=== PATIENT | male | born 1940 | race African-American/Black ===

== ENCOUNTER → 2017-12-20 13:47 | Outpatient (CLI) | payer MEDICARE, OTHER, SELFPAY ==
--- NOTE | 2017-12-20 14:00 | CT_ITS ---
STUDY: CT CHEST WITHOUT CONTRAST REASON FOR EXAM: Male, 77 years old. lung mass / nodule RADIATION DOSAGE (If Supplied By Facility): CTDIvol = ( 10.51 ) mGy, DLP = ( 370.28 ) mGycm TECHNIQUE: Transaxial imaging was performed without the administration of intravenous contrast material. Individualized dose optimization techniques were used for this CT. COMPARISON: 08.26.17 FINDINGS: There is no pneumothorax. There are emphysematous changes of the lungs with emphysematous blebs. There is no demonstrated pleural abnormality. There is a 25 mm left upper lobe nodule. This has a cavitary center. There are calcifications of the coronary arteries. Normal mediastinum. Normal hilar regions. Normal pulmonary arteries. There is atherosclerotic calcification of the aortic arch with tortuosity and elongation of the aortic arch and descending thoracic aorta. There are degenerative changes of the shoulders. There are multi-level degenerative changes of the thoracic spine. There is no demonstrated abnormality of the visualized upper abdomen. CT/Chest without Contrast IMPRESSION: Cavitary lesion is visualized in the left upper lobe. This appears relatively stable in size. Its appearance is concerning for underlying neoplasm. Electronically Signed: Carlos Wells MD at 22:45 EDT , Service support ,
== END ==
LOC: CT 13:48
PROVIDERS: Family Provider Family Medicine; PCP Family Medicine; Visit Provider Internal Medicine Critical Care Medicine
DX: R91.1 Solitary pulmonary nodule (principal)
CPT/HCPCS: 71250

== ENCOUNTER → 2018-04-04 14:13 | Outpatient (CLI) | payer MEDICARE, OTHER, SELFPAY ==
--- NOTE | 2018-04-04 14:18 | CT_ITS ---
STUDY: CT CHEST WITHOUT CONTRAST REASON FOR EXAM: Male, 77 years old. Three-month follow-up lung mass. RADIATION DOSAGE (If Supplied By Facility): CTDIvol = ( 10.52 ) mGy, DLP = ( 357.42 ) mGycm TECHNIQUE: Transaxial imaging was performed without the administration of intravenous contrast material. Multiplanar coronal and sagittal images were reformatted. Individualized dose optimization techniques were used for this CT. COMPARISON: CT of the chest, December 20, 2017. FINDINGS: Again seen are diffuse emphysematous changes of the lungs. Again noted is a large spiculated lesion in the left upper lobe measuring 2.6 x 1.6 x 2 cm. This demonstrates internal areas of gas are aeration, suggesting partial cavitation. There is big goals extending to the anterior pleural surface with mild associated pleural tenting.. There is no demonstrated pleural abnormality. Normal heart and pericardium. Normal mediastinum. Normal hilar regions. Normal unenhanced pulmonary arteries. There is atherosclerotic calcification of the aortic arch with tortuosity and elongation of the aortic arch and descending thoracic aorta. There are multi-level degenerative changes of the thoracic spine. There is no demonstrated abnormality of the visualized upper abdomen. CT/Chest without Contrast IMPRESSION: 1. Stable cavitary nodule in the left upper lobe with stranding. 2. Stable emphysematous changes without new mass or infiltrate. Electronically Signed: Trevor Verduzco DO at 14:58 EDT Tel [phone], Service support ,
== END ==
PROVIDERS: Family Provider Family Medicine; PCP Family Medicine; Visit Provider Internal Medicine Critical Care Medicine
DX: R91.8 Other nonspecific abnormal finding of lung field (principal)
CPT/HCPCS: 71250

== ENCOUNTER 2019-01-06 19:33 | Inpatient (IN) | payer MEDICARE, OTHER, SELFPAY ==
[2019-01-06 19:35] VITALS: BP 184/86; PULSE 98; RESP 19; TEMP 37.2; O2SAT 82; BMI 21.7
[2019-01-06 20:07] VITALS: BP 150/75; PULSE 97; RESP 17; O2SAT 97
--- NOTE | 2019-01-06 20:12 | EKG12_ITS ---
Test Reason : FALL Blood Pressure : / mmHG Vent. Rate : 098 BPM Atrial Rate : 098 BPM P-R Int : 224 ms QRS Dur : 072 ms QT Int : 324 ms P-R-T Axes : 053 058 074 degrees QTc Int : 413 ms Sinus rhythm with marked sinus arrhythmia with 1st degree A-V block Possible Left atrial enlargement Borderline ECG Confirmed by JESSE TANG ([id number]), sound editor JEREMIAH BANEGAS ([id number]) on 01/09/2019 4:42:30 PM Also confirmed by JESSE TANG ([id number]), sound editor JEREMIAH BANEGAS ([id number]) on 06/19/2019 3:07:59 PM Referred By: Jessica Blake Confirmed By:JESSE TANG
--- NOTE | 2019-01-06 20:12 | CT_ITS ---
STUDY: CT BRAIN WITHOUT CONTRAST REASON FOR EXAM: Male, 78 years old. Trauma RADIATION DOSAGE (If Supplied By Facility): CTDIvol = ( 44.99 ) mGy, DLP = ( 779.24 ) mGycm TECHNIQUE: Transaxial CT imaging of the brain was performed without administration of intravenous contrast material. Individualized dose optimization techniques were used for this CT. COMPARISON: No relevant priors. FINDINGS: Normal soft tissue structures. Normal calvarium. There is mild cerebral atrophy with widening of the extra-axial spaces and ventricular dilatation. There are areas of decreased attenuation within the white matter tracts of the supratentorial brain, consistent with microvascular disease changes. There are small punctate calcifications of the basal ganglia which are seen in the aging brain as a normal variant. There is an old lacunar infarct of the right basal ganglia. Normal brainstem. Normal cerebellum. There is no intracranial hemorrhage. There are no findings of an acute ischemic infarction. There is mucosal thickening of the left sphenoid sinus. CT/Brain/Head without Contrast IMPRESSION: Chronic involutional changes of the brain. Punctate calcifications in the basal ganglia which are usually idiopathic in an elderly individual. 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 There is no intracranial hemorrhage or calvarial fracture. Electronically Signed: Suman Rodriguez MD at 21:24 EDT , Service support ,
--- NOTE | 2019-01-06 20:13 | CT_ITS ---
STUDY: CT CERVICAL SPINE WITHOUT CONTRAST REASON FOR EXAM: Male, 78 years old. Status post fall. RADIATION DOSAGE (If Supplied By Facility): CTDIvol = ( 26.16 ) mGy, DLP = ( 642.09 ) mGycm TECHNIQUE: High resolution transaxial imaging was performed without contrast material. Sagittal and coronal images were reconstructed. Individualized dose optimization techniques were used for this CT. COMPARISON: None FINDINGS: Normal craniovertebral junction. Normal anterior atlantoaxial articulation. Normal odontoid process. There is straightening of the normal cervical lordosis. Normal vertebral bodies and posterior osseous elements. C2-3: Disc space narrowing. Mild spondylotic bar. There is mild canal stenosis due to shortened pedicles and spondylosis. Left facet hypertrophy. Foraminal stenosis is mild on the right and moderate on the left due to uncinate hypertrophy. C3-4: Disc space narrowing. There is a mild spondylotic bar, greater on the left. There is a small, central disc protrusion. There is mild canal stenosis due to spondylosis, disc protrusion, and shortened pedicles. Foraminal stenosis is mild on the right and moderate on the left due to uncinate hypertrophy. C4-5: Mild disc space narrowing. There is mild canal stenosis due to spondylosis and shortened pedicles. There is marked facet hypertrophy on the right. Foraminal stenosis is mild on the left and severe on the right due to uncinate and facet hypertrophy. C5-6: Disc space narrowing. There is a moderate spondylotic bar. There is severe canal stenosis due to spondylosis and shortened pedicles. There is moderate to severe foraminal stenosis, greater on the left, due to uncinate hypertrophy. C6-7: Disc space narrowing. There is mild canal stenosis due to spondylosis and shortened pedicles. There is severe bilateral foraminal stenosis due to uncinate hypertrophy. C7-T1: Normal endplates. Normal disc height and morphology. There is 2 mm anterolisthesis. Normal central canal. There is mild foraminal encroachment due to uncinate hypertrophy. There is moderate prevertebral edema from C3 through C6 levels. There is mild paraseptal emphysema in the lung apices. CT/Spine Cervical without Contras IMPRESSION: 1. No demonstrated cervical trauma. If the patient has acute, focal neurologic findings, MRI is advised to evaluate for cord contusion. 2. Severe degenerative changes of the cervical spine. 3. Prevertebral edema may indicate ligamentous injury. Electronically Signed: Valeria Sampson MD at 21:06 EDT Tel , Service support ,
[2019-01-06 20:25] LABS: Bacteria 0 SEEN /hpf (None Seen); Mucous, Urine 0 SEEN /hpf (<or=2+); Squamous Epithelial Cells - UA 0 SEEN /hpf (0-5)
--- NOTE | 2019-01-06 20:25 | RAD_ITS ---
STUDY: X-RAY CHEST REASON FOR EXAM: Male, 78 years old. Trauma TECHNIQUE: Single AP portable view of the chest. COMPARISON: Previous study of 09/15/2017 FINDINGS: electronic device monitor leads are present. The lungs are clear and expanded. The left hemidiaphragm is elevated. Normal size heart. Normal mediastinum and bryan. Normal visualized pulmonary arteries. There are calcified plaques of the aortic arch. Normal visualized thoracic spine. There is a region of broad scalloping of the superior aspect of the posterior right fourth rib, similar to the previous study. There is no demonstrated abnormality of the visualized soft tissue structures of the upper abdomen. RAD/Chest 1 View (Portable) IMPRESSION: Elevated left hemidiaphragm. Calcified plaques of the aortic arch. Region of broad-based scalloping of the posterior right fourth rib. This is of unknown etiology, but appears stable from the previous study. No acute cardiopulmonary disease process is seen. Electronically Signed: Suman Rodriguez MD at 20:52 EDT , Service support ,
[2019-01-06 20:26] LABS: Color, Urine Yellow (Yellow); Glucose, Dipstick Normal (Normal); Ketone-Dipstick 5 mg/dl (Negative); Leukocyte Esterase-Dipstick Negative /ul (Negative); Nitrite-Dipstick Negative (Negative); Occult Blood-Urine 150 /ul (Negative); Protein-Dipstick 100 mg/dl (Negative); Urine Clarity Clear (Clear); Urine Urobilinogen 8 mg/dl (Normal)
--- NOTE | 2019-01-06 20:30 | ED.RN ---
this rn tried to contact pt daughter carlito per pt request. phone number [phone]. no answer, unable to leave voicemail. will continue to monitor.
[2019-01-06 20:32] LABS: Urine Bilirubin Dipstick 1 mg/dL (Negative)
[2019-01-06 20:34] LABS: Fine Granular Cast- Urine 0-5 SEEN /lpf (0-5); Hyaline Cast 0-5 SEEN /lpf (0-5)
[2019-01-06 20:35] LABS: Coarse Granular Cast 0-5 SEEN /lpf (0-5 /lpf)
--- NOTE | 2019-01-06 20:37 | ED.VISSUMM ---
- ER Visit Summary Date of Service: 01/06/19 Chief Complaint: Fall, generalized weakness History of Present Illness: The patient is a 78 M presenting after fall. Patient states he has fallen frequently over the past 2 days. He states he has fallen 3 times. He states he loses his balance and falls. He was unable to get up today after the fall. He did hit his head. Denies loss of consciousness. Denies other injury with the fall. He states he just feels generally weak and tired. He denies chest pain. He has chronic shortness of breath. Physical Examination: Vitals are stable. Patient is afebrile. Alert no acute distress. HEENT exam is unremarkable. Neck is supple. Mild diffuse tenderness Lungs are clear and equal bilaterally. Heart is regular rate and rhythm. Abdomen is soft nontender nondistended. Extremities are unremarkable. Skin is warm and dry. No focal neurologic deficit. Remainder of exam is unremarkable. Emergency Department Course and Treatment: EKG is sinus rate of 98. CBC shows white count 16.5. Chemistry shows sodium 127, potassium 3.1, glucose 146, creatinine 1.59. Urinalysis unremarkable. Troponin negative. Chest x-ray shows no acute process. CT cervical spine shows no evidence of fracture. CT head shows chronic changes. Due to patient's frequent falling and debility, discussed with the hospitalist for admission. Disposition: Admission Impression: Frequent falls, debility This note was generated with [employer] dictation software. It may contain incorrect words, spelling, and punctuation that were not noted in review of the chart prior to signing ED Disposition - Plan for ED Patient: Referrals: Ariel Ferro MD [Primary Care Provider] -
[2019-01-06 20:38] LABS: Red Blood Cells-Urine 0-5 SEEN /hpf (0-5)
[2019-01-06 20:39] LABS: White Blood Cells 0-5 SEEN /hpf (0-5)
[2019-01-06 20:44] LABS: Absolute Lymphocyte Count 0.82 X10^3/ul (0.83-4.51); Absolute Neutrophil Count 15.2 X10^3/uL (2.0-7.7); Basophil# 0.02 X10^3/uL; Basophil% 0.1 % (0-1); Hematocrit 36.2 % (40-54); Hemoglobin 13.2 g/dl (13.0-16.5); Lymphocyte # 0.82 X10^3/ul (4.0); Mean Corp Hgb Conc 36.5 g/gl (32-36); Mean Corpuscular Hgb 32.3 pg (27.0-32.0); Mean Corpuscular Volume 88.5 fL (80-94); Mean Platelet Vol. 10.3 fl (6.2-12.0); Monocyte# 0.44 X10^3/uL; Monocyte% 2.7 % (0-10); Neutrophil # 15.18 X10^3/uL (2.7-7.7); Neutrophil % 91.9 % (47-70); POSITIVE COUNT NO; POSITIVE DIFFERENTIAL NO; POSITIVE MORPHOLOGY NO; Platelet Count 184 K/mm3 (150-450); RBC Distribution Width SD 42.5 fl (35.1-43.9); Red Blood Count 4.09 M/mm3 (4.6-6.2); White Blood Count 16.5 K/mm3 (4.4-11.0)
[2019-01-06 21:02] LABS: Anion Gap 10 (5-15); BUN 24 mg/dL (7-18); BUN/Creat Ratio 15.1 RATIO (10-20); Calcium,Total 8.4 mg/dL (8.5-10.1); Chloride 90 mmol/L (98-107); Creatinine, Serum 1.59 mg/dL (0.70-1.30); EST Glomerular Filtration Rate 45 mL/min (>60); Est Glom Filt Rate - Afr Amer 54 mL/min (>60); Estimated Creatinine Clearance 39.26 ml/min; Glucose 146 mg/dL (74-106); Potassium 3.1 mmol/L (3.5-5.1); Sodium Level 127 mmol/L (136-145)
--- NOTE | 2019-01-06 21:39 | HP.PCM_ITS ---
Problem List (1) Diabetic foot infection Status: Acute (2) Hyponatremia Status: Acute (3) Hypokalemia Status: Acute (4) Asthma Status: Chronic Qualifiers: Asthma severity: mild Asthma persistence: intermittent Asthma complication type: uncomplicated Qualified Code(s): J45.20 - Mild intermittent asthma, uncomplicated (5) Tobacco abuse Status: Chronic (6) Lung mass Status: Acute Comment: Approximately 2 cm left upper lobe cavitary lesion (7) COPD (chronic obstructive pulmonary disease) Status: Chronic Qualifiers: COPD type: emphysema Emphysema type: centrilobular Qualified Code(s): J43.2 - Centrilobular emphysema; J43.2 - Centrilobular emphysema; J43.2 - Centrilobular emphysema; J43.2 - Centrilobular emphysema (8) Diabetes mellitus Status: Chronic Qualifiers: Diabetes mellitus type: type 2 Diabetes mellitus buttermaker insulin use: without nursing home use Diabetes mellitus complication status: with unspecified complications Qualified Code(s): E11.8 - Type 2 diabetes mellitus with unspecified complications (9) HTN (hypertension) Status: Chronic Qualifiers: Hypertension type: essential hypertension Qualified Code(s): I10 - Essential (primary) hypertension (10) Hyperlipidemia Status: Chronic (11) Chronic steroid use Status: Chronic History of Present Illness Date of Admission: 01/06/19 Chief Complaint: Mechanical fall, debility The patient is a 78 y/o M w/ PMHx: CKD stage III, Chronic COPD/Asthma, Diabetes mellitus type II, HTN, HLD, Tobacco use, Chronic hyponatremia (128-133) who presents to the [facility] ED on 01/06/19 with history of mechanical fall, 3 times on day of ED presentation, in his home, could not standup, EMS called and he could not even ambulate with them secondary to severe debility. Work-up in the ED included T 99, heart rate 98, BP initially 184/86 with repeat 150/75, respiratory rate 19, initially 82% on room air with improvement to 92% on RA, CBC with WBC 16.5, heme globin 13.2, platelet 184 with left shift, BMP with sodium 127, potassium 3.1, chloride 90, BUN/creatinine 24/1.59, glucose 146, troponin less than 0.015, urinalysis with evidence of dehydration otherwise no obvious infection, CT brain with chronic involutional changes, punctate calcifications in the basal ganglia idiopathic usually in the elderly, old lacunar infarct in the right basal ganglia, chronic left sphenoid sinusitis, no evidence of intracranial hemorrhage or calvarial fracture, cervical CT spine with no demonstrated cervical trauma, severe degenerative changes of the cervical spine, possibly prevertebral edema suspicious for ligamentous injury, chest x-ray with elevated left hemidiaphragm, calcified plaques of the aortic ar ch, broad-based scalloping of the posterior right fourth rib of unknown etiology but stable from prior studies with no acute cardiopulmonary findings. 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 Discussed with the ED physician and plain film of the foot requested. Also requested that patient be initiated on broad-spectrum antibiotic therapy given presentation with WBC elevation with left shift with unclear initial etiology but now likely frequent falls and presentation associated. Discussed patient status at length and he does admit that he frequently works and is in stagnant water and unclear how often he actually changes his socks which were caked onto his lower extremity and difficult to remove. Past Medical History Past Medical History (Chronic Problems): Chronic Problems (Last Reviewed 08/04/18 @ 13:58 by Jaclyn Luna) Chronic steroid use (Chronic) Asthma (Chronic) Cough (Chronic) Tobacco abuse (Chronic) COPD (chronic obstructive pulmonary disease) (Chronic) Diabetes mellitus (Chronic) HTN (hypertension) (Chronic) Hyperlipidemia (Chronic) Medical History: Medical History (Last Reviewed 08/04/18 @ 13:58 by Jaclyn Luna) Colonoscopy planned (Resolved) Asthma (Chronic) J45.909 Cough (Chronic) R05 Dyspnea (Acute) R06.00 Tobacco abuse (Chronic) Z72.0 Lung mass (Acute) R91.8 Approximately 2 cm left upper lobe cavitary lesion COPD (chronic obstructive pulmonary disease) (Chronic) J44.9 Hypoxia (Acute) R09.02 Diabetes mellitus (Chronic) E11.9 HTN (hypertension) (Chronic) I10 Hyperlipidemia (Chronic) E78.5 ZACHARY (acute kidney injury) (Acute) N17.9 Pneumonia (Acute) J18.9 Sepsis (Acute) A41.9 Hyponatremia (Acute) E87.1 Allergies No Known Allergies Allergy (Verified 09/15/17 09:11) Home Medications: Ambulatory Orders Medication Instructions Recorded Amlodipine [Norvasc] 10 mg PO DAILY 04/30/14 Atenolol [Tenormin (beta lisa)] 100 mg PO DAILY 04/30/14 Aspirin E.C. [Ecotrin] 81 mg PO DAILY@0800 01/27/17 Atorvastatin Calcium 40 mg PO QHS 01/27/17 Lisinopril [Zestril] 2.5 mg PO DAILY 01/27/17 predniSONE tablet 40 mg PO DAILY@0800 4 Days tab 01/29/17 hydroCHLOROthiazide 12.5 mg PO DAILY 08/06/17 [Hydrochlorothiazide] Fluad 65yr up(PF)45 mcg(15 0.5 ml IM ONCE #0.5 ml NS 09/03/17 mcgx3)/0.5 mL intramuscular syringe albuterol sulfate HFA 90 1 puff INHALATION Q4H PRN PRN #1 01/03/18 mcg/actuation aerosol inhaler inhaler potassium chloride ER 10 mEq 10 meq PO DAILY 08/04/18 capsule,extended release Surgical History: Surgical History (Last Reviewed 08/04/18 @ 13:58 by Jaclyn Luna) H/O hernia repair (Resolved) Z98.890, Z87.19 History of appendectomy (Resolved) Z90.49 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 Psychiatric History: No pertinent psych hx Lives: With Family - Patient notes that he lives with family. Smoking Status: Current every day smoker - Patient notes 1 pack of cigarettes last him 1.5 days. Tobacco Use: Cigarettes Alcohol: None Drugs: None - *Family History Maternal Family History: Family History (Last Reviewed 08/04/18 @ 13:58 by Jaclyn Luna) Mother Hypertension Asthma Father Hypertension Sister Hypertension Brother Hypertension History Items: Heart Disease, Hypertension Paternal Family History: Family History (Last Reviewed 08/04/18 @ 13:58 by Jaclyn Luna) Mother Hypertension Asthma Father Hypertension Sister Hypertension Brother Hypertension History Items: Heart Disease, Hypertension Review of Systems Constitutional: Reports: Anorexia, Malaise, Weakness, Fatigue. Denies: Chills, Fever, Weight Change HEENT: Denies: Head Aches, Sinus Congestion, Sinus Drainage Cardiovascular: Denies: Chest Pain, Palpitations Respiratory: Reports: Shortness of breath upon exertion. Denies: Cough, Shortness of breath at rest, Sputum production, Wheezing Gastrointestinal: Denies: Abdominal Pain, Nausea, Vomiting Genitourinary: Denies: Dysuria Musculoskeletal: Reports: Foot Pain, Joint Pain. Denies: Joint Tenderness Skin: Reports: Skin Changes, Wounds. Denies: Rash Neurological: Reports: Numbness, - - Frequent falls.. Denies: Focal weakness, Tingling Psychiatric: Denies: Anxiety, Depression, Homicidal Ideations, Suicidal Ideations Hematologic/ Lymphatic: Reports: Anemia, Easy Bruising, Easy Bleeding VTE Information - Inpt Only VTE Present on Admission: No VTE Mechan Device Prophylaxis: SCD's VTE Pharm Prophylaxis ordered?: Yes Patient Problems: Active and Suspected Problems (Last Reviewed 08/04/18 @ 13:58 by Jaclyn Luna) Diabetic foot infection (Acute) Hypokalemia (Acute) Subjective: Seated upright in the ED bed, fatigued appearing, foul smell in the room, unkempt appearing. Objective: Physical Examination: General: awake, alert, oriented x 3 and cooperative, seated upright in the ED bed in no apparent distress. Skin: normal color, turgor, no icterus, cyanosis except notable right foot diabetic appearing foot infection, macerated, obvious prior amputations, foul- smelling, abrasions to the chow, abrasion but noninfected appearance to the left BKA stump following removal of patient prosthesis. HEENT: AT/NC, EOMI, PERRLA, dry MM, no carotid bruits or JVD noted. Lungs: Diminished breath sounds throughout, greater bilateral bases, moderate effort, no rales, rhonchi or wheezing. Heart: Regular rate and rhythm; no gallop, rub audible. Abdomen: soft, thin habitus, NTTP, ND, normal BS, no HSM. Extremities: no cyanosis, clubbing, see skin, prior to viewing patient right foot nearly had the pill patient very firm a sock off which appears as if it had not been changed in several days. Neurological: patient awake, alert, oriented x 3; cognitive function intact; pupils equally reactive to light and accomodation; cranial nerves II-XII grossly normal, moving all 4 extremities, no focal deficits, strength severely globally decreased secondary to acute presentation. Psychiatric: affect appears fatigued, flat, disheveled appearance, no acute evidence of depressive or anxiety feelings. - Physical Exam Vital Signs Temp Pulse Resp BP Pulse Ox 99.0 F 97 17 150/75 H 97 01/06/19 19:35 01/06/19 20:07 01/06/19 20:07 01/06/19 20:07 01/06/19 20:07 Oxygen Delivery Method Room Air Weight: 159 lb 13.362 oz Body Mass Index (BMI) 21.7 Laboratory Tests Past 24 Hrs 01/06/19 01/06/19 01/06/19 19:45 20:25 20:25 WBC 16.5 H RBC 4.09 L Hgb 13.2 Hct 36.2 L MCV 88.5 MCH 32.3 H MCHC 36.5 H RDW 13.0 RDW Differential 42.5 Plt Count 184 MPV 10.3 Immature Gran % (Auto) 0.300 Neut % (Auto) 91.9 H Lymph % (Auto) 5.0 L [place] % (Auto) 2.7 Eos % (Auto) 0.0 Baso % (Auto) 0.1 Absolute Neuts (auto) 15.2 H Absolute Lymphs (auto) 0.82 L Total Counted Not Reportable Sodium 127 L Potassium 3.1 L Chloride 90 L Carbon Dioxide 27.0 Anion Gap 10 BUN 24 H Creatinine 1.59 H Estim Creat Clear Calc 39.26 Est GFR (MDRD) Af Amer 54 L Est GFR (MDRD) Non-Af 45 L BUN/Creatinine Ratio 15.1 Glucose 146 H Calcium 8.4 L Troponin I < 0.015 Urine Color Yellow Urine Clarity Clear Urine pH 5.0 Ur Specific [place] 1.020 Urine Protein 100 H Urine Glucose (UA) Normal Urine Ketones 5 H Urine Occult Blood 150 H Urine Nitrite Negative Urine Bilirubin 1 H Urine Urobilinogen 8 H Ur Leukocyte Esterase Negative Urine RBC 0-5 SEEN Urine WBC 0-5 SEEN Ur Squamous Epith Cells 0 SEEN Urine Bacteria 0 SEEN Hyaline Casts 0-5 SEEN Fine Granular Casts 0-5 SEEN Coarse Granular Casts 0-5 SEEN Urine Mucus 0 SEEN Assessment/Plan All Active Problems (Last Reviewed 08/04/18 @ 13:58 by Jaclyn Luna) Diabetic foot infection (Acute) Hypokalemia (Acute) H/O hernia repair (Resolved) History of appendectomy (Resolved) Colonoscopy planned (Resolved) Amputation of left lower extremity below knee (Resolved) Dyspnea (Acute) Lung mass (Acute) Hypoxia (Acute) ZACHARY (acute kidney injury) (Acute) Pneumonia (Acute) Sepsis (Acute) Hyponatremia (Acute) The patient is a 78 y/o M w/ PMHx: CKD stage III, Chronic COPD/Asthma, Diabetes mellitus type II, HTN, HLD, Tobacco use, Chronic hyponatremia (128-133) who presents to the [facility] ED on 01/06/19 with history of mechanical fall, 3 times on day of ED presentation, in his home, could not standup, EMS called and he could not even ambulate with them secondary to severe debility. (1) RLE Diabetic Foot Infection: Will admit to [facility], requested ED to obtain plain film 3-view R foot, suspect possibility of osteomyelitis given appearance vanc and zosyn in interim, consult infection disease as well as podiatry, no obvious discharge currently but if starts will obtain Wound Cx and Wound MRSA PCR, plan repeat CBC in AM, continue affected extremity elevation above heart when seated and in bed, monitor erythema outline with VS checks. (2) Acute on Chronic Hyponatremia: Admission Na 127, baseline from prior appears routinely low 130s, given elevated SG and presentation suspect mild hypovolemia, dehydration coupled w/ chronic HCTZ usage, will gently hydrate, repeat BMP in AM. Temporarily holding HCTZ, likely contributes to the chronic component. (3) Mechanical Falls, Frequent, Debility, Failure to Thrive: CT brain with chronic involutional changes, punctate calcifications in the basal ganglia idiopathic usually in the elderly, old lacunar infarct in the right basal ganglia, chronic left sphenoid sinusitis, no evidence of intracranial hemorrhage or calvarial fracture, cervical CT spine with no demonstrated cervical trauma, s evere degenerative changes of the cervical spine, possibly prevertebral edema suspicious for ligamentous injury. Patient admits frequent falls, likely acute on chronic with acute presentation w/ #1, continue treatment as noted, PT, OT, CM consulted for discharge planning. (4) Hypokalemia: Admission K+ 3.1, supplementation given, repeat level in AM. (5) CKD stage III: Admission BUN/Cr 24/1.59, baseline appears 1.2-1.4, suspect mild dehydration, hydrating as noted, repeat BMP in AM. (6) Chronic COPD/Asthma: Encouraged tobacco cessation, continue ATC duonebs, PRN albuterol, HOB, IS parameters. (7) Diabetes mellitus type II: Hold oral home regimen, continue home insulin regimen, ADA diet, accu checks w/ ISS, HgbA1c pending, nutrition for education and teaching. (8) Documented Known Lung Mass: Noted history of IMELDA lung mass, known history, encouraged continued appropriate evaluation and treatment. (9) Hypertension: Continue home regimen including Norvasc, atenolol, lisinopril, holding hydrochlorothiazide temporarily given acute on chronic hyponatremia, resume once appropriate, PRN hydralazine. (10) Hyperlipidemia: Continue home statin regimen. (11) Tobacco Abuse: Encouraged cessation, inpatient consultation per RT, NR if desired. (12) Severe Protein Calorie Malnutrition: Evidenced per habitus, muscle and fat loss on examination, nutrition consulted. (13) Chronic Steroid Usage: From discussions, on steroids secondary to chronic severe COPD, will continue, although complicates acute presentation. Will need to clarify with patient family if from recent exacerbation or if chronic per patient current suggestion. (14) DVT Prophylaxis: SCDs, renally dosed lovenox. Code Visit Inpatient E&M: 34017 Init Hosp L3
--- NOTE | 2019-01-06 22:15 | RAD_ITS ---
STUDY: X-RAY - RIGHT FOOT CLINICAL: Male, 78 years old. Infection open wound prior amputation site TECHNIQUE: 3 view(s) of the foot. COMPARISON: None. FINDINGS: There is a plantar calcaneal spur. Normal visualized subtalar, talonavicular, calcaneocuboid, tarsal and tarsometatarsal articulations. There is demineralization of the metatarsi. Normal metatarsophalangeal joint of the great toe. Normal tibial and fibular sesamoid bones. Normal interphalangeal joint of the great toe. Normal phalanges of the great toe. There is been amputation of the second and third digits. There is visualized soft tissue erosion adjacent to the first proximal phalanx. There is an erosive appearance of the distal phalanx of the first digit. There is bony demineralization of the proximal phalanx. There is a fairly well-corticated appearance of the distal second and third metatarsals. RAD/Foot min 3 Views IMPRESSION: Focal ulceration adjacent to the lateral first digit. Bony demineralization consider possible developing early bony changes of osteomyelitis in the proximal phalanx of the first digit. Recommend consideration for follow-up MRI when appropriate. Age-indeterminate erosion of the distal phalanx of the first digit. Electronically Signed: Yeimi Muñoz MD at 22:40 EDT Tel , Service support ,
[2019-01-06 22:20] VITALS: BP 185/73; PULSE 101; RESP 17; TEMP 37.7; O2SAT 96
[2019-01-06 23:07] VITALS: BP 156/83; PULSE 92; RESP 18; TEMP 37.4; O2SAT 94
[2019-01-06 23:14] VITALS: BMI 19.7
[2019-01-06] MEDS: Vancomycin IV 1,000 MG/200 ML BAG 200 MG IV (23:28)
[2019-01-06 23:32] VITALS: BMI 19.7
[2019-01-06 23:56] LABS: Bedside Glucose 144 mg/dL (70-110)
[2019-01-07] VITALS (9 sets, daily range): BP systolic 133–149; BP diastolic 55–68; PULSE 78–93; RESP 16–26; TEMP 36.7–38.3; O2SAT 94–100
[2019-01-07] MEDS: 0.9% Normal Saline 1,000 ML 100 ML IV ×3 (00:09→20:12)
[2019-01-07 00:17] LABS: Hemoglobin A1c 6.2 % (4.2-6.3)
--- NOTE | 2019-01-07 01:17 | PCM.RX.CS ---
Consult Pharmacy has been consulted to manage selected antiobiotic: Vancomycin Type of Consult: New start Suspected Infection: Skin/Soft tissue Prior Doses of Antibiotics Received/Current Regimen: VANCOMYCIN 1000MG iv X1 IN ED 01/06/19 @2328 Labs: Sodium 127 mmol/L (136-145) L 01/06/19 20:25 Potassium 3.1 mmol/L (3.5-5.1) L 01/06/19 20:25 Chloride 90 mmol/L (98-107) L 01/06/19 20:25 Carbon Dioxide 27.0 mmol/L (21.0-32.0) 01/06/19 20:25 Anion Gap 10 (5-15) 01/06/19 20:25 BUN 24 mg/dL (7-18) H 01/06/19 20:25 Creatinine 1.59 mg/dL (0.70-1.30) H 01/06/19 20:25 Est GFR (MDRD) Af Amer 54 mL/min (>60) L 01/06/19 20:25 Est GFR (MDRD) Non-Af 45 mL/min (>60) L 01/06/19 20:25 BUN/Creatinine Ratio 15.1 RATIO (10-20) 01/06/19 20:25 Glucose 146 mg/dL (74-106) H 01/06/19 20:25 Weight used for dosin kg Estimated Creatinine Clearance: 39ML/MIN Goal Trough: 10-15 mcg/mL Pharmacy Plan for Drug Dosing: PLAN/RECOMMENDATIONS 1. Vancomycin 750mg IV Q24hr to start 01/07/19 @2300 2. Trough scheduled for 01/08/19 @2230, prior to 3rd total dose per protocol 3. Pharmacy Service will continue to monitor and adjust dosing as required.
[2019-01-07] MEDS: Acetaminophen 325 MG Tablet 650 MG PO (04:41)
[2019-01-07 06:50] LABS: Bedside Glucose 118 mg/dL (70-110)
[2019-01-07] MEDS: Ipratropium/Albuterol Sulfate 3 ML AMPUL.NEB INHALATION ×3 (06:58→19:09)
[2019-01-07 07:15] LABS: Absolute Lymphocyte Count 0.48 X10^3/ul (0.83-4.51); Absolute Neutrophil Count 9.4 X10^3/uL (2.0-7.7); Basophil# 0.02 X10^3/uL; Basophil% 0.2 % (0-1); Hematocrit 31.6 % (40-54); Hemoglobin 11.3 g/dl (13.0-16.5); Lymphocyte # 0.48 X10^3/ul (4.0); Lymphocyte % 4.7 % (19-41); Mean Corp Hgb Conc 35.8 g/gl (32-36); Mean Corpuscular Hgb 31.5 pg (27.0-32.0); Mean Platelet Vol. 11.4 fl (6.2-12.0); Monocyte% 3.9 % (0-10); Neutrophil # 9.38 X10^3/uL (2.7-7.7); Platelet Count 168 K/mm3 (150-450); RBC Distribution Width CV 12.5 % (11.6-14.6); Red Blood Count 3.59 M/mm3 (4.6-6.2); White Blood Count 10.3 K/mm3 (4.4-11.0)
[2019-01-07 07:16] LABS: Differential Indicated SCAN CRITERIA MET; POSITIVE COUNT NO; POSITIVE DIFFERENTIAL YES; POSITIVE MORPHOLOGY NO
[2019-01-07 07:27] LABS: Anion Gap 8 (5-15); BUN 23 mg/dL (7-18); BUN/Creat Ratio 14.6 RATIO (10-20); Calcium,Total 8.1 mg/dL (8.5-10.1); Chloride 96 mmol/L (98-107); Creatinine, Serum 1.58 mg/dL (0.70-1.30); EST Glomerular Filtration Rate 45 mL/min (>60); Est Glom Filt Rate - Afr Amer 55 mL/min (>60); Estimated Creatinine Clearance 35.97 ml/min; Glucose 114 mg/dL (74-106); Potassium 3.1 mmol/L (3.5-5.1); Sodium Level 128 mmol/L (136-145)
[2019-01-07 07:41] LABS: Differential Comment SCANNED
[2019-01-07] MEDS: amLODIPine 10 MG Tablet PO (08:29)
[2019-01-07] MEDS: Aspirin E.C. 81 MG Tablet PO (08:29)
[2019-01-07] MEDS: Atenolol 100 MG Tablet PO (08:29)
[2019-01-07] MEDS: Lisinopril 2.5 MG Tablet PO (08:29)
[2019-01-07] MEDS: predniSONE 20 MG Tablet 40 MG PO (08:29)
[2019-01-07] MEDS: Enoxaparin 30 MG/0.3 ML Syringe SC (08:31)
[2019-01-07] MEDS: Glucerna Shake 120 ML LIQUID PO ×3 (08:32→18:13)
--- NOTE | 2019-01-07 09:28 | CON.PCM_ITS ---
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 He reports the onset was 5 years ago. He is intermittently sleeping during the examination and is at times difficult to hear. He was initially admitted secondary to falling at home. He has mild to moderate foot pain. He denies fever, chill, nausea, vomiting, chest pain, shortness of breath, calf pain. He denies claudication symptoms or rest tingling or burning. He is not able to tell me if he does ambulate or if he wears a prosthetic device in the left lower extremity at his below-knee amputation site. He has demonstrating debilitation. Past Medical History Past Medical History (Chronic Problems): Chronic Problems (Last Reviewed 08/04/18 @ 13:58 by Jaclyn Luna) Chronic steroid use (Chronic) Ulcer of right foot with necrosis of bone (Chronic) Other specified peripheral vascular diseases (Chronic) Type 2 diabetes mellitus with diabetic polyneuropathy (Chronic) Osteomyelitis of right foot (Chronic) Asthma (Chronic) Cough (Chronic) Tobacco abuse (Chronic) COPD (chronic obstructive pulmonary disease) (Chronic) Diabetes mellitus (Chronic) HTN (hypertension) (Chronic) Hyperlipidemia (Chronic) Medical History: Medical History (Last Reviewed 08/04/18 @ 13:58 by Jalcyn Luna) Colonoscopy planned (Resolved) Asthma (Chronic) J45.909 Cough (Chronic) R05 Dyspnea (Acute) R06.00 Tobacco abuse (Chronic) Z72.0 Lung mass (Acute) R91.8 Approximately 2 cm left upper lobe cavitary lesion COPD (chronic obstructive pulmonary disease) (Chronic) J44.9 Hypoxia (Acute) R09.02 Diabetes mellitus (Chronic) E11.9 HTN (hypertension) (Chronic) I10 Hyperlipidemia (Chronic) E78.5 ZACHARY (acute kidney injury) (Acute) N17.9 Pneumonia (Acute) J18.9 Sepsis (Acute) A41.9 Hyponatremia (Acute) E87.1 Allergies No Known Allergies Allergy (Verified 09/15/17 09:11) Home Medications: Ambulatory Orders Medication Instructions Recorded Amlodipine [Norvasc] 10 mg PO DAILY 04/30/14 Atenolol [Tenormin (beta lisa)] 100 mg PO DAILY 04/30/14 Aspirin E.C. [Ecotrin] 81 mg PO DAILY@0800 01/27/17 Atorvastatin Calcium 40 mg PO QHS 01/27/17 Lisinopril [Zestril] 2.5 mg PO DAILY 01/27/17 predniSONE tablet 40 mg PO DAILY@0800 4 Days tab 01/29/17 hydroCHLOROthiazide 12.5 mg PO DAILY 08/06/17 [Hydrochlorothiazide] Fluad 65yr up(PF)45 mcg(15 0.5 ml IM ONCE #0.5 ml NS 09/03/17 mcgx3)/0.5 mL intramuscular syringe albuterol sulfate HFA 90 1 puff INHALATION Q4H PRN PRN #1 01/03/18 mcg/actuation aerosol inhaler inhaler potassium chloride ER 10 mEq 10 meq PO DAILY 08/04/18 capsule,extended release Surgical History: Surgical History (Last Reviewed 08/04/18 @ 13:58 by Jaclyn Luna) H/O hernia repair (Resolved) Z98.890, Z87.19 History of appendectomy (Resolved) Z90.49 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 Psychiatric History: No pertinent psych hx Lives: With Family - Patient notes that he lives with family. Smoking Status: Current every day smoker - Patient notes 1 pack of cigarettes last him 1.5 days. Tobacco Use: Cigarettes Alcohol: None Drugs: None - *Family History Maternal Family History: Family History (Last Reviewed 08/04/18 @ 13:58 by Jaclyn Luna) Mother Hypertension Asthma Father Hypertension Sister Hypertension Brother Hypertension History Items: Heart Disease, Hypertension Paternal Family History: Family History (Last Reviewed 08/04/18 @ 13:58 by Jaclyn Luna) Mother Hypertension Asthma Father Hypertension Sister Hypertension Brother Hypertension History Items: Heart Disease, Hypertension Review of Systems Constitutional: Reports: Weakness. Denies: Chills, Fever Cardiovascular: Denies: Chest Pain, Claudication Gastrointestinal: Denies: Nausea, Vomiting Musculoskeletal: Reports: Foot Pain. Denies: Joint Tenderness, Leg Pain Skin: Reports: Skin Changes, Wounds Neurological: Reports: Balance problems. Denies: Numbness Hematologic/ Lymphatic: Reports: Easy Bruising Patient Problems: Active and Suspected Problems (Last Reviewed 08/04/18 @ 13:58 by Jaclyn Luna) Diabetic foot infection (Acute) Hypokalemia (Acute) - Physical Exam General: Alert, Cooperative, No apparent distress, Lethargic HEENT: Atraumatic Skin: Ulcer/ Wound - Skin discontinuity to distal right hallux measures approximately 0.6 x 0.7 x 0.6 cm deep with positive probe to bone that feels firm. The ulcer bed is fibrous. The skin is atrophic and hairless. There is no interdigital maceration. Musculoskeletal: No Tenderness to Palpation of Joints or Extremities, Muscle Wasting, - - Central lesser toe amputations are noted on the right foot. Left below-knee amputation noted. Compartments remain soft to palpate right lower extremity. Active range of motion of the digits and ankle is limited to the right lower extremity. Neurological: - - Lack of full sensation to light touch right foot Psych/Mental Status: Normal Affect, Appropriate Vital Signs Temp Pulse Resp BP Pulse Ox 99.6 F H 86 18 149/57 H 94 01/07/19 05:46 01/07/19 06:58 01/07/19 06:58 01/07/19 04:36 01/07/19 06:58 Oxygen Flow Rate (L/min) 2 Oxygen Delivery Method Room Air Weight: 66 kg Body Mass Index (BMI) 19.7 Intake and Output for Last 24 Hours 01/05/19 01/06/19 01/07/19 23:59 23:59 23:59 Intake Total 1041 / 1041 Output Total 275 / 275 Balance 766 / 766 Laboratory Tests Past 24 Hrs 01/06/19 01/06/19 01/06/19 19:45 20:25 20:25 WBC 16.5 H RBC 4.09 L Hgb 13.2 Hct 36.2 L MCV 88.5 MCH 32.3 H MCHC 36.5 H RDW 13.0 RDW Differential 42.5 Plt Count 184 MPV 10.3 Immature Gran % (Auto) 0.300 Neut % (Auto) 91.9 H Lymph % (Auto) 5.0 L [place] % (Auto) 2.7 Eos % (Auto) 0.0 Baso % (Auto) 0.1 Absolute Neuts (auto) 15.2 H Absolute Lymphs (auto) 0.82 L Total Counted Not Reportable Differential Comment Sodium 127 L Potassium 3.1 L Chloride 90 L Carbon Dioxide 27.0 Anion Gap 10 BUN 24 H Creatinine 1.59 H Estim Creat Clear Calc 39.26 Est GFR (MDRD) Af Amer 54 L Est GFR (MDRD) Non-Af 45 L BUN/Creatinine Ratio 15.1 Glucose 146 H Hemoglobin A1c Calcium 8.4 L Magnesium Troponin I < 0.015 Urine Color Yellow Urine Clarity Clear Urine pH 5.0 Ur Specific [place] 1.020 Urine Protein 100 H Urine Glucose (UA) Normal Urine Ketones 5 H Urine Occult Blood 150 H Urine Nitrite Negative Urine Bilirubin 1 H Urine Urobilinogen 8 H Ur Leukocyte Esterase Negative Urine RBC 0-5 SEEN Urine WBC 0-5 SEEN Ur Squamous Epith Cells 0 SEEN Urine Bacteria 0 SEEN Hyaline Casts 0-5 SEEN Fine Granular Casts 0-5 SEEN Coarse Granular Casts 0-5 SEEN Urine Mucus 0 SEEN 01/06/19 01/06/19 01/07/19 20:25 20:25 06:40 WBC RBC Hgb Hct MCV MCH MCHC RDW RDW Differential Plt Count MPV Immature Gran % (Auto) Neut % (Auto) Lymph % (Auto) [place] % (Auto) Eos % (Auto) Baso % (Auto) Absolute Neuts (auto) Absolute Lymphs (auto) Total Counted Differential Comment Sodium 128 L Potassium 3.1 L Chloride 96 L Carbon Dioxide 24.0 Anion Gap 8 BUN 23 H Creatinine 1.58 H Estim Creat Clear Calc 35.97 Est GFR (MDRD) Af Amer 55 L Est GFR (MDRD) Non-Af 45 L BUN/Creatinine Ratio 14.6 Glucose 114 H Hemoglobin A1c 6.2 Calcium 8.1 L Magnesium 2.0 Troponin I Urine Color Urine Clarity Urine pH Ur Specific [place] Urine Protein Urine Glucose (UA) Urine Ketones Urine Occult Blood Urine Nitrite Urine Bilirubin Urine Urobilinogen Ur Leukocyte Esterase Urine RBC Urine WBC Ur Squamous Epith Cells Urine Bacteria Hyaline Casts Fine Granular Casts Coarse Granular Casts Urine Mucus 01/07/19 06:40 WBC 10.3 RBC 3.59 L Hgb 11.3 L Hct 31.6 L MCV 88.0 MCH 31.5 MCHC 35.8 RDW 12.5 RDW Differential 39.0 Plt Count 168 MPV 11.4 Immature Gran % (Auto) 0.200 Neut % (Auto) 91.0 H Lymph % (Auto) 4.7 L [place] % (Auto) 3.9 Eos % (Auto) 0.0 Baso % (Auto) 0.2 Absolute Neuts (auto) 9.4 H Absolute Lymphs (auto) 0.48 L Total Counted Not Reportable Differential Comment SCANNED Sodium Potassium Chloride Carbon Dioxide Anion Gap BUN Creatinine Estim Creat Clear Calc Est GFR (MDRD) Af Amer Est GFR (MDRD) Non-Af BUN/Creatinine Ratio Glucose Hemoglobin A1c Calcium Magnesium Troponin I Urine Color Urine Clarity Urine pH Ur Specific [place] Urine Protein Urine Glucose (UA) Urine Ketones Urine Occult Blood Urine Nitrite Urine Bilirubin Urine Urobilinogen Ur Leukocyte Esterase Urine RBC Urine WBC Ur Squamous Epith Cells Urine Bacteria Hyaline Casts Fine Granular Casts Coarse Granular Casts Urine Mucus POC Glucose 01/07/19 01/06/19 06:34 23:49 POC Glucose 118 H 144 H Assessment/Plan All Active Problems (Last Reviewed 08/04/18 @ 13:58 by Jaclyn Luna) Diabetic foot infection (Acute) Hypokalemia (Acute) H/O hernia repair (Resolved) History of appendectomy (Resolved) Colonoscopy planned (Resolved) Amputation of left lower extremity below knee (Resolved) Dyspnea (Acute) Lung mass (Acute) Hypoxia (Acute) ZACHARY (acute kidney injury) (Acute) Pneumonia (Acute) Sepsis (Acute) Hyponatremia (Acute) Right hallux ulcer with exposed bone Osteomyelitis right distal hallux suspected Peripheral vascular disease Diabetes with neuropathy History of left below-knee amputation Other comorbidities I reviewed and discussed his case. His diagnostic data was reviewed. It is noted his leukocytosis has resolved compared to yesterday. Additional ESR and C-reactive protein were ordered. His x-rays were reviewed with some distal phalanx osteolysis that is adjacent to the ulcer site and I suspect osteomyelitis due to the chronicity of this opening. Devitalized tissue was excisionally debrided with a 15 blade scalpel and he tolerated this well. No anesthesia was utilized and he did not have pain. Deep wound cultures were obtained including aerobic and anaerobic and MRSA PCR. He is a very dysvascular limb in appearance and a noninvasive vascular study was ordered. To continue on IV vancomycin and Zosyn until culture information may be utilized to further narrow this down. Infectious diseases on consultation and input will be greatly appreciated on extended antibiotic course versus surgical intervention pending blood flow study results. Overall this is stable and a dressing was applied today. To keep pressure off of the site by heel weightbearing in a surgical shoe with an assistive device. To optimize healing with proper glycemic control and nutritional supplementation. An order for [place] will be placed. Thank you very much for the consultation. Please not hesitate to call if you have any questions. I will continue to follow him closely while in house. Laurita Correa DPM, FACF[facility] [phone]
--- NOTE | 2019-01-07 09:40 | ART_ITS ---
Reason For Study: PVD Procedure A bilateral lower extremity continuous wave Doppler with analog waveform analysis and ankle brachial indexes. Left Segmental Pressures Left posterior tibial artery = 97mmHg. Left dorsalis pedis artery = 100mmHg. The left dorsalis pedis waveforms are monophasic. The left posterior tibial artery waveforms are biphasic. Right Segmental Pressures Hx BKA. Indices The right ankle brachial index by the dorsalis pedis is .71. The right ankle brachial index by the posterior tibial artery is .69. Interpretation Summary Abnormal right ankle brachia indices in the range of vascular claudication. Ordering Physician: Laurita Correa Referring Physician: CULLEN DANIELSON Performed By: CICI AMAYA RDCS
[2019-01-07 10:22] LABS: Erythrocyte Sedimentation Rate 16 mm/hr (0-20)
[2019-01-07 11:29] LABS: M R Staph aureus DNA By PCR Negative (Negative); Staph aureus DNA By PCR POSITIVE (Negative)
[2019-01-07 11:30] LABS: Probe Check PASS; Specimen Processing Control PASS
--- NOTE | 2019-01-07 11:48 | PCM.PN.HOSP ---
Patient Problems: Active and Suspected Problems (Last Reviewed 08/04/18 @ 13:58 by Jaclyn Luna) Diabetic foot infection (Acute) Hypokalemia (Acute) Subjective: Patient seen and examined. He was admitted with a complaint of fall 3 times at home on the day of presentation. He was unable to get up due to severe debility so he was brought into the ED. CT of the brain showed no acute changes and CT of the cervical spine showed no demonstrated cervical trauma but shows severe degenerative changes of the cervical spine. Chest x-rays showed no acute cardiopulmonary process. Patient was noted to have a very macerated looking diabetic foot on the right lower extremity. He was admitted and managed for mechanical falls with general debility as well as possible diabetic foot infection. ID and podiatry have been consulted and patient was started on IV vancomycin and IV zosyn. Vitals/I&O's: Vital Signs Temp Pulse Resp BP Pulse Ox 98.6 F 83 18 133/55 H 96 01/07/19 08:30 01/07/19 08:30 01/07/19 08:30 01/07/19 08:30 01/07/19 08:30 Oxygen Flow Rate (L/min) 2 Oxygen Delivery Method Room Air Weight: 145 lb 8.081 oz Body Mass Index (BMI) 19.7 Intake and Output for Last 24 Hours 01/05/19 01/06/19 01/07/19 23:59 23:59 23:59 Intake Total 1041 / 1041 Output Total 275 / 275 Balance 766 / 766 General: Alert, Oriented x3, Cooperative, No apparent distress HEENT: Atraumatic, PERRLA, EOMI, Normocephalic Oral: Dry Mucosa Neck: Supple, No JVD, Negative Carotid Bruits Lungs: Clear to auscultation, Normal air movement, No rhonchi, No wheeze, No rales Cardiovascular: Regular rate, Regular Rhythm, Normal S1, Normal S2, No murmurs Abdomen: Bowel Sounds Present, Soft, Non Tender, Non-Distended, No Hepato-splenomegaly Extremities: No clubbing, No cyanosis, - - maceration of RLE, no clear ulceration visualised. LLE AKA stump clean Skin: - - as under extremities Musculoskeletal: No Tenderness to Palpation of Joints or Extremities Lymphatic: No Cervical, Supraclavicular, or Inguinal Adenopathy Neurological: Cranial nerves II-XII grossly intact, Neuro grossly intact Psych/Mental Status: Normal Affect, Appropriate, Alert and oriented to time, place, person, mood and affect Laboratory Results 01/06/19 19:45: Urine Color Yellow, Urine Clarity Clear, Urine pH 5.0, Ur Specific [place] 1.020, Urine Protein 100 H, Urine Glucose (UA) Normal, Urine Ketones 5 H, Urine Occult Blood 150 H, Urine Nitrite Negative, Urine Bilirubin 1 H, Urine Urobilinogen 8 H, Ur Leukocyte Esterase Negative, Urine RBC 0-5 SEEN, Urine WBC 0-5 SEEN, Ur Squamous Epith Cells 0 SEEN, Urine Bacteria 0 SEEN, Hyaline Casts 0-5 SEEN, Fine Granular Casts 0-5 SEEN, Coarse Granular Casts 0-5 SEEN, Urine Mucus 0 SEEN 01/06/19 20:25: WBC 16.5 H, RBC 4.09 L, Hgb 13.2, Hct 36.2 L, MCV 88.5, MCH 32.3 H, MCHC 36.5 H, RDW 13.0, RDW Differential 42.5, Plt Count 184, MPV 10.3, Immature Gran % (Auto) 0.300, Neut % (Auto) 91.9 H, Lymph % (Auto) 5.0 L, [place] % (Auto) 2.7, Eos % (Auto) 0.0, Baso % (Auto) 0.1, Absolute Neuts (auto) 15.2 H, Absolute Lymphs (auto) 0.82 L, Total Counted Not Reportable 01/06/19 20:25: Sodium 127 L, Potassium 3.1 L, Chloride 90 L, Carbon Dioxide 27.0, Anion Gap 10, BUN 24 H, Creatinine 1.59 H, Estim Creat Clear Calc 39.26, Est GFR (MDRD) Af Amer 54 L, Est GFR (MDRD) Non-Af 45 L, BUN/Creatinine Ratio 15.1, Glucose 146 H, Calcium 8.4 L, Troponin I < 0.015 01/06/19 20:25: Hemoglobin A1c 6.2 01/06/19 20:25: Magnesium 2.0 01/06/19 23:49: POC Glucose 144 H 01/07/19 06:34: POC Glucose 118 H 01/07/19 06:40: Sodium 128 L, Potassium 3.1 L, Chloride 96 L, Carbon Dioxide 24.0, Anion Gap 8, BUN 23 H, Creatinine 1.58 H, Estim Creat Clear Calc 35.97, Est GFR (MDRD) Af Amer 55 L, Est GFR (MDRD) Non-Af 45 L, BUN/Creatinine Ratio 14.6, Glucose 114 H, Calcium 8.1 L 01/07/19 06:40: WBC 10.3, RBC 3.59 L, Hgb 11.3 L, Hct 31.6 L, MCV 88.0, MCH 31.5, MCHC 35.8, RDW 12.5, RDW Differential 39.0, Plt Count 168, MPV 11.4, Immature Gran % (Auto) 0.200, Neut % (Auto) 91.0 H, Lymph % (Auto) 4.7 L, [place] % (Auto) 3.9, Eos % (Auto) 0.0, Baso % (Auto) 0.2, Absolute Neuts (auto) 9.4 H, Absolute Lymphs (auto) 0.48 L, Total Counted Not Reportable, Differential Comment SCANNED 01/07/19 06:40: ESR 16 01/07/19 06:40: C-React Prot Ext Range 163.00 H 01/07/19 10:00: S.aureus Protein A PCR POSITIVE H, MRSA (PCR) Negative Diagnostic Data Brain CT 01/06/19 20:12 IMPRESSION: Chronic involutional changes of the brain. Punctate calcifications in the basal ganglia which are usually idiopathic in an elderly individual. 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 There is no intracranial hemorrhage or calvarial fracture. Electronically Signed: Suman Rodriguez MD at 21:24 EDT , Service support , Cervical Spine CT 01/06/19 20:13 IMPRESSION: 1. No demonstrated cervical trauma. If the patient has acute, focal neurologic findings, MRI is advised to evaluate for cord contusion. 2. Severe degenerative changes of the cervical spine. 3. Prevertebral edema may indicate ligamentous injury. Electronically Signed: Valeria Sampson MD at 21:06 EDT Tel , Service support , Chest X-Ray 01/06/19 20:25 IMPRESSION: Elevated left hemidiaphragm. Calcified plaques of the aortic arch. Region of broad-based scalloping of the posterior right fourth rib. This is of unknown etiology, but appears stable from the previous study. No acute cardiopulmonary disease process is seen. Electronically Signed: Suman Rodriguez MD at 20:52 EDT , Service support , Foot X-Ray 01/06/19 22:15 IMPRESSION: Focal ulceration adjacent to the lateral first digit. Bony demineralization consider possible developing early bony changes of osteomyelitis in the proximal phalanx of the first digit. Recommend consideration for follow-up MRI when appropriate. Age-indeterminate erosion of the distal phalanx of the first digit. Electronically Signed: Yeimi Muñoz MD at 22:40 EDT Tel , Service support , Current Medications Acetaminophen (Tylenol) 650 mg PO Q6H PRN PRN PRN Reason: Non-cardiac pain (mod-severe) Last Admin: 01/07/19 04:41 Dose: 650 mg Hydrocodone Bitart/Acetaminophen ([place] 5mg-325mg) 1 - 2 tablet PO Q6H PRN PRN PRN Reason: MOD-SEVERE PAIN (4-10/10) Al Hydroxide/Mg Hydroxide (Mylanta Ii) 15 - 30 ml PO Q4H PRN PRN PRN Reason: INDIGESTION Albuterol Sulfate (Ventolin Aerosols) 2.5 mg INHALATION Q2H PRN PRN PRN Reason: dyspnea, wheezing Albuterol/Ipratropium (Duoneb) 3 ml INHALATION Q6HWA.RT [facility] Last Admin: 01/07/19 06:58 Dose: 3 ml Amlodipine Besylate (Norvasc) 10 mg PO DAILY [facility] Last Admin: 01/07/19 08:29 Dose: 10 mg Aspirin (Ecotrin) 81 mg PO DAILY@0800 [facility] Last Admin: 01/07/19 08:29 Dose: 81 mg Atenolol (Tenormin (Beta Paige)) 100 mg PO DAILY [facility] Last Admin: 01/07/19 08:29 Dose: 100 mg Atorvastatin Calcium (Lipitor) 40 mg PO QHS [facility] Dextrose (D50w Syringe) 0 gm IV X1 PRN; Protocol PRN Reason: Hypoglycemia Enoxaparin Sodium (Lovenox) 30 mg SC DAILY@1000 [facility] Last Admin: 01/07/19 08:31 Dose: 30 mg Glucagon () 1 mg IM .X1 PRN PRN Reason: Hypoglycemia Hydralazine HCl (Apresoline Iv) 10 mg IV Q4H PRN PRN PRN Reason: SBP > 160 Sodium Chloride () 1,000 mls @ 100 mls/hr IV .Q10H [facility] Last Admin: 01/07/19 10:41 Dose: 100 mls/hr Piperacillin Sod/Tazobactam (Sod 3.375 gm/ Sodium Chloride) 50 mls @ 12.5 mls/hr IV Q8 [facility] Last Admin: 01/07/19 05:42 Dose: 12.5 mls/hr Vancomycin IV Pharmacy to Dose (1 ea/ Sodium Chloride) 500 mls @ 250 mls/hr IV PRN PRN; Protocol PRN Reason: Rx to Dose Sodium Chloride () 250 mls @ 15 mls/hr IV .[id number] PRN PRN Reason: SALINE FLUSH Vancomycin HCl 750 mg/ Sodium (Chloride) 265 mls @ 250 mls/hr IV Q24H [facility] Lisinopril (Zestril) 2.5 mg PO DAILY [facility] Last Admin: 01/07/19 08:29 Dose: 2.5 mg Melatonin (Melatonin) 3 mg PO QHS PRN PRN PRN Reason: INSOMNIA Morphine Sulfate () 1 - 2 mg IV Q4H PRN PRN PRN Reason: PAIN Nicotine (Nicoderm Cq (Pbkc)) 7 mg TRANSDERM. DAILY [facility] Last Admin: 01/07/19 08:30 Dose: 7 mg Nutritional Formula (Lactose Free) (Glucerna Shake) 120 ml PO 4X/DAY [facility] Last Admin: 01/07/19 08:32 Dose: 120 ml Ondansetron HCl (Zofran) 4 mg IV Q8H PRN PRN PRN Reason: NAUSEA/VOMITING Potassium Chloride (K-Dur) 10 meq PO DAILYCM [facility] Last Admin: 01/07/19 08:29 Dose: 10 meq Prednisone () 40 mg PO DAILY@0800 [facility] Last Admin: 01/07/19 08:29 Dose: 40 mg Sodium Chloride () 5 - 15 ml IV UD PRN PRN Reason: SALINE FLUSH Medical Necessity - Tobacco Use Smoking Status: Current every day smoker - Patient notes 1 pack of cigarettes last him 1.5 days. Tobacco Use: Cigarettes Assessment/Plan All Active Problems (Last Reviewed 08/04/18 @ 13:58 by Jaclyn Luna) Diabetic foot infection (Acute) Hypokalemia (Acute) H/O hernia repair (Resolved) History of appendectomy (Resolved) Colonoscopy planned (Resolved) Amputation of left lower extremity below knee (Resolved) Dyspnea (Acute) Lung mass (Acute) Hypoxia (Acute) ZACHARY (acute kidney injury) (Acute) Pneumonia (Acute) Sepsis (Acute) Hyponatremia (Acute) 1. Mechanical falls and debility Fell 3 times at home prior to coming in. CT brain showed no acute intracranial changes. CT cervical spine showed no demonstrated cervical trauma and showed possible prevertebral edema suspicious for ligamentous injury. PT OT consulted. Fall precautions. 2. RLE diabetic foot infection RLE macerated, xray of foot showed focal ulceration adjacent to lateral first digit, with bony demineralisation possibly due to developing early bony changes of osteomyelitis podiatry consulted on IV vancomycin and zosyn he had some debridement done by podiatry today, wound studies obtained also obtained noninvasive vascular studies ID consulted, await rec's 3. Acute on chronic hyponatremia: Na was 127 on admission, is 128 today. does have chronic hyponatremia. continue hdyration. Hold HCTZ 4. Hypokalemia: K still remains 3.1 as well as on admission. Replace and monitor. Will check magnesium. 5. CKD stage III: Creatinine is 1.58 which is around his baseline. Will continue to monitor. 6. Type 2 diabetes mellitus: On insulin sliding scale and home dose of insulin. Accu-Cheks AC at bedtime. A1c is 6.2 7. COPD and asthma; stable. encourage tobacco cessation. Breathing treatments. 8. Hypertension; on amlodipine, atenolol and lisinopril. Hydrochlorothiazide on hold on account of hyponatremia. On IV hydralazine as needed. 9. Severe protein calorie malnutrition: Patient's BMI is 2119. Looks quite emaciated. Nutrition consulted. 10. DVT prophylaxis: Renal dose of Lovenox. Code Visit OBSV E&M: 12450 Subsequent observation care L3
--- NOTE | 2019-01-07 11:52 | PN_ITS ---
Patient Problems: Active and Suspected Problems (Last Reviewed 08/04/18 @ 13:58 by Jaclyn Luna) Diabetic foot infection (Acute) Hypokalemia (Acute) Subjective: Patient seen and examined. He was admitted with a complaint of fall 3 times at home on the day of presentation. He was unable to get up due to severe debility so he was brought into the ED. CT of the brain showed no acute changes and CT of the cervical spine showed no demonstrated cervical trauma but shows severe degenerative changes of the cervical spine. Chest x-rays showed no acute cardiopulmonary process. Patient was noted to have a very macerated looking diabetic foot on the right lower extremity. He was admitted and managed for mechanical falls with general debility as well as possible diabetic foot infection. ID and podiatry have been consulted and patient was started on IV vancomycin and IV zosyn. Vitals/I&O's: Vital Signs Temp Pulse Resp BP Pulse Ox 98.6 F 83 18 133/55 H 96 01/07/19 08:30 01/07/19 08:30 01/07/19 08:30 01/07/19 08:30 01/07/19 08:30 Oxygen Flow Rate (L/min) 2 Oxygen Delivery Method Room Air Weight: 145 lb 8.081 oz Body Mass Index (BMI) 19.7 Intake and Output for Last 24 Hours 01/05/19 01/06/19 01/07/19 23:59 23:59 23:59 Intake Total 1041 / 1041 Output Total 275 / 275 Balance 766 / 766 General: Alert, Oriented x3, Cooperative, No apparent distress HEENT: Atraumatic, PERRLA, EOMI, Normocephalic Oral: Dry Mucosa Neck: Supple, No JVD, Negative Carotid Bruits Lungs: Clear to auscultation, Normal air movement, No rhonchi, No wheeze, No rales Cardiovascular: Regular rate, Regular Rhythm, Normal S1, Normal S2, No murmurs Abdomen: Bowel Sounds Present, Soft, Non Tender, Non-Distended, No Hepato- splenomegaly Extremities: No clubbing, No cyanosis, - - maceration of RLE, no clear ulceration visualised. LLE AKA stump clean Skin: - - as under extremities Musculoskeletal: No Tenderness to Palpation of Joints or Extremities Lymphatic: No Cervical, Supraclavicular, or Inguinal Adenopathy Neurological: Cranial nerves II-XII grossly intact, Neuro grossly intact Psych/Mental Status: Normal Affect, Appropriate, Alert and oriented to time, place, person, mood and affect Laboratory Results 01/06/19 19:45: Urine Color Yellow, Urine Clarity Clear, Urine pH 5.0, Ur Specific [place] 1.020, Urine Protein 100 H, Urine Glucose (UA) Normal, Urine Ketones 5 H, Urine Occult Blood 150 H, Urine Nitrite Negative, Urine Bilirubin 1 H, Urine Urobilinogen 8 H, Ur Leukocyte Esterase Negative, Urine RBC 0-5 SEEN, Urine WBC 0-5 SEEN, Ur Squamous Epith Cells 0 SEEN, Urine Bacteria 0 SEEN, Hyaline Casts 0-5 SEEN, Fine Granular Casts 0-5 SEEN, Coarse Granular Casts 0-5 SEEN, Urine Mucus 0 SEEN 01/06/19 20:25: WBC 16.5 H, RBC 4.09 L, Hgb 13.2, Hct 36.2 L, MCV 88.5, MCH 32.3 H, MCHC 36.5 H, RDW 13.0, RDW Differential 42.5, Plt Count 184, MPV 10.3, Immature Gran % (Auto) 0.300, Neut % (Auto) 91.9 H, Lymph % (Auto) 5.0 L, [place] % (Auto) 2.7, Eos % (Auto) 0.0, Baso % (Auto) 0.1, Absolute Neuts (auto) 15.2 H, Absolute Lymphs (auto) 0.82 L, Total Counted Not Reportable 01/06/19 20:25: Sodium 127 L, Potassium 3.1 L, Chloride 90 L, Carbon Dioxide 27.0, Anion Gap 10, BUN 24 H, Creatinine 1.59 H, Estim Creat Clear Calc 39.26, Est GFR (MDRD) Af Amer 54 L, Est GFR (MDRD) Non-Af 45 L, BUN/Creatinine Ratio 15.1, Glucose 146 H, Calcium 8.4 L, Troponin I < 0.015 01/06/19 20:25: Hemoglobin A1c 6.2 01/06/19 20:25: Magnesium 2.0 01/06/19 23:49: POC Glucose 144 H 01/07/19 06:34: POC Glucose 118 H 01/07/19 06:40: Sodium 128 L, Potassium 3.1 L, Chloride 96 L, Carbon Dioxide 24.0, Anion Gap 8, BUN 23 H, Creatinine 1.58 H, Estim Creat Clear Calc 35.97, Est GFR (MDRD) Af Amer 55 L, Est GFR (MDRD) Non-Af 45 L, BUN/Creatinine Ratio 14.6, Glucose 114 H, Calcium 8.1 L 01/07/19 06:40: WBC 10.3, RBC 3.59 L, Hgb 11.3 L, Hct 31.6 L, MCV 88.0, MCH 31.5, MCHC 35.8, RDW 12.5, RDW Differential 39.0, Plt Count 168, MPV 11.4, Immature Gran % (Auto) 0.200, Neut % (Auto) 91.0 H, Lymph % (Auto) 4.7 L, [place] % (Auto) 3.9, Eos % (Auto) 0.0, Baso % (Auto) 0.2, Absolute Neuts (auto) 9.4 H, Absolute Lymphs (auto) 0.48 L, Total Counted Not Reportable, Differential Comment SCANNED 01/07/19 06:40: ESR 16 01/07/19 06:40: C-React Prot Ext Range 163.00 H 01/07/19 10:00: S.aureus Protein A PCR POSITIVE H, MRSA (PCR) Negative Diagnostic Data Brain CT 01/06/19 20:12 IMPRESSION: Chronic involutional changes of the brain. Punctate calcifications in the basal ganglia which are usually idiopathic in an elderly individual. 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 There is no intracranial hemorrhage or calvarial fracture. Electronically Signed: Suman Rodriguez MD at 21:24 EDT , Service support , Cervical Spine CT 01/06/19 20:13 IMPRESSION: 1. No demonstrated cervical trauma. If the patient has acute, focal neurologic findings, MRI is advised to evaluate for cord contusion. 2. Severe degenerative changes of the cervical spine. 3. Prevertebral edema may indicate ligamentous injury. Electronically Signed: Valeria Sampson MD at 21:06 EDT Tel , Service support , Chest X-Ray 01/06/19 20:25 IMPRESSION: Elevated left hemidiaphragm. Calcified plaques of the aortic arch. Region of broad-based scalloping of the posterior right fourth rib. This is of unknown etiology, but appears stable from the previous study. No acute cardiopulmonary disease process is seen. Electronically Signed: Suman Rodriguez MD at 20:52 EDT , Service support , Foot X-Ray 01/06/19 22:15 IMPRESSION: Focal ulceration adjacent to the lateral first digit. Bony demineralization consider possible developing early bony changes of osteomyelitis in the proximal phalanx of the first digit. Recommend consideration for follow-up MRI when appropriate. Age-indeterminate erosion of the distal phalanx of the first digit. Electronically Signed: Yeimi Muñoz MD at 22:40 EDT Tel , Service support , Current Medications Acetaminophen (Tylenol) 650 mg PO Q6H PRN PRN PRN Reason: Non-cardiac pain (mod-severe) Last Admin: 01/07/19 04:41 Dose: 650 mg Hydrocodone Bitart/Acetaminophen ([place] 5mg-325mg) 1 - 2 tablet PO Q6H PRN PRN PRN Reason: MOD-SEVERE PAIN (4-10/10) Al Hydroxide/Mg Hydroxide (Mylanta Ii) 15 - 30 ml PO Q4H PRN PRN PRN Reason: INDIGESTION Albuterol Sulfate (Ventolin Aerosols) 2.5 mg INHALATION Q2H PRN PRN PRN Reason: dyspnea, wheezing Albuterol/Ipratropium (Duoneb) 3 ml INHALATION Q6HWA.RT [facility] Last Admin: 01/07/19 06:58 Dose: 3 ml Amlodipine Besylate (Norvasc) 10 mg PO DAILY [facility] Last Admin: 01/07/19 08:29 Dose: 10 mg Aspirin (Ecotrin) 81 mg PO DAILY@0800 [facility] Last Admin: 01/07/19 08:29 Dose: 81 mg Atenolol (Tenormin (Beta Paige)) 100 mg PO DAILY [facility] Last Admin: 01/07/19 08:29 Dose: 100 mg Atorvastatin Calcium (Lipitor) 40 mg PO QHS [facility] Dextrose (D50w Syringe) 0 gm IV X1 PRN; Protocol PRN Reason: Hypoglycemia Enoxaparin Sodium (Lovenox) 30 mg SC DAILY@1000 [facility] Last Admin: 01/07/19 08:31 Dose: 30 mg Glucagon () 1 mg IM .X1 PRN PRN Reason: Hypoglycemia Hydralazine HCl (Apresoline Iv) 10 mg IV Q4H PRN PRN PRN Reason: SBP > 160 Sodium Chloride () 1,000 mls @ 100 mls/hr IV .Q10H [facility] Last Admin: 01/07/19 10:41 Dose: 100 mls/hr Piperacillin Sod/Tazobactam (Sod 3.375 gm/ Sodium Chloride) 50 mls @ 12.5 mls/hr IV Q8 [facility] Last Admin: 01/07/19 05:42 Dose: 12.5 mls/hr Vancomycin IV Pharmacy to Dose (1 ea/ Sodium Chloride) 500 mls @ 250 mls/hr IV PRN PRN; Protocol PRN Reason: Rx to Dose Sodium Chloride () 250 mls @ 15 mls/hr IV .[id number] PRN PRN Reason: SALINE FLUSH Vancomycin HCl 750 mg/ Sodium (Chloride) 265 mls @ 250 mls/hr IV Q24H [facility] Lisinopril (Zestril) 2.5 mg PO DAILY [facility] Last Admin: 01/07/19 08:29 Dose: 2.5 mg Melatonin (Melatonin) 3 mg PO QHS PRN PRN PRN Reason: INSOMNIA Morphine Sulfate () 1 - 2 mg IV Q4H PRN PRN PRN Reason: PAIN Nicotine (Nicoderm Cq (Pbkc)) 7 mg TRANSDERM. DAILY [facility] Last Admin: 01/07/19 08:30 Dose: 7 mg Nutritional Formula (Lactose Free) (Glucerna Shake) 120 ml PO 4X/DAY [facility] Last Admin: 01/07/19 08:32 Dose: 120 ml Ondansetron HCl (Zofran) 4 mg IV Q8H PRN PRN PRN Reason: NAUSEA/VOMITING Potassium Chloride (K-Dur) 10 meq PO DAILYCM [facility] Last Admin: 01/07/19 08:29 Dose: 10 meq Prednisone () 40 mg PO DAILY@0800 [facility] Last Admin: 01/07/19 08:29 Dose: 40 mg Sodium Chloride () 5 - 15 ml IV UD PRN PRN Reason: SALINE FLUSH Medical Necessity - Tobacco Use Smoking Status: Current every day smoker - Patient notes 1 pack of cigarettes last him 1.5 days. Tobacco Use: Cigarettes Assessment/Plan All Active Problems (Last Reviewed 08/04/18 @ 13:58 by Jaclyn Luna) Diabetic foot infection (Acute) Hypokalemia (Acute) H/O hernia repair (Resolved) History of appendectomy (Resolved) Colonoscopy planned (Resolved) Amputation of left lower extremity below knee (Resolved) Dyspnea (Acute) Lung mass (Acute) Hypoxia (Acute) ZACHARY (acute kidney injury) (Acute) Pneumonia (Acute) Sepsis (Acute) Hyponatremia (Acute) 1. Mechanical falls and debility * Fell 3 times at home prior to coming in. CT brain showed no acute intracranial changes. * CT cervical spine showed no demonstrated cervical trauma and showed possible prevertebral edema suspicious for ligamentous injury. * PT OT consulted. * Fall precautions. * 2. RLE diabetic foot infection * RLE macerated, * xray of foot showed focal ulceration adjacent to lateral first digit, with bony demineralisation possibly due to developing early bony changes of osteomyelitis * podiatry consulted * on IV vancomycin and zosyn * he had some debridement done by podiatry today, wound studies obtained * also obtained noninvasive vascular studies * ID consulted, await rec's * 3. Acute on chronic hyponatremia: * Na was 127 on admission, is 128 today. * does have chronic hyponatremia. continue hdyration. Hold HCTZ * 4. Hypokalemia: K still remains 3.1 as well as on admission. Replace and monitor. Will check magnesium. 5. CKD stage III: Creatinine is 1.58 which is around his baseline. Will continue to monitor. 6. Type 2 diabetes mellitus: On insulin sliding scale and home dose of insulin. Accu-Cheks AC at bedtime. A1c is 6.2 7. COPD and asthma; stable. encourage tobacco cessation. Breathing treatments. 8. Hypertension; on amlodipine, atenolol and lisinopril. Hydrochlorothiazide on hold on account of hyponatremia. On IV hydralazine as needed. 9. Severe protein calorie malnutrition: Patient's BMI is 2119. Looks quite emaciated. Nutrition consulted. 10. DVT prophylaxis: Renal dose of Lovenox. Code Visit OBSV E&M: 43878 Subsequent observation care L3
[2019-01-07 12:00] LABS: Bedside Glucose 176 mg/dL (70-110)
--- NOTE | 2019-01-07 12:45 | CASEMGMT ---
Social Work Assessment Referral Date: 01/07/19 Date of Assessment: 01/07/19 Informant: OLGA ASHER Reason for Consult: DISCHARGE PLANNING Information obtained from: PATIENT AND PATIENT'S DAUGHTERARJUN [phone] OVER THE PHONE. PATIENT GAVE PERMISSION FOR THIS WORKER TO CALL DAUGHTER TO DISCUSS D/C PLANNING. Living Arrangements: PATIENT LIVES HOME WITH ARJUN KOHLI IN A 2 STORY HOME WITH BASEMENT. DAUGHTER STATES PATIENT MOSTLY RESIDES IN THE BASEMENT AND THERE ARE 10 STEPS TO GET TO AND FROM BASEMENT. DME: CANE Employment/Financial: RETIRED Supports: PATIENT HAS LIMITED SUPPORT FROM FAMILY. 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 DAUGHTER STATES PATIENT DOES HAVE FRIEND, LONNY WHO IS A SUPPORT TO PATIENT. DAUGHTER VOICED CONCERNS WITH FRIEND. Social/Family Stressors: PATIENT ADAMANTLY REFUSING [facility]. FAMILY CONCERNED WITH PATIENT RETURNING HOME AND FEELS HE WOULD BENEFIT FROM SNF. DAUGHTER STATES PATIENT DOES NOT HAVE ADVANCED DIRECTIVES IN PLACE AND IS NEXT OF KIN. DAUGHTERARJUN STATES HER SISTER, WERO ([phone]) LIVES IN [place] (PATIENT'S IS CURRENTLY LIVING WITH HER) AND WILL BE CALLING IN TO DISCUSS D/C PLANNING WITH PATIENT. ARJUN STATES DUE TO CONCERNS MAY NEED TO CONTACT ADULT PROTECTIVE SERVICES. DAUGHTER STATES PATENT REPORTS IS CONSTANTLY FALLING AT HOME AND IS NOT SAFE AMBULATING WITH CANE. ARJUN HOPING PATIENT WILL AGREE TO [facility] AFTER TALKING WITH DAUGHTERWERO. Mental Health History: PATIENT DENIES ANY HX OF MENTAL HEALTH. DAUGHTER STATES PATIENT WITH POSSIBLE HX OF DEPRESSION AND CONCERNS PATIENT MAY BE SCHIZOPHRENIC MOST OF HIS FAMILY HAS BEEN DIAGNOSED WITH SCHIZOPHRENIA. Substance Abuse History: PATIENT DENIES ANY HX OF SUBSTANCE ABUSE. DAUGHTER STATES PATIENT WITH HX OF ALCOHOL ABUSE. DAUGHTER DENIES ANY CURRENT USE FOR PATIENT. Interventions: SOCIAL SERVICE ASSESSMENT EDUCATION ON ADULT PROTECTIVE SERVICES PROVIDED TO ARJUN KOHLI EDUCATION ON SNFS PROVIDED TO ARJUN KOHLI Assessment: PATIENT IS A 78 Y/O MALE WHO LIVES HOME WITH FAMILY IN A 2 STORY HOME WITH BASEMENT. PATIENT REPORTS IS CURRENTLY STAYING IN [place] WITH DAUGHTER. PATIENT'S DAUGHTERARJUN LIVES IN HOME WITH PATIENT. ASSESSMENT COMPLETED WITH BOTH PATIENT AND ARJUN KOHLI OVER THE PHONE WITH PATIENT'S PERMISSION. PATIENT STATES IS INDEPENDENT AT HOME AND STILL DRIVING. PATIENT STATES USES A CANE FOR ASSISTANCE WITH AMBULATION. PATIENT WISHES TO RETURN HOME AT D/C BEFORE. THIS WORKER SPOKE WITH PATIENT'S DAUGHTER, ARJUN. PERMISSION OBTAINED FROM PATIENT TO SPEAK WITH DAUGHTER REGARDING D/C PLANNING. DAUGHTER STATES IS CONCERNED WITH PATIENT RETURNING HOME AND STATES SIBLINGS AND MOTHER ARE CONCERNED WELL. DAUGHTER STATES HAS NOTICED A DECLINE OVER THE LAST SEVERAL MONTHS. DAUGHTER STATES PATIENT DOES NOT AMBULATE SAFELY IN THE HOME WITH CANE AND HAS HAD FREQUENT FALLS. DAUGHTER STATES FAMILY HAS FOR SOME TIME BEEN CONCERNED ABOUT HIS MENTAL STATUS/COGNITION. DAUGHTER STATES PATIENT RESIDES MOSTLY IN THE BASEMENT AND THERE ARE 10 STEPS TO GET TO AND FROM BASEMENT. DAUGHTER STATES PATIENT IS VERY PRIVATE AND DOES NOT LET FAMILY KNOW WHAT IS GOING ON MEDICALLY. DAUGHTER FEELS PATIENT WOULD BENEFIT FROM SNF, HOWEVER, UNDERSTAND PATIENT WILL REFUSE. DISCUSSED ADULT PROTECTIVE SERVICES. DAUGHTER STATES HER SISTER IS TO BE CALLING IN TO SPEAK WITH PATIENT REGARDING D/C PLANNING. INFORMED DAUGHTER AIR ANALYSIS ENGINEERING TECHNICIAN WILL FOLLOW UP ON WEDNESDAY ASSIST IN SAFE AND APPROPRIATE D/C PLANNING. DAUGHTER PROVIDED THIS WORKER WITH CONTACT INFORMATION FOR HER SISTER, WERO (LISTED ABOVE) AND STATES SHE WOULD BE THE BEST ONE TO DISCUSS PLANNING PATIENT LISTENS TO HER. D/C PLAN UNKNOWN AT THIS TIME. PLAN: TBD
[2019-01-07 18:56] LABS: Bedside Glucose 233 mg/dL (70-110)
[2019-01-07] MEDS: Atorvastatin Calcium 40 MG Tablet PO (21:47)
[2019-01-07] MEDS: 0.9% NaCl IVPB Med Flush (250 mL) 15 ML IV (23:30)
[2019-01-08] VITALS (7 sets, daily range): BP systolic 124–152; BP diastolic 65–77; PULSE 72–88; RESP 16–22; TEMP 36.8–37.1; O2SAT 94–100
[2019-01-08] MEDS: Acetaminophen 325 MG Tablet 650 MG PO (03:08)
[2019-01-08] MEDS: 0.9% Normal Saline 1,000 ML 100 ML IV ×2 (05:41→16:35)
[2019-01-08 05:46] LABS: Bedside Glucose 123 mg/dL (70-110)
[2019-01-08 07:05] LABS: Anion Gap 6 (5-15); BUN 28 mg/dL (7-18); BUN/Creat Ratio 17.1 RATIO (10-20); Chloride 105 mmol/L (98-107); Creatinine, Serum 1.64 mg/dL (0.70-1.30); EST Glomerular Filtration Rate 43 mL/min (>60); Est Glom Filt Rate - Afr Amer 53 mL/min (>60); Estimated Creatinine Clearance 34.65 ml/min; Glucose 124 mg/dL (74-106); Potassium 3.9 mmol/L (3.5-5.1); Sodium Level 133 mmol/L (136-145)
[2019-01-08 07:06] LABS: Absolute Lymphocyte Count 0.72 X10^3/ul (0.83-4.51); Absolute Neutrophil Count 10.2 X10^3/uL (2.0-7.7); Lymphocyte # 0.72 X10^3/ul (4.0); Lymphocyte % 6.1 % (19-41); Mean Corp Hgb Conc 35.7 g/gl (32-36); Mean Corpuscular Hgb 31.5 pg (27.0-32.0); Mean Corpuscular Volume 88.3 fL (80-94); Mean Platelet Vol. 11.4 fl (6.2-12.0); Monocyte# 0.98 X10^3/uL; Monocyte% 8.2 % (0-10); Neutrophil # 10.17 X10^3/uL (2.7-7.7); Neutrophil % 85.4 % (47-70); Platelet Count 164 K/mm3 (150-450); RBC Distribution Width CV 12.6 % (11.6-14.6); RBC Distribution Width SD 39.4 fl (35.1-43.9); Red Blood Count 3.17 M/mm3 (4.6-6.2); White Blood Count 11.9 K/mm3 (4.4-11.0)
[2019-01-08] MEDS: Ipratropium/Albuterol Sulfate 3 ML AMPUL.NEB INHALATION ×3 (07:07→19:05)
[2019-01-08 07:09] LABS: Differential Indicated SCAN CRITERIA MET; POSITIVE COUNT NO; POSITIVE DIFFERENTIAL NO; POSITIVE MORPHOLOGY YES
[2019-01-08 07:11] LABS: Differential Comment SCANNED
[2019-01-08 07:15] LABS: Acanthocytes 1+; Crenated RBC 2+
[2019-01-08] MEDS: Enoxaparin 30 MG/0.3 ML Syringe SC (08:00)
[2019-01-08] MEDS: predniSONE 20 MG Tablet 40 MG PO (08:01)
[2019-01-08] MEDS: Lisinopril 2.5 MG Tablet PO (08:01)
[2019-01-08] MEDS: Atenolol 100 MG Tablet PO (08:01)
[2019-01-08] MEDS: Glucerna Shake 120 ML LIQUID PO ×3 (08:01→20:36)
[2019-01-08] MEDS: amLODIPine 10 MG Tablet PO (08:01)
[2019-01-08] MEDS: Aspirin E.C. 81 MG Tablet PO (08:01)
--- NOTE | 2019-01-08 10:42 | PCM.PN.HOSP ---
Patient Problems: Active and Suspected Problems (Last Reviewed 08/04/18 @ 13:58 by Jaclyn Luna) Diabetic foot infection (Acute) Hypokalemia (Acute) Subjective: Patient seen and examined. He had no complaints. Review of systems otherwise negative. Labs and vitals reviewed. Vitals/I&O's: Vital Signs Temp Pulse Resp BP Pulse Ox 98.7 F 74 18 140/65 H 94 01/08/19 08:10 01/08/19 08:10 01/08/19 08:10 01/08/19 08:10 01/08/19 08:10 Oxygen Flow Rate (L/min) 2 Oxygen Delivery Method Room Air Weight: 145 lb 8.081 oz Body Mass Index (BMI) 19.7 Intake and Output for Last 24 Hours 01/06/19 01/07/19 01/08/19 23:59 23:59 23:59 Intake Total 2795 / 2795 1678.7 / 1678.7 Output Total 725 / 725 700 / 700 Balance 2069 / 2069 978.7 / 978.7 General: Alert, Oriented x3, Cooperative, No apparent distress HEENT: Atraumatic, PERRLA, EOMI, Normocephalic Oral: Dry Mucosa Neck: Supple, No JVD, Negative Carotid Bruits Lungs: Clear to auscultation, Normal air movement, No rhonchi, No wheeze, No rales Cardiovascular: Regular rate, Regular Rhythm, Normal S1, Normal S2, No murmurs Abdomen: Bowel Sounds Present, Soft, Non Tender, Non-Distended, No Hepato-splenomegaly Extremities: No clubbing, No cyanosis, - - maceration of RLE, no clear ulceration visualised. LLE AKA stump clean Skin: - - as under extremities Musculoskeletal: No Tenderness to Palpation of Joints or Extremities Lymphatic: No Cervical, Supraclavicular, or Inguinal Adenopathy Neurological: Cranial nerves II-XII grossly intact, Neuro grossly intact Psych/Mental Status: Normal Affect, Appropriate, Alert and oriented to time, place, person, mood and affect Microbiology Past 72 Hours 01/07/19 10:00 Wound - Aerobic & Anaerobic Swabs Gram Stain - Final Laboratory Results 01/07/19 06:40: Magnesium 2.0 01/07/19 10:00: S.aureus Protein A PCR POSITIVE H, MRSA (PCR) Negative 01/07/19 11:55: POC Glucose 176 H 01/07/19 16:48: POC Glucose 233 H 01/08/19 05:33: POC Glucose 123 H 01/08/19 06:25: WBC 11.9 H, RBC 3.17 L, Hgb 10.0 L, Hct 28.0 L, MCV 88.3, MCH 31.5, MCHC 35.7, RDW 12.6, RDW Differential 39.4, Plt Count 164, MPV 11.4, Immature Gran % (Auto) 0.300, Neut % (Auto) 85.4 H, Lymph % (Auto) 6.1 L, [place] % (Auto) 8.2, Eos % (Auto) 0.0, Baso % (Auto) 0.0, Absolute Neuts (auto) 10.2 H, Absolute Lymphs (auto) 0.72 L, Total Counted Not Reportable, Differential Comment SCANNED, RBC Morphology 2+, Acanthocytes (Spur) 1+ 01/08/19 06:25: Sodium 133 L, Potassium 3.9, Chloride 105, Carbon Dioxide 22.0, Anion Gap 6, BUN 28 H, Creatinine 1.64 H, Estim Creat Clear Calc 34.65, Est GFR (MDRD) Af Amer 53 L, Est GFR (MDRD) Non-Af 43 L, BUN/Creatinine Ratio 17.1, Glucose 124 H, Calcium 8.0 L Diagnostic Data Brain CT 01/06/19 20:12 IMPRESSION: Chronic involutional changes of the brain. Punctate calcifications in the basal ganglia which are usually idiopathic in an elderly individual. 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 There is no intracranial hemorrhage or calvarial fracture. Electronically Signed: Suman Rodriguez MD at 21:24 EDT , Service support , Cervical Spine CT 01/06/19 20:13 IMPRESSION: 1. No demonstrated cervical trauma. If the patient has acute, focal neurologic findings, MRI is advised to evaluate for cord contusion. 2. Severe degenerative changes of the cervical spine. 3. Prevertebral edema may indicate ligamentous injury. Electronically Signed: Valeria Sampson MD at 21:06 EDT Tel , Service support , Chest X-Ray 01/06/19 20:25 IMPRESSION: Elevated left hemidiaphragm. Calcified plaques of the aortic arch. Region of broad-based scalloping of the posterior right fourth rib. This is of unknown etiology, but appears stable from the previous study. No acute cardiopulmonary disease process is seen. Electronically Signed: Suman Rodriguez MD at 20:52 EDT , Service support , Foot X-Ray 01/06/19 22:15 IMPRESSION: Focal ulceration adjacent to the lateral first digit. Bony demineralization consider possible developing early bony changes of osteomyelitis in the proximal phalanx of the first digit. Recommend consideration for follow-up MRI when appropriate. Age-indeterminate erosion of the distal phalanx of the first digit. Electronically Signed: Yeimi Muñoz MD at 22:40 EDT Tel , Service support , Current Medications Acetaminophen (Tylenol) 650 mg PO Q6H PRN PRN PRN Reason: Non-cardiac pain (mod-severe) Last Admin: 01/08/19 03:08 Dose: 650 mg Hydrocodone Bitart/Acetaminophen ([place] 5mg-325mg) 1 - 2 tablet PO Q6H PRN PRN PRN Reason: MOD-SEVERE PAIN (4-10/10) Al Hydroxide/Mg Hydroxide (Mylanta Ii) 15 - 30 ml PO Q4H PRN PRN PRN Reason: INDIGESTION Albuterol Sulfate (Ventolin Aerosols) 2.5 mg INHALATION Q2H PRN PRN PRN Reason: dyspnea, wheezing Albuterol/Ipratropium (Duoneb) 3 ml INHALATION Q6HWA.RT [facility] Last Admin: 01/08/19 07:07 Dose: 3 ml Amlodipine Besylate (Norvasc) 10 mg PO DAILY [facility] Last Admin: 01/08/19 08:01 Dose: 10 mg Aspirin (Ecotrin) 81 mg PO DAILY@0800 [facility] Last Admin: 01/08/19 08:01 Dose: 81 mg Atenolol (Tenormin (Beta Paige)) 100 mg PO DAILY [facility] Last Admin: 01/08/19 08:01 Dose: 100 mg Atorvastatin Calcium (Lipitor) 40 mg PO QHS [facility] Last Admin: 01/07/19 21:47 Dose: 40 mg Dextrose (D50w Syringe) 0 gm IV X1 PRN; Protocol PRN Reason: Hypoglycemia Enoxaparin Sodium (Lovenox) 30 mg SC DAILY@1000 [facility] Last Admin: 01/08/19 08:00 Dose: 30 mg Glucagon () 1 mg IM .X1 PRN PRN Reason: Hypoglycemia Hydralazine HCl (Apresoline Iv) 10 mg IV Q4H PRN PRN PRN Reason: SBP > 160 Sodium Chloride () 1,000 mls @ 100 mls/hr IV .Q10H [facility] Last Admin: 01/08/19 05:41 Dose: 100 mls/hr Piperacillin Sod/Tazobactam (Sod 3.375 gm/ Sodium Chloride) 50 mls @ 12.5 mls/hr IV Q8 [facility] Last Admin: 01/08/19 05:36 Dose: 12.5 mls/hr Vancomycin IV Pharmacy to Dose (1 ea/ Sodium Chloride) 500 mls @ 250 mls/hr IV PRN PRN; Protocol PRN Reason: Rx to Dose Sodium Chloride () 250 mls @ 15 mls/hr IV .[id number] PRN PRN Reason: SALINE FLUSH Last Admin: 01/07/19 23:30 Dose: 15 mls/hr Vancomycin HCl 750 mg/ Sodium (Chloride) 265 mls @ 250 mls/hr IV Q24H [facility] Last Admin: 01/07/19 23:29 Dose: 250 mls/hr Lisinopril (Zestril) 2.5 mg PO DAILY [facility] Last Admin: 01/08/19 08:01 Dose: 2.5 mg Melatonin (Melatonin) 3 mg PO QHS PRN PRN PRN Reason: INSOMNIA Morphine Sulfate () 1 - 2 mg IV Q4H PRN PRN PRN Reason: PAIN Nicotine (Nicoderm Cq (Pbkc)) 7 mg TRANSDERM. DAILY [facility] Last Admin: 01/08/19 08:00 Dose: 7 mg Nutritional Formula (Lactose Free) (Glucerna Shake) 120 ml PO 4X/DAY [facility] Last Admin: 01/08/19 08:01 Dose: 120 ml Ondansetron HCl (Zofran) 4 mg IV Q8H PRN PRN PRN Reason: NAUSEA/VOMITING Potassium Chloride (K-Dur) 10 meq PO DAILYCM [facility] Last Admin: 01/08/19 08:01 Dose: 10 meq Prednisone () 40 mg PO DAILY@0800 [facility] Last Admin: 01/08/19 08:01 Dose: 40 mg Sodium Chloride () 5 - 15 ml IV UD PRN PRN Reason: SALINE FLUSH Medical Necessity - Tobacco Use Smoking Status: Current every day smoker - Patient notes 1 pack of cigarettes last him 1.5 days. Tobacco Use: Cigarettes Assessment/Plan All Active Problems (Last Reviewed 08/04/18 @ 13:58 by Jaclyn Luna) Diabetic foot infection (Acute) Hypokalemia (Acute) H/O hernia repair (Resolved) History of appendectomy (Resolved) Colonoscopy planned (Resolved) Amputation of left lower extremity below knee (Resolved) Dyspnea (Acute) Lung mass (Acute) Hypoxia (Acute) ZACHARY (acute kidney injury) (Acute) Pneumonia (Acute) Sepsis (Acute) Hyponatremia (Acute) 1. Mechanical falls and debility Fell 3 times at home prior to coming in. CT brain showed no acute intracranial changes. CT cervical spine showed no demonstrated cervical trauma and showed possible prevertebral edema suspicious for ligamentous injury. PT OT consulted. Fall precautions. 2. RLE diabetic foot infection RLE macerated, xray of foot showed focal ulceration adjacent to lateral first digit, with bony demineralisation possibly due to developing early bony changes of osteomyelitis podiatry on board: had bedside debridement done yesterday. on IV vancomycin and zosyn wound cultures pending; per podiatry, to continue IV antibiotics until culture results are available. noninvasive vascular studies ordred. ID consulted, await rec's 3. Acute on chronic hyponatremia: Na was 127 on admission, is 133 today. does have chronic hyponatremia. continue hdyration. Hold HCTZ 4. Hypokalemia: resolved. K is 3.9 today. 5. CKD stage III: Creatinine is 1.64 today which is around his baseline. Will continue to monitor. 6. Type 2 diabetes mellitus: On insulin sliding scale and home dose of insulin. Accu-Cheks AC at bedtime. A1c is 6.2 7. COPD and asthma; stable. encourage tobacco cessation. Breathing treatments. 8. Hypertension; on amlodipine, atenolol and lisinopril. Hydrochlorothiazide on hold on account of hyponatremia. On IV hydralazine as needed. 9. Severe protein calorie malnutrition: Patient's BMI is 19. Nutrition consulted. 10. DVT prophylaxis: Renal dose of Lovenox. Disposition: patient amenable to going to SNF. Case management on board. Code Visit Inpatient E&M: 71029 Subs Hosp L2
--- NOTE | 2019-01-08 10:46 | PN_ITS ---
Patient Problems: Active and Suspected Problems (Last Reviewed 08/04/18 @ 13:58 by Jaclyn Luna) Diabetic foot infection (Acute) Hypokalemia (Acute) Subjective: Patient seen and examined. He had no complaints. Review of systems otherwise negative. Labs and vitals reviewed. Vitals/I&O's: Vital Signs Temp Pulse Resp BP Pulse Ox 98.7 F 74 18 140/65 H 94 01/08/19 08:10 01/08/19 08:10 01/08/19 08:10 01/08/19 08:10 01/08/19 08:10 Oxygen Flow Rate (L/min) 2 Oxygen Delivery Method Room Air Weight: 145 lb 8.081 oz Body Mass Index (BMI) 19.7 Intake and Output for Last 24 Hours 01/06/19 01/07/19 01/08/19 23:59 23:59 23:59 Intake Total 2795 / 2795 1678.7 / 1678.7 Output Total 725 / 725 700 / 700 Balance 2069 / 2069 978.7 / 978.7 General: Alert, Oriented x3, Cooperative, No apparent distress HEENT: Atraumatic, PERRLA, EOMI, Normocephalic Oral: Dry Mucosa Neck: Supple, No JVD, Negative Carotid Bruits Lungs: Clear to auscultation, Normal air movement, No rhonchi, No wheeze, No rales Cardiovascular: Regular rate, Regular Rhythm, Normal S1, Normal S2, No murmurs Abdomen: Bowel Sounds Present, Soft, Non Tender, Non-Distended, No Hepato- splenomegaly Extremities: No clubbing, No cyanosis, - - maceration of RLE, no clear ulceration visualised. LLE AKA stump clean Skin: - - as under extremities Musculoskeletal: No Tenderness to Palpation of Joints or Extremities Lymphatic: No Cervical, Supraclavicular, or Inguinal Adenopathy Neurological: Cranial nerves II-XII grossly intact, Neuro grossly intact Psych/Mental Status: Normal Affect, Appropriate, Alert and oriented to time, place, person, mood and affect Microbiology Past 72 Hours 01/07/19 10:00 Wound - Aerobic & Anaerobic Swabs Gram Stain - Final Laboratory Results 01/07/19 06:40: Magnesium 2.0 01/07/19 10:00: S.aureus Protein A PCR POSITIVE H, MRSA (PCR) Negative 01/07/19 11:55: POC Glucose 176 H 01/07/19 16:48: POC Glucose 233 H 01/08/19 05:33: POC Glucose 123 H 01/08/19 06:25: WBC 11.9 H, RBC 3.17 L, Hgb 10.0 L, Hct 28.0 L, MCV 88.3, MCH 31.5, MCHC 35.7, RDW 12.6, RDW Differential 39.4, Plt Count 164, MPV 11.4, Immature Gran % (Auto) 0.300, Neut % (Auto) 85.4 H, Lymph % (Auto) 6.1 L, [place] % (Auto) 8.2, Eos % (Auto) 0.0, Baso % (Auto) 0.0, Absolute Neuts (auto) 10.2 H, Absolute Lymphs (auto) 0.72 L, Total Counted Not Reportable, Differential Comment SCANNED, RBC Morphology 2+, Acanthocytes (Spur) 1+ 01/08/19 06:25: Sodium 133 L, Potassium 3.9, Chloride 105, Carbon Dioxide 22.0, Anion Gap 6, BUN 28 H, Creatinine 1.64 H, Estim Creat Clear Calc 34.65, Est GFR (MDRD) Af Amer 53 L, Est GFR (MDRD) Non-Af 43 L, BUN/Creatinine Ratio 17.1, Glucose 124 H, Calcium 8.0 L Diagnostic Data Brain CT 01/06/19 20:12 IMPRESSION: Chronic involutional changes of the brain. Punctate calcifications in the basal ganglia which are usually idiopathic in an elderly individual. 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 There is no intracranial hemorrhage or calvarial fracture. Electronically Signed: Suman Rodriguez MD at 21:24 EDT , Service support , Cervical Spine CT 01/06/19 20:13 IMPRESSION: 1. No demonstrated cervical trauma. If the patient has acute, focal neurologic findings, MRI is advised to evaluate for cord contusion. 2. Severe degenerative changes of the cervical spine. 3. Prevertebral edema may indicate ligamentous injury. Electronically Signed: Valeria Sampson MD at 21:06 EDT Tel , Service support , Chest X-Ray 01/06/19 20:25 IMPRESSION: Elevated left hemidiaphragm. Calcified plaques of the aortic arch. Region of broad-based scalloping of the posterior right fourth rib. This is of unknown etiology, but appears stable from the previous study. No acute cardiopulmonary disease process is seen. Electronically Signed: Suman Rodriguez MD at 20:52 EDT , Service support , Foot X-Ray 01/06/19 22:15 IMPRESSION: Focal ulceration adjacent to the lateral first digit. Bony demineralization consider possible developing early bony changes of osteomyelitis in the proximal phalanx of the first digit. Recommend consideration for follow-up MRI when appropriate. Age-indeterminate erosion of the distal phalanx of the first digit. Electronically Signed: Yeimi Muñoz MD at 22:40 EDT Tel , Service support , Current Medications Acetaminophen (Tylenol) 650 mg PO Q6H PRN PRN PRN Reason: Non-cardiac pain (mod-severe) Last Admin: 01/08/19 03:08 Dose: 650 mg Hydrocodone Bitart/Acetaminophen (Mereta 5mg-325mg) 1 - 2 tablet PO Q6H PRN PRN PRN Reason: MOD-SEVERE PAIN (4-10/10) Al Hydroxide/Mg Hydroxide (Mylanta Ii) 15 - 30 ml PO Q4H PRN PRN PRN Reason: INDIGESTION Albuterol Sulfate (Ventolin Aerosols) 2.5 mg INHALATION Q2H PRN PRN PRN Reason: dyspnea, wheezing Albuterol/Ipratropium (Duoneb) 3 ml INHALATION Q6HWA.RT MAC Last Admin: 01/08/19 07:07 Dose: 3 ml Amlodipine Besylate (Norvasc) 10 mg PO DAILY MAC Last Admin: 01/08/19 08:01 Dose: 10 mg Aspirin (Ecotrin) 81 mg PO DAILY@0800 [facility] Last Admin: 01/08/19 08:01 Dose: 81 mg Atenolol (Tenormin (Beta Paige)) 100 mg PO DAILY [facility] Last Admin: 01/08/19 08:01 Dose: 100 mg Atorvastatin Calcium (Lipitor) 40 mg PO QHS [facility] Last Admin: 01/07/19 21:47 Dose: 40 mg Dextrose (D50w Syringe) 0 gm IV X1 PRN; Protocol PRN Reason: Hypoglycemia Enoxaparin Sodium (Lovenox) 30 mg SC DAILY@1000 [facility] Last Admin: 01/08/19 08:00 Dose: 30 mg Glucagon () 1 mg IM .X1 PRN PRN Reason: Hypoglycemia Hydralazine HCl (Apresoline Iv) 10 mg IV Q4H PRN PRN PRN Reason: SBP > 160 Sodium Chloride () 1,000 mls @ 100 mls/hr IV .Q10H [facility] Last Admin: 01/08/19 05:41 Dose: 100 mls/hr Piperacillin Sod/Tazobactam (Sod 3.375 gm/ Sodium Chloride) 50 mls @ 12.5 mls/hr IV Q8 [facility] Last Admin: 01/08/19 05:36 Dose: 12.5 mls/hr Vancomycin IV Pharmacy to Dose (1 ea/ Sodium Chloride) 500 mls @ 250 mls/hr IV PRN PRN; Protocol PRN Reason: Rx to Dose Sodium Chloride () 250 mls @ 15 mls/hr IV .[id number] PRN PRN Reason: SALINE FLUSH Last Admin: 01/07/19 23:30 Dose: 15 mls/hr Vancomycin HCl 750 mg/ Sodium (Chloride) 265 mls @ 250 mls/hr IV Q24H [facility] Last Admin: 01/07/19 23:29 Dose: 250 mls/hr Lisinopril (Zestril) 2.5 mg PO DAILY [facility] Last Admin: 01/08/19 08:01 Dose: 2.5 mg Melatonin (Melatonin) 3 mg PO QHS PRN PRN PRN Reason: INSOMNIA Morphine Sulfate () 1 - 2 mg IV Q4H PRN PRN PRN Reason: PAIN Nicotine (Nicoderm Cq (Pbkc)) 7 mg TRANSDERM. DAILY [facility] Last Admin: 01/08/19 08:00 Dose: 7 mg Nutritional Formula (Lactose Free) (Glucerna Shake) 120 ml PO 4X/DAY [facility] Last Admin: 01/08/19 08:01 Dose: 120 ml Ondansetron HCl (Zofran) 4 mg IV Q8H PRN PRN PRN Reason: NAUSEA/VOMITING Potassium Chloride (K-Dur) 10 meq PO DAILYCM [facility] Last Admin: 01/08/19 08:01 Dose: 10 meq Prednisone () 40 mg PO DAILY@0800 [facility] Last Admin: 01/08/19 08:01 Dose: 40 mg Sodium Chloride () 5 - 15 ml IV UD PRN PRN Reason: SALINE FLUSH Medical Necessity - Tobacco Use Smoking Status: Current every day smoker - Patient notes 1 pack of cigarettes last him 1.5 days. Tobacco Use: Cigarettes Assessment/Plan All Active Problems (Last Reviewed 08/04/18 @ 13:58 by Jaclyn Luna) Diabetic foot infection (Acute) Hypokalemia (Acute) H/O hernia repair (Resolved) History of appendectomy (Resolved) Colonoscopy planned (Resolved) Amputation of left lower extremity below knee (Resolved) Dyspnea (Acute) Lung mass (Acute) Hypoxia (Acute) ZACHARY (acute kidney injury) (Acute) Pneumonia (Acute) Sepsis (Acute) Hyponatremia (Acute) 1. Mechanical falls and debility * Fell 3 times at home prior to coming in. CT brain showed no acute intracranial changes. * CT cervical spine showed no demonstrated cervical trauma and showed possible prevertebral edema suspicious for ligamentous injury. * PT OT consulted. * Fall precautions. * 2. RLE diabetic foot infection * RLE macerated, * xray of foot showed focal ulceration adjacent to lateral first digit, with bony demineralisation possibly due to developing early bony changes of osteomyelitis * podiatry on board: had bedside debridement done yesterday. * on IV vancomycin and zosyn * wound cultures pending; per podiatry, to continue IV antibiotics until culture results are available. * noninvasive vascular studies ordred. * ID consulted, await rec's * 3. Acute on chronic hyponatremia: * Na was 127 on admission, is 133 today. * does have chronic hyponatremia. continue hdyration. Hold HCTZ * 4. Hypokalemia: resolved. K is 3.9 today. 5. CKD stage III: Creatinine is 1.64 today which is around his baseline. Will continue to monitor. 6. Type 2 diabetes mellitus: On insulin sliding scale and home dose of insulin. Accu-Cheks AC at bedtime. A1c is 6.2 7. COPD and asthma; stable. encourage tobacco cessation. Breathing treatments. 8. Hypertension; on amlodipine, atenolol and lisinopril. Hydrochlorothiazide on hold on account of hyponatremia. On IV hydralazine as needed. 9. Severe protein calorie malnutrition: Patient's BMI is 19. Nutrition consulted. 10. DVT prophylaxis: Renal dose of Lovenox. Disposition: patient amenable to going to SNF. Case management on board. Code Visit Inpatient E&M: 16245 Subs Hosp L2
[2019-01-08 11:25] LABS: Bedside Glucose 232 mg/dL (70-110)
--- NOTE | 2019-01-08 16:10 | NURSING ---
PT REFUSED FOR ACCHECK. PT STATED I DONT NEED IT CHECKED AGAIN MY SUGAR IS FINE. WILL CONTINUE TO MONITOR.
--- NOTE | 2019-01-08 16:12 | PCM.PROGNOTE ---
Patient Problems: Active and Suspected Problems (Last Reviewed 08/04/18 @ 13:58 by Jaclyn Luna) Diabetic foot infection (Acute) Hypokalemia (Acute) Subjective: This 78 year old male was seen bedside for right hallux ulcer with osteomyelitis suspected. His case is complicated by diabetes and peripheral vascular disease. He is more alert today and is very talkative. He denies fever, chill, nausea, vomiting, leg pain, or foot odor. - Physical Exam General: Alert, Oriented x3, Cooperative HEENT: Atraumatic Extremities: No cyanosis, No edema, No Calf Tenderness - negative still right, - - non palpable pulses, right foot/ankle Skin: Ulcer/ Wound - ulcer distal right hallux with positive probe to bone. There is no erythema or streaking. The bone is firm with instrument palpation. There is no purulence or odor on expression., - - adjacent skin is hairless and atrophic Musculoskeletal: No Tenderness to Palpation of Joints or Extremities, Muscle Wasting, - - left below knee amputation and right lesser toe central amputations noted. compartments soft right foot. No ulcer manipulation or palpation pain Neurological: - - lack of epicritic sensation via touch right foot Psych/Mental Status: Normal Affect, Appropriate Vital Signs Temp Pulse Resp BP Pulse Ox 98.3 F 72 18 124/77 H 94 01/08/19 14:10 01/08/19 14:10 01/08/19 14:10 01/08/19 14:10 01/08/19 14:10 Oxygen Flow Rate (L/min) 2 Oxygen Delivery Method Room Air Weight: 66 kg Body Mass Index (BMI) 19.7 Intake and Output for Last 24 Hours 01/06/19 01/07/19 01/08/19 23:59 23:59 23:59 Intake Total 2795 / 2795 1918.7 / 1918.7 Output Total 725 / 725 700 / 700 Balance 2070 / 2070 1218.7 / 1218.7 Microbiology Past 72 Hours 01/07/19 10:00 Gram Stain - Final Wound - Aerobic & Anaerobic Swabs Wound Culture - Preliminary Gram negative lynsey Gram positive organism Laboratory Tests Past 24 Hrs 01/08/19 01/08/19 06:25 06:25 WBC 11.9 H RBC 3.17 L Hgb 10.0 L Hct 28.0 L MCV 88.3 MCH 31.5 MCHC 35.7 RDW 12.6 RDW Differential 39.4 Plt Count 164 MPV 11.4 Immature Gran % (Auto) 0.300 Neut % (Auto) 85.4 H Lymph % (Auto) 6.1 L [place] % (Auto) 8.2 Eos % (Auto) 0.0 Baso % (Auto) 0.0 Absolute Neuts (auto) 10.2 H Absolute Lymphs (auto) 0.72 L Total Counted Not Reportable Differential Comment SCANNED RBC Morphology 2+ Acanthocytes (Spur) 1+ Sodium 133 L Potassium 3.9 Chloride 105 Carbon Dioxide 22.0 Anion Gap 6 BUN 28 H Creatinine 1.64 H Estim Creat Clear Calc 34.65 Est GFR (MDRD) Af Amer 53 L Est GFR (MDRD) Non-Af 43 L BUN/Creatinine Ratio 17.1 Glucose 124 H Calcium 8.0 L POC Glucose 01/08/19 01/08/19 01/07/19 11:18 05:33 16:48 POC Glucose 232 H 123 H 233 H Medical Necessity - Tobacco Use Smoking Status: Current every day smoker - Patient notes 1 pack of cigarettes last him 1.5 days. Tobacco Use: Cigarettes Assessment/Plan All Active Problems (Last Reviewed 08/04/18 @ 13:58 by Jaclyn Luna) Diabetic foot infection (Acute) Hypokalemia (Acute) H/O hernia repair (Resolved) History of appendectomy (Resolved) Colonoscopy planned (Resolved) Amputation of left lower extremity below knee (Resolved) Dyspnea (Acute) Lung mass (Acute) Hypoxia (Acute) ZACHARY (acute kidney injury) (Acute) Pneumonia (Acute) Sepsis (Acute) Hyponatremia (Acute) Right hallux ulcer with exposed bone Osteomyelitis right distal hallux suspected Peripheral vascular disease Diabetes with neuropathy History of left below-knee amputation Other comorbidities Status post recent falls and walking instability I reviewed and discussed his case. His diagnostic data was reviewed. He is afebrile and his vital signs are stable. Labs are reviewed including white blood cell count 11.9, ESR 16, C-reactive protein 163. his x-rays were reviewed with some distal phalanx osteolysis that is adjacent to the ulcer site and I suspect osteomyelitis due to the chronicity of this opening. Deep wound cultures were obtained yesterday and the MRSA PCR was negative. The final results are pending and so far there is gram-negative rods and gram-positive organism growth. He is on vancomycin and Zosyn at this time. Infectious disease is on consultation as well. There are various options to proceed with ostium mellitus workup including an MRI versus a bone biopsy. I am concerned about the usefulness of performing an MRI for a distal phalanx tuft evaluation and would recommend proceeding forward with a local bedside bone debridement that can be sent to microbiology and pathology. This will be considered after he gets his noninvasive vascular studies completed tomorrow and infectious disease consultation. Overall this is stable and a dressing was reapplied today including Betadine with gauze and dry gauze. To keep pressure off of the site by heel weightbearing in a surgical shoe with an assistive device. To optimize healing with proper glycemic control and nutritional supplementation. I will continue to follow him closely while in house. Laurita Correa DPM, [facility] [phone]
[2019-01-08] MEDS: Atorvastatin Calcium 40 MG Tablet PO (20:27)
[2019-01-08 21:35] LABS: Bedside Glucose 214 mg/dL (70-110)
[2019-01-08] MEDS: 0.9% NaCl IVPB Med Flush (250 mL) 15 ML IV (22:16)
[2019-01-08 23:38] LABS: Vancomycin, Trough Level 5.4 ug/mL (5.0-15.0)
[2019-01-08] MEDS: 0.9% NaCl Peripheral Flush Adult/Peds IV (23:47)
--- NOTE | 2019-01-09 | BON_PTH ---
PATIENT: ADDY YUEN LOC: MS3 U#:[id number] AGE/SX: 78/M ROOM: RI325 RE01/06/[address]: Dr. Darrin Crum DO : 1940 BED: 1 DIS: 01/11/2019 SPEC #: [id number] RECD: 01/10/19 14:07 STATUS: NANETTE REQ #: [id number] GM: 01/09/19 00:[address]: Darrin Crum DEPT: SURGICAL PATHOLOGY RECD BY: Dusty Mahoney ENTERED: 01/10/19 14:08 SP TYPE: Bone OTHR DR: MD Dr. Laurita Hubbard, DPM MD Dr. Ariel Whittington MD Tissues: Bone of foot, NOS Procedures: Decalcification bone/plaque Surgery Specimen Level III HEADER OPERATION: Right hallux bone biopsy PRE-OP DIAGNOSIS: Diabetic infection TISSUE SUBMITTED: Right hallux bone biopsy MICROSCOPIC DIAGNOSIS Right hallux bone, biopsy: A piece of bone with acute osteomyelitis. ALEJANDRO:rea 01/13/19 COMMENT Clinical correlation and appropriate follow up are necessary. Case has been reviewed in consultation with Dr. Irby who concurs with the above diagnosis. IDC:AM MICROSCOPIC DESCRIPTION Slides are reviewed. GROSS DESCRIPTION Received is one container labeled with the patient's name and not further designated. The specimen consists of a piece of bone measuring 0.7 x 0.5 x 0.3 cm. The entire specimen is submitted in one cassette after decalcification. / ALEJANDRO:rea 01/10/19 TC:2 CPT: 23474, 06614
[2019-01-09] MEDS: Acetaminophen 325 MG Tablet 650 MG PO ×2 (02:53→13:48)
[2019-01-09 02:56] VITALS: BP 147/65; PULSE 77; RESP 18; TEMP 36.9; O2SAT 98
[2019-01-09] MEDS: 0.9% Normal Saline 1,000 ML 100 ML IV ×2 (03:06→13:47)
[2019-01-09 06:26] LABS: Anion Gap 6 (5-15); BUN 31 mg/dL (7-18); BUN/Creat Ratio 23.7 RATIO (10-20); Calcium,Total 7.8 mg/dL (8.5-10.1); Chloride 106 mmol/L (98-107); Creatinine, Serum 1.31 mg/dL (0.70-1.30); EST Glomerular Filtration Rate 56 mL/min (>60); Est Glom Filt Rate - Afr Amer 68 mL/min (>60); Estimated Creatinine Clearance 43.38 ml/min; Glucose 125 mg/dL (74-106); Potassium 3.8 mmol/L (3.5-5.1); Sodium Level 134 mmol/L (136-145)
[2019-01-09 06:27] LABS: Absolute Lymphocyte Count 1.09 X10^3/ul (0.83-4.51); Absolute Neutrophil Count 10.6 X10^3/uL (2.0-7.7); Basophil# 0.01 X10^3/uL; Basophil% 0.1 % (0-1); Hematocrit 27.2 % (40-54); Hemoglobin 9.7 g/dl (13.0-16.5); Lymphocyte # 1.09 X10^3/ul (4.0); Lymphocyte % 8.4 % (19-41); Mean Corp Hgb Conc 35.7 g/gl (32-36); Mean Corpuscular Hgb 31.9 pg (27.0-32.0); Mean Corpuscular Volume 89.5 fL (80-94); Mean Platelet Vol. 11.4 fl (6.2-12.0); Monocyte# 1.26 X10^3/uL; Monocyte% 9.7 % (0-10); Neutrophil % 81.4 % (47-70); Platelet Count 177 K/mm3 (150-450); RBC Distribution Width CV 12.8 % (11.6-14.6); RBC Distribution Width SD 40.4 fl (35.1-43.9); Red Blood Count 3.04 M/mm3 (4.6-6.2)
[2019-01-09 06:38] LABS: POSITIVE COUNT NO; POSITIVE DIFFERENTIAL NO; POSITIVE MORPHOLOGY NO
[2019-01-09 06:40] LABS: Bedside Glucose 125 mg/dL (70-110)
[2019-01-09 06:50] VITALS: PULSE 78; RESP 20; O2SAT 95
[2019-01-09] MEDS: Ipratropium/Albuterol Sulfate 3 ML AMPUL.NEB INHALATION ×2 (06:50→19:23)
--- NOTE | 2019-01-09 07:21 | PCM.RX.CS ---
Consult Pharmacy has been consulted to manage selected antiobiotic: Vancomycin Type of Consult: Follow-up Suspected Infection: Skin/Soft tissue Prior Doses of Antibiotics Received/Current Regimen: Currently on 750mg iv q24h. Labs: Sodium 134 mmol/L (136-145) L 01/09/19 05:48 Potassium 3.8 mmol/L (3.5-5.1) 01/09/19 05:48 Chloride 106 mmol/L (98-107) 01/09/19 05:48 Carbon Dioxide 22.0 mmol/L (21.0-32.0) 01/09/19 05:48 Anion Gap 6 (5-15) 01/09/19 05:48 BUN 31 mg/dL (7-18) H 01/09/19 05:48 Creatinine 1.31 mg/dL (0.70-1.30) H 01/09/19 05:48 Est GFR (MDRD) Af Amer 68 mL/min (>60) 01/09/19 05:48 Est GFR (MDRD) Non-Af 56 mL/min (>60) L 01/09/19 05:48 BUN/Creatinine Ratio 23.7 RATIO (10-20) H 01/09/19 05:48 Glucose 125 mg/dL (74-106) H 01/09/19 05:48 Vancomycin Trough 5.4 ug/mL (5.0-15.0) 01/08/19 22:46 Microbiology: Microbiology 01/07/19 10:00 Wound - Aerobic & Anaerobic Swabs Gram Stain - Final 01/07/19 10:00 Wound - Aerobic & Anaerobic Swabs Wound Culture - Preliminary Gram negative lynsey Gram positive organism Weight used for dosin kg Estimated Creatinine Clearance: ~43ml/min Goal Trough: 10-15 mcg/mL Pharmacy Plan for Drug Dosing: Vancomycin trough level 4.14.19 @2246 was 5.4. Renal function reviewed with improvement from baseline of Cr 1.59. Cr now 1.3 and CrCl ~43ml/min. Will increase dose to 1gm iv q24h and get repeat trough level before 3rd dose of new regimen. Goal range for trough is 10-15 mcg/ml. Pharmacy Service will continue to monitor and adjust dosing as required. Follow-Up Labs: Trough Vancomycin - 4.17.19 @2230 before 2300 dose
[2019-01-09 08:35] VITALS: BP 168/70; PULSE 87; RESP 15; RESP 18; TEMP 37.7; O2SAT 99
[2019-01-09] MEDS: Aspirin E.C. 81 MG Tablet PO (09:03)
[2019-01-09] MEDS: Lisinopril 2.5 MG Tablet PO (09:05)
[2019-01-09] MEDS: predniSONE 20 MG Tablet 40 MG PO (09:05)
[2019-01-09] MEDS: amLODIPine 10 MG Tablet PO (09:05)
[2019-01-09] MEDS: Atenolol 100 MG Tablet PO (09:05)
[2019-01-09] MEDS: Enoxaparin 30 MG/0.3 ML Syringe SC (09:07)
--- NOTE | 2019-01-09 09:09 | NURSING ---
wound photo: right great toe
--- NOTE | 2019-01-09 09:10 | NURSING ---
wound photo: left stump
[2019-01-09] MEDS: Glucerna Shake 120 ML LIQUID PO ×4 (09:11→22:21)
[2019-01-09 11:15] LABS: Bedside Glucose 232 mg/dL (70-110)
[2019-01-09] MEDS: Insulin Lispro 100 UNIT/ML INSULN.PEN SC ×3 (11:17→22:22)
--- NOTE | 2019-01-09 12:58 | PCM.HP.ID ---
Problem List (1) Diabetic foot infection Status: Acute Reason for Consult: foot infection Consulted by: Dr. Crum History of Present Illness: The patient is a 78 year old M with CKD, DM neuropathy who presented with recent falls and dizziness. Has had prior LLE BKA. Having some pain and chronic drainage from R 1st toe. Found to have ulcer in ED, fever to 101, started on vanc/zosyn. Bedside debridement planned. No n/v/d, no recent abx prior to hospital stay. Full ROS performed and neg except as noted above. 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) Other specified peripheral vascular diseases (Chronic) Type 2 diabetes mellitus with diabetic polyneuropathy (Chronic) Osteomyelitis of right foot (Chronic) Asthma (Chronic) Cough (Chronic) Tobacco abuse (Chronic) COPD (chronic obstructive pulmonary disease) (Chronic) Diabetes mellitus (Chronic) HTN (hypertension) (Chronic) Hyperlipidemia (Chronic) Allergies/Adverse Reactions: Allergies No Known Allergies Allergy (Verified 09/15/17 09:11) Home Medications: Ambulatory Orders Medication Instructions Recorded Amlodipine [Norvasc] 10 mg PO DAILY 04/30/14 Atenolol [Tenormin (beta lisa)] 100 mg PO DAILY 04/30/14 Aspirin E.C. [Ecotrin] 81 mg PO DAILY@0800 01/27/17 Atorvastatin Calcium 40 mg PO QHS 01/27/17 Lisinopril [Zestril] 2.5 mg PO DAILY 01/27/17 predniSONE tablet 40 mg PO DAILY@0800 4 Days tab 01/29/17 hydroCHLOROthiazide 12.5 mg PO DAILY 08/06/17 [Hydrochlorothiazide] Fluad 65yr up(PF)45 mcg(15 0.5 ml IM ONCE #0.5 ml NS 09/03/17 mcgx3)/0.5 mL intramuscular syringe albuterol sulfate HFA 90 1 puff INHALATION Q4H PRN PRN #1 01/03/18 mcg/actuation aerosol inhaler inhaler potassium chloride ER 10 mEq 10 meq PO DAILY 08/04/18 capsule,extended release - Social History Tobacco Use: cigarettes Vital Signs Temp Pulse Resp BP Pulse Ox 99.8 F H 87 18 168/70 H 99 01/09/19 08:35 01/09/19 08:35 01/09/19 08:35 01/09/19 08:35 01/09/19 08:35 Oxygen Flow Rate (L/min) 2 Oxygen Delivery Method Room Air Weight: 66 kg Body Mass Index (BMI) 19.7 Microbiology Past 72 Hours 01/07/19 10:00 Gram Stain - Final Wound - Aerobic & Anaerobic Swabs Wound Culture - Preliminary Proteus mirabilis Gram positive organism Laboratory Tests Past 24 Hrs 01/08/19 01/09/19 01/09/19 22:46 05:48 05:48 WBC 13.0 H RBC 3.04 L Hgb 9.7 L Hct 27.2 L MCV 89.5 MCH 31.9 MCHC 35.7 RDW 12.8 RDW Differential 40.4 Plt Count 177 MPV 11.4 Immature Gran % (Auto) 0.400 Neut % (Auto) 81.4 H Lymph % (Auto) 8.4 L [place] % (Auto) 9.7 Eos % (Auto) 0.0 Baso % (Auto) 0.1 Absolute Neuts (auto) 10.6 H Absolute Lymphs (auto) 1.09 Total Counted Not Reportable Sodium 134 L Potassium 3.8 Chloride 106 Carbon Dioxide 22.0 Anion Gap 6 BUN 31 H Creatinine 1.31 H Estim Creat Clear Calc 43.38 Est GFR (MDRD) Af Amer 68 Est GFR (MDRD) Non-Af 56 L BUN/Creatinine Ratio 23.7 H Glucose 125 H Calcium 7.8 L Vancomycin Trough 5.4 - Other Studies Radiology: [] reviewed Other Studies: [] Route of nutrition/ use of supplements: [] Nutritional Intake: [] IV Site: [] Lees Catheter: [] - Physical Exam General: Alert, Cooperative, No apparent distress HEENT: Atraumatic, PERRLA, EOMI Neck: Supple, No Nodes Lungs: Clear to auscultation, Normal air movement Cardiovascular: Regular rate, Regular Rhythm Abdomen: Soft, Non Tender, Non-Distended Extremities: No edema Skin: Ulcer/ Wound - R 1st toe ulceration. L BKA stump well healed IV Site: Peripheral, without redness Musculoskeletal: No Tenderness to Palpation of Joints or Extremities Neurological: Cranial nerves II-XII grossly intact - Assessment/Plan Antibiotics: [] Assessment/Plan: [] Active and Suspected Problems (Last Reviewed 08/04/18 @ 13:58 by Jaclyn Luna) Diabetic foot infection (Acute) Hypokalemia (Acute) Diabetic R 1st toe infection - bedside I&D planned. Fever to 101 here. MSSA pcr (+), wound cx with proteus and GPC. Narrow abx to vanc/unasyn, will follow. Thank you.
--- NOTE | 2019-01-09 13:39 | CASEMGMT ---
Social Work Note Christiana with [facility] had called this worker earlier today regarding [facility] for pt. MEGHAN met with pt, introduced self and role at [facility]. Pt is alert and orientated but does have some confusion. Pt had to be reminded that he is at [facility]. MEGHAN educated pt on RU at [facility]. MEGHAN explained would be short term for pt and pt could eventually return home. Pt agreeable to [facility]. Pt gave this worker permission to call his daughter Suhas and update on discharge plans. MEGHAN placed a call to pt's daughter Suhas and updated on discharge plan to [facility] once medically cleared. MEGHAN placed a call to Christiana with [facility], updated her pt is agreeable to [facility]. Pt is scheduled to have bedside I&D, should be medically cleared for discharge in a day or two. Plan: [facility] once medically cleared Shantell Weir [employer]
--- NOTE | 2019-01-09 14:34 | PCM.PN.HOSP ---
Patient Problems: Active and Suspected Problems (Last Reviewed 08/04/18 @ 13:58 by Jaclyn Luna) Diabetic foot infection (Acute) Hypokalemia (Acute) Subjective: No new complaints. Spoke with the patient's son, Dr. Payne ([phone]) about the patient. He expressed that after the fall, the patient had difficulty raising his right past horizontal, but was not consistent. Vitals/I&O's: Vital Signs Temp Pulse Resp BP Pulse Ox 37.7 C H 87 18 168/70 H 99 01/09/19 08:35 01/09/19 08:35 01/09/19 08:35 01/09/19 08:35 01/09/19 08:35 Oxygen Flow Rate (L/min) 2 Oxygen Delivery Method Room Air Weight: 66 kg Body Mass Index (BMI) 19.7 Intake and Output for Last 24 Hours 01/07/19 01/08/19 01/09/19 23:59 23:59 23:59 Intake Total 2795 / 2795 3342.7 / 3342.7 3525.8 / 3525.8 Output Total 725 / 725 1350 / 1350 1105 / 1105 Balance 2070 / 0 1992.7 / 1992.7 2420.8 / 2420.8 General: Alert, No apparent distress HEENT: Atraumatic, Normocephalic Oral: Moist Mucosa, No Gingival or Mucosal Lesions/ Ulcerations Neck: No Nodes, Thyroid Normal Size and Texture Lungs: Clear to auscultation, Normal air movement, No rhonchi, No wheeze Cardiovascular: Regular rate, Regular Rhythm, Normal S1, Normal S2, No murmurs Abdomen: Bowel Sounds Present, Soft, Non Tender, Non-Distended, No Hepato-splenomegaly Extremities: No edema, No Calf Tenderness Musculoskeletal: Cachexia, Muscle Wasting Psych/Mental Status: Normal Affect, Appropriate Microbiology Past 72 Hours 01/07/19 10:00 Wound - Aerobic & Anaerobic Swabs Gram Stain - Final 01/07/19 10:00 Wound - Aerobic & Anaerobic Swabs Wound Culture - Preliminary Proteus mirabilis Gram positive organism 01/07/19 10:00 Wound - Aerobic & Anaerobic Swabs Anaerobic Culture - Preliminary Checking for anaerobes, further studies to follow. Laboratory Results 01/08/19 20:39: POC Glucose 214 H 01/08/19 22:46: Vancomycin Trough 5.4 01/09/19 05:48: WBC 13.0 H, RBC 3.04 L, Hgb 9.7 L, Hct 27.2 L, MCV 89.5, MCH 31.9, MCHC 35.7, RDW 12.8, RDW Differential 40.4, Plt Count 177, MPV 11.4, Immature Gran % (Auto) 0.400, Neut % (Auto) 81.4 H, Lymph % (Auto) 8.4 L, Stearns % (Auto) 9.7, Eos % (Auto) 0.0, Baso % (Auto) 0.1, Absolute Neuts (auto) 10.6 H, Absolute Lymphs (auto) 1.09, Total Counted Not Reportable 01/09/19 05:48: Sodium 134 L, Potassium 3.8, Chloride 106, Carbon Dioxide 22.0, Anion Gap 6, BUN 31 H, Creatinine 1.31 H, Estim Creat Clear Calc 43.38, Est GFR (MDRD) Af Amer 68, Est GFR (MDRD) Non-Af 56 L, BUN/Creatinine Ratio 23.7 H, Glucose 125 H, Calcium 7.8 L 01/09/19 06:13: POC Glucose 125 H 01/09/19 11:13: POC Glucose 232 H Current Medications Acetaminophen (Tylenol) 650 mg PO Q6H PRN PRN PRN Reason: Non-cardiac pain (mod-severe) Last Admin: 01/09/19 13:48 Dose: 650 mg Hydrocodone Bitart/Acetaminophen ([place] 5mg-325mg) 1 - 2 tablet PO Q6H PRN PRN PRN Reason: MOD-SEVERE PAIN (4-10/10) Al Hydroxide/Mg Hydroxide (Mylanta Ii) 15 - 30 ml PO Q4H PRN PRN PRN Reason: INDIGESTION Albuterol Sulfate (Ventolin Aerosols) 2.5 mg INHALATION Q2H PRN PRN PRN Reason: dyspnea, wheezing Albuterol/Ipratropium (Duoneb) 3 ml INHALATION Q6HWA.RT MAC Last Admin: 01/09/19 13:30 Dose: Not Given Amlodipine Besylate (Norvasc) 10 mg PO DAILY MAC Last Admin: 01/09/19 09:05 Dose: 10 mg Aspirin (Ecotrin) 81 mg PO DAILY@0800 [facility] Last Admin: 01/09/19 09:03 Dose: 81 mg Atenolol (Tenormin (Beta Paige)) 100 mg PO DAILY [facility] Last Admin: 01/09/19 09:05 Dose: 100 mg Atorvastatin Calcium (Lipitor) 40 mg PO QHS [facility] Last Admin: 01/08/19 20:27 Dose: 40 mg Dextrose (D50w Syringe) 0 gm IV X1 PRN; Protocol PRN Reason: Hypoglycemia Enoxaparin Sodium (Lovenox) 30 mg SC DAILY@1000 [facility] Last Admin: 01/09/19 09:07 Dose: 30 mg Glucagon () 1 mg IM .X1 PRN PRN Reason: Hypoglycemia Hydralazine HCl (Apresoline Iv) 10 mg IV Q4H PRN PRN PRN Reason: SBP > 160 Sodium Chloride () 1,000 mls @ 100 mls/hr IV .Q10H [facility] Last Admin: 01/09/19 13:47 Dose: 100 mls/hr Vancomycin IV Pharmacy to Dose (1 ea/ Sodium Chloride) 500 mls @ 250 mls/hr IV PRN PRN; Protocol PRN Reason: Rx to Dose Sodium Chloride () 250 mls @ 15 mls/hr IV .[id number] PRN PRN Reason: SALINE FLUSH Last Admin: 01/08/19 22:16 Dose: 15 mls/hr Vancomycin HCl (Vancomycin) 1,000 mg in 200 mls @ 200 mls/hr IV Q24H [facility] Ampicillin Sodium/Sulbactam (Sodium 3 gm/ Sodium Chloride) 112 mls @ 150 mls/hr IV Q8 [facility] Last Admin: 01/09/19 13:47 Dose: 150 mls/hr Insulin Human Lispro (Humalog Kwikpen (Bkc)) 0 unit SC ACHS [facility]; Protocol Last Admin: 01/09/19 11:17 Dose: 3 u Lisinopril (Zestril) 2.5 mg PO DAILY [facility] Last Admin: 01/09/19 09:05 Dose: 2.5 mg Melatonin (Melatonin) 3 mg PO QHS PRN PRN PRN Reason: INSOMNIA Morphine Sulfate () 1 - 2 mg IV Q4H PRN PRN PRN Reason: PAIN Nicotine (Nicoderm Cq (Pbkc)) 7 mg TRANSDERM. DAILY [facility] Last Admin: 01/09/19 09:05 Dose: 7 mg Nutritional Formula (Braxton - Teller Flavor) 1 packet PO BIDCM [facility] Last Admin: 01/09/19 09:03 Dose: 1 packet Nutritional Formula (Lactose Free) (Glucerna Shake) 120 ml PO 4X/DAY [facility] Last Admin: 01/09/19 13:48 Dose: 120 ml Ondansetron HCl (Zofran) 4 mg IV Q8H PRN PRN PRN Reason: NAUSEA/VOMITING Potassium Chloride (K-Dur) 10 meq PO DAILYCM [facility] Last Admin: 01/09/19 09:04 Dose: 10 meq Prednisone () 40 mg PO DAILY@0800 [facility] Last Admin: 01/09/19 09:05 Dose: 40 mg Sodium Chloride () 5 - 15 ml IV UD PRN PRN Reason: SALINE FLUSH Last Admin: 01/08/19 23:47 Dose: 10 ml Medical Necessity - Tobacco Use Smoking Status: Current every day smoker - Patient notes 1 pack of cigarettes last him 1.5 days. Tobacco Use: Cigarettes Assessment/Plan All Active Problems (Last Reviewed 08/04/18 @ 13:58 by Jaclyn Luna) Diabetic foot infection (Acute) Hypokalemia (Acute) H/O hernia repair (Resolved) History of appendectomy (Resolved) Colonoscopy planned (Resolved) Amputation of left lower extremity below knee (Resolved) Dyspnea (Acute) Lung mass (Acute) Hypoxia (Acute) ZACHARY (acute kidney injury) (Acute) Pneumonia (Acute) Sepsis (Acute) Hyponatremia (Acute) 1. RLE diabetic foot infection: concern for osteomyelitis podiatry would prefer to bypass MRI and perform bedside I+D, but awaiting on ABIs Cx + for proteus and GPO on unasyn and vancomycin 2. Debility PT recommending additional therapy suspect pt may need SNF 3. hyponatremia: chronic improved 4. COPD: not in exacerbation Prednisone 40 on home med list, but looks like it has been pushed forward in the med recs from a 5 day rx in 09/12. Called [facility] in [place]: no prednisone scripts in the past 2 years (at least) will dc prednisone. 5. severe protein malnutrition presumed check prealbumin nutrition on consult complicates care 6. right arm pain s/p fall per son, waxes and wanes suspect rotator cuff tear/injury conservative mgmt 7. ZACHARY resolved HLIV suspect prerenal 8. Anemia: hg went from 13.2 to 9.7, part of the drop may be dilutional monitor no need for transfusion check anemia studies 9. VTE prophylaxis: LMWH DW patient's son, Dr. Payne. Greater than 45 minutes of which greater than 50% of the time was spent discussing with the patient's son about the patient medical status and clarifying medication with pharmacy. Code Visit Inpatient E&M: 73423 Subs Hosp L3
[2019-01-09 14:35] VITALS: BP 128/62; PULSE 79; RESP 15; TEMP 37.2; O2SAT 95
--- NOTE | 2019-01-09 14:59 | PN_ITS ---
Patient Problems: Active and Suspected Problems (Last Reviewed 08/04/18 @ 13:58 by Jaclyn Luna) Diabetic foot infection (Acute) Hypokalemia (Acute) Subjective: No new complaints. Spoke with the patient's son, Dr. Payne ([phone]) about the patient. He expressed that after the fall, the patient had difficulty raising his right past horizontal, but was not consistent. Vitals/I&O's: Vital Signs Temp Pulse Resp BP Pulse Ox 37.7 C H 87 18 168/70 H 99 01/09/19 08:35 01/09/19 08:35 01/09/19 08:35 01/09/19 08:35 01/09/19 08:35 Oxygen Flow Rate (L/min) 2 Oxygen Delivery Method Room Air Weight: 66 kg Body Mass Index (BMI) 19.7 Intake and Output for Last 24 Hours 01/07/19 01/08/19 01/09/19 23:59 23:59 23:59 Intake Total 2795 / 2795 3342.7 / 3342.7 3525.8 / 3525.8 Output Total 725 / 725 1350 / 1350 1105 / 1105 Balance 2070 / 0 1992.7 / 1992.7 2420.8 / 2420.8 General: Alert, No apparent distress HEENT: Atraumatic, Normocephalic Oral: Moist Mucosa, No Gingival or Mucosal Lesions/ Ulcerations Neck: No Nodes, Thyroid Normal Size and Texture Lungs: Clear to auscultation, Normal air movement, No rhonchi, No wheeze Cardiovascular: Regular rate, Regular Rhythm, Normal S1, Normal S2, No murmurs Abdomen: Bowel Sounds Present, Soft, Non Tender, Non-Distended, No Hepato- splenomegaly Extremities: No edema, No Calf Tenderness Musculoskeletal: Cachexia, Muscle Wasting Psych/Mental Status: Normal Affect, Appropriate Microbiology Past 72 Hours 01/07/19 10:00 Wound - Aerobic & Anaerobic Swabs Gram Stain - Final 01/07/19 10:00 Wound - Aerobic & Anaerobic Swabs Wound Culture - Preliminary Proteus mirabilis Gram positive organism 01/07/19 10:00 Wound - Aerobic & Anaerobic Swabs Anaerobic Culture - Preliminary Checking for anaerobes, further studies to follow. Laboratory Results 01/08/19 20:39: POC Glucose 214 H 01/08/19 22:46: Vancomycin Trough 5.4 01/09/19 05:48: WBC 13.0 H, RBC 3.04 L, Hgb 9.7 L, Hct 27.2 L, MCV 89.5, MCH 31.9, MCHC 35.7, RDW 12.8, RDW Differential 40.4, Plt Count 177, MPV 11.4, Immature Gran % (Auto) 0.400, Neut % (Auto) 81.4 H, Lymph % (Auto) 8.4 L, [place] % (Auto) 9.7, Eos % (Auto) 0.0, Baso % (Auto) 0.1, Absolute Neuts (auto) 10.6 H, Absolute Lymphs (auto) 1.09, Total Counted Not Reportable 01/09/19 05:48: Sodium 134 L, Potassium 3.8, Chloride 106, Carbon Dioxide 22.0, Anion Gap 6, BUN 31 H, Creatinine 1.31 H, Estim Creat Clear Calc 43.38, Est GFR (MDRD) Af Amer 68, Est GFR (MDRD) Non-Af 56 L, BUN/Creatinine Ratio 23.7 H, Glucose 125 H, Calcium 7.8 L 01/09/19 06:13: POC Glucose 125 H 01/09/19 11:13: POC Glucose 232 H Current Medications Acetaminophen (Tylenol) 650 mg PO Q6H PRN PRN PRN Reason: Non-cardiac pain (mod-severe) Last Admin: 01/09/19 13:48 Dose: 650 mg Hydrocodone Bitart/Acetaminophen ([place] 5mg-325mg) 1 - 2 tablet PO Q6H PRN PRN PRN Reason: MOD-SEVERE PAIN (4-10/10) Al Hydroxide/Mg Hydroxide (Mylanta Ii) 15 - 30 ml PO Q4H PRN PRN PRN Reason: INDIGESTION Albuterol Sulfate (Ventolin Aerosols) 2.5 mg INHALATION Q2H PRN PRN PRN Reason: dyspnea, wheezing Albuterol/Ipratropium (Duoneb) 3 ml INHALATION Q6HWA.RT MAC Last Admin: 01/09/19 13:30 Dose: Not Given Amlodipine Besylate (Norvasc) 10 mg PO DAILY MAC Last Admin: 01/09/19 09:05 Dose: 10 mg Aspirin (Ecotrin) 81 mg PO DAILY@0800 [facility] Last Admin: 01/09/19 09:03 Dose: 81 mg Atenolol (Tenormin (Beta Paige)) 100 mg PO DAILY [facility] Last Admin: 01/09/19 09:05 Dose: 100 mg Atorvastatin Calcium (Lipitor) 40 mg PO QHS [facility] Last Admin: 01/08/19 20:27 Dose: 40 mg Dextrose (D50w Syringe) 0 gm IV X1 PRN; Protocol PRN Reason: Hypoglycemia Enoxaparin Sodium (Lovenox) 30 mg SC DAILY@1000 [facility] Last Admin: 01/09/19 09:07 Dose: 30 mg Glucagon () 1 mg IM .X1 PRN PRN Reason: Hypoglycemia Hydralazine HCl (Apresoline Iv) 10 mg IV Q4H PRN PRN PRN Reason: SBP > 160 Sodium Chloride () 1,000 mls @ 100 mls/hr IV .Q10H [facility] Last Admin: 01/09/19 13:47 Dose: 100 mls/hr Vancomycin IV Pharmacy to Dose (1 ea/ Sodium Chloride) 500 mls @ 250 mls/hr IV PRN PRN; Protocol PRN Reason: Rx to Dose Sodium Chloride () 250 mls @ 15 mls/hr IV .[id number] PRN PRN Reason: SALINE FLUSH Last Admin: 01/08/19 22:16 Dose: 15 mls/hr Vancomycin HCl (Vancomycin) 1,000 mg in 200 mls @ 200 mls/hr IV Q24H [facility] Ampicillin Sodium/Sulbactam (Sodium 3 gm/ Sodium Chloride) 112 mls @ 150 mls/hr IV Q8 [facility] Last Admin: 01/09/19 13:47 Dose: 150 mls/hr Insulin Human Lispro (Humalog Kwikpen (Bkc)) 0 unit SC ACHS [facility]; Protocol Last Admin: 01/09/19 11:17 Dose: 3 u Lisinopril (Zestril) 2.5 mg PO DAILY [facility] Last Admin: 01/09/19 09:05 Dose: 2.5 mg Melatonin (Melatonin) 3 mg PO QHS PRN PRN PRN Reason: INSOMNIA Morphine Sulfate () 1 - 2 mg IV Q4H PRN PRN PRN Reason: PAIN Nicotine (Nicoderm Cq (Pbkc)) 7 mg TRANSDERM. DAILY [facility] Last Admin: 01/09/19 09:05 Dose: 7 mg Nutritional Formula (Braxton - [place] Flavor) 1 packet PO BIDCM [facility] Last Admin: 01/09/19 09:03 Dose: 1 packet Nutritional Formula (Lactose Free) (Glucerna Shake) 120 ml PO 4X/DAY [facility] Last Admin: 01/09/19 13:48 Dose: 120 ml Ondansetron HCl (Zofran) 4 mg IV Q8H PRN PRN PRN Reason: NAUSEA/VOMITING Potassium Chloride (K-Dur) 10 meq PO DAILYCM [facility] Last Admin: 01/09/19 09:04 Dose: 10 meq Prednisone () 40 mg PO DAILY@0800 [facility] Last Admin: 01/09/19 09:05 Dose: 40 mg Sodium Chloride () 5 - 15 ml IV UD PRN PRN Reason: SALINE FLUSH Last Admin: 01/08/19 23:47 Dose: 10 ml Medical Necessity - Tobacco Use Smoking Status: Current every day smoker - Patient notes 1 pack of cigarettes last him 1.5 days. Tobacco Use: Cigarettes Assessment/Plan All Active Problems (Last Reviewed 08/04/18 @ 13:58 by Jaclyn Luna) Diabetic foot infection (Acute) Hypokalemia (Acute) H/O hernia repair (Resolved) History of appendectomy (Resolved) Colonoscopy planned (Resolved) Amputation of left lower extremity below knee (Resolved) Dyspnea (Acute) Lung mass (Acute) Hypoxia (Acute) ZACHARY (acute kidney injury) (Acute) Pneumonia (Acute) Sepsis (Acute) Hyponatremia (Acute) 1. RLE diabetic foot infection: * concern for osteomyelitis * podiatry would prefer to bypass MRI and perform bedside I+D, but awaiting on ABIs * Cx + for proteus and GPO * on unasyn and vancomycin 2. Debility * PT recommending additional therapy * suspect pt may need SNF 3. hyponatremia: * chronic * improved 4. COPD: * not in exacerbation * Prednisone 40 on home med list, but looks like it has been pushed forward in the med recs from a 5 day rx in 09/12. Called [facility] in [place]: no prednisone scripts in the past 2 years (at least) * will dc prednisone. 5. severe protein malnutrition * presumed * check prealbumin * nutrition on consult * complicates care 6. right arm pain * s/p fall * per son, waxes and wanes * suspect rotator cuff tear/injury * conservative mgmt 7. ZACHARY * resolved * HLIV * suspect prerenal 8. Anemia: * hg went from 13.2 to 9.7, part of the drop may be dilutional * monitor * no need for transfusion * check anemia studies 9. VTE prophylaxis: LMWH DW patient's son, Dr. Payne. Greater than 45 minutes of which greater than 50% of the time was spent discussing with the patient's son about the patient medical status and clarifying medication with pharmacy. Code Visit Inpatient E&M: 17628 Subs Hosp L3
[2019-01-09 15:40] LABS: Prealbumin 8.4 mg/dL (20.0-40.0)
[2019-01-09 16:31] LABS: Bedside Glucose 227 mg/dL (70-110)
--- NOTE | 2019-01-09 18:50 | ART_ITS ---
Reason For Study: ulcer Left Segmental Pressures Left brachial= 162mmHg. Left thigh = 123mmHg. Popliteal waveforms are biphasic. Right Segmental Pressures Right brachial= 161mmHg. The right posterior tibial artery waveforms are biphasic. The right dorsalis pedis waveforms are biphasic. Right dorsalis pedis artery = 131mmHg. Right posterior tibial artery = 131mmHg. Right calf = 168mmHg. Right thigh = 250mmHg. Indices The right ankle brachial index by the posterior tibial artery is .81. The right ankle brachial index by the dorsalis pedis is .81. Low thigh index is .76. Interpretation Summary Abnormal right PT and DP ankle brachial indices of 0.81 and 0.81 respectively. Doppler waveforms are biphasic consistent with moderate occlusive disease in the range of claudication. Volume pulse recordings are fairly well maintained to the right ankle while digital waveforms are quite depressed consistent with distal small vessel disease. 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 Ordering Physician: Laurita Correa Performed By: Nick Fletcher RVT
[2019-01-09 19:23] VITALS: PULSE 86; RESP 20; O2SAT 98
[2019-01-09 22:20] VITALS: BP 158/82; PULSE 83; RESP 18; TEMP 36.7; O2SAT 94
[2019-01-09] MEDS: Atorvastatin Calcium 40 MG Tablet PO (22:22)
[2019-01-09 22:56] LABS: Bedside Glucose 206 mg/dL (70-110)
[2019-01-09] MEDS: Vancomycin IV 1,000 MG/200 ML BAG 200 MG IV (23:22)
[2019-01-10] VITALS (8 sets, daily range): BP systolic 140–165; BP diastolic 61–88; PULSE 69–90; RESP 18–26; TEMP 36.7–36.9; O2SAT 93–98
[2019-01-10] MEDS: Albuterol 2.5 MG/3 ML VIAL.NEB. INHALATION (04:54)
[2019-01-10] MEDS: 0.9% NaCl Peripheral Flush Adult/Peds IV ×5 (06:26→22:13)
[2019-01-10 06:33] LABS: Absolute Lymphocyte Count 1.33 X10^3/ul (0.83-4.51); Absolute Neutrophil Count 8.2 X10^3/uL (2.0-7.7); Basophil# 0.02 X10^3/uL; Basophil% 0.2 % (0-1); Hemoglobin 10.3 g/dl (13.0-16.5); Lymphocyte # 1.33 X10^3/ul (4.0); Lymphocyte % 12.1 % (19-41); Mean Corp Hgb Conc 35.5 g/gl (32-36); Mean Corpuscular Hgb 31.8 pg (27.0-32.0); Mean Corpuscular Volume 89.5 fL (80-94); Mean Platelet Vol. 10.4 fl (6.2-12.0); Monocyte# 1.27 X10^3/uL; Monocyte% 11.6 % (0-10); Neutrophil # 8.23 X10^3/uL (2.7-7.7); Neutrophil % 75.1 % (47-70); Platelet Count 208 K/mm3 (150-450); RBC Distribution Width CV 13.7 % (11.6-14.6); RBC Distribution Width SD 45.2 fl (35.1-43.9); Red Blood Count 3.24 M/mm3 (4.6-6.2)
[2019-01-10 06:37] LABS: POSITIVE COUNT NO; POSITIVE DIFFERENTIAL NO; POSITIVE MORPHOLOGY NO
--- NOTE | 2019-01-10 06:56 | PCM.PROGNOTE ---
Patient Problems: Active and Suspected Problems (Last Reviewed 08/04/18 @ 13:58 by Jaclyn Luna) Diabetic foot infection (Acute) Hypokalemia (Acute) Subjective: This 78 year old male was seen bedside for right hallux ulcer with osteomyelitis suspected. His case is complicated by diabetes and peripheral vascular disease. He denies fever, chill, nausea, vomiting, leg or foot pain. The consent for bone biopsy was obtained by his power of assistant district attorney yesterday evening. The patient is amenable to proceed. - Physical Exam General: Alert, Cooperative, Confused Extremities: No cyanosis, No edema, No Calf Tenderness - negative still sign right, Diminished Peripheral Pulses, - - Left below-knee amputation. Right central toe amputations. Skin: Ulcer/ Wound - The distal right hallux ulcer does not have any purulence, erythema, streaking, odor, beba necrosis. There is positive probe and visualization of bone. There is hematogenous drainage only. The adjacent skin is very hairless and atrophic. There is no other ulcers noted or maceration. Musculoskeletal: No Tenderness to Palpation of Joints or Extremities, Muscle Wasting Neurological: - - Lack of normal epicritic sensation light touch consistent with neuropathy right lower extremity Psych/Mental Status: Normal Affect, Appropriate Vital Signs Temp Pulse Resp BP Pulse Ox 98.2 F 82 20 H 165/79 H 95 01/10/19 02:15 01/10/19 04:54 01/10/19 04:54 01/10/19 02:15 01/10/19 04:55 Oxygen Flow Rate (L/min) 2 Oxygen Delivery Method Room Air Weight: 66 kg Body Mass Index (BMI) 19.7 Intake and Output for Last 24 Hours 01/08/19 01/09/19 01/10/19 23:59 23:59 23:59 Intake Total 3342.7 / 3342.7 4179.8 / 4179.8 696 / 696 Output Total 1350 / 1350 1105 / 1105 1000 / 1000 Balance 1992.7 / 1991.7 3074.8 / 3074.8 -304 / -304 Microbiology Past 72 Hours 01/07/19 10:00 Gram Stain - Final Wound - Aerobic & Anaerobic Swabs Wound Culture - Preliminary Proteus mirabilis Gram positive organism Anaerobic Culture - Preliminary Checking for anaerobes, further studies to follow. Laboratory Tests Past 24 Hrs 01/09/19 01/10/19 01/10/19 05:48 06:18 06:18 WBC 11.0 RBC 3.24 L Hgb 10.3 L Hct 29.0 L MCV 89.5 MCH 31.8 MCHC 35.5 RDW 13.7 RDW Differential 45.2 H Plt Count 208 MPV 10.4 Immature Gran % (Auto) 1.000 H Neut % (Auto) 75.1 H Lymph % (Auto) 12.1 L Rogers % (Auto) 11.6 H Eos % (Auto) 0.0 Baso % (Auto) 0.2 Absolute Neuts (auto) 8.2 H Absolute Lymphs (auto) 1.33 Total Counted Not Reportable Sodium Pending Potassium Pending Chloride Pending Carbon Dioxide Pending Anion Gap Pending BUN Pending Creatinine Pending Est GFR (MDRD) Af Amer Pending Est GFR (MDRD) Non-Af Pending BUN/Creatinine Ratio Pending Glucose Pending Calcium Pending Iron Pending TIBC Pending Iron Saturation Pending Ferritin Pending Prealbumin 8.4 L Vitamin B12 RBC Folate Hemolysate RBC Folate Hematocrit TSH Pending 01/10/19 01/10/19 06:18 06:18 WBC RBC Hgb Hct MCV MCH MCHC RDW RDW Differential Plt Count MPV Immature Gran % (Auto) Neut % (Auto) Lymph % (Auto) Rogers % (Auto) Eos % (Auto) Baso % (Auto) Absolute Neuts (auto) Absolute Lymphs (auto) Total Counted Sodium Potassium Chloride Carbon Dioxide Anion Gap BUN Creatinine Est GFR (MDRD) Af Amer Est GFR (MDRD) Non-Af BUN/Creatinine Ratio Glucose Calcium Iron TIBC Iron Saturation Ferritin Prealbumin Vitamin B12 Pending RBC Folate Hemolysate Pending RBC Folate Pending Hematocrit Pending TSH POC Glucose 01/09/19 01/09/19 01/09/19 22:19 16:20 11:13 POC Glucose 206 H 227 H 232 H Medical Necessity - Tobacco Use Smoking Status: Current every day smoker - Patient notes 1 pack of cigarettes last him 1.5 days. Tobacco Use: Cigarettes Assessment/Plan All Active Problems (Last Reviewed 08/04/18 @ 13:58 by Jaclyn Luna) Diabetic foot infection (Acute) Hypokalemia (Acute) H/O hernia repair (Resolved) History of appendectomy (Resolved) Colonoscopy planned (Resolved) Amputation of left lower extremity below knee (Resolved) Dyspnea (Acute) Lung mass (Acute) Hypoxia (Acute) ZACHARY (acute kidney injury) (Acute) Pneumonia (Acute) Sepsis (Acute) Hyponatremia (Acute) Right hallux ulcer with exposed bone Osteomyelitis right distal hallux suspected Peripheral vascular disease Diabetes with neuropathy History of left below-knee amputation Other comorbidities Status post recent falls and walking instability I reviewed and discussed his case. His diagnostic data was reviewed. He is afebrile and his vital signs are stable. Labs are reviewed including white blood cell count 11, ESR 16, C-reactive protein 163. his x-rays were reviewed with some distal phalanx osteolysis that is adjacent to the ulcer site and I suspect osteomyelitis due to the chronicity of this opening. Distal phalanx bone biopsy was obtained today with a sterile ronguer after verbal consent was obtained. A verbal phone consent was also obtained from his POA yesterday evening. Betadine preparation was performed, the biopsy was obtained (sent to pathology and micro for aerobic, anaerobic, acid fast, fungal), and pressure was applied to maintain hemostasis. Copious normal saline irrigation was performed and a dressing was applied. He is on vancomycin at this time. Infectious disease is on consultation as well. JHON right is about 0.7 and toe brachial and segmental limb pressure information is pending. Overall this is stable and tolerated this procedure well this morning. To keep pressure off of the site by heel weightbearing in a surgical shoe with an assistive device. To optimize healing with proper glycemic control and nutritional supplementation. I will continue to follow him closely while in house. Laurita Correa DPM, [facility] [phone]
[2019-01-10 07:00] LABS: Bedside Glucose 127 mg/dL (70-110)
[2019-01-10 07:19] LABS: Anion Gap 4 (5-15); BUN 35 mg/dL (7-18); BUN/Creat Ratio 27.3 RATIO (10-20); Calcium,Total 7.8 mg/dL (8.5-10.1); Chloride 106 mmol/L (98-107); Creatinine, Serum 1.28 mg/dL (0.70-1.30); EST Glomerular Filtration Rate 58 mL/min (>60); Est Glom Filt Rate - Afr Amer 70 mL/min (>60); Ferritin 797 ng/mL (26-388); Glucose 125 mg/dL (74-106); Iron 59 ug/dL (65-175); Iron Binding Capacity,Total 157 ug/dL (250-450); PERCENT IRON SATURATION 37.6 % (15.0-55.0); Sodium Level 134 mmol/L (136-145)
[2019-01-10 08:22] LABS: Vitamin B12 623 pg/mL (211-911)
--- NOTE | 2019-01-10 08:57 | NURSING ---
Dr Correa had been in to see patient this am. dressing was changed to the right foot. Did not removed at this time since dressing was recently changed. wound was assessed by this nurse yesterday.
[2019-01-10] MEDS: amLODIPine 10 MG Tablet PO (09:02)
[2019-01-10] MEDS: Lisinopril 2.5 MG Tablet PO (09:02)
[2019-01-10] MEDS: Atenolol 100 MG Tablet PO (09:03)
[2019-01-10] MEDS: Enoxaparin 30 MG/0.3 ML Syringe SC (09:03)
[2019-01-10] MEDS: Glucerna Shake 120 ML LIQUID PO ×4 (09:03→22:17)
[2019-01-10] MEDS: Aspirin E.C. 81 MG Tablet PO (09:03)
[2019-01-10] MEDS: Acetaminophen 325 MG Tablet 650 MG PO ×3 (09:08→22:14)
--- NOTE | 2019-01-10 11:22 | PN.ID_ITS ---
Patient Problems: Active and Suspected Problems (Last Reviewed 08/04/18 @ 13:58 by Jaclyn Luna) Diabetic foot infection (Acute) Hypokalemia (Acute) Subjective: Feeling ok, no fever, no n/v - Physical Exam General: Alert, Cooperative, No apparent distress Lungs: Clear to auscultation, Normal air movement Cardiovascular: Regular rate, Regular Rhythm Abdomen: Soft, Non Tender, Non-Distended Skin: Ulcer/ Wound - on R 1st toe Vital Signs Temp Pulse Resp BP Pulse Ox 98.5 F 77 20 H 156/61 H 94 01/10/19 08:39 01/10/19 08:39 01/10/19 08:39 01/10/19 08:39 01/10/19 08:39 Oxygen Flow Rate (L/min) 2 Oxygen Delivery Method Room Air Weight: 66 kg Body Mass Index (BMI) 19.7 Intake and Output for Last 24 Hours 01/08/19 01/09/19 01/10/19 23:59 23:59 23:59 Intake Total 3342.7 / 3342.7 4179.8 / 4179.8 696 / 696 Output Total 1350 / 1350 1105 / 1105 1000 / 1000 Balance 1992.7 / 1992.7 3074.8 / 3074.8 -304 / -304 Microbiology Past 72 Hours 01/07/19 10:00 Gram Stain - Final Wound - Aerobic & Anaerobic Swabs Wound Culture - Preliminary Proteus mirabilis Staphylococcus species GPC Poss Enterococcus sp Anaerobic Culture - Preliminary Checking for anaerobes, further studies to follow. Laboratory Tests Past 24 Hrs 01/09/19 01/10/19 01/10/19 05:48 06:18 06:18 WBC 11.0 RBC 3.24 L Hgb 10.3 L Hct 29.0 L MCV 89.5 MCH 31.8 MCHC 35.5 RDW 13.7 RDW Differential 45.2 H Plt Count 208 MPV 10.4 Immature Gran % (Auto) 1.000 H Neut % (Auto) 75.1 H Lymph % (Auto) 12.1 L [place] % (Auto) 11.6 H Eos % (Auto) 0.0 Baso % (Auto) 0.2 Absolute Neuts (auto) 8.2 H Absolute Lymphs (auto) 1.33 Total Counted Not Reportable Sodium 134 L Potassium 4.0 Chloride 106 Carbon Dioxide 24.0 Anion Gap 4 L BUN 35 H Creatinine 1.28 Estim Creat Clear Calc 44.40 Est GFR (MDRD) Af Amer 70 Est GFR (MDRD) Non-Af 58 L BUN/Creatinine Ratio 27.3 H Glucose 125 H Calcium 7.8 L Iron 59 L TIBC 157 L Iron Saturation 37.6 Ferritin 797 H Prealbumin 8.4 L Vitamin B12 RBC Folate Hemolysate RBC Folate Hematocrit TSH 0.80 Miscellaneous Test 01/10/19 01/10/19 01/10/19 06:18 06:18 06:40 WBC RBC Hgb Hct MCV MCH MCHC RDW RDW Differential Plt Count MPV Immature Gran % (Auto) Neut % (Auto) Lymph % (Auto) [place] % (Auto) Eos % (Auto) Baso % (Auto) Absolute Neuts (auto) Absolute Lymphs (auto) Total Counted Sodium Potassium Chloride Carbon Dioxide Anion Gap BUN Creatinine Estim Creat Clear Calc Est GFR (MDRD) Af Amer Est GFR (MDRD) Non-Af BUN/Creatinine Ratio Glucose Calcium Iron TIBC Iron Saturation Ferritin Prealbumin Vitamin B12 623 RBC Folate Hemolysate Pending RBC Folate Pending Hematocrit Pending TSH Miscellaneous Test Pending POC Glucose 01/10/19 01/09/19 01/09/19 06:21 22:19 16:20 POC Glucose 127 H 206 H 227 H Medical Necessity - Tobacco Use Smoking Status: Current every day smoker - Patient notes 1 pack of cigarettes last him 1.5 days. Tobacco Use: Cigarettes Route of nutrition/ use of supplements: [] Nutritional Intake: [] IV Site: [] Lees Catheter: [] - Assessment/Plan Antibiotics: [] Assessment/Plan: [] Active and Suspected Problems (Last Reviewed 08/04/18 @ 13:58 by Jaclyn souza) Diabetic foot infection (Acute) Hypokalemia (Acute) Diabetic R 1st toe infection - bedside I&D done, no further fever. MSSA pcr (+), wound cx with proteus, staph, enterococcus-like. Narrow abx to vanc/unasyn. May be candidate for po abx at discharge. Will follow.
[2019-01-10] MEDS: Insulin Lispro 100 UNIT/ML INSULN.PEN SC ×3 (11:51→22:19)
[2019-01-10 12:01] LABS: Bedside Glucose 154 mg/dL (70-110)
[2019-01-10] MEDS: Ipratropium/Albuterol Sulfate 3 ML AMPUL.NEB INHALATION ×2 (12:29→19:14)
--- NOTE | 2019-01-10 13:07 | CASEMGMT ---
Social Work Note SW received message from Christiana with [facility] stating pt has been accepted to [facility] and is able to discharge to [facility] once medically cleared. SW had received message from pt's daughter Suhas requesting a call back from this worker. SW placed a call to Suhas, left message, informed Suhas that this worker leaves at 4:30pm and if this worker is not available to leave message and this worker will call back. Plan: [facility] once medically cleared Shantell Weir AU PAIR, DATABASE DEVELOPER
--- NOTE | 2019-01-10 13:33 | PCM.PN.HOSP ---
Patient Problems: Active and Suspected Problems (Last Reviewed 08/04/18 @ 13:58 by Jaclyn Luna) Diabetic foot infection (Acute) Hypokalemia (Acute) Subjective: Concerned about hitting a pole with his car (we are in his room). Vitals/I&O's: Vital Signs Temp Pulse Resp BP Pulse Ox 36.9 C 85 20 H 156/61 H 96 01/10/19 08:39 01/10/19 12:29 01/10/19 12:29 01/10/19 08:39 01/10/19 12:29 Oxygen Flow Rate (L/min) 2 Oxygen Delivery Method Room Air Weight: 66 kg Body Mass Index (BMI) 19.7 Intake and Output for Last 24 Hours 01/08/19 01/09/19 01/10/19 23:59 23:59 23:59 Intake Total 3342.7 / 3342.7 4179.8 / 4179.8 696 / 696 Output Total 1350 / 1350 1105 / 1105 1000 / 1000 Balance 1991.7 / 1991.7 3074.8 / 3074.8 -304 / -304 General: Alert, - - very confused, actively halluninating. HEENT: Atraumatic, Normocephalic Oral: Moist Mucosa, No Gingival or Mucosal Lesions/ Ulcerations Neck: No Nodes, Thyroid Normal Size and Texture Lungs: Clear to auscultation, Normal air movement, No rhonchi, No wheeze Cardiovascular: Regular rate, Regular Rhythm, Normal S1, Normal S2, No murmurs Abdomen: Bowel Sounds Present, Soft, Non Tender, Non-Distended, No Hepato-splenomegaly Extremities: No edema, No Calf Tenderness Skin: - - reviewed images from 01/09, right great toe ulcer. left stump ulceration. Psych/Mental Status: Agitated, Anxious Microbiology Past 72 Hours 01/07/19 10:00 Wound - Aerobic & Anaerobic Swabs Gram Stain - Final 01/07/19 10:00 Wound - Aerobic & Anaerobic Swabs Wound Culture - Preliminary Proteus mirabilis Staphylococcus species GPC Poss Enterococcus sp 01/07/19 10:00 Wound - Aerobic & Anaerobic Swabs Anaerobic Culture - Preliminary Checking for anaerobes, further studies to follow. Laboratory Results 01/09/19 05:48: Prealbumin 8.4 L 01/09/19 16:20: POC Glucose 227 H 01/09/19 22:19: POC Glucose 206 H 01/10/19 06:18: WBC 11.0, RBC 3.24 L, Hgb 10.3 L, Hct 29.0 L, MCV 89.5, MCH 31.8, MCHC 35.5, RDW 13.7, RDW Differential 45.2 H, Plt Count 208, MPV 10.4, Immature Gran % (Auto) 1.000 H, Neut % (Auto) 75.1 H, Lymph % (Auto) 12.1 L, [place] % (Auto) 11.6 H, Eos % (Auto) 0.0, Baso % (Auto) 0.2, Absolute Neuts (auto) 8.2 H, Absolute Lymphs (auto) 1.33, Total Counted Not Reportable 01/10/19 06:18: Sodium 134 L, Potassium 4.0, Chloride 106, Carbon Dioxide 24.0, Anion Gap 4 L, BUN 35 H, Creatinine 1.28, Estim Creat Clear Calc 44.40, Est GFR (MDRD) Af Amer 70, Est GFR (MDRD) Non-Af 58 L, BUN/Creatinine Ratio 27.3 H, Glucose 125 H, Calcium 7.8 L, Iron 59 L, TIBC 157 L, Iron Saturation 37.6, Ferritin 797 H, TSH 0.80 01/10/19 06:18: Vitamin B12 623 01/10/19 06:18: RBC Folate Hemolysate Pending, RBC Folate Pending, Hematocrit Pending 01/10/19 06:21: POC Glucose 127 H 01/10/19 06:40: Miscellaneous Test Pending 01/10/19 11:45: POC Glucose 154 H Current Medications Acetaminophen (Tylenol) 650 mg PO Q6H PRN PRN PRN Reason: Non-cardiac pain (mod-severe) Last Admin: 01/10/19 09:08 Dose: 650 mg Hydrocodone Bitart/Acetaminophen ([place] 5mg-325mg) 1 - 2 tablet PO Q6H PRN PRN PRN Reason: MOD-SEVERE PAIN (4-10/10) Al Hydroxide/Mg Hydroxide (Mylanta Ii) 15 - 30 ml PO Q4H PRN PRN PRN Reason: INDIGESTION Albuterol Sulfate (Ventolin Aerosols) 2.5 mg INHALATION Q2H PRN PRN PRN Reason: dyspnea, wheezing Last Admin: 01/10/19 04:54 Dose: 2.5 mg Albuterol/Ipratropium (Duoneb) 3 ml INHALATION Q6HWA.RT [facility] Last Admin: 01/10/19 12:29 Dose: 3 ml Amlodipine Besylate (Norvasc) 10 mg PO DAILY [facility] Last Admin: 01/10/19 09:02 Dose: 10 mg Aspirin (Ecotrin) 81 mg PO DAILY@0800 [facility] Last Admin: 01/10/19 09:03 Dose: 81 mg Atenolol (Tenormin (Beta Paige)) 100 mg PO DAILY [facility] Last Admin: 01/10/19 09:03 Dose: 100 mg Atorvastatin Calcium (Lipitor) 40 mg PO QHS [facility] Last Admin: 01/09/19 22:22 Dose: 40 mg Dextrose (D50w Syringe) 0 gm IV X1 PRN; Protocol PRN Reason: Hypoglycemia Enoxaparin Sodium (Lovenox) 30 mg SC DAILY@1000 [facility] Last Admin: 01/10/19 09:03 Dose: 30 mg Glucagon () 1 mg IM .X1 PRN PRN Reason: Hypoglycemia Hydralazine HCl (Apresoline Iv) 10 mg IV Q4H PRN PRN PRN Reason: SBP > 160 Vancomycin IV Pharmacy to Dose (1 ea/ Sodium Chloride) 500 mls @ 250 mls/hr IV PRN PRN; Protocol PRN Reason: Rx to Dose Ampicillin Sodium/Sulbactam (Sodium 3 gm/ Sodium Chloride) 112 mls @ 150 mls/hr IV Q8 [facility] Last Admin: 01/10/19 06:26 Dose: 150 mls/hr Vancomycin HCl 1,000 mg/ (Dextrose) 200 mls @ 200 mls/hr IV Q24H [facility] Insulin Human Lispro (Humalog Kwikpen (Bkc)) 0 unit SC ACHS [facility]; Protocol Last Admin: 01/10/19 11:51 Dose: 1 u Lisinopril (Zestril) 2.5 mg PO DAILY [facility] Last Admin: 01/10/19 09:02 Dose: 2.5 mg Melatonin (Melatonin) 3 mg PO QHS PRN PRN PRN Reason: INSOMNIA Morphine Sulfate () 1 - 2 mg IV Q4H PRN PRN PRN Reason: PAIN Nicotine (Nicoderm Cq (Pbkc)) 7 mg TRANSDERM. DAILY [facility] Last Admin: 01/10/19 09:03 Dose: 7 mg Nutritional Formula (Braxton - [place] Flavor) 1 packet PO BIDCM [facility] Last Admin: 01/10/19 09:02 Dose: 1 packet Nutritional Formula (Lactose Free) (Glucerna Shake) 120 ml PO 4X/DAY [facility] Last Admin: 01/10/19 09:03 Dose: 120 ml Ondansetron HCl (Zofran) 4 mg IV Q8H PRN PRN PRN Reason: NAUSEA/VOMITING Potassium Chloride (K-Dur) 10 meq PO DAILYCM [facility] Last Admin: 01/10/19 09:02 Dose: 10 meq Sodium Chloride () 5 - 15 ml IV UD PRN PRN Reason: SALINE FLUSH Last Admin: 01/10/19 09:02 Dose: 10 ml Medical Necessity - Tobacco Use Smoking Status: Current every day smoker - Patient notes 1 pack of cigarettes last him 1.5 days. Tobacco Use: Cigarettes Assessment/Plan All Active Problems (Last Reviewed 08/04/18 @ 13:58 by Jaclyn Luna) Diabetic foot infection (Acute) Hypokalemia (Acute) H/O hernia repair (Resolved) History of appendectomy (Resolved) Colonoscopy planned (Resolved) Amputation of left lower extremity below knee (Resolved) Dyspnea (Acute) Lung mass (Acute) Hypoxia (Acute) ZACHARY (acute kidney injury) (Acute) Pneumonia (Acute) Sepsis (Acute) Hyponatremia (Acute) 1. RLE diabetic foot infection: concern for osteomyelitis podiatry would prefer to bypass MRI and perform bedside I+D, but awaiting on ABIs Cx + for proteus and GPO on unasyn and vancomycin ID following. 2. Debility PT recommending additional therapy suspect pt may need SNF 3. hyponatremia: chronic improved 4. COPD: not in exacerbation Prednisone 40 on home med list, but looks like it has been pushed forward in the med recs from a 5 day rx in 09/12. Called [facility] in [place]: no prednisone scripts in the past 2 years (at least) will dc prednisone. 5. severe protein malnutrition presumed prealbumin 8.4 nutrition on consult complicates care continue Glucerna shake QID 6. right arm pain s/p fall per son, waxes and wanes suspect rotator cuff tear/injury conservative mgmt 7. ZACHARY resolved HLIV suspect prerenal 8. Anemia: hg went from 13.2 to 9.7, part of the drop may be dilutional stable at this time. monitor no need for transfusion check anemia studies 9. VTE prophylaxis: LMWH 10. 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 Code Visit Inpatient E&M: 02692 Subs Hosp L2
--- NOTE | 2019-01-10 13:40 | PN_ITS ---
Patient Problems: Active and Suspected Problems (Last Reviewed 08/04/18 @ 13:58 by Jaclyn Luna) Diabetic foot infection (Acute) Hypokalemia (Acute) Subjective: Concerned about hitting a pole with his car (we are in his room). Vitals/I&O's: Vital Signs Temp Pulse Resp BP Pulse Ox 36.9 C 85 20 H 156/61 H 96 01/10/19 08:39 01/10/19 12:29 01/10/19 12:29 01/10/19 08:39 01/10/19 12:29 Oxygen Flow Rate (L/min) 2 Oxygen Delivery Method Room Air Weight: 66 kg Body Mass Index (BMI) 19.7 Intake and Output for Last 24 Hours 01/08/19 01/09/19 01/10/19 23:59 23:59 23:59 Intake Total 3342.7 / 3342.7 4179.8 / 4179.8 696 / 696 Output Total 1350 / 1350 1105 / 1105 1000 / 1000 Balance 1991.7 / 1991.7 3074.8 / 3074.8 -304 / -304 General: Alert, - - very confused, actively halluninating. HEENT: Atraumatic, Normocephalic Oral: Moist Mucosa, No Gingival or Mucosal Lesions/ Ulcerations Neck: No Nodes, Thyroid Normal Size and Texture Lungs: Clear to auscultation, Normal air movement, No rhonchi, No wheeze Cardiovascular: Regular rate, Regular Rhythm, Normal S1, Normal S2, No murmurs Abdomen: Bowel Sounds Present, Soft, Non Tender, Non-Distended, No Hepato- splenomegaly Extremities: No edema, No Calf Tenderness Skin: - - reviewed images from 01/09, right great toe ulcer. left stump ulceration. Psych/Mental Status: Agitated, Anxious Microbiology Past 72 Hours 01/07/19 10:00 Wound - Aerobic & Anaerobic Swabs Gram Stain - Final 01/07/19 10:00 Wound - Aerobic & Anaerobic Swabs Wound Culture - Preliminary Proteus mirabilis Staphylococcus species GPC Poss Enterococcus sp 01/07/19 10:00 Wound - Aerobic & Anaerobic Swabs Anaerobic Culture - Preliminary Checking for anaerobes, further studies to follow. Laboratory Results 01/09/19 05:48: Prealbumin 8.4 L 01/09/19 16:20: POC Glucose 227 H 01/09/19 22:19: POC Glucose 206 H 01/10/19 06:18: WBC 11.0, RBC 3.24 L, Hgb 10.3 L, Hct 29.0 L, MCV 89.5, MCH 31.8, MCHC 35.5, RDW 13.7, RDW Differential 45.2 H, Plt Count 208, MPV 10.4, Immature Gran % (Auto) 1.000 H, Neut % (Auto) 75.1 H, Lymph % (Auto) 12.1 L, [place] % (Auto) 11.6 H, Eos % (Auto) 0.0, Baso % (Auto) 0.2, Absolute Neuts (auto) 8.2 H, Absolute Lymphs (auto) 1.33, Total Counted Not Reportable 01/10/19 06:18: Sodium 134 L, Potassium 4.0, Chloride 106, Carbon Dioxide 24.0, Anion Gap 4 L, BUN 35 H, Creatinine 1.28, Estim Creat Clear Calc 44.40, Est GFR (MDRD) Af Amer 70, Est GFR (MDRD) Non-Af 58 L, BUN/Creatinine Ratio 27.3 H, Glucose 125 H, Calcium 7.8 L, Iron 59 L, TIBC 157 L, Iron Saturation 37.6, Ferritin 797 H, TSH 0.80 01/10/19 06:18: Vitamin B12 623 01/10/19 06:18: RBC Folate Hemolysate Pending, RBC Folate Pending, Hematocrit Pending 01/10/19 06:21: POC Glucose 127 H 01/10/19 06:40: Miscellaneous Test Pending 01/10/19 11:45: POC Glucose 154 H Current Medications Acetaminophen (Tylenol) 650 mg PO Q6H PRN PRN PRN Reason: Non-cardiac pain (mod-severe) Last Admin: 01/10/19 09:08 Dose: 650 mg Hydrocodone Bitart/Acetaminophen ([place] 5mg-325mg) 1 - 2 tablet PO Q6H PRN PRN PRN Reason: MOD-SEVERE PAIN (4-10/10) Al Hydroxide/Mg Hydroxide (Mylanta Ii) 15 - 30 ml PO Q4H PRN PRN PRN Reason: INDIGESTION Albuterol Sulfate (Ventolin Aerosols) 2.5 mg INHALATION Q2H PRN PRN PRN Reason: dyspnea, wheezing Last Admin: 01/10/19 04:54 Dose: 2.5 mg Albuterol/Ipratropium (Duoneb) 3 ml INHALATION Q6HWA.RT [facility] Last Admin: 01/10/19 12:29 Dose: 3 ml Amlodipine Besylate (Norvasc) 10 mg PO DAILY [facility] Last Admin: 01/10/19 09:02 Dose: 10 mg Aspirin (Ecotrin) 81 mg PO DAILY@0800 [facility] Last Admin: 01/10/19 09:03 Dose: 81 mg Atenolol (Tenormin (Beta Paige)) 100 mg PO DAILY [facility] Last Admin: 01/10/19 09:03 Dose: 100 mg Atorvastatin Calcium (Lipitor) 40 mg PO QHS [facility] Last Admin: 01/09/19 22:22 Dose: 40 mg Dextrose (D50w Syringe) 0 gm IV X1 PRN; Protocol PRN Reason: Hypoglycemia Enoxaparin Sodium (Lovenox) 30 mg SC DAILY@1000 [facility] Last Admin: 01/10/19 09:03 Dose: 30 mg Glucagon () 1 mg IM .X1 PRN PRN Reason: Hypoglycemia Hydralazine HCl (Apresoline Iv) 10 mg IV Q4H PRN PRN PRN Reason: SBP > 160 Vancomycin IV Pharmacy to Dose (1 ea/ Sodium Chloride) 500 mls @ 250 mls/hr IV PRN PRN; Protocol PRN Reason: Rx to Dose Ampicillin Sodium/Sulbactam (Sodium 3 gm/ Sodium Chloride) 112 mls @ 150 mls/hr IV Q8 [facility] Last Admin: 01/10/19 06:26 Dose: 150 mls/hr Vancomycin HCl 1,000 mg/ (Dextrose) 200 mls @ 200 mls/hr IV Q24H [facility] Insulin Human Lispro (Humalog Kwikpen (Bkc)) 0 unit SC ACHS [facility]; Protocol Last Admin: 01/10/19 11:51 Dose: 1 u Lisinopril (Zestril) 2.5 mg PO DAILY [facility] Last Admin: 01/10/19 09:02 Dose: 2.5 mg Melatonin (Melatonin) 3 mg PO QHS PRN PRN PRN Reason: INSOMNIA Morphine Sulfate () 1 - 2 mg IV Q4H PRN PRN PRN Reason: PAIN Nicotine (Nicoderm Cq (Pbkc)) 7 mg TRANSDERM. DAILY [facility] Last Admin: 01/10/19 09:03 Dose: 7 mg Nutritional Formula (Bra[place] - [place] Flavor) 1 packet PO BIDCM [facility] Last Admin: 01/10/19 09:02 Dose: 1 packet Nutritional Formula (Lactose Free) (Glucerna Shake) 120 ml PO 4X/DAY [facility] Last Admin: 01/10/19 09:03 Dose: 120 ml Ondansetron HCl (Zofran) 4 mg IV Q8H PRN PRN PRN Reason: NAUSEA/VOMITING Potassium Chloride (K-Dur) 10 meq PO DAILYCM [facility] Last Admin: 01/10/19 09:02 Dose: 10 meq Sodium Chloride () 5 - 15 ml IV UD PRN PRN Reason: SALINE FLUSH Last Admin: 01/10/19 09:02 Dose: 10 ml Medical Necessity - Tobacco Use Smoking Status: Current every day smoker - Patient notes 1 pack of cigarettes last him 1.5 days. Tobacco Use: Cigarettes Assessment/Plan All Active Problems (Last Reviewed 08/04/18 @ 13:58 by Jaclyn Luna) Diabetic foot infection (Acute) Hypokalemia (Acute) H/O hernia repair (Resolved) History of appendectomy (Resolved) Colonoscopy planned (Resolved) Amputation of left lower extremity below knee (Resolved) Dyspnea (Acute) Lung mass (Acute) Hypoxia (Acute) ZACHARY (acute kidney injury) (Acute) Pneumonia (Acute) Sepsis (Acute) Hyponatremia (Acute) 1. RLE diabetic foot infection: * concern for osteomyelitis * podiatry would prefer to bypass MRI and perform bedside I+D, but awaiting on ABIs * Cx + for proteus and GPO * on unasyn and vancomycin * ID following. 2. Debility * PT recommending additional therapy * suspect pt may need SNF 3. hyponatremia: * chronic * improved 4. COPD: * not in exacerbation * Prednisone 40 on home med list, but looks like it has been pushed forward in the med recs from a 5 day rx in 09/12. Called [facility] in [place]: no prednisone scripts in the past 2 years (at least) * will dc prednisone. 5. severe protein malnutrition * presumed * prealbumin 8.4 * nutrition on consult * complicates care * continue Glucerna shake QID 6. right arm pain * s/p fall * per son, waxes and wanes * suspect rotator cuff tear/injury * conservative mgmt 7. ZACHARY * resolved * HLIV * suspect prerenal 8. Anemia: * hg went from 13.2 to 9.7, part of the drop may be dilutional * stable at this time. * monitor * no need for transfusion * check anemia studies 9. VTE prophylaxis: LMWH 10. 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 Code Visit Inpatient E&M: 22334 Subs Hosp L2
--- NOTE | 2019-01-10 16:25 | CASEMGMT ---
Social Work Note SW received call from pt's daughter Suhas. MEGHAN spent much time with Michealtianna explaining [facility]/TCU/additional SNF and keno terminal operator care for pt. MEGHAN explained that pt has been accepted to [facility] and once medically cleared pt is able to discharge to [facility]. MEGHAN explained RU requirements and if pt is unable to complete requirements pt will have to go home or to a different SNF. MEGHAN explained Medicare guidelines and that Medicaid is only insurance that will pay for keno terminal operator care at SNF. Suhas asked this worker about Living Will and HCPOA. MEGHAN informed Suhas that this worker can talk to pt about documents and pt is able to complete documents while at [facility] but he has to be agreeable to complete documents. MEGHAN explained that documents are only able to be used if pt is confused or unable to make own decisions. MEGHAN explained that pt is still his own person and alert and orientated and able to make own decisions for self. MEGHAN explained that pt must be confused or deemed unable to make own decisions for HCPOA and or guardianship to be able to be utilized. MEGHAN explained that at this time pt is still alert and orientated and able to make own decisions. MEGHAN again reiterated that pt is agreeable to [facility] and he is able to discharge there once he is medically cleared. MEGHAN informed Suhas that there will be SW on [facility] that will follow up with pt and will follow pt while he is on [facility]. Suhas states understanding. Plan: [facility] once medically cleared Shantell Weir [employer] SERVICES SUPERINTENDENT, ENGINE INSTALLER
[2019-01-10 16:40] LABS: Bedside Glucose 163 mg/dL (70-110)
[2019-01-10] MEDS: Atorvastatin Calcium 40 MG Tablet PO (22:14)
[2019-01-10 22:45] LABS: Bedside Glucose 168 mg/dL (70-110)
[2019-01-11] VITALS (7 sets, daily range): BP systolic 141–173; BP diastolic 77–91; PULSE 73–80; RESP 16–18; TEMP 36.5–36.8; O2SAT 97–100
[2019-01-11] MEDS: hydrALAZINE 20 MG/ML Vial 10 MG IV (02:56)
--- NOTE | 2019-01-11 05:05 | NURSING ---
Patient demanding to get up to chair at this time. With 3 assist he was lifted to chair, did not bear weight at all on leg. Once to chair the patient became irate yelling at staff and unable to reason with the patient. Patient demanding to go for a walk in the hallway. Safety precautions explained to patient d/t him not bearing weight on leg, this upset the patient even more. He refused the pain medication-aleve- that I had called and got ordered for him by his request. Refusing to allow this RN to recheck BP following hydralazine admin. Refusing to answer orientation questions. Refusing to speak to Ki BRITO. Demanding a doctor come to his room at this time. Again all attempts to reason/calm the patient were ineffective, refusing to speak to staff. He does not want anyone in his room @ this time. Chair alarm in place. Door open and able to view patient in chair from nurses desk. Will monitor. chemical worker notified.
[2019-01-11] MEDS: Naproxen 500 MG Tablet PO (05:48)
[2019-01-11 06:23] LABS: Anion Gap 5 (5-15); BUN 39 mg/dL (7-18); BUN/Creat Ratio 30.5 RATIO (10-20); Calcium,Total 8.4 mg/dL (8.5-10.1); Chloride 105 mmol/L (98-107); Creatinine, Serum 1.28 mg/dL (0.70-1.30); EST Glomerular Filtration Rate 58 mL/min (>60); Est Glom Filt Rate - Afr Amer 70 mL/min (>60); Glucose 133 mg/dL (74-106); Potassium 4.1 mmol/L (3.5-5.1); Sodium Level 132 mmol/L (136-145)
--- NOTE | 2019-01-11 06:32 | NURSING ---
Refusing to order breakfast this AM, refusing for staff to order breakfast this AM
[2019-01-11 06:36] LABS: Bedside Glucose 138 mg/dL (70-110)
[2019-01-11 06:43] LABS: Absolute Lymphocyte Count 1.69 X10^3/ul (0.83-4.51); Absolute Neutrophil Count 9.1 X10^3/uL (2.0-7.7); Basophil# 0.03 X10^3/uL; Basophil% 0.2 % (0-1); Eosinophil# 0.11 X10^3/uL; Eosinophils% 0.9 % (0-5); Hematocrit 32.7 % (40-54); Hemoglobin 11.7 g/dl (13.0-16.5); Lymphocyte # 1.69 X10^3/ul (4.0); Lymphocyte % 13.3 % (19-41); Mean Corp Hgb Conc 35.8 g/gl (32-36); Mean Corpuscular Hgb 31.5 pg (27.0-32.0); Mean Corpuscular Volume 87.9 fL (80-94); Mean Platelet Vol. 10.7 fl (6.2-12.0); Monocyte# 1.43 X10^3/uL; Monocyte% 11.2 % (0-10); Neutrophil # 9.11 X10^3/uL (2.7-7.7); Neutrophil % 71.6 % (47-70); Platelet Count 244 K/mm3 (150-450); RBC Distribution Width CV 13.4 % (11.6-14.6); Red Blood Count 3.72 M/mm3 (4.6-6.2); White Blood Count 12.7 K/mm3 (4.4-11.0)
[2019-01-11 06:53] LABS: POSITIVE COUNT YES; POSITIVE DIFFERENTIAL NO; POSITIVE MORPHOLOGY YES
[2019-01-11] MEDS: Ipratropium/Albuterol Sulfate 3 ML AMPUL.NEB INHALATION (07:37)
--- NOTE | 2019-01-11 08:09 | DCINST_ITS ---
Weight Bearing Status: Partial weight bearing - heel weightbear right with surgical shoe Call your doctor if your incision/area has: Continuous Slow Oozing, Sudden Increased Bleeding, Increased Pain/ Swelling, Increased Redness, Foul Smelling Discharge, Swelling at the incision site Call your doctor if you observe: Fever of 101 or Higher, Calf discomfort, Uncontrolled pain Cleanse incision/area with: Normal Saline, - - change dressing to right hallux with aquacel ag to deep wound part and cover with gauze Allergies/Adverse Reactions: Allergies No Known Allergies Allergy (Verified 09/15/17 09:11) Medications to take at Discharge Amlodipine [Norvasc] 10 mg PO DAILY 04/30/14 Atenolol [Tenormin (beta lisa)] 100 mg PO DAILY 04/30/14 Aspirin E.C. [Ecotrin] 81 mg PO DAILY@0800 01/27/17 Atorvastatin Calcium 40 mg PO QHS 01/27/17 Lisinopril [Zestril] 2.5 mg PO DAILY 01/27/17 predniSONE tablet 40 mg PO DAILY@0800 4 Days tab 01/29/17 hydroCHLOROthiazide [Hydrochlorothiazide] 12.5 mg PO DAILY 08/06/17 Fluad 65yr up(PF)45 mcg(15 mcgx3)/0.5 mL intramuscular syringe 0.5 ml IM ONCE #0.5 ml NS 09/03/17 albuterol sulfate HFA 90 mcg/actuation aerosol inhaler 1 puff INHALATION Q4H PRN PRN #1 inhaler 01/03/18 potassium chloride ER 10 mEq capsule,extended release 10 meq PO DAILY 08/04/18 Primary Care Physician: Ariel Ferro MD [Primary Care Provider] - Test Results: Test results from this visit will be discussed in further detail at your follow- up appointment, if applicable. When: wound care center 1 week Please Follow Up With: Quan Cohn MD When: inpatient versus outpatient referral
[2019-01-11] MEDS: Aspirin E.C. 81 MG Tablet PO (09:20)
[2019-01-11] MEDS: Glucerna Shake 120 ML LIQUID PO ×2 (09:20→15:12)
[2019-01-11] MEDS: Enoxaparin 30 MG/0.3 ML Syringe SC (09:21)
[2019-01-11] MEDS: amLODIPine 10 MG Tablet PO (09:22)
[2019-01-11] MEDS: Atenolol 100 MG Tablet PO (09:23)
[2019-01-11] MEDS: Lisinopril 2.5 MG Tablet PO (09:23)
[2019-01-11 11:30] LABS: Bedside Glucose 139 mg/dL (70-110)
--- NOTE | 2019-01-11 11:30 | PCM.PN.HOSP ---
Patient Problems: Active and Suspected Problems (Last Reviewed 08/04/18 @ 13:58 by Jaclyn Luna) Diabetic foot infection (Acute) Hypokalemia (Acute) Subjective: Wants to get up a walk around the floor. Vitals/I&O's: Vital Signs Temp Pulse Resp BP Pulse Ox 36.5 C L 80 16 159/83 H 98 01/11/19 10:03 01/11/19 10:03 01/11/19 10:03 01/11/19 10:03 01/11/19 10:03 Oxygen Flow Rate (L/min) 2 Oxygen Delivery Method Room Air Weight: 66 kg Body Mass Index (BMI) 19.7 Intake and Output for Last 24 Hours 01/09/19 01/10/19 01/11/19 23:59 23:59 23:59 Intake Total 4179.8 / 4179.8 1715 / 1715 462 / 462 Output Total 1105 / 1105 1950 / 1950 300 / 300 Balance 3074.8 / 3074.8 -235 / -235 162 / 162 General: Alert, No apparent distress, - - Cantankerous. afebrile. HEENT: Atraumatic, Normocephalic Psych/Mental Status: Agitated, Anxious Microbiology Past 72 Hours 01/07/19 10:00 Wound - Aerobic & Anaerobic Swabs Gram Stain - Final 01/07/19 10:00 Wound - Aerobic & Anaerobic Swabs Wound Culture - Final Proteus mirabilis Staphylococcus simulans Enterococcus faecalis 01/07/19 10:00 Wound - Aerobic & Anaerobic Swabs Anaerobic Culture - Final No anaerobic bacteria isolated. 01/10/19 06:40 Bone - Toe Gram Stain - Final Laboratory Results 01/10/19 11:45: POC Glucose 154 H 01/10/19 16:26: POC Glucose 163 H 01/10/19 22:19: POC Glucose 168 H 01/11/19 05:43: WBC 12.7 H, RBC 3.72 L, Hgb 11.7 L, Hct 32.7 L, MCV 87.9, MCH 31.5, MCHC 35.8, RDW 13.4, RDW Differential 42.0, Plt Count 244, MPV 10.7, Immature Gran % (Auto) 2.800 H, Neut % (Auto) 71.6 H, Lymph % (Auto) 13.3 L, [place] % (Auto) 11.2 H, Eos % (Auto) 0.9, Baso % (Auto) 0.2, Absolute Neuts (auto) 9.1 H, Absolute Lymphs (auto) 1.69, Total Counted Not Reportable, Diff Path Review January01/11/19 05:43: Sodium 132 L, Potassium 4.1, Chloride 105, Carbon Dioxide 22.0, Anion Gap 5, BUN 39 H, Creatinine 1.28, Estim Creat Clear Calc 44.40, Est GFR (MDRD) Af Amer 70, Est GFR (MDRD) Non-Af 58 L, BUN/Creatinine Ratio 30.5 H, Glucose 133 H, Calcium 8.4 L 01/11/19 06:30: POC Glucose 138 H Current Medications Acetaminophen (Tylenol) 650 mg PO Q6H PRN PRN PRN Reason: Non-cardiac pain (mod-severe) Last Admin: 01/10/19 22:14 Dose: 650 mg Al Hydroxide/Mg Hydroxide (Mylanta Ii) 15 - 30 ml PO Q4H PRN PRN PRN Reason: INDIGESTION Albuterol Sulfate (Ventolin Aerosols) 2.5 mg INHALATION Q2H PRN PRN PRN Reason: dyspnea, wheezing Last Admin: 01/10/19 04:54 Dose: 2.5 mg Albuterol/Ipratropium (Duoneb) 3 ml INHALATION Q6HWA.RT REPLACED BY [facility] Last Admin: 01/11/19 07:37 Dose: 3 ml Amlodipine Besylate (Norvasc) 10 mg PO DAILY REPLACED BY [facility] Last Admin: 01/11/19 09:22 Dose: 10 mg Aspirin (Ecotrin) 81 mg PO DAILY@0800 REPLACED BY [facility] Last Admin: 01/11/19 09:20 Dose: 81 mg Atenolol (Tenormin (Beta Paige)) 100 mg PO DAILY REPLACED BY [facility] Last Admin: 01/11/19 09:23 Dose: 100 mg Atorvastatin Calcium (Lipitor) 40 mg PO QHS REPLACED BY [facility] Last Admin: 01/10/19 22:14 Dose: 40 mg Dextrose (D50w Syringe) 0 gm IV X1 PRN; Protocol PRN Reason: Hypoglycemia Enoxaparin Sodium (Lovenox) 30 mg SC DAILY@1000 REPLACED BY [facility] Last Admin: 01/11/19 09:21 Dose: 30 mg Glucagon () 1 mg IM .X1 PRN PRN Reason: Hypoglycemia Hydralazine HCl (Apresoline Iv) 10 mg IV Q4H PRN PRN PRN Reason: SBP > 160 Last Admin: 01/11/19 02:56 Dose: 10 mg Vancomycin IV Pharmacy to Dose (1 ea/ Sodium Chloride) 500 mls @ 250 mls/hr IV PRN PRN; Protocol PRN Reason: Rx to Dose Ampicillin Sodium/Sulbactam (Sodium 3 gm/ Sodium Chloride) 112 mls @ 150 mls/hr IV Q8 REPLACED BY [facility] Last Admin: 01/11/19 05:00 Dose: 150 mls/hr Vancomycin HCl 1,000 mg/ (Dextrose) 200 mls @ 200 mls/hr IV Q24H REPLACED BY [facility] Last Admin: 01/10/19 23:50 Dose: 200 mls/hr Insulin Human Lispro (Humalog Kwikpen (Bkc)) 0 unit SC ACHS REPLACED BY [facility]; Protocol Last Admin: 01/11/19 11:24 Dose: Not Given Lisinopril (Zestril) 2.5 mg PO DAILY REPLACED BY [facility] Last Admin: 01/11/19 09:23 Dose: 2.5 mg Melatonin (Melatonin) 3 mg PO QHS PRN PRN PRN Reason: INSOMNIA Naproxen (Naprosyn) 500 mg PO BID PRN PRN PRN Reason: MILD PAIN (-12/04) Last Admin: 01/11/19 05:48 Dose: 500 mg Nutritional Formula (Braxton - [place] Flavor) 1 packet PO BIDCM REPLACED BY [facility] Last Admin: 01/11/19 09:18 Dose: 1 packet Nutritional Formula (Lactose Free) (Glucerna Shake) 120 ml PO 4X/DAY REPLACED BY [facility] Last Admin: 01/11/19 09:20 Dose: 120 ml Ondansetron HCl (Zofran) 4 mg IV Q8H PRN PRN PRN Reason: NAUSEA/VOMITING Potassium Chloride (K-Dur) [facility]q [facility] Last Admin: 01/11/19 09:21 Dose: 10 meq Sodium Chloride () 5 - 15 ml IV UD PRN PRN Reason: SALINE FLUSH Last Admin: 01/10/19 22:13 Dose: 10 ml Medical Necessity - Tobacco Use Smoking Status: Current every day smoker - Patient notes 1 pack of cigarettes last him 1.5 days. Tobacco Use: Cigarettes Assessment/Plan All Active Problems (Last Reviewed 08/04/18 @ 13:58 by Jaclyn Luna) Diabetic foot infection (Acute) Hypokalemia (Acute) H/O hernia repair (Resolved) History of appendectomy (Resolved) Colonoscopy planned (Resolved) Amputation of left lower extremity below knee (Resolved) Dyspnea (Acute) Lung mass (Acute) Hypoxia (Acute) ZACHARY (acute kidney injury) (Acute) Pneumonia (Acute) Sepsis (Acute) Hyponatremia (Acute) 1. RLE diabetic foot infection and toe infection concern for osteomyelitis s/p bedside I+D on 01/09 Cx + for proteus and GPO Toe Cx performed 01/10 and still pending. on unasyn and vancomycin ID following. 2. Debility PT recommending additional therapy suspect pt may need SNF 3. hyponatremia: chronic improved 4. COPD: not in exacerbation Prednisone 40 on home med list, but looks like it has been pushed forward in the med recs from a 5 day rx in 09/12. Called [facility] in [place]: no prednisone scripts in the past 2 years (at least) will dc prednisone. 5. severe protein malnutrition presumed prealbumin 8.4 nutrition on consult complicates care continue Glucerna shake QID 6. right arm pain s/p fall per son, waxes and wanes suspect rotator cuff tear/injury conservative mgmt pt able to raise bother arms up without difficulty 7. ZACHARY resolved HLIV suspect prerenal 8. Anemia: hg went from 13.2 to 9.7, part of the drop may be dilutional stable at this time. monitor no need for transfusion check anemia studies 9. VTE prophylaxis: LMWH 10. 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 Greater than 25 minutes, of which greater than 50% of the time was discussing the infections in his would and waiting on cultures. Code Visit Inpatient E&M: 30707 Subs Hosp L2
--- NOTE | 2019-01-11 11:35 | PN_ITS ---
Patient Problems: Active and Suspected Problems (Last Reviewed 08/04/18 @ 13:58 by Jaclyn Luna) Diabetic foot infection (Acute) Hypokalemia (Acute) Subjective: Wants to get up a walk around the floor. Vitals/I&O's: Vital Signs Temp Pulse Resp BP Pulse Ox 36.5 C L 80 16 159/83 H 98 01/11/19 10:03 01/11/19 10:03 01/11/19 10:03 01/11/19 10:03 01/11/19 10:03 Oxygen Flow Rate (L/min) 2 Oxygen Delivery Method Room Air Weight: 66 kg Body Mass Index (BMI) 19.7 Intake and Output for Last 24 Hours 01/09/19 01/10/19 01/11/19 23:59 23:59 23:59 Intake Total 4179.8 / 4179.8 1715 / 1715 462 / 462 Output Total 1105 / 1105 1950 / 1950 300 / 300 Balance 3074.8 / 3074.8 -235 / -235 162 / 162 General: Alert, No apparent distress, - - Cantankerous. afebrile. HEENT: Atraumatic, Normocephalic Psych/Mental Status: Agitated, Anxious Microbiology Past 72 Hours 01/07/19 10:00 Wound - Aerobic & Anaerobic Swabs Gram Stain - Final 01/07/19 10:00 Wound - Aerobic & Anaerobic Swabs Wound Culture - Final Proteus mirabilis Staphylococcus simulans Enterococcus faecalis 01/07/19 10:00 Wound - Aerobic & Anaerobic Swabs Anaerobic Culture - Final No anaerobic bacteria isolated. 01/10/19 06:40 Bone - Toe Gram Stain - Final Laboratory Results 01/10/19 11:45: POC Glucose 154 H 01/10/19 16:26: POC Glucose 163 H 01/10/19 22:19: POC Glucose 168 H 01/11/19 05:43: WBC 12.7 H, RBC 3.72 L, Hgb 11.7 L, Hct 32.7 L, MCV 87.9, MCH 31.5, MCHC 35.8, RDW 13.4, RDW Differential 42.0, Plt Count 244, MPV 10.7, Immature Gran % (Auto) 2.800 H, Neut % (Auto) 71.6 H, Lymph % (Auto) 13.3 L, [place] % (Auto) 11.2 H, Eos % (Auto) 0.9, Baso % (Auto) 0.2, Absolute Neuts (auto) 9.1 H, Absolute Lymphs (auto) 1.69, Total Counted Not Reportable, Diff Path Review January01/11/19 05:43: Sodium 132 L, Potassium 4.1, Chloride 105, Carbon Dioxide 22.0, Anion Gap 5, BUN 39 H, Creatinine 1.28, Estim Creat Clear Calc 44.40, Est GFR (MDRD) Af Amer 70, Est GFR (MDRD) Non-Af 58 L, BUN/Creatinine Ratio 30.5 H, Glucose 133 H, Calcium 8.4 L 01/11/19 06:30: POC Glucose 138 H Current Medications Acetaminophen (Tylenol) 650 mg PO Q6H PRN PRN PRN Reason: Non-cardiac pain (mod-severe) Last Admin: 01/10/19 22:14 Dose: 650 mg Al Hydroxide/Mg Hydroxide (Mylanta Ii) 15 - 30 ml PO Q4H PRN PRN PRN Reason: INDIGESTION Albuterol Sulfate (Ventolin Aerosols) 2.5 mg INHALATION Q2H PRN PRN PRN Reason: dyspnea, wheezing Last Admin: 01/10/19 04:54 Dose: 2.5 mg Albuterol/Ipratropium (Duoneb) 3 ml INHALATION Q6HWA.RT [facility] Last Admin: 01/11/19 07:37 Dose: 3 ml Amlodipine Besylate (Norvasc) 10 mg PO DAILY [facility] Last Admin: 01/11/19 09:22 Dose: 10 mg Aspirin (Ecotrin) 81 mg PO DAILY@0800 [facility] Last Admin: 01/11/19 09:20 Dose: 81 mg Atenolol (Tenormin (Beta Paige)) 100 mg PO DAILY [facility] Last Admin: 01/11/19 09:23 Dose: 100 mg Atorvastatin Calcium (Lipitor) 40 mg PO QHS [facility] Last Admin: 01/10/19 22:14 Dose: 40 mg Dextrose (D50w Syringe) 0 gm IV X1 PRN; Protocol PRN Reason: Hypoglycemia Enoxaparin Sodium (Lovenox) 30 mg SC DAILY@1000 [facility] Last Admin: 01/11/19 09:21 Dose: 30 mg Glucagon () 1 mg IM .X1 PRN PRN Reason: Hypoglycemia Hydralazine HCl (Apresoline Iv) 10 mg IV Q4H PRN PRN PRN Reason: SBP > 160 Last Admin: 01/11/19 02:56 Dose: 10 mg Vancomycin IV Pharmacy to Dose (1 ea/ Sodium Chloride) 500 mls @ 250 mls/hr IV PRN PRN; Protocol PRN Reason: Rx to Dose Ampicillin Sodium/Sulbactam (Sodium 3 gm/ Sodium Chloride) 112 mls @ 150 mls/hr IV Q8 [facility] Last Admin: 01/11/19 05:00 Dose: 150 mls/hr Vancomycin HCl 1,000 mg/ (Dextrose) 200 mls @ 200 mls/hr IV Q24H [facility] Last Admin: 01/10/19 23:50 Dose: 200 mls/hr Insulin Human Lispro (Humalog Kwikpen (Bkc)) 0 unit SC ACHS [facility]; Protocol Last Admin: 01/11/19 11:24 Dose: Not Given Lisinopril (Zestril) 2.5 mg PO DAILY [facility] Last Admin: 01/11/19 09:23 Dose: 2.5 mg Melatonin (Melatonin) 3 mg PO QHS PRN PRN PRN Reason: INSOMNIA Naproxen (Naprosyn) 500 mg PO BID PRN PRN PRN Reason: MILD PAIN (-12/04) Last Admin: 01/11/19 05:48 Dose: 500 mg Nutritional Formula (Braxton - [place] Flavor) 1 packet PO BIDCM [facility] Last Admin: 01/11/19 09:18 Dose: 1 packet Nutritional Formula (Lactose Free) (Glucerna Shake) 120 ml PO 4X/DAY [facility] Last Admin: 01/11/19 09:20 Dose: 120 ml Ondansetron HCl (Zofran) 4 mg IV Q8H PRN PRN PRN Reason: NAUSEA/VOMITING Potassium Chloride (K-Dur) 10 meq [facility] Last Admin: 01/11/19 09:21 Dose: 10 meq Sodium Chloride () 5 - 15 ml IV UD PRN PRN Reason: SALINE FLUSH Last Admin: 01/10/19 22:13 Dose: 10 ml Medical Necessity - Tobacco Use Smoking Status: Current every day smoker - Patient notes 1 pack of cigarettes last him 1.5 days. Tobacco Use: Cigarettes Assessment/Plan All Active Problems (Last Reviewed 08/04/18 @ 13:58 by Jaclyn Luna) Diabetic foot infection (Acute) Hypokalemia (Acute) H/O hernia repair (Resolved) History of appendectomy (Resolved) Colonoscopy planned (Resolved) Amputation of left lower extremity below knee (Resolved) Dyspnea (Acute) Lung mass (Acute) Hypoxia (Acute) ZACHARY (acute kidney injury) (Acute) Pneumonia (Acute) Sepsis (Acute) Hyponatremia (Acute) 1. RLE diabetic foot infection and toe infection * concern for osteomyelitis * s/p bedside I+D on 01/09 * Cx + for proteus and GPO * Toe Cx performed 01/10 and still pending. * on unasyn and vancomycin * ID following. 2. Debility * PT recommending additional therapy * suspect pt may need SNF 3. hyponatremia: * chronic * improved 4. COPD: * not in exacerbation * Prednisone 40 on home med list, but looks like it has been pushed forward in the med recs from a 5 day rx in 09/12. Called [facility] in [place]: no prednisone scripts in the past 2 years (at least) * will dc prednisone. 5. severe protein malnutrition * presumed * prealbumin 8.4 * nutrition on consult * complicates care * continue Glucerna shake QID 6. right arm pain * s/p fall * per son, waxes and wanes * suspect rotator cuff tear/injury * conservative mgmt * pt able to raise bother arms up without difficulty 7. ZACHARY * resolved * HLIV * suspect prerenal 8. Anemia: * hg went from 13.2 to 9.7, part of the drop may be dilutional * stable at this time. * monitor * no need for transfusion * check anemia studies 9. VTE prophylaxis: LMWH 10. 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 Greater than 25 minutes, of which greater than 50% of the time was discussing the infections in his would and waiting on cultures. Code Visit Inpatient E&M: 84754 Subs Hosp L2
--- NOTE | 2019-01-11 12:41 | NURSING ---
clinical nursing assistant charting reviewed for educational learning purposes only,
--- NOTE | 2019-01-11 13:07 | PN.ID_ITS ---
Patient Problems: Active and Suspected Problems (Last Reviewed 08/04/18 @ 13:58 by Jaclyn Luna) Diabetic foot infection (Acute) Hypokalemia (Acute) Subjective: Feeling better, no fever, no n/v/d. - Physical Exam General: Alert, Cooperative, No apparent distress Lungs: Clear to auscultation, Normal air movement Cardiovascular: Regular rate, Regular Rhythm Abdomen: Soft, Non Tender, Non-Distended Skin: Ulcer/ Wound - foot wrapped Vital Signs Temp Pulse Resp BP Pulse Ox 97.7 F L 80 16 159/83 H 98 01/11/19 10:03 01/11/19 10:03 01/11/19 10:03 01/11/19 10:03 01/11/19 10:03 Oxygen Flow Rate (L/min) 2 Oxygen Delivery Method Room Air Weight: 66 kg Body Mass Index (BMI) 19.7 Intake and Output for Last 24 Hours 01/09/19 01/10/19 01/11/19 23:59 23:59 23:59 Intake Total 4179.8 / 4179.8 1715 / 1715 462 / 462 Output Total 1105 / 1105 1950 / 1950 1050 / 1050 Balance 3074.8 / 3074.8 -235 / -235 -588 / -588 Microbiology Past 72 Hours 01/10/19 06:40 Gram Stain - Final Bone - Toe Wound Culture - Preliminary Proteus sp. Gram positive organism 01/07/19 10:00 Gram Stain - Final Wound - Aerobic & Anaerobic Swabs Wound Culture - Final Proteus mirabilis Staphylococcus simulans Enterococcus faecalis Anaerobic Culture - Final No anaerobic bacteria isolated. Laboratory Tests Past 24 Hrs 01/11/19 01/11/19 05:43 05:43 WBC 12.7 H RBC 3.72 L Hgb 11.7 L Hct 32.7 L MCV 87.9 MCH 31.5 MCHC 35.8 RDW 13.4 RDW Differential 42.0 Plt Count 244 MPV 10.7 Immature Gran % (Auto) 2.800 H Neut % (Auto) 71.6 H Lymph % (Auto) 13.3 L [place] % (Auto) 11.2 H Eos % (Auto) 0.9 Baso % (Auto) 0.2 Absolute Neuts (auto) 9.1 H Absolute Lymphs (auto) 1.69 Total Counted Not Reportable Diff Path Review January Sodium 132 L Potassium 4.1 Chloride 105 Carbon Dioxide 22.0 Anion Gap 5 BUN 39 H Creatinine 1.28 Estim Creat Clear Calc 44.40 Est GFR (MDRD) Af Amer 70 Est GFR (MDRD) Non-Af 58 L BUN/Creatinine Ratio 30.5 H Glucose 133 H Calcium 8.4 L POC Glucose 01/11/19 01/11/19 01/10/19 11:23 06:30 22:19 POC Glucose 139 H 138 H 168 H 01/10/19 16:26 POC Glucose 163 H Medical Necessity - Tobacco Use Smoking Status: Current every day smoker - Patient notes 1 pack of cigarettes last him 1.5 days. Tobacco Use: Cigarettes Route of nutrition/ use of supplements: [] Nutritional Intake: [] IV Site: [] Lees Catheter: [] - Assessment/Plan Antibiotics: [] Assessment/Plan: [] Active and Suspected Problems (Last Reviewed 08/04/18 @ 13:58 by Jaclyn Luna) Diabetic foot infection (Acute) Hypokalemia (Acute) Diabetic R 1st toe osteo - bedside I&D done, no further fever. Bone cx with GPC and GPR seen on gram stain. MSSA pcr (+), wound cx with proteus, staph, enterococcus. Ok for d/c to rehab on po augmentin, stop date 02/19/19. Weekly bmp, cbc, and esr. Will follow.
--- NOTE | 2019-01-11 13:44 | DCINST_ITS ---
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) Other specified peripheral vascular diseases (Chronic) Type 2 diabetes mellitus with diabetic polyneuropathy (Chronic) Osteomyelitis of right foot (Chronic) You will use the following diet at home:: No restrictions Your food should be the consistency of: Regular Your liquids should be the consistency of: Regular/Thin Discharge Activity: - - Partial weight bearing - heel weightbear right with surgical shoe Weight Bearing Status: Partial weight bearing - heel weightbear right with surgical shoe Keep extremity elevated above heart level: Right Arm Call your doctor if your incision/area has: Continuous Slow Oozing, Sudden Increased Bleeding, Increased Pain/ Swelling, Increased Redness, Foul Smelling Discharge, Swelling at the incision site Call your doctor if you observe: Fever of 101 or Higher, Calf discomfort, Uncontrolled pain Cleanse incision/area with: Normal Saline, - - change dressing to right hallux with aquacel ag to deep wound part and cover with gauze Allergies/Adverse Reactions: Allergies No Known Allergies Allergy (Verified 09/15/17 09:11) Medications to take at Discharge Amlodipine [Norvasc] 10 mg PO DAILY 04/30/14 Atenolol [Tenormin (beta lisa)] 100 mg PO DAILY 04/30/14 Aspirin E.C. [Ecotrin] 81 mg PO DAILY@0800 01/27/17 Atorvastatin Calcium 40 mg PO QHS 01/27/17 Lisinopril [Zestril] 2.5 mg PO DAILY 01/27/17 albuterol sulfate HFA 90 mcg/actuation aerosol inhaler 1 puff INHALATION Q4H PRN PRN #1 inhaler 01/03/18 Acetaminophen [Tylenol Tablet] 650 mg PO Q6H PRN PRN tablet 01/11/19 Amox/Clavulanate Tablet [Augmentin Tablet] 875 mg PO BID #80 tablet 01/11/19 Glucerna Shake 120 ml PO 4X/DAY liquid 01/11/19 Insulin Lispro [Humalog KwikPen] See Protocol SC ACHS insuln.pen 01/11/19 Naproxen [Naprosyn] 500 mg PO BID PRN PRN tablet 01/11/19 Nutritional Supplement [Braxton - [place]] 1 packet PO BIDCM packet 01/11/19 Primary Care Physician: Ariel Ferro MD [Primary Care Provider] - Test Results: Test results from this visit will be discussed in further detail at your follow- up appointment, if applicable. When: wound care center 1 week Please Follow Up With: Quan Cohn MD When: inpatient versus outpatient referral Proposed Discharge Date: 01/11/19
--- NOTE | 2019-01-11 13:44 | PCM.DC.SUM ---
Discharge Date and Diagnosis - Problem List Patient Problems: Active and Suspected Problems (Last Reviewed 08/04/18 @ 13:58 by Jaclyn Luna) Diabetic foot infection (Acute) Hypokalemia (Acute) Date of Admission: 01/06/19 Date of Discharge: 01/11/19 - Primary Discharge Diagnosis Active and Suspected Problems (Last Reviewed 08/04/18 @ 13:58 by Jaclyn Luna) Diabetic foot infection (Acute) Hypokalemia (Acute) 1. RLE diabetic foot infection and toe infection concern for osteomyelitis s/p bedside I+D on 01/09 Cx + for proteus and GPO Toe Cx performed 01/10 and still pending. Augmentin through 02/22 ID to follow in rehab. 2. Debility PT recommending additional therapy to rehab 3. hyponatremia: chronic improved 4. COPD: not in exacerbation Prednisone 40 on home med list, but looks like it has been pushed forward in the med recs from a 5 day rx in 09/12. Called [facility] in [place]: no prednisone scripts in the past 2 years (at least) will dc prednisone. 5. severe protein malnutrition presumed prealbumin 8.4 nutrition on consult complicates care continue Glucerna shake QID plus Braxton 6. right arm pain s/p fall per son, waxes and wanes suspect rotator cuff tear/injury conservative mgmt pt able to raise bother arms up without difficulty 7. ZACHARY resolved HLIV suspect prerenal continue to hold HCTZ 8. Anemia: hg went from 13.2 to 9.7, part of the drop may be dilutional stable at this time. monitor no need for transfusion check anemia studies 9. 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 Punctate calcifications in the basal ganglia which are usually idiopathic in an elderly individual. 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 There is no intracranial hemorrhage or calvarial fracture. Electronically Signed: Suman Rodriguez MD at 21:24 EDT , Service support , Cervical Spine CT 01/06/19 20:13 IMPRESSION: 1. No demonstrated cervical trauma. If the patient has acute, focal neurologic findings, MRI is advised to evaluate for cord contusion. 2. Severe degenerative changes of the cervical spine. 3. Prevertebral edema may indicate ligamentous injury. Electronically Signed: Valeria Sampson MD at 21:06 EDT Tel , Service support , Chest X-Ray 01/06/19 20:25 IMPRESSION: Elevated left hemidiaphragm. Calcified plaques of the aortic arch. Region of broad-based scalloping of the posterior right fourth rib. This is of unknown etiology, but appears stable from the previous study. No acute cardiopulmonary disease process is seen. Electronically Signed: Suman Rodriguez MD at 20:52 EDT , Service support , Foot X-Ray 01/06/19 22:15 IMPRESSION: Focal ulceration adjacent to the lateral first digit. Bony demineralization consider possible developing early bony changes of osteomyelitis in the proximal phalanx of the first digit. Recommend consideration for follow-up MRI when appropriate. Age-indeterminate erosion of the distal phalanx of the first digit. Electronically Signed: Yeimi Muñoz MD at 22:40 EDT Tel , Service support , Consultations 01/06/19 23:23 Consult: Onc/Wound/upholstery estimator Routine Comment: Operations: None Procedures: - - bedside debridement of right foot. Summary of Care Provided: The patient is a 78 year old M presents with mechanical fall. Patient did have some renal failure and hypokalemia which replaced by holding the HCTZ and as well as giving IV fluid. The big issue for the patient was a ice mellitus of the right foot. Patient underwent bedside debridement on the by podiatry. Infectious disease was consulted for the polymicrobial organisms and recommended Augmentin through 22 February. Patient be going to acute rehab to continue with additional therapy services. [] Patient Problems: Active and Suspected Problems (Last Reviewed 08/04/18 @ 13:58 by Jaclyn Luna) Diabetic foot infection (Acute) Hypokalemia (Acute) - Physical Exam Vital Signs Temp Pulse Resp BP Pulse Ox 36.7 C 73 16 141/79 H 100 01/11/19 13:30 01/11/19 13:30 01/11/19 13:30 01/11/19 13:30 01/11/19 13:30 Oxygen Flow Rate (L/min) 2 Oxygen Delivery Method Room Air Weight: 66 kg Body Mass Index (BMI) 19.7 Intake and Output for Last 24 Hours 01/09/19 01/10/19 01/11/19 23:59 23:59 23:59 Intake Total 4179.8 / 4179.8 1715 / 1715 462 / 462 Output Total 1105 / 1105 1950 / 1950 1050 / 1050 Balance 3074.8 / 3074.8 -235 / -235 -588 / -588 Microbiology Past 72 Hours 01/10/19 06:40 Gram Stain - Final Bone - Toe Wound Culture - Preliminary Proteus sp. Gram positive organism 01/07/19 10:00 Gram Stain - Final Wound - Aerobic & Anaerobic Swabs Wound Culture - Final Proteus mirabilis Staphylococcus simulans Enterococcus faecalis Anaerobic Culture - Final No anaerobic bacteria isolated. Laboratory Tests Past 24 Hrs 01/11/19 01/11/19 05:43 05:43 WBC 12.7 H RBC 3.72 L Hgb 11.7 L Hct 32.7 L MCV 87.9 MCH 31.5 MCHC 35.8 RDW 13.4 RDW Differential 42.0 Plt Count 244 MPV 10.7 Immature Gran % (Auto) 2.800 H Neut % (Auto) 71.6 H Lymph % (Auto) 13.3 L Gordon % (Auto) 11.2 H Eos % (Auto) 0.9 Baso % (Auto) 0.2 Absolute Neuts (auto) 9.1 H Absolute Lymphs (auto) 1.69 Total Counted Not Reportable Diff Path Review May foll Sodium 132 L Potassium 4.1 Chloride 105 Carbon Dioxide 22.0 Anion Gap 5 BUN 39 H Creatinine 1.28 Estim Creat Clear Calc 44.40 Est GFR (MDRD) Af Amer 70 Est GFR (MDRD) Non-Af 58 L BUN/Creatinine Ratio 30.5 H Glucose 133 H Calcium 8.4 L POC Glucose 01/11/19 01/11/19 01/10/19 11:23 06:30 22:19 POC Glucose 139 H 138 H 168 H 01/10/19 16:26 POC Glucose 163 H Discharge Diet: 1800 Calorie Control Diet Discharge Activity: - - Partial weight bearing - heel weightbear right with surgical shoe Weight Bearing Status: Partial weight bearing - heel weightbear right with surgical shoe Keep extremity elevated above heart level: Right Arm Call your doctor if your incision/area has: Continuous Slow Oozing, Sudden Increased Bleeding, Increased Pain/ Swelling, Increased Redness, Foul Smelling Discharge, Swelling at the incision site Call your doctor if you observe: Fever of 101 or Higher, Calf discomfort, Uncontrolled pain Cleanse incision/area with: Normal Saline, - - change dressing to right hallux with aquacel ag to deep wound part and cover with gauze Home Medications: Medications to take at Discharge Amlodipine [Norvasc] 10 mg PO DAILY 04/30/14 Atenolol [Tenormin (beta lisa)] 100 mg PO DAILY 04/30/14 Aspirin E.C. [Ecotrin] 81 mg PO DAILY@0800 01/27/17 Atorvastatin Calcium 40 mg PO QHS 01/27/17 Lisinopril [Zestril] 2.5 mg PO DAILY 01/27/17 albuterol sulfate HFA 90 mcg/actuation aerosol inhaler 1 puff INHALATION Q4H PRN PRN #1 inhaler 01/03/18 Acetaminophen [Tylenol Tablet] 650 mg PO Q6H PRN PRN tablet 01/11/19 Amox/Clavulanate Tablet [Augmentin Tablet] 875 mg PO BID #80 tablet 01/11/19 Glucerna Shake 120 ml PO 4X/DAY liquid 01/11/19 Insulin Lispro [Humalog KwikPen] See Protocol SC ACHS insuln.pen 01/11/19 Naproxen [Naprosyn] 500 mg PO BID PRN PRN tablet 01/11/19 Nutritional Supplement [Braxton - ORANGE FLAVOR] 1 packet PO BIDCM packet 01/11/19 Primary Care Physician: Ariel Ferro MD [Primary Care Provider] - When: wound care center 1 week Please Follow Up With: Quan Cohn MD When: inpatient versus outpatient referral Disposition: Inpt Rehab Unit/Facility Minutes spent on discharge:: 35 Patient Condition:: Fair Medical Necessity - Tobacco Use Smoking Status: Current every day smoker - Patient notes 1 pack of cigarettes last him 1.5 days. Tobacco Use: Cigarettes Meaningful Use Info Meaningful Use Diagnoses (Choose all that apply): None applicable Code Visit Inpatient E&M: 27791 Disch Hosp
[2019-01-11] MEDS: Acetaminophen 325 MG Tablet 650 MG PO (13:48)
--- NOTE | 2019-01-11 13:48 | DS.PCM_ITS ---
Discharge Date and Diagnosis - Problem List Patient Problems: Active and Suspected Problems (Last Reviewed 08/04/18 @ 13:58 by Jaclyn Luna) Diabetic foot infection (Acute) Hypokalemia (Acute) Date of Admission: 01/06/19 Date of Discharge: 01/11/19 - Primary Discharge Diagnosis Active and Suspected Problems (Last Reviewed 08/04/18 @ 13:58 by Jaclyn Luna) Diabetic foot infection (Acute) Hypokalemia (Acute) 1. RLE diabetic foot infection and toe infection * concern for osteomyelitis * s/p bedside I+D on 01/09 * Cx + for proteus and GPO * Toe Cx performed 01/10 and still pending. * Augmentin through 02/22 * ID to follow in rehab. 2. Debility * PT recommending additional therapy * to rehab 3. hyponatremia: * chronic * improved 4. COPD: * not in exacerbation * Prednisone 40 on home med list, but looks like it has been pushed forward in the med recs from a 5 day rx in 09/12. Called [facility] in [place]: no prednisone scripts in the past 2 years (at least) * will dc prednisone. 5. severe protein malnutrition * presumed * prealbumin 8.4 * nutrition on consult * complicates care * continue Glucerna shake QID plus Braxton 6. right arm pain * s/p fall * per son, waxes and wanes * suspect rotator cuff tear/injury * conservative mgmt * pt able to raise bother arms up without difficulty 7. ZACHARY * resolved * HLIV * suspect prerenal * continue to hold HCTZ 8. Anemia: * hg went from 13.2 to 9.7, part of the drop may be dilutional * stable at this time. * monitor * no need for transfusion * check anemia studies 9. 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 Punctate calcifications in the basal ganglia which are usually idiopathic in an elderly individual. 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 There is no intracranial hemorrhage or calvarial fracture. Electronically Signed: Suman Rodriguez MD at 21:24 EDT , Service support , Cervical Spine CT 01/06/19 20:13 IMPRESSION: 1. No demonstrated cervical trauma. If the patient has acute, focal neurologic findings, MRI is advised to evaluate for cord contusion. 2. Severe degenerative changes of the cervical spine. 3. Prevertebral edema may indicate ligamentous injury. Electronically Signed: Valeria Sampson MD at 21:06 EDT Tel , Service support , Chest X-Ray 01/06/19 20:25 IMPRESSION: Elevated left hemidiaphragm. Calcified plaques of the aortic arch. Region of broad-based scalloping of the posterior right fourth rib. This is of unknown etiology, but appears stable from the previous study. No acute cardiopulmonary disease process is seen. Electronically Signed: Suman Rodriguez MD at 20:52 EDT , Service support , Foot X-Ray 01/06/19 22:15 IMPRESSION: Focal ulceration adjacent to the lateral first digit. Bony demineralization consider possible developing early bony changes of osteomyelitis in the proximal phalanx of the first digit. Recommend consideration for follow-up MRI when appropriate. Age-indeterminate erosion of the distal phalanx of the first digit. Electronically Signed: Yeimi Muñoz MD at 22:40 EDT Tel , Service support , Consultations 01/06/19 23:23 Consult: Onc/Wound/riveting machine operator tape control Routine Comment: Operations: None Procedures: - - bedside debridement of right foot. Summary of Care Provided: The patient is a 78 year old M presents with mechanical fall. Patient did have some renal failure and hypokalemia which replaced by holding the HCTZ and as well as giving IV fluid. The big issue for the patient was a ice mellitus of the right foot. Patient underwent bedside debridement on the by podiatry. Infectious disease was consulted for the polymicrobial organisms and recommended Augmentin through 22 February. Patient be going to acute rehab to continue with additional therapy services. [] Patient Problems: Active and Suspected Problems (Last Reviewed 08/04/18 @ 13:58 by Jaclyn Luna) Diabetic foot infection (Acute) Hypokalemia (Acute) - Physical Exam Vital Signs Temp Pulse Resp BP Pulse Ox 36.7 C 73 16 141/79 H 100 01/11/19 13:30 01/11/19 13:30 01/11/19 13:30 01/11/19 13:30 01/11/19 13:30 Oxygen Flow Rate (L/min) 2 Oxygen Delivery Method Room Air Weight: 66 kg Body Mass Index (BMI) 19.7 Intake and Output for Last 24 Hours 01/09/19 01/10/19 01/11/19 23:59 23:59 23:59 Intake Total 4179.8 / 4179.8 1715 / 1715 462 / 462 Output Total 1105 / 1105 1950 / 1950 1050 / 1050 Balance 3074.8 / 3074.8 -235 / -235 -588 / -588 Microbiology Past 72 Hours 01/10/19 06:40 Gram Stain - Final Bone - Toe Wound Culture - Preliminary Proteus sp. Gram positive organism 01/07/19 10:00 Gram Stain - Final Wound - Aerobic & Anaerobic Swabs Wound Culture - Final Proteus mirabilis Staphylococcus simulans Enterococcus faecalis Anaerobic Culture - Final No anaerobic bacteria isolated. Laboratory Tests Past 24 Hrs 01/11/19 01/11/19 05:43 05:43 WBC 12.7 H RBC 3.72 L Hgb 11.7 L Hct 32.7 L MCV 87.9 MCH 31.5 MCHC 35.8 RDW 13.4 RDW Differential 42.0 Plt Count 244 MPV 10.7 Immature Gran % (Auto) 2.800 H Neut % (Auto) 71.6 H Lymph % (Auto) 13.3 L [place] % (Auto) 11.2 H Eos % (Auto) 0.9 Baso % (Auto) 0.2 Absolute Neuts (auto) 9.1 H Absolute Lymphs (auto) 1.69 Total Counted Not Reportable Diff Path Review May foll Sodium 132 L Potassium 4.1 Chloride 105 Carbon Dioxide 22.0 Anion Gap 5 BUN 39 H Creatinine 1.28 Estim Creat Clear Calc 44.40 Est GFR (MDRD) Af Amer 70 Est GFR (MDRD) Non-Af 58 L BUN/Creatinine Ratio 30.5 H Glucose 133 H Calcium 8.4 L POC Glucose 01/11/19 01/11/19 01/10/19 11:23 06:30 22:19 POC Glucose 139 H 138 H 168 H 01/10/19 16:26 POC Glucose 163 H Discharge Diet: 1800 Calorie Control Diet Discharge Activity: - - Partial weight bearing - heel weightbear right with surgical shoe Weight Bearing Status: Partial weight bearing - heel weightbear right with surgical shoe Keep extremity elevated above heart level: Right Arm Call your doctor if your incision/area has: Continuous Slow Oozing, Sudden Increased Bleeding, Increased Pain/ Swelling, Increased Redness, Foul Smelling Discharge, Swelling at the incision site Call your doctor if you observe: Fever of 101 or Higher, Calf discomfort, Uncontrolled pain Cleanse incision/area with: Normal Saline, - - change dressing to right hallux with aquacel ag to deep wound part and cover with gauze Home Medications: Medications to take at Discharge Amlodipine [Norvasc] 10 mg PO DAILY 04/30/14 Atenolol [Tenormin (beta lisa)] 100 mg PO DAILY 04/30/14 Aspirin E.C. [Ecotrin] 81 mg PO DAILY@0800 01/27/17 Atorvastatin Calcium 40 mg PO QHS 01/27/17 Lisinopril [Zestril] 2.5 mg PO DAILY 01/27/17 albuterol sulfate HFA 90 mcg/actuation aerosol inhaler 1 puff INHALATION Q4H PRN PRN #1 inhaler 01/03/18 Acetaminophen [Tylenol Tablet] 650 mg PO Q6H PRN PRN tablet 01/11/19 Amox/Clavulanate Tablet [Augmentin Tablet] 875 mg PO BID #80 tablet 01/11/19 Glucerna Shake 120 ml PO 4X/DAY liquid 01/11/19 Insulin Lispro [Humalog KwikPen] See Protocol SC ACHS insuln.pen 01/11/19 Naproxen [Naprosyn] 500 mg PO BID PRN PRN tablet 01/11/19 Nutritional Supplement [Braxton - ORANGE FLAVOR] 1 packet PO BIDCM packet 01/11/19 Primary Care Physician: Ariel Ferro MD [Primary Care Provider] - When: wound care center 1 week Please Follow Up With: Quan Cohn MD When: inpatient versus outpatient referral Disposition: Inpt Rehab Unit/Facility Minutes spent on discharge:: 35 Patient Condition:: Fair Medical Necessity - Tobacco Use Smoking Status: Current every day smoker - Patient notes 1 pack of cigarettes last him 1.5 days. Tobacco Use: Cigarettes Meaningful Use Info Meaningful Use Diagnoses (Choose all that apply): None applicable Code Visit Inpatient E&M: 53903 Disch Hosp
[2019-01-11 13:49] LABS: Pathologist Review Reviewed
--- NOTE | 2019-01-11 14:48 | CASEMGMT ---
Addendum entered by Shantell Weir 01/11/19 16:08: SW spoke with pt and pt confirms that he is still agreeable to [facility]. SW informed pt that pt's daughters have been updated on discharge to [facility] today. Pt states understanding. Original Note: Social Work Note Per ID pt is able to discharge on PO antibiotics. Physician updated. Physician is discharging pt to [facility] today. MEGHAN placed a call to pt's daughter Asha and left messages informing them that pt will be discharged to RU and provided NOE Oquendo direct number who will be following pt on RU. MEGHAN placed a call to Gretchen and left her a message informing her pt will be discharged to RU today. Plan: RU today NOE Ramirez
[2019-01-11] MEDS: Amox/Clavulanate 875 MG Tablet PO (15:12)
[2019-01-12 17:07] LABS: Folates, RBC Test 1076 ng/mL (>498)
== END 2019-01-11 16:30 | DRG 622 ==
LOC: ED 20:26 → MS3 22:42
PROVIDERS: Podiatrist; Student in an Organized Health Care Education/Training Program; Admitting Provider Family Medicine; Emergency Provider Emergency Medicine; Family Provider Family Medicine; PCP Family Medicine; Referring Provider Family Medicine
DX: E11.69 Type 2 diabetes mellitus with other specified complication (principal); E43 Unspecified severe protein-calorie malnutrition; M86.8X7 Other osteomyelitis, ankle and foot; Z68.1 Body mass index [BMI] 19.9 or less, adult; E87.1 Hypo-osmolality and hyponatremia; E11.621 Type 2 diabetes mellitus with foot ulcer; N17.9 Acute kidney failure, unspecified; E11.42 Type 2 diabetes mellitus with diabetic polyneuropathy; R53.81 Other malaise; J44.9 Chronic obstructive pulmonary disease, unspecified; D64.9 Anemia, unspecified; R41.0 Disorientation, unspecified; E78.5 Hyperlipidemia, unspecified; E87.6 Hypokalemia; F17.210 Nicotine dependence, cigarettes, uncomplicated; Z89.512 Acquired absence of left leg below knee; Z79.4 Long term (current) use of insulin; R29.6 Repeated falls; L97.519 Non-pressure chronic ulcer of other part of right foot with unspecified severity; E11.51 Type 2 diabetes mellitus with diabetic peripheral angiopathy without gangrene; B96.4 Proteus (mirabilis) (morganii) as the cause of diseases classified elsewhere; B95.7 Other staphylococcus as the cause of diseases classified elsewhere; B95.2 Enterococcus as the cause of diseases classified elsewhere; M75.101 Unspecified rotator cuff tear or rupture of right shoulder, not specified as traumatic
CPT/HCPCS: 36415; 70450; 71045; 72125; 73630; 80048; 80202; 81001; 82607; 82728; 82747; 82962; 83036; 83540; 83550; 83735; 84134; 84443; 84484; 85014; 85025; 85652; 86140; 87070; 87075; 87077; 87186; 87205; 87640; 88304; 88311; 93005; 93922; 93923; 94640; 97110; 97162; 97165; 97530; 97535; 97802; 99285; 99406; J7030; J7040; J7050; A4216; J0295

== ENCOUNTER 2019-01-11 16:49 | Inpatient (IN) | payer MEDICARE, OTHER, SELFPAY ==
[2019-01-11 17:01] VITALS: BP 164/97; PULSE 81; RESP 17; TEMP 36.9; O2SAT 94; BMI 22.4
[2019-01-11 17:21] LABS: Bedside Glucose 114 mg/dL (70-110)
[2019-01-11 18:25] VITALS: O2SAT 95
--- NOTE | 2019-01-11 18:30 | NURSING ---
Patient placed in bed per his request after supper and call abebe in place, PA on, Bed exit on. Denies needs.
--- NOTE | 2019-01-11 18:35 | NURSING ---
Aware of being a fall risk and needing to use call light.
[2019-01-11 20:21] VITALS: BP 163/80; PULSE 78; RESP 16; TEMP 36.5; O2SAT 100
[2019-01-11] MEDS: Acetaminophen 325 MG Tablet 650 MG PO (20:30)
[2019-01-11 20:31] LABS: Bedside Glucose 166 mg/dL (70-110)
[2019-01-11] MEDS: Senna/Docusate Sodium 1 Tablet 2 TABLET PO (20:31)
[2019-01-11] MEDS: Atorvastatin Calcium 40 MG Tablet PO (20:31)
[2019-01-11] MEDS: Amox/Clavulanate 875 MG Tablet PO (20:31)
[2019-01-11] MEDS: LORazepam 0.5 MG Tablet PO ×2 (20:31→23:02)
[2019-01-11] MEDS: Insulin Lispro 100 UNIT/ML INSULN.PEN SC (20:35)
--- NOTE | 2019-01-12 01:55 | NURSING ---
Pt restless - ativan given at hs along with repeat dose with no good effect. Hospitalist called due to continued restlessness. Pt found attempting to get oob multiple times. Wants to get out of here. Pt repositioned multiple times. Found with leg over rail multiple times
[2019-01-12] MEDS: Haloperidol Lactate 5 MG/ML Vial 1 MG IM (02:17)
[2019-01-12] MEDS: Acetaminophen 325 MG Tablet 650 MG PO (02:27)
[2019-01-12 05:55] LABS: Hematocrit 32.9 % (40-54); Hemoglobin 11.6 g/dl (13.0-16.5); Mean Corp Hgb Conc 35.3 g/gl (32-36); Mean Corpuscular Hgb 31.2 pg (27.0-32.0); Mean Corpuscular Volume 88.4 fL (80-94); Mean Platelet Vol. 10.5 fl (6.2-12.0); Platelet Count 272 K/mm3 (150-450); RBC Distribution Width CV 13.6 % (11.6-14.6); Red Blood Count 3.72 M/mm3 (4.6-6.2); White Blood Count 14.1 K/mm3 (4.4-11.0)
[2019-01-12 06:04] LABS: Scan Indicated on CBC? Y/N NO
[2019-01-12 06:13] LABS: Anion Gap 8 (5-15); BUN 34 mg/dL (7-18); BUN/Creat Ratio 27.2 RATIO (10-20); Calcium,Total 8.6 mg/dL (8.5-10.1); Chloride 104 mmol/L (98-107); Creatinine, Serum 1.25 mg/dL (0.70-1.30); EST Glomerular Filtration Rate 59 mL/min (>60); Est Glom Filt Rate - Afr Amer 72 mL/min (>60); Estimated Creatinine Clearance 51.56 ml/min; Glucose 126 mg/dL (74-106); Potassium 4.1 mmol/L (3.5-5.1); Sodium Level 135 mmol/L (136-145)
[2019-01-12 07:10] LABS: Bedside Glucose 129 mg/dL (70-110)
[2019-01-12 07:46] LABS: Bedside Glucose 133 mg/dL (70-110)
[2019-01-12] MEDS: Enoxaparin 30 MG/0.3 ML Syringe SC (07:46)
[2019-01-12] MEDS: Amox/Clavulanate 875 MG Tablet PO ×2 (07:46→16:59)
[2019-01-12] MEDS: Naproxen 500 MG Tablet PO ×2 (07:46→23:03)
[2019-01-12] MEDS: amLODIPine 10 MG Tablet PO (07:46)
[2019-01-12] MEDS: Atenolol 100 MG Tablet PO (07:47)
[2019-01-12] MEDS: Lisinopril 2.5 MG Tablet PO (07:47)
[2019-01-12] MEDS: Aspirin E.C. 81 MG Tablet PO (09:38)
[2019-01-12 09:59] LABS: Bacteria 0 SEEN /hpf (None Seen); Mucous, Urine 0 SEEN /hpf (<or=2+); Squamous Epithelial Cells - UA 0 SEEN /hpf (0-5); White Blood Cells 0 SEEN /hpf (0-5)
[2019-01-12 10:00] VITALS: BP 148/83; PULSE 88; RESP 18; TEMP 36.8; O2SAT 94
[2019-01-12 10:00] LABS: Color, Urine Yellow (Yellow); Glucose, Dipstick Normal (Normal); Ketone-Dipstick Negative (Negative); Leukocyte Esterase-Dipstick Negative /ul (Negative); Nitrite-Dipstick Negative (Negative); Occult Blood-Urine 25 /ul (Negative); Protein-Dipstick 30 mg/dl (Negative); Urine Bilirubin Dipstick Negative (Negative); Urine Clarity Clear (Clear); Urine Urobilinogen Normal (Normal)
[2019-01-12 10:28] LABS: Red Blood Cells-Urine 0-5 SEEN /hpf (0-5)
[2019-01-12 12:05] LABS: Bedside Glucose 105 mg/dL (70-110)
--- NOTE | 2019-01-12 12:46 | PCM.HP.STD ---
History of Present Illness Date of Admission: 01/12/19 Chief Complaint: debility The patient is a 78 year old admitted with debility after diabetic foot infection complicated by dementia and delerium. last night apparently feel in the rehab unit without injury. medical staff director reports he was agitated, confused and mildly combative although this appears to have resolved. no other complaints, goal of therapy is buddhism of prior level of functional independence. 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) Other specified peripheral vascular diseases (Chronic) Type 2 diabetes mellitus with diabetic polyneuropathy (Chronic) Osteomyelitis of right foot (Chronic) Asthma (Chronic) Cough (Chronic) Tobacco abuse (Chronic) COPD (chronic obstructive pulmonary disease) (Chronic) Diabetes mellitus (Chronic) HTN (hypertension) (Chronic) Hyperlipidemia (Chronic) Medical History: Medical History (Last Reviewed 01/12/19 @ 13:36 by Juan A Wright MD) Colonoscopy planned (Resolved) Asthma (Chronic) J45.909 Cough (Chronic) R05 Dyspnea (Acute) R06.00 Tobacco abuse (Chronic) Z72.0 Lung mass (Acute) R91.8 Approximately 2 cm left upper lobe cavitary lesion COPD (chronic obstructive pulmonary disease) (Chronic) J44.9 Hypoxia (Acute) R09.02 Diabetes mellitus (Chronic) E11.9 HTN (hypertension) (Chronic) I10 Hyperlipidemia (Chronic) E78.5 ZACHARY (acute kidney injury) (Acute) N17.9 Pneumonia (Acute) J18.9 Sepsis (Acute) A41.9 Hyponatremia (Acute) E87.1 Allergies No Known Allergies Allergy (Verified 09/15/17 09:11) Home Medications: Ambulatory Orders Medication Instructions Recorded RX: Amlodipine [Norvasc] 10 mg PO DAILY 04/30/14 RX: Atenolol [Tenormin (beta 100 mg PO DAILY 04/30/14 lisa)] RX: Aspirin E.C. [Ecotrin] 81 mg PO DAILY@0800 01/27/17 RX: Atorvastatin Calcium 40 mg PO QHS 01/27/17 RX: Lisinopril [Zestril] 2.5 mg PO DAILY 01/27/17 albuterol sulfate HFA 90 1 puff INHALATION Q4H PRN PRN #1 01/03/18 mcg/actuation aerosol inhaler inhaler RX: Acetaminophen [Tylenol Tablet] 650 mg PO Q6H PRN PRN tablet 01/11/19 RX: Amox/Clavulanate Tablet 875 mg PO BID 01/11/19 [Augmentin Tablet] RX: Glucerna Shake 120 ml PO 4X/DAY 01/11/19 RX: Insulin Lispro [Humalog See Protocol SC ACHS insuln.pen 01/11/19 KwikPen] RX: Naproxen [Naprosyn] 500 mg PO BID PRN PRN tablet 01/11/19 RX: Nutritional Supplement [Braxton 1 packet PO BIDCM packet 01/11/19 - [facility]] Surgical History: Surgical History (Last Reviewed 01/12/19 @ 13:36 by Juan A Wright MD) H/O hernia repair (Resolved) Z98.890, Z87.19 History of appendectomy (Resolved) Z90.49 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 Psychiatric History: No pertinent psych hx Smoking Status: Current every day smoker - *Family History Maternal Family History: Family History (Last Reviewed 01/12/19 @ 13:36 by Juan A Wright MD) Mother Hypertension Asthma Father Hypertension Sister Hypertension Brother Hypertension History Items: Heart Disease, Hypertension Paternal Family History: Family History (Last Reviewed 01/12/19 @ 13:36 by Juan A Wright MD) Mother Hypertension Asthma Father Hypertension Sister Hypertension Brother Hypertension History Items: Heart Disease, Hypertension Review of Systems Constitutional: Denies: Chills, Fever, Weight Change HEENT: Denies: Head Aches, Sinus Congestion, Sinus Drainage Cardiovascular: Denies: Chest Pain, Palpitations Respiratory: Denies: Cough, Shortness of breath at rest, Sputum production Gastrointestinal: Denies: Abdominal Pain, Nausea, Vomiting Genitourinary: Denies: Dysuria Musculoskeletal: Denies: Joint Pain, Joint Tenderness Skin: Denies: Rash, Wounds Neurological: Denies: Numbness, Tingling, Focal weakness Psychiatric: Denies: Anxiety, Depression, Homicidal Ideations, Suicidal Ideations Hematologic/ Lymphatic: Denies: Easy Bruising, Easy Bleeding VTE Information - Inpt Only VTE Present on Admission: Yes VTE Pharm Prophylaxis ordered?: Yes - Physical Exam General: Alert, Oriented x3, Cooperative, No apparent distress HEENT: PERRLA, EOMI Cardiovascular: Regular rate Abdomen: Bowel Sounds Present Extremities: No Calf Tenderness Neurological: Cranial nerves II-XII grossly intact Psych/Mental Status: Normal Affect Vital Signs Temp Pulse Resp BP Pulse Ox 36.8 C 88 18 148/83 H 94 01/12/19 10:00 01/12/19 10:00 01/12/19 10:00 01/12/19 10:00 01/12/19 10:00 Oxygen Delivery Method Room Air Weight: 74.843 kg Body Mass Index (BMI) 22.4 Laboratory Tests Past 24 Hrs 01/12/19 01/12/19 01/12/19 05:30 05:30 09:15 WBC 14.1 H RBC 3.72 L Hgb 11.6 L Hct 32.9 L MCV 88.4 MCH 31.2 MCHC 35.3 RDW 13.6 RDW Differential 43.0 Plt Count 272 MPV 10.5 Sodium 135 L Potassium 4.1 Chloride 104 Carbon Dioxide 23.0 Anion Gap 8 BUN 34 H Creatinine 1.25 Estim Creat Clear Calc 51.56 Est GFR (MDRD) Af Amer 72 Est GFR (MDRD) Non-Af 59 L BUN/Creatinine Ratio 27.2 H Glucose 126 H Calcium 8.6 Urine Color Yellow Urine Clarity Clear Urine pH 8.0 Ur Specific [place] 1.010 Urine Protein 30 H Urine Glucose (UA) Normal Urine Ketones Negative Urine Occult Blood 25 H Urine Nitrite Negative Urine Bilirubin Negative Urine Urobilinogen Normal Ur Leukocyte Esterase Negative Urine RBC 0-5 SEEN Urine WBC 0 SEEN Ur Squamous Epith Cells 0 SEEN Urine Bacteria 0 SEEN Urine Mucus 0 SEEN POC Glucose 01/12/19 01/12/19 01/12/19 12:00 07:40 07:06 POC Glucose 105 133 H 129 H 01/11/19 01/11/19 20:05 17:16 POC Glucose 166 H 114 H Assessment/Plan All Active Problems (Last Reviewed 01/12/19 @ 13:36 by Juan A Wright MD) Diabetic foot infection (Acute) Hypokalemia (Acute) H/O hernia repair (Resolved) History of appendectomy (Resolved) Colonoscopy planned (Resolved) Amputation of left lower extremity below knee (Resolved) Dyspnea (Acute) Lung mass (Acute) Hypoxia (Acute) ZACHARY (acute kidney injury) (Acute) Pneumonia (Acute) Sepsis (Acute) Hyponatremia (Acute) Chronic steroid use (Ruled-out) debility s/p hospitalization for infection, complicated by delerium and history of left bka due to PVD remotely. goal of rehab is buddhism of prior level of functional independence plan pt for gait and balance ot for adls dvt prophylaxis: lovenox bowel protocol speech therapy prn sleep aide consider qhs seroquel if circadian disruption continues
--- NOTE | 2019-01-12 12:48 | REHABEVAL_ITS ---
Admission Information Status Changes from Prescreening?: No changes Identified Actual Problem List:: Infection, Skin Intergrity, Pain, ALteration in Cmfrt, Cognitve Impr/Memory Loss, Alteration in Sleep, Alteration in Nutrition, Mobility Impaired, Self Care Deficit, Diabetes, Hyperglycemia, BP, Hypertension, Ineffect.D/C Plan r/t Psy Potential Problem List:: DVT, Bleeding, Infection, UTI, Aspiration, Falls, Skin Integrity, Depression Risk of Complications DVT: LMWH, REANNA Hose, Sequential Compression Device Bleeding: Monitor Lab Values, Nursing to Teach Precautions for anti-coagulation therapy., Wound, if applicable, to be assessed every shift., Stroke patients assessed for lethargy or change in status. Infection: Clinical Staff to Monitor for S/S of infection:, S/S of infection include fever, redness, warmth, etc. Urinary Tract Infection: Monitor for frequency, burning, discomfort, or incontinence., Nursing will obtain urine sample for urinalysis and C&S when ordered. Aspiration: Clinical staff will monitor for coughing, drooling, congestion., Speech will evaluate swallowing and dsyphasia., Nursing will monitor patient swallowing during meals. Falls: Patient will be evaluated for Fall Precautions, Patient will be placed on Fall Precautions as indicated per protocol. Skin Breakdown: Nursing will assess skin daily using assessment tool., Nursing will place on Skin Breakdown Precautions as indicated. Pain: Clinical staff will assess patient's pain level per protocol., Medications will be given, if needed, and the pain level reassessed., Other methods: Massage, distraction, decrease stimulus, etc. used PRN. Plan of Care Patient requires physician specializing in physical medicine and rehab oversight to provide close medical supervision of rehab issues including: Pain Management, Sleep Problems, Bowel and Bladder, Medical and co-morbidity Management, DVT prophylaxis, Rehabilitation Leadership, Coordination of treatment team Patient needs Physical Therapy: For a minimum of 1 hour, At least 5 out of 7 days Patient needs Physical Therapy to improve:: Mobility, Mobility, Mobility, Strengthening, Transfers, Stretching, ROM, Endurance, Stairs, Gait, Balance Patient needs Occupational Therapy: For a minimum of 1 hour, At least 5 out of 7 days Patient needs Occupational Therapy to improve ADL's incl.: Eating, Grooming, Bathing, Dressing, Toileting, Toilet transfers, Community Reintegration, Higher functioning activities, Household tasks, Adaptive Equipment, Splinting, Other activities as determined Patient requires speech therapy: For a minimum of 1 hour, At least 5 out of 7 days Patient requires speech therapy for: Swallowing, Cognition, Language Skills, Co mpensatory Strategies Patient requires 24/7 Rehabilitation Nursing for: Pain Issues, Identifying and preventing risk factors, Monitoring and reporting current medical conditions, Assisting with ambulation, transfer, and all ADL's, Teaching patients about disease process and medications, Family teaching, Providing safe environment, Bowel and Bladder Issues, Skin integrity, Medication Management Patient needs Music Executive/ Case Management for: Discharge Planning, Arranging Home Equipment or Services, Family Interventions Patient needs Dietary and Nutrition Services for: Adequate Nutrition, Nutritional Supplements, Nutritional Education Goals Patient will remain: free from falls, or injury at time of discharge. Patient will perform bed mobility at: MOD I level of assist. Patient will complete transfers from bed to chair at: MOD I level of assist. Patient will ambulate: 100 feet, with MOD I assist, with LRD Patient will complete upper body dressing at: MOD I level of assist. Patient will complete lower body dressing at: MOD I level of assist. Patient will complete toileting at: MOD I level of assist. Patient will perform bathing at: MOD I level of assist. Patient will complete grooming at: MOD I level of assist. Patient will complete home management skills at: MOD I level of assist. Patient will achieve: 12 stairs, at MOD I assist Patient will have pain level of: of 3 or less Patient's skin will: remain intact, free from infection. Patient will receive: adequate nutrition. Discharge Planning Pt Prognosis for Sig. Practical Improv. w/in Reasonable Time: Good Anticipated D/C Destination: Home with Outpt Therapy Was Preadmission Assessment Accurate?: Yes
--- NOTE | 2019-01-12 13:38 | PCM.PN.HOSP ---
Subjective: denies any complaints. Vitals/I&O's: Vital Signs Temp Pulse Resp BP Pulse Ox 36.8 C 88 18 148/83 H 94 01/12/19 10:00 01/12/19 10:00 01/12/19 10:00 01/12/19 10:00 01/12/19 10:00 Oxygen Delivery Method Room Air Weight: 74.843 kg Body Mass Index (BMI) 22.4 General: Alert, No apparent distress, - - pleasant. Up eating lunch in rec room. HEENT: Atraumatic, Normocephalic Oral: Moist Mucosa, No Gingival or Mucosal Lesions/ Ulcerations Neck: No Nodes, Thyroid Normal Size and Texture Lungs: Clear to auscultation, Normal air movement, No rhonchi, No wheeze Cardiovascular: Regular rate, Regular Rhythm, Normal S1, Normal S2, No murmurs Abdomen: Bowel Sounds Present, Soft, Non Tender, Non-Distended, No Hepato-splenomegaly Extremities: No edema, No Calf Tenderness Musculoskeletal: Cachexia, Muscle Wasting Psych/Mental Status: Normal Affect, Appropriate Laboratory Results 01/11/19 17:16: POC Glucose 114 H 01/11/19 20:05: POC Glucose 166 H 01/12/19 05:30: WBC 14.1 H, RBC 3.72 L, Hgb 11.6 L, Hct 32.9 L, MCV 88.4, MCH 31.2, MCHC 35.3, RDW 13.6, RDW Differential 43.0, Plt Count 272, MPV 10.5 01/12/19 05:30: Sodium 135 L, Potassium 4.1, Chloride 104, Carbon Dioxide 23.0, Anion Gap 8, BUN 34 H, Creatinine 1.25, Estim Creat Clear Calc 51.56, Est GFR (MDRD) Af Amer 72, Est GFR (MDRD) Non-Af 59 L, BUN/Creatinine Ratio 27.2 H, Glucose 126 H, Calcium 8.6 01/12/19 07:06: POC Glucose 129 H 01/12/19 07:40: POC Glucose 133 H 01/12/19 09:15: Urine Color Yellow, Urine Clarity Clear, Urine pH 8.0, Ur Specific [place] 1.010, Urine Protein 30 H, Urine Glucose (UA) Normal, Urine Ketones Negative, Urine Occult Blood 25 H, Urine Nitrite Negative, Urine Bilirubin Negative, Urine Urobilinogen Normal, Ur Leukocyte Esterase Negative, Urine RBC 0-5 SEEN, Urine WBC 0 SEEN, Ur Squamous Epith Cells 0 SEEN, Urine Bacteria 0 SEEN, Urine Mucus 0 SEEN 01/12/19 12:00: POC Glucose 105 Current Medications Acetaminophen (Tylenol) 650 mg PO Q6H PRN PRN PRN Reason: Non-cardiac pain (mod-severe) Last Admin: 01/12/19 02:27 Dose: 650 mg Albuterol Sulfate (Ventolin Hfa (Sp)) 1 puff INHALATION Q4H PRN PRN PRN Reason: SOB &/OR WHEEZING Amlodipine Besylate (Norvasc) 10 mg PO DAILY [facility] Last Admin: 01/12/19 07:46 Dose: 10 mg Amoxicillin/Clavulanate Potassium ([facility]in [facility]) [facility] Stop: 02/19/19 22:01 Last Admin: 01/12/19 07:46 Dose: 875 mg Aspirin (Ecotrin) 81 mg PO DAILY@0800 [facility] Last Admin: 01/12/19 09:38 Dose: 81 mg Atenolol (Tenormin (Beta Paige)) 100 mg PO DAILY [facility] Last Admin: 01/12/19 07:47 Dose: 100 mg Atorvastatin Calcium (Lipitor) 40 mg PO QHS [facility] Last Admin: 01/11/19 20:31 Dose: 40 mg Bisacodyl (Dulcolax) 10 mg RECTAL .PRN X 1 PRN PRN Reason: Constipation Enoxaparin Sodium (Lovenox) 30 mg SC DAILY@0600 [facility] Last Admin: 01/12/19 07:46 Dose: 30 mg Guaifenesin (Robitussin) 10 ml PO Q4H PRN PRN PRN Reason: COUGH Insulin Human Lispro (Humalog Kwikpen (Bkc)) 0 unit SC [facility]; Protocol Last Admin: 01/12/19 12:13 Dose: Not Given Lisinopril (Zestril) 2.5 mg PO DAILY [facility] Last Admin: 01/12/19 07:47 Dose: 2.5 mg Lorazepam (Ativan) 0.5 mg PO QHS PRN PRN PRN Reason: Insomnia Last Admin: 01/11/19 23:02 Dose: 0.5 mg Magnesium Hydroxide (Milk Of Magnesia) 30 ml PO .PRN X 1 PRN PRN Reason: Constipation Naproxen (Naprosyn) 500 mg PO BID PRN PRN PRN Reason: MILD PAIN (1-12/04) Last Admin: 01/12/19 07:46 Dose: 500 mg Nutritional Formula (Braxton - [place] Flavor) 1 packet PO BIDCM [facility] Last Admin: 01/12/19 07:49 Dose: 1 packet Nutritional Formula (Lactose Free) (Glucerna Shake) 120 ml PO 4X/DAY [facility] Last Admin: 01/12/19 12:32 Dose: Not Given Quetiapine Fumarate (Seroquel) 25 mg PO QHS [facility] Senna/Docusate Sodium (Senokot-S, Bess-Colace) 2 tablet PO BID [facility] Last Admin: 01/12/19 08:35 Dose: Not Given Medical Necessity - Tobacco Use Smoking Status: Current every day smoker Assessment/Plan All Active Problems (Last Reviewed 01/12/19 @ 13:36 by Juan A Wright MD) Diabetic foot infection (Acute) Hypokalemia (Acute) H/O hernia repair (Resolved) History of appendectomy (Resolved) Colonoscopy planned (Resolved) Amputation of left lower extremity below knee (Resolved) Dyspnea (Acute) Lung mass (Acute) Hypoxia (Acute) ZACHARY (acute kidney injury) (Acute) Pneumonia (Acute) Sepsis (Acute) Hyponatremia (Acute) Chronic steroid use (Ruled-out) 1. RLE diabetic foot infection and toe infection concern for osteomyelitis s/p bedside I+D on 01/09 Cx + for proteus and GPO Toe Cx performed 01/10 and still pending. Augmentin through 02/22 ID to follow in rehab. follow up with podiatry 2. Debility PT recommending additional therapy to rehab 3. hyponatremia: chronic improved 4. COPD: not in exacerbation Prednisone 40 on home med list, but looks like it has been pushed forward in the med recs from a 5 day rx in 09/12. Called [facility] in [place]: no prednisone scripts in the past 2 years (at least) will dc prednisone. 5. severe protein malnutrition presumed prealbumin 8.4 nutrition on consult complicates care continue Glucerna shake QID plus Braxton 6. right arm pain s/p fall per son, waxes and wanes suspect rotator cuff tear/injury conservative mgmt pt able to raise bother arms up without difficulty 7. ZACHARY resolved HLIV suspect prerenal continue to hold HCTZ 8. Anemia: hg went from 13.2 to 9.7, part of the drop may be dilutional stable at this time. monitor no need for transfusion check anemia studies 9. 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 Code Visit Inpatient E&M: 28550 Subs Hosp L2
--- NOTE | 2019-01-12 13:41 | PN_ITS ---
Subjective: denies any complaints. Vitals/I&O's: Vital Signs Temp Pulse Resp BP Pulse Ox 36.8 C 88 18 148/83 H 94 01/12/19 10:00 01/12/19 10:00 01/12/19 10:00 01/12/19 10:00 01/12/19 10:00 Oxygen Delivery Method Room Air Weight: 74.843 kg Body Mass Index (BMI) 22.4 General: Alert, No apparent distress, - - pleasant. Up eating lunch in rec room. HEENT: Atraumatic, Normocephalic Oral: Moist Mucosa, No Gingival or Mucosal Lesions/ Ulcerations Neck: No Nodes, Thyroid Normal Size and Texture Lungs: Clear to auscultation, Normal air movement, No rhonchi, No wheeze Cardiovascular: Regular rate, Regular Rhythm, Normal S1, Normal S2, No murmurs Abdomen: Bowel Sounds Present, Soft, Non Tender, Non-Distended, No Hepato- splenomegaly Extremities: No edema, No Calf Tenderness Musculoskeletal: Cachexia, Muscle Wasting Psych/Mental Status: Normal Affect, Appropriate Laboratory Results 01/11/19 17:16: POC Glucose 114 H 01/11/19 20:05: POC Glucose 166 H 01/12/19 05:30: WBC 14.1 H, RBC 3.72 L, Hgb 11.6 L, Hct 32.9 L, MCV 88.4, MCH 31.2, MCHC 35.3, RDW 13.6, RDW Differential 43.0, Plt Count 272, MPV 10.5 01/12/19 05:30: Sodium 135 L, Potassium 4.1, Chloride 104, Carbon Dioxide 23.0, Anion Gap 8, BUN 34 H, Creatinine 1.25, Estim Creat Clear Calc 51.56, Est GFR (MDRD) Af Amer 72, Est GFR (MDRD) Non-Af 59 L, BUN/Creatinine Ratio 27.2 H, Glucose 126 H, Calcium 8.6 01/12/19 07:06: POC Glucose 129 H 01/12/19 07:40: POC Glucose 133 H 01/12/19 09:15: Urine Color Yellow, Urine Clarity Clear, Urine pH 8.0, Ur Specific Monitor 1.010, Urine Protein 30 H, Urine Glucose (UA) Normal, Urine Ketones Negative, Urine Occult Blood 25 H, Urine Nitrite Negative, Urine Bilirubin Negative, Urine Urobilinogen Normal, Ur Leukocyte Esterase Negative, Urine RBC 0-5 SEEN, Urine WBC 0 SEEN, Ur Squamous Epith Cells 0 SEEN, Urine Bacteria 0 SEEN, Urine Mucus 0 SEEN 01/12/19 12:00: POC Glucose 105 Current Medications Acetaminophen (Tylenol) 650 mg PO Q6H PRN PRN PRN Reason: Non-cardiac pain (mod-severe) Last Admin: 01/12/19 02:27 Dose: 650 mg Albuterol Sulfate (Ventolin Hfa (Sp)) 1 puff INHALATION Q4H PRN PRN PRN Reason: SOB &/OR WHEEZING Amlodipine Besylate (Norvasc) 10 mg PO DAILY [facility] Last Admin: 01/12/19 07:46 Dose: 10 mg Amoxicillin/Clavulanate Pot[facility] ([facility]: 02/19/19 22:01 Last Admin: 01/12/19 07:46 Dose: 875 mg Aspirin (Ecotrin) 81 mg PO DAILY@0800 [facility] Last Admin: 01/12/19 09:38 Dose: 81 mg Atenolol (Tenormin (Beta Paige)) 100 mg PO DAILY [facility] Last Admin: 01/12/19 07:47 Dose: 100 mg Atorvastatin Calcium (Lipitor) 40 mg PO QHS [facility] Last Admin: 01/11/19 20:31 Dose: 40 mg Bisacodyl (Dulcolax) 10 mg RECTAL .PRN X 1 PRN PRN Reason: Constipation Enoxaparin Sodium (Lovenox) 30 mg SC DAILY@0600 [facility] Last Admin: 01/12/19 07:46 Dose: 30 mg Guaifenesin (Robitussin) 10 ml PO Q4H PRN PRN PRN Reason: COUGH Insulin Human Lispro (Humalog Kwikpen (Bkc)) 0 unit SC [facility]; Protocol Last Admin: 01/12/19 12:13 Dose: Not Given Lisinopril (Zestril) 2.5 mg PO DAILY [facility] Last Admin: 01/12/19 07:47 Dose: 2.5 mg Lorazepam (Ativan) 0.5 mg PO QHS PRN PRN PRN Reason: Insomnia Last Admin: 01/11/19 23:02 Dose: 0.5 mg Magnesium Hydroxide (Milk Of Magnesia) 30 ml PO .PRN X 1 PRN PRN Reason: Constipation Naproxen (Naprosyn) 500 mg PO BID PRN PRN PRN Reason: MILD PAIN (1-12/04) Last Admin: 01/12/19 07:46 Dose: 500 mg Nutritional Formula (Braxton - [place] Flavor) 1 packet PO BIDCM [facility] Last Admin: 01/12/19 07:49 Dose: 1 packet Nutritional Formula (Lactose Free) (Glucerna Shake) 120 ml PO 4X/DAY [facility] Last Admin: 01/12/19 12:32 Dose: Not Given Quetiapine Fumarate (Seroquel) 25 mg PO QHS [facility] Senna/Docusate Sodium (Senokot-S, Bess-Colace) 2 tablet PO BID [facility] Last Admin: 01/12/19 08:35 Dose: Not Given Medical Necessity - Tobacco Use Smoking Status: Current every day smoker Assessment/Plan All Active Problems (Last Reviewed 01/12/19 @ 13:36 by Juan A Wright MD) Diabetic foot infection (Acute) Hypokalemia (Acute) H/O hernia repair (Resolved) History of appendectomy (Resolved) Colonoscopy planned (Resolved) Amputation of left lower extremity below knee (Resolved) Dyspnea (Acute) Lung mass (Acute) Hypoxia (Acute) ZACHARY (acute kidney injury) (Acute) Pneumonia (Acute) Sepsis (Acute) Hyponatremia (Acute) Chronic steroid use (Ruled-out) 1. RLE diabetic foot infection and toe infection * concern for osteomyelitis * s/p bedside I+D on 01/09 * Cx + for proteus and GPO * Toe Cx performed 01/10 and still pending. * Augmentin through 02/22 * ID to follow in rehab. * follow up with podiatry 2. Debility * PT recommending additional therapy * to rehab 3. hyponatremia: * chronic * improved 4. COPD: * not in exacerbation * Prednisone 40 on home med list, but looks like it has been pushed forward in the med recs from a 5 day rx in 09/12. Called [facility] in [place]: no prednisone scripts in the past 2 years (at least) * will dc prednisone. 5. severe protein malnutrition * presumed * prealbumin 8.4 * nutrition on consult * complicates care * continue Glucerna shake QID plus Braxton 6. right arm pain * s/p fall * per son, waxes and wanes * suspect rotator cuff tear/injury * conservative mgmt * pt able to raise bother arms up without difficulty 7. ZACHARY * resolved * HLIV * suspect prerenal * continue to hold HCTZ 8. Anemia: * hg went from 13.2 to 9.7, part of the drop may be dilutional * stable at this time. * monitor * no need for transfusion * check anemia studies 9. 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 Code Visit Inpatient E&M: 35084 Subs Hosp L2
--- NOTE | 2019-01-12 14:05 | NURSING ---
called to notify her of patients fall with no injury but this nurse had to leave message for her to return call back due to no answer.
--- NOTE | 2019-01-12 15:20 | CASEMGMT ---
Student social work psychosocial assessment reviewed. NOE Corbett
[2019-01-12] MEDS: guaiFENesin 10 ML UDC (200MG/10ML) PO ×2 (16:59→22:58)
[2019-01-12 17:26] LABS: Bedside Glucose 109 mg/dL (70-110)
[2019-01-12 21:31] LABS: Bedside Glucose 148 mg/dL (70-110)
[2019-01-12 22:00] VITALS: BP 150/77; PULSE 79; RESP 16; TEMP 36.7; O2SAT 98
[2019-01-12] MEDS: QUEtiapine 25 MG Tablet PO (22:58)
[2019-01-12] MEDS: Atorvastatin Calcium 40 MG Tablet PO (22:58)
[2019-01-12] MEDS: Glucerna Shake 120 ML LIQUID PO (23:01)
--- NOTE | 2019-01-13 01:12 | NURSING ---
On 01/11 at approximately 1945 found pt sitting in front of chair. (had been in bed). PA and bed alarm on. Pt denies hitting head and denies injuring self. Assisted back to bed by staff. Alarms on, reinforced to patient need to call staff for any transfers. Hospitalist notified, no new orders. Will continue to monitor
--- NOTE | 2019-01-13 01:22 | NURSING ---
pt cooperative at beginning of shift. Now, talking to self, increased agitation. PA and bed alarm on
[2019-01-13 06:33] VITALS: O2SAT 95
[2019-01-13] MEDS: Enoxaparin 30 MG/0.3 ML Syringe SC (06:58)
[2019-01-13 07:05] LABS: Bedside Glucose 113 mg/dL (70-110)
[2019-01-13 08:16] VITALS: BP 149/77; PULSE 68; RESP 16; TEMP 36.8; O2SAT 98
[2019-01-13] MEDS: Lisinopril 2.5 MG Tablet PO (08:42)
[2019-01-13] MEDS: amLODIPine 10 MG Tablet PO (08:42)
[2019-01-13] MEDS: Amox/Clavulanate 875 MG Tablet PO ×2 (08:43→16:38)
[2019-01-13] MEDS: Naproxen 500 MG Tablet PO ×2 (08:43→16:38)
[2019-01-13] MEDS: Atenolol 100 MG Tablet PO (08:43)
[2019-01-13] MEDS: Aspirin E.C. 81 MG Tablet PO (08:43)
[2019-01-13] MEDS: guaiFENesin 10 ML UDC (200MG/10ML) PO (08:47)
[2019-01-13] MEDS: BENZOCAINE/MENTHOL 1 LOZENGE 2 LOZENGE MUCOUS MEM ×2 (08:57→16:40)
[2019-01-13] MEDS: Acetaminophen 325 MG Tablet 650 MG PO ×2 (11:11→23:14)
[2019-01-13 11:31] LABS: Bedside Glucose 115 mg/dL (70-110)
[2019-01-13 16:46] LABS: Bedside Glucose 141 mg/dL (70-110)
[2019-01-13 19:55] VITALS: BP 144/72; PULSE 84; RESP 18; TEMP 36.8; O2SAT 96
[2019-01-13] MEDS: QUEtiapine 25 MG Tablet 50 MG PO (20:15)
[2019-01-13 21:41] LABS: Bedside Glucose 171 mg/dL (70-110)
[2019-01-13] MEDS: Insulin Lispro 100 UNIT/ML INSULN.PEN SC (21:56)
[2019-01-13] MEDS: Atorvastatin Calcium 40 MG Tablet PO (21:56)
[2019-01-13] MEDS: Senna/Docusate Sodium 1 Tablet 2 TABLET PO (21:56)
[2019-01-13] MEDS: Glucerna Shake 120 ML LIQUID PO (21:58)
[2019-01-14] MEDS: LORazepam 0.5 MG Tablet PO ×2 (02:07→19:52)
--- NOTE | 2019-01-14 02:10 | NURSING ---
DR LYNN NOTIFIED THAT PT IS GETTING INCREASINGLY AGITATED AND HAS BEEN UNABLE TO SLEEP. PT HAS BEEN PLACED INTO RECLINER PER REQUEST AND BROUGHT TO NURSES STATION TO OBSERVE. PT CONTINUOUSLY WANTS REPOSITIONED. ORDER GIVEN FOR ATIVAN.
[2019-01-14] MEDS: Enoxaparin 30 MG/0.3 ML Syringe SC (06:44)
[2019-01-14 07:00] VITALS: O2SAT 96
[2019-01-14 07:15] VITALS: BP 159/80; PULSE 68; RESP 18; TEMP 36.7; O2SAT 95
[2019-01-14 07:15] LABS: Bedside Glucose 144 mg/dL (70-110)
[2019-01-14] MEDS: Atenolol 100 MG Tablet PO (10:25)
[2019-01-14] MEDS: Lisinopril 2.5 MG Tablet PO (10:25)
[2019-01-14] MEDS: Amox/Clavulanate 875 MG Tablet PO ×2 (10:25→17:14)
[2019-01-14] MEDS: amLODIPine 10 MG Tablet PO (10:26)
[2019-01-14] MEDS: Aspirin E.C. 81 MG Tablet PO (10:26)
[2019-01-14] MEDS: Senna/Docusate Sodium 1 Tablet 2 TABLET PO ×2 (10:26→19:51)
[2019-01-14] MEDS: Acetaminophen 325 MG Tablet 650 MG PO (10:30)
[2019-01-14] MEDS: guaiFENesin 10 ML UDC (200MG/10ML) PO (10:30)
[2019-01-14 12:21] LABS: Bedside Glucose 150 mg/dL (70-110)
[2019-01-14] MEDS: Insulin Lispro 100 UNIT/ML INSULN.PEN SC ×2 (13:45→17:11)
[2019-01-14] MEDS: Glucerna Shake 120 ML LIQUID PO ×3 (14:40→19:49)
--- NOTE | 2019-01-14 15:30 | NURSING ---
R. toe dressing changed cleaned with NS repacked R. great toe, reapplied dressing, no drainage noted, no s/s of infection, t tolerated well. Cleaned LLE dressing to chow, reapplied adapitc and gauze dressing, pt tolerated well.
[2019-01-14 17:16] LABS: Bedside Glucose 226 mg/dL (70-110)
--- NOTE | 2019-01-14 19:29 | PN_ITS ---
Subjective: This 78 year old male was seen bedside in the rehabilitation unit for right hallux ulcer with osteomyelitis confirmed. His case is complicated by diabetes and peripheral vascular disease. He denies fever, chill, nausea, vomiting, leg or foot pain. - Physical Exam General: Alert, Cooperative HEENT: Atraumatic Extremities: No cyanosis, No edema, No Calf Tenderness - negative still, right, Diminished Peripheral Pulses, - - left below knee amputation. capillary fill time less than 3 seconds to remaining digits Skin: Ulcer/ Wound - right distal hallux ulcer with positive probe to bone noted. no erythema, no odor, no streaking, no eschar, no necrosis noted. the peripheral skin is very hairless and atrophic. no maceration noted right. Musculoskeletal: No Tenderness to Palpation of Joints or Extremities, - - central digital amputations noted, right. compartments remain soft right foot Neurological: - - lack of normal epicritic sensation via light touch to right foot noted Psych/Mental Status: Normal Affect, Appropriate Vital Signs Temp Pulse Resp BP Pulse Ox 98.1 F 68 18 159/80 H 95 01/14/19 07:15 01/14/19 07:15 01/14/19 07:15 01/14/19 07:15 01/14/19 07:15 Oxygen Delivery Method Room Air Weight: 74.843 kg Body Mass Index (BMI) 22.4 Intake and Output for Last 24 Hours 01/12/19 01/13/19 01/14/19 23:59 23:59 23:59 Intake Total 360 / 360 260 / 260 Output Total 300 / 300 300 / 300 Balance -300 / -300 60 / 60 260 / 260 Microbiology Past 72 Hours 01/12/19 09:15 Urine Culture - Final Urine, Random Culture exhibits no growth. POC Glucose 01/14/19 01/14/19 01/14/19 17:09 12:12 06:49 POC Glucose 226 H 150 H 144 H 01/13/19 21:38 POC Glucose 171 H Medical Necessity - Tobacco Use Smoking Status: Current every day smoker Assessment/Plan All Active Problems (Last Reviewed 01/12/19 @ 13:36 by Juan A Wright MD) Diabetic foot infection (Acute) Hypokalemia (Acute) H/O hernia repair (Resolved) History of appendectomy (Resolved) Colonoscopy planned (Resolved) Amputation of left lower extremity below knee (Resolved) Dyspnea (Acute) Lung mass (Acute) Hypoxia (Acute) ZACHARY (acute kidney injury) (Acute) Pneumonia (Acute) Sepsis (Acute) Hyponatremia (Acute) Chronic steroid use (Ruled-out) Right hallux ulcer with acute osteomyelitis confirmed with recent bone biopsy Peripheral vascular disease Diabetes with neuropathy History of left below-knee amputation Malnutrition and delayed healing Other comorbidities Status post recent falls and walking instability I reviewed and discussed his case. His diagnostic data was reviewed. He is afebrile and his vital signs are stable. Labs are reviewed including white blood cell count 14. Trends will be followed. Acute osteomyelitis was confirmed with pathology evaluation and the following organisms were further identified with microbiology evaluation: proteus mirabilis, turicella otitidis, staphylococcus simulans, enterococcus facealis. He is scheduled for Augmentin until 02/22/19. Infectious disease is on consultation and is appreciated. JHON right is about 0.7 and toe brachial and segmental limb pressure information is pending. Overall this is stable and tolerated this procedure well this morning. A vascular referral is recommended while he is in the inpatient rehabilitation unit for a time to be determined. To keep pressure off of the site by heel weightbearing in a surgical shoe with an assistive device. To optimize healing with proper glycemic control and nutritional supplementation. It is noted his prealbumin was 8.4 and he has muscle mass loss. I will continue to follow him weekly while in house. Laurita Correa DPM, [facility] [phone]
[2019-01-14] MEDS: Atorvastatin Calcium 40 MG Tablet PO (19:51)
[2019-01-14] MEDS: QUEtiapine 25 MG Tablet 50 MG PO (19:51)
--- NOTE | 2019-01-14 20:10 | NURSING ---
Pt found trying to move to edge of bed. Pt beligerent with LITHOPONE MILL WORKER and staff urging pt to allow staff to use safety measures in transfer to recliner per pt request. Pt being impulsive and requiring staff to stay with pt to ensure safety. Nursing Proj Engineer alerted to need for sitter. Pt sitting in recliner at this time with LITHOPONE MILL WORKER assisting with hs ADLs.
[2019-01-14 20:28] VITALS: BP 158/79; PULSE 83; RESP 18; TEMP 36.6; O2SAT 93
[2019-01-14 20:56] LABS: Bedside Glucose 124 mg/dL (70-110)
[2019-01-14 22:00] VITALS: PULSE 83
--- NOTE | 2019-01-15 03:56 | NURSING ---
pt difficult to reposition without irritating pt. staff attempts to reposition pt to ensure the prevention of bedsores but pt refused to comply. Pt states he is uncomfortable in other positions. Pt sitting up in bed and with Hi/Lo bed in lowest position with floor mats in place for safety. Pt impulsive.
[2019-01-15] MEDS: Enoxaparin 30 MG/0.3 ML Syringe SC (04:46)
[2019-01-15] MEDS: Acetaminophen 325 MG Tablet 650 MG PO ×2 (04:46→18:24)
[2019-01-15 07:35] LABS: Bedside Glucose 162 mg/dL (70-110)
[2019-01-15] MEDS: Aspirin E.C. 81 MG Tablet PO (08:15)
[2019-01-15] MEDS: Lisinopril 2.5 MG Tablet PO (08:15)
[2019-01-15] MEDS: Naproxen 500 MG Tablet PO (08:15)
[2019-01-15] MEDS: amLODIPine 10 MG Tablet PO (08:15)
[2019-01-15] MEDS: Amox/Clavulanate 875 MG Tablet PO ×2 (08:15→17:33)
[2019-01-15] MEDS: Atenolol 100 MG Tablet PO (08:15)
[2019-01-15] MEDS: Insulin Lispro 100 UNIT/ML INSULN.PEN SC (08:16)
[2019-01-15 09:45] VITALS: BP 151/77; PULSE 80; RESP 16; TEMP 36.6; O2SAT 98
[2019-01-15] MEDS: Glucerna Shake 120 ML LIQUID PO ×4 (10:11→20:02)
[2019-01-15 12:31] LABS: Bedside Glucose 137 mg/dL (70-110)
--- NOTE | 2019-01-15 16:26 | PN_ITS ---
Subjective: Patient does not have shortness of breath. States his right foot ulcer is getting better. Dressing is changed. Vitals/I&O's: Vital Signs Temp Pulse Resp BP Pulse Ox 97.9 F 80 16 151/77 H 98 01/15/19 09:45 01/15/19 09:45 01/15/19 09:45 01/15/19 09:45 01/15/19 09:45 Oxygen Delivery Method Room Air Weight: 165 lb 0.009 oz Body Mass Index (BMI) 22.4 Intake and Output for Last 24 Hours 01/13/19 01/14/19 01/15/19 23:59 23:59 23:59 Intake Total 360 / 360 260 / 260 60 / 60 Output Total 300 / 300 250 / 250 350 / 350 Balance 60 -290 / -290 General: Alert, Oriented x3, Cooperative HEENT: Atraumatic, PERRLA, EOMI, Normocephalic Neck: Supple, No JVD, Negative Carotid Bruits Lungs: Diminished - Air entry is diminished, Rhonchi Cardiovascular: Regular rate, Regular Rhythm, Normal S1, Normal S2, - - Diastolic murmur over left lower sternal border Abdomen: Bowel Sounds Present, Soft, Non Tender, Non-Distended Extremities: No edema, Capillary Refill Less than 3 Seconds Skin: Ulcer/ Wound - Right great toe diabetic foot ulcers. 0.6 x 0.6 x 0.7 cm. Minimal serosanguineous discharge. Musculoskeletal: No Tenderness to Palpation of Joints or Extremities, Arthritic Changes, Muscle Wasting, - - Left above-knee amputation. Neurological: Cranial nerves II-XII grossly intact Psych/Mental Status: Normal Affect, Appropriate Microbiology Past 72 Hours 01/12/19 09:15 Urine, Random Urine Culture - Final Culture exhibits no growth. Laboratory Results 01/14/19 17:09: POC Glucose 226 H 01/14/19 20:51: POC Glucose 124 H 01/15/19 07:29: POC Glucose 162 H 01/15/19 12:20: POC Glucose 137 H Current Medications Acetaminophen (Tylenol) 650 mg PO Q6H PRN PRN PRN Reason: Non-cardiac pain (mod-severe) Last Admin: 01/15/19 04:46 Dose: 650 mg Albuterol Sulfate (Ventolin Hfa (Sp)) 1 puff INHALATION Q4H PRN PRN PRN Reason: SOB &/OR WHEEZING Amlodipine Besylate (Norvasc) 10 mg PO DAILY [facility] Last Admin: 01/15/19 08:15 Dose: 10 mg Amoxicillin/Clavulanate Potassium (Augmentin Tablet) [facility] Stop: 02/19/19 22:01 Last Admin: 01/15/19 08:15 Dose: 875 mg Aspirin (Ecotrin) 81 mg PO DAILY@0800 [facility] Last Admin: 01/15/19 08:15 Dose: 81 mg Atenolol (Tenormin (Beta Paige)) 100 mg PO DAILY [facility] Last Admin: 01/15/19 08:15 Dose: 100 mg Atorvastatin Calcium (Lipitor) 40 mg PO QHS [facility] Last Admin: 01/14/19 19:51 Dose: 40 mg Bisacodyl (Dulcolax) 10 mg RECTAL .PRN X 1 PRN PRN Reason: Constipation Enoxaparin Sodium (Lovenox) 30 mg SC DAILY@0600 [facility] Last Admin: 01/15/19 04:46 Dose: 30 mg Guaifenesin (Robitussin) 10 ml PO Q4H PRN PRN PRN Reason: COUGH Last Admin: 01/14/19 10:30 Dose: 10 ml Insulin Human Lispro (Humalog Kwikpen (Bkc)) 0 unit SC [facility]; Protocol Last Admin: 01/15/19 12:53 Dose: Not Given Lisinopril (Zestril) 2.5 mg PO DAILY [facility] Last Admin: 01/15/19 08:15 Dose: 2.5 mg Lorazepam (Ativan) 0.5 mg PO QHS PRN PRN PRN Reason: Insomnia Last Admin: 01/14/19 19:52 Dose: 0.5 mg Magnesium Hydroxide (Milk Of Magnesia) 30 ml PO .PRN X 1 PRN PRN Reason: Constipation Naproxen (Naprosyn) 500 mg PO BID PRN PRN PRN Reason: MILD PAIN (1-3/10) Last Admin: 01/15/19 08:15 Dose: 500 mg Nutritional Formula (Braxton - [place] Flavor) [facility] Last Admin: 01/15/19 08:16 Dose: 1 packet Nutritional Formula (Lactose Free) (Glucerna Shake) 120 ml PO 4X/DAY [facility] Last Admin: 01/15/19 14:29 Dose: 120 ml Quetiapine Fumarate (Seroquel) 50 mg PO DAILY@1999 [facility] Last Admin: 01/14/19 19:51 Dose: 50 mg Senna/Docusate Sodium (Senokot-S, Bess-Colace) 2 tablet PO BID [facility] Last Admin: 01/15/19 05:08 Dose: Not Given Throat Lozenges (Cepacol Sore Throat Lozenge) 2 lozenge MUCOUS MEM Q2H PRN PRN PRN Reason: SORE THROAT Last Admin: 01/13/19 16:40 Dose: 1 lozenge Medical Necessity - Tobacco Use Smoking Status: Current every day smoker Assessment/Plan All Active Problems (Last Reviewed 01/12/19 @ 13:36 by Juan A Wright MD) Diabetic foot infection (Acute) Hypokalemia (Acute) H/O hernia repair (Resolved) History of appendectomy (Resolved) Colonoscopy planned (Resolved) Amputation of left lower extremity below knee (Resolved) Dyspnea (Acute) Lung mass (Acute) Hypoxia (Acute) ZACHARY (acute kidney injury) (Acute) Pneumonia (Acute) Sepsis (Acute) Hyponatremia (Acute) Chronic steroid use (Ruled-out) This 70-year-old gentleman with history of diabetes mellitus type 2 with diabetic polyneuropathy was admitted with right diabetic foot infection, complicated with osteomyelitis. Wound culture is positive for Proteus and gram- positive organism. On Augmentin 1. RLE diabetic foot infection and toe infection with osteomyelitis * * s/p bedside I+D on 01/09 * Cx + for proteus and GPO * Toe bone culture on 01/10. Culture is positive of Proteus. Amylase, Staphylococcus simulans and Enterococcus faecalis on vancomycin sensitive * Augmentin through 02/22 * ID to follow in rehab. * Patient seen by Dr. Correa 2. Debility * PT recommending additional therapy * to rehab 3. hyponatremia: * chronic * improved * Repeat BMP tomorrow morning 4. COPD: * not in exacerbation * Prednisone discontinued 5. severe protein malnutrition * presumed * prealbumin 8.4 * nutrition on consult * complicates care * continue Glucerna shake QID plus Braxton 6. right arm pain * s/p fall * suspect rotator cuff tear/injury * conservative mgmt * pt able to raise bother arms up without difficulty 7. ZACHARY * resolved * Prerenal etiology 8. Anemia: * stable at this time. * no need for transfusion * Most recent H&H 11.6/32.9. CBC tomorrow morning 9. 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
[2019-01-15] MEDS: guaiFENesin 10 ML UDC (200MG/10ML) PO (17:32)
[2019-01-15 17:36] LABS: Bedside Glucose 133 mg/dL (70-110)
[2019-01-15 19:13] VITALS: BP 145/72; PULSE 80; RESP 18; TEMP 36.4; O2SAT 96
--- NOTE | 2019-01-15 19:13 | NURSING ---
changed dressing to Caprice fulton, no s/s of infection, repacked toe with AG and redressed with kerlex, no drainage, pt tolerated well
[2019-01-15] MEDS: QUEtiapine 25 MG Tablet 50 MG PO (20:13)
[2019-01-15] MEDS: Atorvastatin Calcium 40 MG Tablet PO (20:13)
[2019-01-15] MEDS: LORazepam 0.5 MG Tablet PO (20:15)
[2019-01-15 20:46] LABS: Bedside Glucose 139 mg/dL (70-110)
[2019-01-15 22:00] VITALS: PULSE 80
[2019-01-16] MEDS: Acetaminophen 325 MG Tablet 650 MG PO ×3 (01:17→19:35)
--- NOTE | 2019-01-16 01:51 | NURSING ---
Pt assisted with toileting needs and pt became belligerent with staff. Pt reoriented to time of day in hopes of getting pt to realize need for sleep. Pt asked for vanilla ice cream and pain meds. Staff attempted to deescalate pt mood. pt changes mood swiftly and frequently.
[2019-01-16] MEDS: Enoxaparin 30 MG/0.3 ML Syringe SC (05:29)
[2019-01-16] MEDS: BENZOCAINE/MENTHOL 1 LOZENGE 2 LOZENGE MUCOUS MEM ×2 (05:29→07:58)
[2019-01-16] MEDS: guaiFENesin 10 ML UDC (200MG/10ML) PO ×2 (05:29→13:56)
[2019-01-16] MEDS: Naproxen 500 MG Tablet PO ×2 (05:29→14:48)
[2019-01-16 06:01] LABS: Absolute Neutrophil Count 8.6 X10^3/uL (2.0-7.7); Basophil# 0.05 X10^3/uL; Basophil% 0.4 % (0-1); Eosinophil# 0.21 X10^3/uL; Eosinophils% 1.8 % (0-5); Hematocrit 26.8 % (40-54); Hemoglobin 9.3 g/dl (13.0-16.5); Lymphocyte % 17.4 % (19-41); Mean Corp Hgb Conc 34.7 g/gl (32-36); Mean Corpuscular Hgb 31.4 pg (27.0-32.0); Mean Corpuscular Volume 90.5 fL (80-94); Mean Platelet Vol. 9.7 fl (6.2-12.0); Monocyte# 0.57 X10^3/uL; Neutrophil # 8.55 X10^3/uL (2.7-7.7); Neutrophil % 74.6 % (47-70); Platelet Count 368 K/mm3 (150-450); RBC Distribution Width CV 14.3 % (11.6-14.6); RBC Distribution Width SD 47.6 fl (35.1-43.9); Red Blood Count 2.96 M/mm3 (4.6-6.2); White Blood Count 11.5 K/mm3 (4.4-11.0)
[2019-01-16 06:02] LABS: Erythrocyte Sedimentation Rate 40 mm/hr (0-20)
[2019-01-16 06:08] LABS: Anion Gap 6 (5-15); BUN 47 mg/dL (7-18); BUN/Creat Ratio 33.6 RATIO (10-20); Calcium,Total 8.2 mg/dL (8.5-10.1); Chloride 106 mmol/L (98-107); EST Glomerular Filtration Rate 52 mL/min (>60); Est Glom Filt Rate - Afr Amer 63 mL/min (>60); Estimated Creatinine Clearance 46.03 ml/min; Glucose 121 mg/dL (74-106); Potassium 4.3 mmol/L (3.5-5.1); Sodium Level 136 mmol/L (136-145)
[2019-01-16 06:16] LABS: POSITIVE COUNT NO; POSITIVE DIFFERENTIAL NO; POSITIVE MORPHOLOGY NO
[2019-01-16 06:46] LABS: Bedside Glucose 191 mg/dL (70-110)
[2019-01-16 07:08] VITALS: BP 140/76; PULSE 78; RESP 17; TEMP 36.6; O2SAT 96
[2019-01-16] MEDS: amLODIPine 10 MG Tablet PO (07:48)
[2019-01-16] MEDS: Lisinopril 2.5 MG Tablet PO (07:48)
[2019-01-16] MEDS: Amox/Clavulanate 875 MG Tablet PO ×2 (07:48→17:27)
[2019-01-16] MEDS: Atenolol 100 MG Tablet PO (07:48)
[2019-01-16] MEDS: Aspirin E.C. 81 MG Tablet PO (07:48)
[2019-01-16] MEDS: Insulin Lispro 100 UNIT/ML INSULN.PEN SC ×2 (07:51→21:02)
--- NOTE | 2019-01-16 10:38 | CASEMGMT ---
Social Work: Team meeting held. Patient continues to need assistance of 2 people for all transfers and ambulation. Patient is able to complete bathing and dressing at mod A to max A. Medicare ELOS reviewed and patient is aware that tentative D/C date will be 01/26/19. Patient giving this SW permission to call inga Sprague. Will plan to re team on Wednesday01/23/19. SW to follow to assist as needed with D/C planning. TC to inga Sprague. No answer. Voice mail message left to call this SW for update. KAMRON Ayala
[2019-01-16 11:41] LABS: Bedside Glucose 133 mg/dL (70-110)
--- NOTE | 2019-01-16 12:07 | PCM.PN.NEU ---
Subjective: No issues overnight. Care discussed with the nursing staff. Staff in the team meeting today. All questions were answered. Further therapy details per PT/OT notes. Per nursing staff patient continues to have sundowning but appears to have improved after starting Seroquel. - Physical Exam General: Alert HEENT: Normocephalic Neck: Supple Lungs: Normal air movement Cardiovascular: Normal S1, Normal S2 Abdomen: Bowel Sounds Present Extremities: No cyanosis Neurological: Cranial nerves II-XII grossly intact, Neuro grossly intact, Motor Exam 5/5 strength throughout, Muscle tone normal, Sensory exam intact to light touch and pain, Coordination normal, - - Reflexes + B/L B/S/T/K and right ankle, left BKA Psych/Mental Status: Normal Affect Vital Signs Temp Pulse Resp BP Pulse Ox 98 F 78 17 140/76 H 96 01/16/19 07:08 01/16/19 07:08 01/16/19 07:08 01/16/19 07:08 01/16/19 07:08 Oxygen Delivery Method Room Air Weight: 74.843 kg Body Mass Index (BMI) 22.4 Intake and Output for Last 24 Hours 01/14/19 01/15/19 01/16/19 23:59 23:59 23:59 Intake Total 260 / 260 60 / 60 Output Total 250 / 250 350 / 350 Balance -290 / -290 Microbiology Past 72 Hours 01/12/19 09:15 Urine Culture - Final Urine, Random Culture exhibits no growth. Laboratory Tests Past 24 Hrs 01/16/19 01/16/19 05:30 05:30 WBC 11.5 H RBC 2.96 L Hgb 9.3 L Hct 26.8 L MCV 90.5 MCH 31.4 MCHC 34.7 RDW 14.3 RDW Differential 47.6 H Plt Count 368 MPV 9.7 Immature Gran % (Auto) 0.800 Neut % (Auto) 74.6 H Lymph % (Auto) 17.4 L [place] % (Auto) 5.0 Eos % (Auto) 1.8 Baso % (Auto) 0.4 Absolute Neuts (auto) 8.6 H Absolute Lymphs (auto) 2.00 Total Counted Not Reportable ESR 40 H Sodium 136 Potassium 4.3 Chloride 106 Carbon Dioxide 24.0 Anion Gap 6 BUN 47 H Creatinine 1.40 H Estim Creat Clear Calc 46.03 Est GFR (MDRD) Af Amer 63 Est GFR (MDRD) Non-Af 52 L BUN/Creatinine Ratio 33.6 H Glucose 121 H Calcium 8.2 L C-React Prot Ext Range 28.20 H POC Glucose 01/16/19 01/16/19 01/15/19 11:23 06:43 20:11 POC Glucose 133 H 191 H 139 H 01/15/19 01/15/19 17:12 12:20 POC Glucose 133 H 137 H Medical Necessity - Tobacco Use Smoking Status: Current every day smoker Assessment/Plan All Active Problems (Last Reviewed 01/12/19 @ 13:36 by Juan A Wright MD) Diabetic foot infection (Acute) Hypokalemia (Acute) H/O hernia repair (Resolved) History of appendectomy (Resolved) Colonoscopy planned (Resolved) Amputation of left lower extremity below knee (Resolved) Dyspnea (Acute) Lung mass (Acute) Hypoxia (Acute) ZACHARY (acute kidney injury) (Acute) Pneumonia (Acute) Sepsis (Acute) Hyponatremia (Acute) Chronic steroid use (Ruled-out) 78-year-old -[place] male with PMH HTN, HLD, DM, CKD, chronic COPD/asthma, PVD, 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 Per documentation during the inpatient hospital stay he was found to have right foot first toe ulcer, treated with Vanco/Zosyn initially, status post bedside debridement on 01/10/2019 by administrative underwriter Laurita Correa. Bone cx with GPC and GPR seen on gram stain. MSSA pcr (+), wound cx with proteus, staph, enterococcus. Per ID Dr. Eaton recommendations on po augmentin, stop date 02/22/19 and weekly bmp, cbc, and esr. During inpatient hospital stay CT brain done showed no acute intracranial changes, CT cervical spine showed no demonstrated cervical trauma and showed possible prevertebral edema suspicious for ligamentous injury and xray of foot showed focal ulceration adjacent to lateral first digit, with bony demineralisation possibly due to developing early bony changes of osteomyelitis. Arterial Doppler reportedly showed right ankle-brachial index by dorsalis pedis 0.71, right ankle brachial index by posterior tibial artery 0.69, abnormal right ankle-brachial index is in the range of vascular claudication. Plan ?PT for gait stability ?OT for ADLs ?Analgesics as needed ?Bowel Protocol ?HTN?on amlodipine, on atenolol, Lisinopril ?HLD on Lipitor ?DM on insulin ?DM foot infection/osteomyelitis/PVD?on Augmentin 875 mg p.o. twice daily. Further management and evaluation for diabetic foot management per administrative underwriter Laurita Correa recommendations. ?PVD?on aspirin, vascular surgery consult for abnormal JHON. ?Labs?WBC 14.1->11.5, sodium 135->136, creatinine 1.4, ESR-40 (on 01/16/2019) ?CKD?avoid nephrotoxic drugs. Avoid dehydration ?COPD?on albuterol PRN ?Malnutrition?on nutritional formula, asp net c developer consult ?Weekly BMP CBC and ESR per ID recommendation ?Delirium/confusion episodes?on Seroquel. Improving ?Fall precautions ?GI/DVT prophylaxis?on enoxaparin ?Further medical management per hospitalist recommendation. ?Follow-up with PCP, ID, podiatry and vascular surgery on discharge.
--- NOTE | 2019-01-16 12:12 | PN.NEURO_ITS ---
Subjective: No issues overnight. Care discussed with the nursing staff. Staff in the team meeting today. All questions were answered. Further therapy details per PT/OT notes. Per nursing staff patient continues to have sundowning but appears to have improved after starting Seroquel. - Physical Exam General: Alert HEENT: Normocephalic Neck: Supple Lungs: Normal air movement Cardiovascular: Normal S1, Normal S2 Abdomen: Bowel Sounds Present Extremities: No cyanosis Neurological: Cranial nerves II-XII grossly intact, Neuro grossly intact, Motor Exam 5/5 strength throughout, Muscle tone normal, Sensory exam intact to light touch and pain, Coordination normal, - - Reflexes + B/L B/S/T/K and right ankle, left BKA Psych/Mental Status: Normal Affect Vital Signs Temp Pulse Resp BP Pulse Ox 98 F 78 17 140/76 H 96 01/16/19 07:08 01/16/19 07:08 01/16/19 07:08 01/16/19 07:08 01/16/19 07:08 Oxygen Delivery Method Room Air Weight: 74.843 kg Body Mass Index (BMI) 22.4 Intake and Output for Last 24 Hours 01/14/19 01/15/19 01/16/19 23:59 23:59 23:59 Intake Total 260 / 260 60 / 60 Output Total 250 / 250 350 / 350 Balance -290 / -290 Microbiology Past 72 Hours 01/12/19 09:15 Urine Culture - Final Urine, Random Culture exhibits no growth. Laboratory Tests Past 24 Hrs 01/16/19 01/16/19 05:30 05:30 WBC 11.5 H RBC 2.96 L Hgb 9.3 L Hct 26.8 L MCV 90.5 MCH 31.4 MCHC 34.7 RDW 14.3 RDW Differential 47.6 H Plt Count 368 MPV 9.7 Immature Gran % (Auto) 0.800 Neut % (Auto) 74.6 H Lymph % (Auto) 17.4 L [place] % (Auto) 5.0 Eos % (Auto) 1.8 Baso % (Auto) 0.4 Absolute Neuts (auto) 8.6 H Absolute Lymphs (auto) 2.00 Total Counted Not Reportable ESR 40 H Sodium 136 Potassium 4.3 Chloride 106 Carbon Dioxide 24.0 Anion Gap 6 BUN 47 H Creatinine 1.40 H Estim Creat Clear Calc 46.03 Est GFR (MDRD) Af Amer 63 Est GFR (MDRD) Non-Af 52 L BUN/Creatinine Ratio 33.6 H Glucose 121 H Calcium 8.2 L C-React Prot Ext Range 28.20 H POC Glucose 01/16/19 01/16/19 01/15/19 11:23 06:43 20:11 POC Glucose 133 H 191 H 139 H 01/15/19 01/15/19 17:12 12:20 POC Glucose 133 H 137 H Medical Necessity - Tobacco Use Smoking Status: Current every day smoker Assessment/Plan All Active Problems (Last Reviewed 01/12/19 @ 13:36 by Juan A Wright MD) Diabetic foot infection (Acute) Hypokalemia (Acute) H/O hernia repair (Resolved) History of appendectomy (Resolved) Colonoscopy planned (Resolved) Amputation of left lower extremity below knee (Resolved) Dyspnea (Acute) Lung mass (Acute) Hypoxia (Acute) ZACHARY (acute kidney injury) (Acute) Pneumonia (Acute) Sepsis (Acute) Hyponatremia (Acute) Chronic steroid use (Ruled-out) 78-year-old -I[place] male with PMH HTN, HLD, DM, CKD, chronic COPD/asthma, PVD, 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 Per documentation during the inpatient hospital stay he was found to have right foot first toe ulcer, treated with Vanco/Zosyn initially, status post bedside debridement on 01/10/2019 by gravity prospector Laurita Correa. Bone cx with GPC and GPR seen on gram stain. MSSA pcr (+), wound cx with proteus, staph, enterococcus. Per ID Dr. Eaton recommendations on po augmentin, stop date 02/22/19 and weekly bmp, cbc, and esr. During inpatient hospital stay CT brain done showed no acute intracranial changes, CT cervical spine showed no demonstrated cervical trauma and showed possible prevertebral edema suspicious for ligamentous injury and xray of foot showed focal ulceration adjacent to lateral first digit, with bony demineralisation possibly due to developing early bony changes of osteomyelitis. Arterial Doppler reportedly showed right ankle-brachial index by dorsalis pedis 0.71, right ankle brachial index by posterior tibial artery 0.69, abnormal right ankle-brachial index is in the range of vascular claudication. Plan ?PT for gait stability ?OT for ADLs ?Analgesics as needed ?Bowel Protocol ?HTN?on amlodipine, on atenolol, Lisinopril ?HLD on Lipitor ?DM on insulin ?DM foot infection/osteomyelitis/PVD?on Augmentin 875 mg p.o. twice daily. Further management and evaluation for diabetic foot management per gravity prospector Laurita Correa recommendations. ?PVD?on aspirin, vascular surgery consult for abnormal JHON. ?Labs?WBC 14.1->11.5, sodium 135->136, creatinine 1.4, ESR-40 (on 01/16/2019) ?CKD?avoid nephrotoxic drugs. Avoid dehydration ?COPD?on albuterol PRN ?Malnutrition?on nutritional formula, director social consult ?Weekly BMP CBC and ESR per ID recommendation ?Delirium/confusion episodes?on Seroquel. Improving ?Fall precautions ?GI/DVT prophylaxis?on enoxaparin ?Further medical management per hospitalist recommendation. ?Follow-up with PCP, ID, podiatry and vascular surgery on discharge.
--- NOTE | 2019-01-16 14:41 | DCINST_ITS ---
Weight Bearing Status: Partial weight bearing - heel weight bear left foot with surgical shoe Call your doctor if your incision/area has: Continuous Slow Oozing, Sudden Increased Bleeding, Increased Pain/ Swelling, Increased Redness, Foul Smelling Discharge, Swelling at the incision site Call your doctor if you observe: Fever of 101 or Higher, Calf discomfort, Uncontrolled pain Cleanse incision/area with: - - change left hallux ulcer daily with aquacel ag, gauze, paper tape. Allergies/Adverse Reactions: Allergies No Known Allergies Allergy (Verified 09/15/17 09:11) Medications to take at Discharge Amlodipine [Norvasc] 10 mg PO DAILY 04/30/14 Atenolol [Tenormin (beta lisa)] 100 mg PO DAILY 04/30/14 Aspirin E.C. [Ecotrin] 81 mg PO DAILY@0800 01/27/17 Atorvastatin Calcium 40 mg PO QHS 01/27/17 Lisinopril [Zestril] 2.5 mg PO DAILY 01/27/17 albuterol sulfate HFA 90 mcg/actuation aerosol inhaler 1 puff INHALATION Q4H PRN PRN #1 inhaler 01/03/18 Acetaminophen [Tylenol Tablet] 650 mg PO Q6H PRN PRN tablet 01/11/19 Amox/Clavulanate Tablet [Augmentin Tablet] 875 mg PO BID 01/11/19 Glucerna Shake 120 ml PO 4X/DAY 01/11/19 Insulin Lispro [Humalog KwikPen] See Protocol SC ACHS insuln.pen 01/11/19 Naproxen [Naprosyn] 500 mg PO BID PRN PRN tablet 01/11/19 Nutritional Supplement [Braxton - [place] FLAVOR] 1 packet PO BIDCM packet 01/11/19 Primary Care Physician: Ariel Ferro MD [Primary Care Provider] - Test Results: Test results from this visit will be discussed in further detail at your follow- up appointment, if applicable. Please Follow Up With: Laurita Correa DPM When: wound healing center 1 week after discharge Please Follow Up With: Jaydon Eaton MD Please Follow Up With: Jaydon Lazaro MD When: if not seen w/in hospital visit follow up within 1 month of discharge
[2019-01-16 17:51] LABS: Bedside Glucose 124 mg/dL (70-110)
[2019-01-16] MEDS: QUEtiapine 25 MG Tablet 50 MG PO (19:37)
[2019-01-16 19:59] VITALS: BP 94/55; PULSE 70; RESP 16; TEMP 36.6; O2SAT 97
[2019-01-16] MEDS: Atorvastatin Calcium 40 MG Tablet PO (21:01)
[2019-01-16] MEDS: Senna/Docusate Sodium 1 Tablet 2 TABLET PO (21:01)
[2019-01-16] MEDS: Glucerna Shake 120 ML LIQUID PO (21:01)
[2019-01-16] MEDS: LORazepam 0.5 MG Tablet PO (21:03)
[2019-01-16 21:15] LABS: Bedside Glucose 159 mg/dL (70-110)
[2019-01-17] MEDS: Enoxaparin 30 MG/0.3 ML Syringe SC (05:27)
[2019-01-17] MEDS: Acetaminophen 325 MG Tablet 650 MG PO ×3 (05:28→23:26)
[2019-01-17 07:01] LABS: Bedside Glucose 155 mg/dL (70-110)
[2019-01-17] MEDS: Amox/Clavulanate 875 MG Tablet PO ×2 (07:56→18:04)
[2019-01-17] MEDS: Aspirin E.C. 81 MG Tablet PO (07:56)
[2019-01-17] MEDS: amLODIPine 10 MG Tablet PO (07:56)
[2019-01-17] MEDS: Lisinopril 2.5 MG Tablet PO (07:57)
[2019-01-17] MEDS: Insulin Lispro 100 UNIT/ML INSULN.PEN SC ×4 (07:57→21:09)
[2019-01-17] MEDS: Glucerna Shake 120 ML LIQUID PO ×4 (07:57→20:51)
[2019-01-17] MEDS: Atenolol 100 MG Tablet PO (07:57)
[2019-01-17 09:44] VITALS: BP 121/61; PULSE 82; RESP 12; TEMP 36.6; O2SAT 100
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
[2019-01-17 11:15] LABS: Bedside Glucose 257 mg/dL (70-110)
[2019-01-17] MEDS: guaiFENesin 10 ML UDC (200MG/10ML) PO (11:47)
[2019-01-17] MEDS: BENZOCAINE/MENTHOL 1 LOZENGE 2 LOZENGE MUCOUS MEM (11:47)
--- NOTE | 2019-01-17 14:10 | NURSING ---
Spoke to Dr. Correa pt will not be seeing Dr. Lazaro for vascular, Dr. Cohn will follow pt in [facility] office.
--- NOTE | 2019-01-17 14:36 | PCM.PN.NEU ---
Subjective: No issues overnight. Care discussed with the nursing staff. - Physical Exam General: Alert HEENT: Normocephalic Neck: Supple Lungs: Normal air movement Cardiovascular: Normal S1, Normal S2 Abdomen: Bowel Sounds Present Extremities: No cyanosis Neurological: Cranial nerves II-XII grossly intact, Neuro grossly intact, Motor Exam 5/5 strength throughout, Muscle tone normal, Sensory exam intact to light touch and pain, Coordination normal, - - Reflexes + B/L B/S/T/K and right ankle, left BKA Psych/Mental Status: Normal Affect Vital Signs Temp Pulse Resp BP Pulse Ox 98 F 82 12 121/61 H 100 01/17/19 09:44 01/17/19 09:44 01/17/19 09:44 01/17/19 09:44 01/17/19 09:44 Oxygen Delivery Method Room Air Weight: 74.843 kg Body Mass Index (BMI) 22.4 Intake and Output for Last 24 Hours 01/15/19 01/16/19 01/17/19 23:59 23:59 23:59 Intake Total 60 / 60 240 / 240 120 / 120 Output Total 350 / 350 Balance -290 / -290 240 / 240 120 / 120 POC Glucose 01/17/19 01/17/19 01/16/19 11:04 06:54 20:59 POC Glucose 257 H 155 H 159 H 01/16/19 17:28 POC Glucose 124 H Medical Necessity - Tobacco Use Smoking Status: Current every day smoker Assessment/Plan All Active Problems (Last Reviewed 01/12/19 @ 13:36 by Juan A Wright MD) Diabetic foot infection (Acute) Hypokalemia (Acute) H/O hernia repair (Resolved) History of appendectomy (Resolved) Colonoscopy planned (Resolved) Amputation of left lower extremity below knee (Resolved) Dyspnea (Acute) Lung mass (Acute) Hypoxia (Acute) ZACHARY (acute kidney injury) (Acute) Pneumonia (Acute) Sepsis (Acute) Hyponatremia (Acute) Chronic steroid use (Ruled-out) 78-year-old -[place] male with PMH HTN, HLD, DM, CKD, chronic COPD/asthma, PVD, 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 Per documentation during the inpatient hospital stay he was found to have right foot first toe ulcer, treated with Vanco/Zosyn initially, status post bedside debridement on 01/10/2019 by treating plant operator Laurita Correa. Bone cx with GPC and GPR seen on gram stain. MSSA pcr (+), wound cx with proteus, staph, enterococcus. Per ID Dr. Eaton recommendations on po augmentin, stop date 02/22/19 and weekly bmp, cbc, and esr. During inpatient hospital stay CT brain done showed no acute intracranial changes, CT cervical spine showed no demonstrated cervical trauma and showed possible prevertebral edema suspicious for ligamentous injury and xray of foot showed focal ulceration adjacent to lateral first digit, with bony demineralisation possibly due to developing early bony changes of osteomyelitis. Arterial Doppler reportedly showed right ankle-brachial index by dorsalis pedis 0.71, right ankle brachial index by posterior tibial artery 0.69, abnormal right ankle-brachial index is in the range of vascular claudication. Plan ?PT for gait stability ?OT for ADLs ?Analgesics as needed ?Bowel Protocol ?HTN?on amlodipine, on atenolol, Lisinopril ?HLD on Lipitor ?DM on insulin ?DM foot infection/osteomyelitis/PVD?on Augmentin 875 mg p.o. twice daily. Further management and evaluation for diabetic foot management per treating plant operator Laurita Correa recommendations. ?PVD?on aspirin, vascular surgery consult for abnormal JHON. ?Labs?WBC 14.1->11.5, sodium 135->136, creatinine 1.4, ESR-40 (on 01/16/2019). Check BUN/creatinine ?CKD?avoid nephrotoxic drugs. Avoid dehydration ?COPD?on albuterol PRN ?Malnutrition?on nutritional formula, shop and alteration tailor consult ?Weekly BMP CBC and ESR per ID recommendation ?Delirium/confusion episodes?on Seroquel. Improving ?Fall precautions ?GI/DVT prophylaxis?on enoxaparin ?Further medical management per hospitalist recommendation. ?Follow-up with PCP, ID, podiatry and vascular surgery on discharge.
--- NOTE | 2019-01-17 14:39 | PN.NEURO_ITS ---
Subjective: No issues overnight. Care discussed with the nursing staff. - Physical Exam General: Alert HEENT: Normocephalic Neck: Supple Lungs: Normal air movement Cardiovascular: Normal S1, Normal S2 Abdomen: Bowel Sounds Present Extremities: No cyanosis Neurological: Cranial nerves II-XII grossly intact, Neuro grossly intact, Motor Exam 5/5 strength throughout, Muscle tone normal, Sensory exam intact to light touch and pain, Coordination normal, - - Reflexes + B/L B/S/T/K and right ankle, left BKA Psych/Mental Status: Normal Affect Vital Signs Temp Pulse Resp BP Pulse Ox 98 F 82 12 121/61 H 100 01/17/19 09:44 01/17/19 09:44 01/17/19 09:44 01/17/19 09:44 01/17/19 09:44 Oxygen Delivery Method Room Air Weight: 74.843 kg Body Mass Index (BMI) 22.4 Intake and Output for Last 24 Hours 01/15/19 01/16/19 01/17/19 23:59 23:59 23:59 Intake Total 60 / 60 240 / 240 120 / 120 Output Total 350 / 350 Balance -290 / -290 240 / 240 120 / 120 POC Glucose 01/17/19 01/17/19 01/16/19 11:04 06:54 20:59 POC Glucose 257 H 155 H 159 H 01/16/19 17:28 POC Glucose 124 H Medical Necessity - Tobacco Use Smoking Status: Current every day smoker Assessment/Plan All Active Problems (Last Reviewed 01/12/19 @ 13:36 by Juan A Wright MD) Diabetic foot infection (Acute) Hypokalemia (Acute) H/O hernia repair (Resolved) History of appendectomy (Resolved) Colonoscopy planned (Resolved) Amputation of left lower extremity below knee (Resolved) Dyspnea (Acute) Lung mass (Acute) Hypoxia (Acute) ZACHARY (acute kidney injury) (Acute) Pneumonia (Acute) Sepsis (Acute) Hyponatremia (Acute) Chronic steroid use (Ruled-out) 78-year-old -[place] male with PMH HTN, HLD, DM, CKD, chronic COPD/asthma, PVD, 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 Per documentation during the inpatient hospital stay he was found to have right foot first toe ulcer, treated with Vanco/Zosyn initially, status post bedside debridement on 01/10/2019 by document preparation specialist Laurita Correa. Bone cx with GPC and GPR seen on gram stain. MSSA pcr (+), wound cx with proteus, staph, enterococcus. Per ID Dr. Eaton recommendations on po augmentin, stop date 02/22/19 and weekly bmp, cbc, and esr. During inpatient hospital stay CT brain done showed no acute intracranial changes, CT cervical spine showed no demonstrated cervical trauma and showed possible prevertebral edema suspicious for ligamentous injury and xray of foot showed focal ulceration adjacent to lateral first digit, with bony demineralisation possibly due to developing early bony changes of osteomyelitis. Arterial Doppler reportedly showed right ankle-brachial index by dorsalis pedis 0.71, right ankle brachial index by posterior tibial artery 0.69, abnormal right ankle-brachial index is in the range of vascular claudication. Plan ?PT for gait stability ?OT for ADLs ?Analgesics as needed ?Bowel Protocol ?HTN?on amlodipine, on atenolol, Lisinopril ?HLD on Lipitor ?DM on insulin ?DM foot infection/osteomyelitis/PVD?on Augmentin 875 mg p.o. twice daily. Further management and evaluation for diabetic foot management per document preparation specialist Laurita Correa recommendations. ?PVD?on aspirin, vascular surgery consult for abnormal JHON. ?Labs?WBC 14.1->11.5, sodium 135->136, creatinine 1.4, ESR-40 (on 01/16/2019). Check BUN/creatinine ?CKD?avoid nephrotoxic drugs. Avoid dehydration ?COPD?on albuterol PRN ?Malnutrition?on nutritional formula, exploration geologist consult ?Weekly BMP CBC and ESR per ID recommendation ?Delirium/confusion episodes?on Seroquel. Improving ?Fall precautions ?GI/DVT prophylaxis?on enoxaparin ?Further medical management per hospitalist recommendation. ?Follow-up with PCP, ID, podiatry and vascular surgery on discharge.
[2019-01-17 17:41] LABS: Bedside Glucose 208 mg/dL (70-110)
--- NOTE | 2019-01-17 17:52 | PCM.PN.HOSP ---
Subjective: Patient had repeat CBC done which shows drop in the hemoglobin. Stool for occult blood ordered. Vitals/I&O's: Vital Signs Temp Pulse Resp BP Pulse Ox 98 F 82 12 121/61 H 100 01/17/19 09:44 01/17/19 09:44 01/17/19 09:44 01/17/19 09:44 01/17/19 09:44 Oxygen Delivery Method Room Air Weight: 165 lb 0.009 oz Body Mass Index (BMI) 22.4 Intake and Output for Last 24 Hours 01/15/19 01/16/19 01/17/19 23:59 23:59 23:59 Intake Total 60 / 60 240 / 240 120 / 120 Output Total 350 / 350 Balance -290 / -290 240 / 240 120 / 120 General: Alert, Oriented x3, Cooperative HEENT: Atraumatic, PERRLA, EOMI, Normocephalic Neck: Supple, No JVD, Negative Carotid Bruits Lungs: Clear to auscultation, Normal air movement Cardiovascular: Regular rate, Regular Rhythm, Normal S1, Normal S2, Murmur Abdomen: Bowel Sounds Present, Soft, Non Tender, Non-Distended Extremities: No edema, Capillary Refill Less than 3 Seconds Skin: Ulcer/ Wound - Right toes ulcer. Diabetic foot ulcer with osteomyelitis Musculoskeletal: No Tenderness to Palpation of Joints or Extremities, Arthritic Changes, Muscle Wasting, - - Left BKA Neurological: Cranial nerves II-XII grossly intact Psych/Mental Status: Normal Affect, Appropriate Laboratory Results 01/16/19 20:59: POC Glucose 159 H 01/17/19 06:54: POC Glucose 155 H 01/17/19 11:04: POC Glucose 257 H 01/17/19 17:35: POC Glucose 208 H Current Medications Acetaminophen (Tylenol) 650 mg PO Q6H PRN PRN PRN Reason: Non-cardiac pain (mod-severe) Last Admin: 01/17/19 15:07 Dose: 650 mg Albuterol Sulfate (Ventolin Hfa (Sp)) 1 puff INHALATION Q4H PRN PRN PRN Reason: SOB &/OR WHEEZING Amlodipine Besylate (Norvasc) 10 mg PO DAILY [facility] Last Admin: 01/17/19 07:56 Dose: 10 mg Amoxicillin/Clavulanate Potassium (Augmentin Tablet) [facility] Stop: 02/19/19 22:01 Last Admin: 01/17/19 07:56 Dose: 875 mg Aspirin (Ecotrin) 81 mg PO DAILY@0800 [facility] Last Admin: 01/17/19 07:56 Dose: 81 mg Atenolol (Tenormin (Beta Paige)) 100 mg PO DAILY [facility] Last Admin: 01/17/19 07:57 Dose: 100 mg Atorvastatin Calcium (Lipitor) 40 mg PO QHS [facility] Last Admin: 01/16/19 21:01 Dose: 40 mg Bisacodyl (Dulcolax) 10 mg RECTAL .PRN X 1 PRN PRN Reason: Constipation Guaifenesin (Robitussin) 10 ml PO Q4H PRN PRN PRN Reason: COUGH Last Admin: 01/17/19 11:47 Dose: 10 ml Insulin Human Lispro (Humalog Kwikpen (Bkc)) 0 unit SC [facility]; Protocol Last Admin: 01/17/19 11:47 Dose: 3 u Lisinopril (Zestril) 2.5 mg PO DAILY [facility] Last Admin: 01/17/19 07:57 Dose: 2.5 mg Lorazepam (Ativan) 0.5 mg PO QHS PRN PRN PRN Reason: Insomnia Last Admin: 01/16/19 21:03 Dose: 0.5 mg Magnesium Hydroxide (Milk Of Magnesia) 30 ml PO .PRN X 1 PRN PRN Reason: Constipation Nutritional Formula (Braxton - [place] Flavor) [facility] Last Admin: 01/17/19 07:57 Dose: 1 packet Nutritional Formula (Lactose Free) (Glucerna Shake) 120 ml PO 4X/DAY [facility] Last Admin: 01/17/19 15:04 Dose: 120 ml Quetiapine Fumarate (Seroquel) 50 mg PO DAILY@2000 [facility] Last Admin: 01/16/19 19:37 Dose: 50 mg Senna/Docusate Sodium (Senokot-S, Bess-Colace) 2 tablet PO BID [facility] Last Admin: 01/17/19 07:58 Dose: Not Given Throat Lozenges (Cepacol Sore Throat Lozenge) 2 lozenge MUCOUS MEM Q2H PRN PRN PRN Reason: SORE THROAT Last Admin: 01/17/19 11:47 Dose: 2 lozenge Medical Necessity - Tobacco Use Smoking Status: Current every day smoker Assessment/Plan All Active Problems (Last Reviewed 01/12/19 @ 13:36 by Juan A Wright MD) Diabetic foot infection (Acute) Hypokalemia (Acute) H/O hernia repair (Resolved) History of appendectomy (Resolved) Colonoscopy planned (Resolved) Amputation of left lower extremity below knee (Resolved) Dyspnea (Acute) Lung mass (Acute) Hypoxia (Acute) ZACHARY (acute kidney injury) (Acute) Pneumonia (Acute) Sepsis (Acute) Hyponatremia (Acute) Chronic steroid use (Ruled-out) This 70-year-old gentleman with history of diabetes mellitus type 2 with diabetic polyneuropathy was admitted with right diabetic foot infection, complicated with osteomyelitis with history of left BKA. Wound culture is positive for Proteus and gram-positive organism. On Augmentin 1. RLE diabetic foot infection and toe infection with osteomyelitis s/p bedside I+D on 01/09 Cx + for proteus and Staphylococcus stimulants, Enterococcus faecalis, vancomycin sensitive. Toe bone culture on 01/10. Culture is positive of Proteus mirabilis, Turiecella otitidis, Staphylococcus simulans and Enterococcus faecalis on vancomycin sensitive Augmentin through 02/22 ID to follow in rehab. Patient seen by Dr. Correa 2. Debility PT recommending additional therapy to rehab 3. hyponatremia: chronic improved Repeat BMP tomorrow morning 4. COPD: not in exacerbation Prednisone discontinued 5. severe protein malnutrition presumed prealbumin 8.4 nutrition on consult complicates care continue Glucerna shake QID plus Braxton 6. right arm pain s/p fall suspect rotator cuff tear/injury conservative mgmt pt able to raise bother arms up without difficulty 7. ZACHARY resolved Prerenal etiology Creatinine went up from 1.25-1.4. Discontinue naproxen 8. Acute on chronic anemia: H&H dropped from 11.6-9.3. no need for transfusion DVT prophylactic dose Lovenox discontinued. Stool for occult blood ordered. Iron studies ordered. Repeat CBC tomorrow morning B12 623 on 01/10. RBC folate 10,000. 9. Delirium head CT from the showed chronic involution changes with old lacunar infarct Resolved DVT prophylaxis: Lovenox discontinued. SCD on right lower extremity Code Visit Inpatient E&M: 60452 Subs Hosp L2
--- NOTE | 2019-01-17 18:01 | PN_ITS ---
Subjective: Patient had repeat CBC done which shows drop in the hemoglobin. Stool for occult blood ordered. Vitals/I&O's: Vital Signs Temp Pulse Resp BP Pulse Ox 98 F 82 12 121/61 H 100 01/17/19 09:44 01/17/19 09:44 01/17/19 09:44 01/17/19 09:44 01/17/19 09:44 Oxygen Delivery Method Room Air Weight: 165 lb 0.009 oz Body Mass Index (BMI) 22.4 Intake and Output for Last 24 Hours 01/15/19 01/16/19 01/17/19 23:59 23:59 23:59 Intake Total 60 / 60 240 / 240 120 / 120 Output Total 350 / 350 Balance -290 / -290 240 / 240 120 / 120 General: Alert, Oriented x3, Cooperative HEENT: Atraumatic, PERRLA, EOMI, Normocephalic Neck: Supple, No JVD, Negative Carotid Bruits Lungs: Clear to auscultation, Normal air movement Cardiovascular: Regular rate, Regular Rhythm, Normal S1, Normal S2, Murmur Abdomen: Bowel Sounds Present, Soft, Non Tender, Non-Distended Extremities: No edema, Capillary Refill Less than 3 Seconds Skin: Ulcer/ Wound - Right toes ulcer. Diabetic foot ulcer with osteomyelitis Musculoskeletal: No Tenderness to Palpation of Joints or Extremities, Arthritic Changes, Muscle Wasting, - - Left BKA Neurological: Cranial nerves II-XII grossly intact Psych/Mental Status: Normal Affect, Appropriate Laboratory Results 01/16/19 20:59: POC Glucose 159 H 01/17/19 06:54: POC Glucose 155 H 01/17/19 11:04: POC Glucose 257 H 01/17/19 17:35: POC Glucose 208 H Current Medications Acetaminophen (Tylenol) 650 mg PO Q6H PRN PRN PRN Reason: Non-cardiac pain (mod-severe) Last Admin: 01/17/19 15:07 Dose: 650 mg Albuterol Sulfate (Ventolin Hfa (Sp)) 1 puff INHALATION Q4H PRN PRN PRN Reason: SOB &/OR WHEEZING Amlodipine Besylate (Norvasc) 10 mg PO DAILY [facility] Last Admin: 01/17/19 07:56 Dose: 10 mg Amoxicillin/Clavulanate Potassium ([facility]in [facility]t) [facility] Stop: 02/19/19 22:01 Last Admin: 01/17/19 07:56 Dose: 875 mg Aspirin (Ecotrin) 81 mg PO DAILY@0800 [facility] Last Admin: 01/17/19 07:56 Dose: 81 mg Atenolol (Tenormin (Beta Paige)) 100 mg PO DAILY [facility] Last Admin: 01/17/19 07:57 Dose: 100 mg Atorvastatin Calcium (Lipitor) 40 mg PO QHS [facility] Last Admin: 01/16/19 21:01 Dose: 40 mg Bisacodyl (Dulcolax) 10 mg RECTAL .PRN X 1 PRN PRN Reason: Constipation Guaifenesin (Robitussin) 10 ml PO Q4H PRN PRN PRN Reason: COUGH Last Admin: 01/17/19 11:47 Dose: 10 ml Insulin Human Lispro (Humalog Kwikpen (Bkc)) 0 unit SC [facility]; Protocol Last Admin: 01/17/19 11:47 Dose: 3 u Lisinopril (Zestril) 2.5 mg PO DAILY [facility] Last Admin: 01/17/19 07:57 Dose: 2.5 mg Lorazepam (Ativan) 0.5 mg PO QHS PRN PRN PRN Reason: Insomnia Last Admin: 01/16/19 21:03 Dose: 0.5 mg Magnesium Hydroxide (Milk Of Magnesia) 30 ml PO .PRN X 1 PRN PRN Reason: Constipation Nutritional Formula (Braxton - [place] Flavor) [facility] Last Admin: 01/17/19 07:57 Dose: 1 packet Nutritional Formula (Lactose Free) (Glucerna Shake) 120 ml PO 4X/DAY [facility] Last Admin: 01/17/19 15:04 Dose: 120 ml Quetiapine Fumarate (Seroquel) 50 mg PO DAILY@2000 [facility] Last Admin: 01/16/19 19:37 Dose: 50 mg Senna/Docusate Sodium (Senokot-S, Bess-Colace) 2 tablet PO BID [facility] Last Admin: 01/17/19 07:58 Dose: Not Given Throat Lozenges (Cepacol Sore Throat Lozenge) 2 lozenge MUCOUS MEM Q2H PRN PRN PRN Reason: SORE THROAT Last Admin: 01/17/19 11:47 Dose: 2 lozenge Medical Necessity - Tobacco Use Smoking Status: Current every day smoker Assessment/Plan All Active Problems (Last Reviewed 01/12/19 @ 13:36 by Juan A Wright MD) Diabetic foot infection (Acute) Hypokalemia (Acute) H/O hernia repair (Resolved) History of appendectomy (Resolved) Colonoscopy planned (Resolved) Amputation of left lower extremity below knee (Resolved) Dyspnea (Acute) Lung mass (Acute) Hypoxia (Acute) ZACHARY (acute kidney injury) (Acute) Pneumonia (Acute) Sepsis (Acute) Hyponatremia (Acute) Chronic steroid use (Ruled-out) This 70-year-old gentleman with history of diabetes mellitus type 2 with diabetic polyneuropathy was admitted with right diabetic foot infection, complicated with osteomyelitis with history of left BKA. Wound culture is positive for Proteus and gram-positive organism. On Augmentin 1. RLE diabetic foot infection and toe infection with osteomyelitis * * s/p bedside I+D on 01/09 * Cx + for proteus and Staphylococcus stimulants, Enterococcus faecalis, vancomycin sensitive. * Toe bone culture on 01/10. Culture is positive of Proteus mirabilis, Turiecella otitidis, Staphylococcus simulans and Enterococcus faecalis on vancomycin sensitive * Augmentin through 02/22 * ID to follow in rehab. * Patient seen by Dr. Correa 2. Debility * PT recommending additional therapy * to rehab 3. hyponatremia: * chronic * improved * Repeat BMP tomorrow morning 4. COPD: * not in exacerbation * Prednisone discontinued 5. severe protein malnutrition * presumed * prealbumin 8.4 * nutrition on consult * complicates care * continue Glucerna shake QID plus Braxton 6. right arm pain * s/p fall * suspect rotator cuff tear/injury * conservative mgmt * pt able to raise bother arms up without difficulty 7. ZACHARY * resolved * Prerenal etiology * Creatinine went up from 1.25-1.4. Discontinue naproxen 8. Acute on chronic anemia: * H&H dropped from 11.6-9.3. * no need for transfusion * DVT prophylactic dose Lovenox discontinued. Stool for occult blood ordered. Iron studies ordered. Repeat CBC tomorrow morning * B12 623 on 01/10. RBC folate 10,000. 9. Delirium * head CT from the showed chronic involution changes with old lacunar infarct * Resolved DVT prophylaxis: Lovenox discontinued. SCD on right lower extremity Code Visit Inpatient E&M: 96930 Subs Hosp L2
[2019-01-17] MEDS: QUEtiapine 25 MG Tablet 50 MG PO (19:39)
[2019-01-17] MEDS: Ferrous Sulfate 325 MG Tablet PO (19:39)
[2019-01-17 19:41] VITALS: BP 115/54; PULSE 87; RESP 24; TEMP 37.1; O2SAT 99
[2019-01-17] MEDS: Atorvastatin Calcium 40 MG Tablet PO (20:51)
[2019-01-17] MEDS: Senna/Docusate Sodium 1 Tablet 2 TABLET PO (20:51)
[2019-01-17 21:31] LABS: Bedside Glucose 154 mg/dL (70-110)
[2019-01-17 22:20] LABS: BUN 99 mg/dL (7-18); Creatinine, Serum 1.65 mg/dL (0.70-1.30); EST Glomerular Filtration Rate 43 mL/min (>60); Est Glom Filt Rate - Afr Amer 52 mL/min (>60); Estimated Creatinine Clearance 39.06 ml/min
--- NOTE | 2019-01-17 22:43 | NURSING ---
DR CAMPOS NOTIFIED OF STOOL SPECIMEN THAT IS POSITIVE FOR OCCULT BLOOD. ORDERS GIVEN AND ALSO ORDERED TO NOTIFY DR PORTILLO IN THE AM OF THE RESULT.
[2019-01-17] MEDS: LORazepam 0.5 MG Tablet PO (23:26)
[2019-01-18 06:00] VITALS: BP 118/52; PULSE 86; RESP 20; TEMP 36.5; O2SAT 98
[2019-01-18 06:38] LABS: Ferritin 119 ng/mL (26-388); Iron 56 ug/dL (65-175); Iron Binding Capacity,Total 219 ug/dL (250-450); PERCENT IRON SATURATION 25.6 % (15.0-55.0)
[2019-01-18 06:42] LABS: Absolute Lymphocyte Count 2.35 X10^3/ul (0.83-4.51); Absolute Neutrophil Count 10.5 X10^3/uL (2.0-7.7); Basophil# 0.05 X10^3/uL; Basophil% 0.4 % (0-1); Eosinophil# 0.15 X10^3/uL; Eosinophils% 1.1 % (0-5); Hematocrit 15.2 % (40-54); Immature Platelet Fraction 2.8 % (1.0-7.9); Lymphocyte # 2.35 X10^3/ul (4.0); Lymphocyte % 17.1 % (19-41); Mean Corp Hgb Conc 34.9 g/gl (32-36); Mean Corpuscular Hgb 31.4 pg (27.0-32.0); Mean Corpuscular Volume 89.9 fL (80-94); Mean Platelet Vol. 9.5 fl (6.2-12.0); Monocyte# 0.52 X10^3/uL; Monocyte% 3.8 % (0-10); Neutrophil # 10.54 X10^3/uL (2.7-7.7); Neutrophil % 76.5 % (47-70); Platelet Count 267 K/mm3 (150-450); RBC Distribution Width CV 14.5 % (11.6-14.6); RBC Distribution Width SD 47.9 fl (35.1-43.9); RET-HE 31.5 pg (30-35); Red Blood Count 1.69 M/mm3 (4.6-6.2); White Blood Count 13.8 K/mm3 (4.4-11.0)
[2019-01-18 06:45] LABS: Differential Indicated SCAN CRITERIA MET; POSITIVE COUNT YES; POSITIVE DIFFERENTIAL NO; POSITIVE MORPHOLOGY NO
[2019-01-18 06:47] LABS: Hemoglobin 5.3 g/dl (13.0-16.5)
--- NOTE | 2019-01-18 06:53 | NURSING ---
LAB NOTIFIES OF CRITICAL VALUE HEMOGLOBIN OF 5.3. DR CAMPOS NOTIFIED. HE WILL NOTIFY DR PORTILLO WHO IS COMING ON DUTY.
[2019-01-18 07:06] LABS: Anisocytosis 1+; Differential Comment SCAN; Hypochromasia 1+; Microcytosis 1+; Platelet Estimate ADEQUATE (ADEQ)
[2019-01-18 07:07] LABS: Platelet Morphology LARGE
[2019-01-18 07:10] LABS: Bedside Glucose 136 mg/dL (70-110)
--- NOTE | 2019-01-18 07:19 | NURSING ---
DR PORTILLO PHONES INTO UNIT AND INFORMED OF PT'S HG LEVEL THIS AM. ORDERED TO DO ORTHOSTATICS ON PT AND THEN SEND VIA CORTEXT. PT IS TO BE GETTING TRANSFERRED TO ANOTHER UNIT TO BE DECIDED.
[2019-01-18 07:58] VITALS: BP 121/53; BP 129/68; BP 135/62; PULSE 78; PULSE 80; PULSE 90
[2019-01-18 08:09] VITALS: BP 129/65; PULSE 78; RESP 20; TEMP 36.5; O2SAT 100
--- NOTE | 2019-01-18 08:24 | NURSING ---
Patient transferred to pcu at this time via cot with vacuum bottle assembler and corporate traffic manager. Message was left for patients keanu Lai.
--- NOTE | 2019-01-18 13:24 | PCM.RU.DC ---
Rehab Discharge Summary DATE OF ADMISSION: 01/11/19 DATE OF DISCHARGE: 01/18/19 - Rehab Diagnosis Debility Patient Problems: Active and Suspected Problems (Last Reviewed 01/18/19 @ 10:35 by Akilah Winslow PA-C) Upper GI bleed (Acute) Subjective: Patient had a drop in the hemoglobin to 5.3. His occult stool was positive. He was seen by hospitalist Dr. Joe and patient is being transferred to inpatient hospital for further evaluation and management of his GI issues. - Physical Exam General: Alert HEENT: Normocephalic Neck: Supple Lungs: Normal air movement Cardiovascular: Normal S1, Normal S2 Abdomen: Bowel Sounds Present Extremities: No cyanosis Neurological: - - Cranial nerves II-XII grossly intact, Neuro grossly intact, Motor Exam 5/5 strength throughout, Muscle tone normal, Sensory exam intact to light touch and pain, Coordination normal, - - Reflexes + B/L B/S/T/K and right ankle, left BKA Psych/Mental Status: Normal Affect Vital Signs Temp Pulse Resp BP Pulse Ox 97.7 F L 78 20 H 129/65 H 100 01/18/19 08:09 01/18/19 08:09 01/18/19 08:09 01/18/19 08:09 01/18/19 08:09 Oxygen Delivery Method Room Air Weight: 74.843 kg Body Mass Index (BMI) 22.4 Intake and Output for Last 24 Hours 01/16/19 01/17/19 01/18/19 23:59 23:59 23:59 Intake Total 240 / 240 120 / 120 Balance 240 / 240 120 / 120 Microbiology Past 72 Hours 01/17/19 21:00 Stool Occult Blood (MILO) - Final Stool Occult Blood Positive Laboratory Tests Past 24 Hrs 01/17/19 01/18/19 01/18/19 21:48 05:45 05:45 WBC 13.8 H RBC 1.69 L Hgb 5.3 L* Hct 15.2 L MCV 89.9 MCH 31.4 MCHC 34.9 RDW 14.5 RDW Differential 47.9 H Plt Count 267 MPV 9.5 Immature Gran % (Auto) 1.100 H Neut % (Auto) 76.5 H Lymph % (Auto) 17.1 L [place] % (Auto) 3.8 Eos % (Auto) 1.1 Baso % (Auto) 0.4 Absolute Neuts (auto) 10.5 H Absolute Lymphs (auto) 2.35 Total Counted Not Reportable Differential Comment SCAN Diff Path Review May foll Platelet Estimate ADEQUATE Immature Plt Fraction 2.8 Plt Morphology Comment LARGE Hypochromasia 1+ Anisocytosis 1+ Microcytosis 1+ Retic Count 3.10 H Immature Retic Fraction 11.90 Retic Hgb Equivalent 31.5 BUN 99 H Creatinine 1.65 H Estim Creat Clear Calc 39.06 Est GFR (MDRD) Af Amer 52 L Est GFR (MDRD) Non-Af 43 L Iron 56 L TIBC 219 L Iron Saturation 25.6 Ferritin 119 POC Glucose 01/18/19 01/17/19 01/17/19 07:05 20:54 17:35 POC Glucose 136 H 154 H 208 H Discharge Diet: - - Transferred to inpatient Weight Bearing Status: Partial weight bearing - heel weight bear left foot with surgical shoe Call your doctor if your incision/area has: Continuous Slow Oozing, Sudden Increased Bleeding, Increased Pain/ Swelling, Increased Redness, Foul Smelling Discharge, Swelling at the incision site Call your doctor if you observe: Fever of 101 or Higher, Calf discomfort, Uncontrolled pain Cleanse incision/area with: - - change left hallux ulcer daily with aquacel ag, gauze, paper tape. Home Medications: Medications to take at Discharge Amlodipine [Norvasc] 10 mg PO DAILY 04/30/14 Atenolol [Tenormin (beta lisa)] 100 mg PO DAILY 04/30/14 Aspirin E.C. [Ecotrin] 81 mg PO DAILY@0800 01/27/17 Atorvastatin Calcium 40 mg PO QHS 01/27/17 Lisinopril [Zestril] 2.5 mg PO DAILY 01/27/17 albuterol sulfate HFA 90 mcg/actuation aerosol inhaler 1 puff INHALATION Q4H PRN PRN #1 inhaler 01/03/18 Acetaminophen [Tylenol Tablet] 650 mg PO Q6H PRN PRN tablet 01/11/19 Amox/Clavulanate Tablet [Augmentin Tablet] 875 mg PO BID 01/11/19 Glucerna Shake 120 ml PO 4X/DAY 01/11/19 Insulin Lispro [Humalog KwikPen] See Protocol SC ACHS insuln.pen 01/11/19 Naproxen [Naprosyn] 500 mg PO BID PRN PRN tablet 01/11/19 Nutritional Supplement [Braxton - ORANGE FLAVOR] 1 packet PO BIDCM packet 01/11/19 Primary Care Physician: Ariel Ferro MD [Primary Care Provider] - Please Follow Up With: Laurita Correa DPM When: wound healing center 1 week after discharge Please Follow Up With: Jaydon Eaton MD When: Follow up with ID in 1-2 weeks post discharge Please Follow Up With: Dr. 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 Per documentation during the inpatient hospital stay he was found to have right foot first toe ulcer, treated with Vanco/Zosyn initially, status post bedside debridement on 01/10/2019 by district recruiter Laurita Correa. Bone cx with GPC and GPR seen on gram stain. MSSA pcr (+), wound cx with proteus, staph, enterococcus. Per ID Dr. Eaton recommendations on po augmentin, stop date 02/22/19 and weekly bmp, cbc, and esr. During inpatient hospital stay CT brain done showed no acute intracranial changes, CT cervical spine showed no demonstrated cervical trauma and showed possible prevertebral edema suspicious for ligamentous injury and xray of foot showed focal ulceration adjacent to lateral first digit, with bony demineralisation possibly due to developing early bony changes of osteomyelitis. Arterial Doppler reportedly showed right ankle-brachial index by dorsalis pedis 0.71, right ankle brachial index by posterior tibial artery 0.69, abnormal right ankle-brachial index is in the range of vascular claudication. Patient was tolerating therapies well during the inpatient rehab stay, had episodes of confusion for which he had been on Seroquel and was responding well to the medication. But unfortunately this morning 01/18/2019 patient was found to have a drop in hemoglobin to 5.3 and also had an occult stool positive, so was evaluated by the hospitalist and patient was transferred to inpatient acute hospital setting for further evaluation and management. Meaningful Use Info Meaningful Use Diagnoses (Choose all that apply): None applicable
--- NOTE | 2019-01-18 13:30 | DS.PCM_ITS ---
Rehab Discharge Summary DATE OF ADMISSION: 01/11/19 DATE OF DISCHARGE: 01/18/19 - Rehab Diagnosis Debility Patient Problems: Active and Suspected Problems (Last Reviewed 01/18/19 @ 10:35 by Akilah Winslow PA-C) Upper GI bleed (Acute) Subjective: Patient had a drop in the hemoglobin to 5.3. His occult stool was positive. He was seen by hospitalist Dr. Joe and patient is being transferred to inpatient hospital for further evaluation and management of his GI issues. - Physical Exam General: Alert HEENT: Normocephalic Neck: Supple Lungs: Normal air movement Cardiovascular: Normal S1, Normal S2 Abdomen: Bowel Sounds Present Extremities: No cyanosis Neurological: - - Cranial nerves II-XII grossly intact, Neuro grossly intact, Motor Exam 5/5 strength throughout, Muscle tone normal, Sensory exam intact to light touch and pain, Coordination normal, - - Reflexes + B/L B/S/T/K and right ankle, left BKA Psych/Mental Status: Normal Affect Vital Signs Temp Pulse Resp BP Pulse Ox 97.7 F L 78 20 H 129/65 H 100 01/18/19 08:09 01/18/19 08:09 01/18/19 08:09 01/18/19 08:09 01/18/19 08:09 Oxygen Delivery Method Room Air Weight: 74.843 kg Body Mass Index (BMI) 22.4 Intake and Output for Last 24 Hours 01/16/19 01/17/19 01/18/19 23:59 23:59 23:59 Intake Total 240 / 240 120 / 120 Balance 240 / 240 120 / 120 Microbiology Past 72 Hours 01/17/19 21:00 Stool Occult Blood (MILO) - Final Stool Occult Blood Positive Laboratory Tests Past 24 Hrs 01/17/19 01/18/19 01/18/19 21:48 05:45 05:45 WBC 13.8 H RBC 1.69 L Hgb 5.3 L* Hct 15.2 L MCV 89.9 MCH 31.4 MCHC 34.9 RDW 14.5 RDW Differential 47.9 H Plt Count 267 MPV 9.5 Immature Gran % (Auto) 1.100 H Neut % (Auto) 76.5 H Lymph % (Auto) 17.1 L Thayer % (Auto) 3.8 Eos % (Auto) 1.1 Baso % (Auto) 0.4 Absolute Neuts (auto) 10.5 H Absolute Lymphs (auto) 2.35 Total Counted Not Reportable Differential Comment SCAN Diff Path Review May foll Platelet Estimate ADEQUATE Immature Plt Fraction 2.8 Plt Morphology Comment LARGE Hypochromasia 1+ Anisocytosis 1+ Microcytosis 1+ Retic Count 3.10 H Immature Retic Fraction 11.90 Retic Hgb Equivalent 31.5 BUN 99 H Creatinine 1.65 H Estim Creat Clear Calc 39.06 Est GFR (MDRD) Af Amer 52 L Est GFR (MDRD) Non-Af 43 L Iron 56 L TIBC 219 L Iron Saturation 25.6 Ferritin 119 POC Glucose 01/18/19 01/17/19 01/17/19 07:05 20:54 17:35 POC Glucose 136 H 154 H 208 H Discharge Diet: - - Transferred to inpatient Weight Bearing Status: Partial weight bearing - heel weight bear left foot with surgical shoe Call your doctor if your incision/area has: Continuous Slow Oozing, Sudden Increased Bleeding, Increased Pain/ Swelling, Increased Redness, Foul Smelling Discharge, Swelling at the incision site Call your doctor if you observe: Fever of 101 or Higher, Calf discomfort, Uncontrolled pain Cleanse incision/area with: - - change left hallux ulcer daily with aquacel ag, gauze, paper tape. Home Medications: Medications to take at Discharge Amlodipine [Norvasc] 10 mg PO DAILY 04/30/14 Atenolol [Tenormin (beta lisa)] 100 mg PO DAILY 04/30/14 Aspirin E.C. [Ecotrin] 81 mg PO DAILY@0800 01/27/17 Atorvastatin Calcium 40 mg PO QHS 01/27/17 Lisinopril [Zestril] 2.5 mg PO DAILY 01/27/17 albuterol sulfate HFA 90 mcg/actuation aerosol inhaler 1 puff INHALATION Q4H PRN PRN #1 inhaler 01/03/18 Acetaminophen [Tylenol Tablet] 650 mg PO Q6H PRN PRN tablet 01/11/19 Amox/Clavulanate Tablet [Augmentin Tablet] 875 mg PO BID 01/11/19 Glucerna Shake 120 ml PO 4X/DAY 01/11/19 Insulin Lispro [Humalog KwikPen] See Protocol SC ACHS insuln.pen 01/11/19 Naproxen [Naprosyn] 500 mg PO BID PRN PRN tablet 01/11/19 Nutritional Supplement [Braxton - ORANGE FLAVOR] 1 packet PO BIDCM packet 01/11/19 Primary Care Physician: Ariel Ferro MD [Primary Care Provider] - Please Follow Up With: Laurita Correa DPM When: wound healing center 1 week after discharge Please Follow Up With: Jaydon Eaton MD When: Follow up with ID in 1-2 weeks post discharge Please Follow Up With: Dr. 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 Per documentation during the inpatient hospital stay he was found to have right foot first toe ulcer, treated with Van co/Zosyn initially, status post bedside debridement on 01/10/2019 by lathe sander Laurita Correa. Bone cx with GPC and GPR seen on gram stain. MSSA pcr (+), wound cx with proteus, staph, enterococcus. Per ID Dr. Eaton recommendations on po augmentin, stop date 02/22/19 and weekly bmp, cbc, and esr. During inpatient hospital stay CT brain done showed no acute intracranial changes, CT cervical spine showed no demonstrated cervical trauma and showed possible prevertebral edema suspicious for ligamentous injury and xray of foot showed focal ulceration adjacent to lateral first digit, with bony demineralisation possibly due to developing early bony changes of osteomyelitis. Arterial Doppler reportedly showed right ankle-brachial index by dorsalis pedis 0.71, right ankle brachial index by posterior tibial artery 0.69, abnormal right ankle-brachial index is in the range of vascular claudication. Patient was tolerating therapies well during the inpatient rehab stay, had episodes of confu shahrzad for which he had been on Seroquel and was responding well to the medication. But unfortunately this morning 01/18/2019 patient was found to have a drop in hemoglobin to 5.3 and also had an occult stool positive, so was evaluated by the hospitalist and patient was transferred to inpatient acute hospital setting for further evaluation and management. Meaningful Use Info Meaningful Use Diagnoses (Choose all that apply): None applicable
[2019-01-18 14:50] LABS: Pathologist Review Reviewed
== END 2019-01-18 08:14 | disposition short-term general hospital (02) | DRG 947 ==
PROVIDERS: Psychiatry & Neurology Neurology; Admitting Provider Psychiatry & Neurology Neurology; Family Provider Family Medicine; PCP Family Medicine; Referring Provider Psychiatry & Neurology Neurology; Visit Provider Internal Medicine
DX: R53.81 Other malaise (principal); E43 Unspecified severe protein-calorie malnutrition; M86.8X7 Other osteomyelitis, ankle and foot; E87.1 Hypo-osmolality and hyponatremia; K92.2 Gastrointestinal hemorrhage, unspecified; D62 Acute posthemorrhagic anemia; E11.621 Type 2 diabetes mellitus with foot ulcer; L97.514 Non-pressure chronic ulcer of other part of right foot with necrosis of bone; E11.42 Type 2 diabetes mellitus with diabetic polyneuropathy; J44.9 Chronic obstructive pulmonary disease, unspecified; E78.5 Hyperlipidemia, unspecified; B95.2 Enterococcus as the cause of diseases classified elsewhere; B96.4 Proteus (mirabilis) (morganii) as the cause of diseases classified elsewhere; B95.8 Unspecified staphylococcus as the cause of diseases classified elsewhere; F03.90 Unspecified dementia, unspecified severity, without behavioral disturbance, psychotic disturbance, mood disturbance, and anxiety; F17.200 Nicotine dependence, unspecified, uncomplicated; Z89.512 Acquired absence of left leg below knee; Z68.22 Body mass index [BMI] 22.0-22.9, adult; E11.51 Type 2 diabetes mellitus with diabetic peripheral angiopathy without gangrene; E11.22 Type 2 diabetes mellitus with diabetic chronic kidney disease; I12.9 Hypertensive chronic kidney disease with stage 1 through stage 4 chronic kidney disease, or unspecified chronic kidney disease; N18.9 Chronic kidney disease, unspecified; D63.8 Anemia in other chronic diseases classified elsewhere
CPT/HCPCS: 36415; 80048; 81001; 82274; 82565; 82728; 82962; 83540; 83550; 84520; 85025; 85027; 85045; 85652; 86140; 87086; 97110; 97116; 97162; 97166; 97530; 97535; 97542; 97802; 99406

== ENCOUNTER 2019-01-18 08:39 | Inpatient (IN) | payer MEDICARE, OTHER, SELFPAY ==
[2019-01-11 17:01] VITALS: BMI 22.4
[2019-01-18] VITALS (23 sets, daily range): BP systolic 123–166; BP diastolic 58–83; PULSE 74–96; RESP 16–18; TEMP 36.4–37.3; O2SAT 95–100; BMI 19.1
--- NOTE | 2019-01-18 | IMM_PTH ---
PATIENT: ADDY YUEN LOC: [facility] U#:[id number] AGE/SX: 78/M ROOM: [facility] RE01/18/[address]: Dr. Anita Izquierdo MD : [id number] BED: 1 DIS: 01/20/2019 SPEC #: [id number] RECD: 01/20/19 09:16 STATUS: NNAETTE REQ #: [id number] GM: 01/18/19 00:[address]: Jaydon Lazaro DEPT: IMMUNOHISTOCHEMISTRY RECD BY: Tata Rodriguez ENTERED: 01/20/19 09:17 SP TYPE: IMMUNO OTHR DR: MD Dr. Ariel Mckinley MD Tissues: A - Stomach, NOS Procedures: H Pylori (initial) PHYSICIAN & INSTITUTION [place] [address] SPECIMEN INFORMATION: Tissue Source: A - Gastric antrum Clinical Info: Acute GI blood loss, anemia Specimen Number: [id number] CPT code: 98539 METHODOLOGY: Deparaffinized sections of prefer/formalin-fixed tissue or PAP/DQ stained slides are incubated with monoclonal/polyclonal antibodies/oligonucleotide probes. Localization is made via biotin free immunoperoxidase method. Appropriate controls are performed and reacted as expected. Results on target cell population are indicated in the following table: RESULTS: ANTIBODY / CLONE RESULT Block A H Pylori (polyclonal) negative These tests were developed and their performance characteristics determined by [facility]. They may not have been cleared or approved by the U.S. Food and Drug Administration. The FDA has determined that such clearance or approval is not necessary. INTERPRETATION: A. Gastric antrum, biopsy: Negative for Helicobacter pylori organisms. AM:rea 01/20/19
--- NOTE | 2019-01-18 | GASB_PTH ---
PATIENT: ADDY YUEN LOC: [facility] U#:[id number] AGE/SX: 78/M ROOM: [facility] RE01/18/[address]: Dr. Anita Izquierdo MD : [id number] BED: 1 DIS: 01/20/2019 SPEC #: [id number] RECD: 01/18/19 17:46 STATUS: NANETTE REQ #: [id number] GM: 01/18/19 00:[address]: Jaydon Lazaro DEPT: SURGICAL PATHOLOGY RECD BY: Dusty Mahoney ENTERED: 01/19/19 08:55 SP TYPE: Gastric Bx OTHR DR: MD Dr. Jaydon Mckinley MD Dr. William Lago, MD Tissues: A - Gastric mucous membrane B - Esophagus, NOS Procedures: Special Stain Group II Surgery Specimen Level IV Alcian Blue/PAS (control) Comments: @ Ordering doctor for SUIV edited from to @ by CHRISTINA at 01/19/19 1306 @ Submitting doctor edited from to @ by TRACIEOD at 01/19/19 1613 HEADER OPERATION: EGD ([facility] [place]) PRE-OP DIAGNOSIS: Acute GI blood loss, anemia TISSUE SUBMITTED: A - Gastric antrum biopsy, H. pylori and path, B - Biopsy distal esophagus MICROSCOPIC DIAGNOSIS A. Gastric antrum, biopsy: Mild chronic gastritis. See comment. B. Distal esophagus, biopsy: Fragments of squamous mucosa with minimal chronic inflammation. Gastric mucosa with no significant pathologic change. No evidence of intestinal metaplasia. No evidence of dysplasia. See comment. AM:rea 01/20/19 COMMENT A. The results of immunohistochemistry for Helicobacter pylori will be reported separately ([id number]). B. Alcian blue/PAS stain with matched control supports the above diagnosis. MICROSCOPIC DESCRIPTION Slides are reviewed. GROSS DESCRIPTION A - Received in fixative is one container labeled with the patient's name and designated gastric antrum. The specimen consists of one irregular fragment of light pedraza soft tissue that measures 0.5 x 0.2 x 0.1 cm. The specimen is totally submitted in one cassette. B - Received in fixative is one container labeled with the patient's name and designated distal esophagus. The specimen consists of multiple irregular fragments of light pedraza soft tissue that in aggregate measure 0.8 x 0.4 x 0.1 cm. The specimen is totally submitted in one cassette. / SJ:rea 01/19/19 TC:5 CPT: 56266 x2, 04530
--- NOTE | 2019-01-18 09:03 | PCM.HP.STD ---
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 (5) Other specified peripheral vascular diseases Status: Chronic (6) Type 2 diabetes mellitus with diabetic polyneuropathy Status: Chronic (7) Osteomyelitis of right foot Status: Chronic (8) H/O hernia repair Status: Resolved (9) History of appendectomy Status: Resolved (10) Colonoscopy planned Status: Resolved (11) Amputation of left lower extremity below knee Status: Resolved (12) Asthma Status: Chronic Qualifiers: (13) Cough Status: Chronic (14) Dyspnea Status: Acute (15) Tobacco abuse Status: Chronic (16) Lung mass Status: Acute Comment: Approximately 2 cm left upper lobe cavitary lesion (17) COPD (chronic obstructive pulmonary disease) Status: Chronic Qualifiers: (18) Hypoxia Status: Acute (19) Diabetes mellitus Status: Chronic Qualifiers: (20) HTN (hypertension) Status: Chronic Qualifiers: (21) Hyperlipidemia Status: Chronic (22) ZACHARY (acute kidney injury) Status: Acute (23) Pneumonia Status: Acute (24) Sepsis Status: Acute (25) Hyponatremia Status: Acute History of Present Illness Date of Admission: 01/18/19 Chief Complaint: Upper GI bleed This 70-year-old gentleman with history of diabetes mellitus type 2 with diabetic polyneuropathy, chronic right diabetic foot infection/ulcer , complicated with osteomyelitis with history of left BKA. Wound culture is positive for Proteus, Turiecella otitidis, Staphylococcus simulans and Enterococcus faecalis on vancomycin sensitive. On Augmentin. The patient is being transferred from rehab unit to PCU for upper GI bleed. Patient has large black stool, formed stool suggestive of melena yesterday night. Denies hematemesis, nausea or vomiting. H&H dropped from 11.6/32.9 on 01/12 to 5.3/15 on 01/18. Patient denies dizziness, lightheadedness, abdominal pain, chest pain or shortness of breath. The patient had orthostatic vitals taken in rehab unit. In supine 129/65, heart rate 78, sitting 121/53, heart rate 80 and on standing 135/62, pulse 90/min. This is negative for orthostatic change. Patient is admitted on stepdown unit for further evaluation and management Past Medical History Past Medical History (Chronic Problems): Chronic Problems (Last Reviewed 01/12/19 @ 13:36 by Juan A Wright MD) Diabetic foot infection (Chronic) Ulcer of right foot with necrosis of bone (Chronic) Other specified peripheral vascular diseases (Chronic) Type 2 diabetes mellitus with diabetic polyneuropathy (Chronic) Osteomyelitis of right foot (Chronic) Asthma (Chronic) Cough (Chronic) Tobacco abuse (Chronic) COPD (chronic obstructive pulmonary disease) (Chronic) Diabetes mellitus (Chronic) HTN (hypertension) (Chronic) Hyperlipidemia (Chronic) Medical History: Medical History (Last Reviewed 01/12/19 @ 13:36 by Juan A Wright MD) Colonoscopy planned (Resolved) Asthma (Chronic) J45.909 Cough (Chronic) R05 Dyspnea (Acute) R06.00 Tobacco abuse (Chronic) Z72.0 Lung mass (Acute) R91.8 Approximately 2 cm left upper lobe cavitary lesion COPD (chronic obstructive pulmonary disease) (Chronic) J44.9 Hypoxia (Acute) R09.02 Diabetes mellitus (Chronic) E11.9 HTN (hypertension) (Chronic) I10 Hyperlipidemia (Chronic) E78.5 ZACHARY (acute kidney injury) (Acute) N17.9 Pneumonia (Acute) J18.9 Sepsis (Acute) A41.9 Hyponatremia (Acute) E87.1 Allergies No Known Allergies Allergy (Verified 09/15/17 09:11) Home Medications: Ambulatory Orders Medication Instructions Recorded Amlodipine [Norvasc] 10 mg PO DAILY 04/30/14 Atenolol [Tenormin (beta lisa)] 100 mg PO DAILY 04/30/14 Aspirin E.C. [Ecotrin] 81 mg PO DAILY@0800 01/27/17 Atorvastatin Calcium 40 mg PO QHS 01/27/17 Lisinopril [Zestril] 2.5 mg PO DAILY 01/27/17 albuterol sulfate HFA 90 1 puff INHALATION Q4H PRN PRN #1 01/03/18 mcg/actuation aerosol inhaler inhaler Acetaminophen [Tylenol Tablet] 650 mg PO Q6H PRN PRN tablet 01/11/19 Amox/Clavulanate Tablet [Augmentin 875 mg PO BID 01/11/19 Tablet] Glucerna Shake 120 ml PO 4X/DAY 01/11/19 Insulin Lispro [Humalog KwikPen] See Protocol SC ACHS insuln.pen 01/11/19 Naproxen [Naprosyn] 500 mg PO BID PRN PRN tablet 01/11/19 Nutritional Supplement [Braxton - 1 packet PO BIDCM packet 01/11/19 ORANGE FLAVOR] Surgical History: Surgical History (Last Reviewed 01/12/19 @ 13:36 by Juan A Wright MD) H/O hernia repair (Resolved) Z98.890, Z87.19 History of appendectomy (Resolved) Z90.49 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 Psychiatric History: No pertinent psych hx Smoking Status: Current every day smoker - *Family History Maternal Family History: Family History (Last Reviewed 01/12/19 @ 13:36 by Juan A Wright MD) Mother Hypertension Asthma Father Hypertension Sister Hypertension Brother Hypertension History Items: Heart Disease, Hypertension Paternal Family History: Family History (Last Reviewed 01/12/19 @ 13:36 by Juan A Wright MD) Mother Hypertension Asthma Father Hypertension Sister Hypertension Brother Hypertension History Items: Heart Disease, Hypertension Review of Systems Constitutional: Denies: Chills, Fever, Weight Change HEENT: Denies: Head Aches, Sinus Congestion, Sinus Drainage Cardiovascular: Denies: Chest Pain, Chest Pressure, Chest Tightness, Palpitations Respiratory: Denies: Cough, Shortness of Breath, Shortness of breath at rest, Sputum production Gastrointestinal: Reports: Melena. Denies: Abdominal Pain, Hematemesis, Hematochezia, Nausea, Vomiting Genitourinary: Denies: Dysuria Musculoskeletal: Reports: Foot Pain, Joint Pain, Joint swelling. Denies: Joint Tenderness Skin: Reports: Skin Changes, Wounds. Denies: Rash Neurological: Reports: Balance problems, Incoordination, - - Left BKA. Denies: Focal weakness, Numbness, Tingling Psychiatric: Reports: Anxiety. Denies: Depression, Homicidal Ideations, Suicidal Ideations Hematologic/ Lymphatic: Denies: Easy Bruising, Easy Bleeding VTE Information - Inpt Only VTE Present on Admission: No VTE Mechan Device Prophylaxis: SCD's VTE Pharm Prophylaxis ordered?: No Reason prophylaxis not ordered:: Medical Contraindication - GI bleed Patient Problems: Active and Suspected Problems (Last Reviewed 01/12/19 @ 13:36 by Juan A Wright MD) Upper GI bleed (Acute) - Physical Exam General: Alert, Oriented x3, Cooperative HEENT: Atraumatic, PERRLA, EOMI, Normocephalic Oral: Dry Mucosa Neck: Supple, No JVD, Negative Carotid Bruits Lungs: Clear to auscultation, No rhonchi, No wheeze, No rales, Diminished - Air entry is diminished in bilateral lung bases. Cardiovascular: Regular rate, No murmurs Abdomen: Bowel Sounds Present, Soft, Non Tender, Non-Distended Extremities: No edema, Capillary Refill Less than 3 Seconds, Diminished Peripheral Pulses - Of left popliteal and posterior tibialis., - - Left BKA. Patient has prosthesis. Skin: Ulcer/ Wound - Ulcer is present in the right foot complicated with osteomyelitis., - Musculoskeletal: No Tenderness to Palpation of Joints or Extremities Lymphatic: No Cervical, Supraclavicular, or Inguinal Adenopathy Neurological: Cranial nerves II-XII grossly intact, Deep Tendon Reflexes 2+/4 and Symmetrical, Neuro grossly intact Psych/Mental Status: Normal Affect, Appropriate Body Mass Index (BMI) 22.4 Assessment/Plan All Active Problems (Last Reviewed 01/12/19 @ 13:36 by Juan A Wright MD) Upper GI bleed (Acute) Hypokalemia (Resolved) H/O hernia repair (Resolved) History of appendectomy (Resolved) Colonoscopy planned (Resolved) Amputation of left lower extremity below knee (Resolved) Dyspnea (Acute) Lung mass (Acute) Hypoxia (Acute) ZACHARY (acute kidney injury) (Acute) Pneumonia (Acute) Sepsis (Acute) Hyponatremia (Acute) Chronic steroid use (Ruled-out) This 70-year-old gentleman with history of diabetes mellitus type 2 with diabetic polyneuropathy, chronic right diabetic foot infection/ulcer , complicated with osteomyelitis with history of left BKA. Wound culture is positive for Proteus, Turiecella otitidis, Staphylococcus simulans and Enterococcus faecalis on vancomycin sensitive. On Augmentin. The patient is being transferred from rehab unit to PCU for upper GI bleed. Patient has large black stool suggestive of melena yesterday night. H&H dropped from 11.6/32.9 on 01/12 to 5.3/15 on 01/18. Patient denies dizziness, lightheadedness, abdominal pain, chest pain or shortness of breath. The patient had orthostatic vitals taken in rehab unit. In supine 129/65, heart rate 78, sitting 121/53, heart rate 80 and on standing 135/62, pulse 90/min. This is negative for orthostatic change. Patient is admitted on stepdown unit for further evaluation and management 1. Acute anemia of blood loss; secondary to upper GI bleed on baseline anemia of chronic disease: Patient is being admitted to stepdown unit. Volume resuscitation with Ringer lactate. H&H every 6 hourly. 2 units of PRBC transfusion ordered. Labs stat ordered. On Protonix 40 mg IV every [address] Lazaro called for possible upper endoscopy. Keep patient n.p.o. except medications. DVT prophylactic dose Lovenox discontinued. Stool for occult blood is positive. Iron studies shows iron 56, TIBC 219, ferritin 119 and iron saturation 25% suggestive of anemia of chronic disease. B12 623 on 01/10. RBC folate 10,000. 2. RLE diabetic foot infection and toe infection with osteomyelitis s/p bedside I+D on 01/09 Cx + for proteus and Staphylococcus stimulants, Enterococcus faecalis, vancomycin sensitive. Toe bone culture on 01/10. Culture is positive of Proteus mirabilis, Turiecella otitidis, Staphylococcus simulans and Enterococcus faecalis on vancomycin sensitive Augmentin through 02/22 Continue follow-up with ID. Patient seen by Dr. Correa 3. hyponatremia: Last sodium 136. 4. COPD: not in exacerbation prednisone discontinued 5. severe protein malnutrition presumed prealbumin 8.4 nutrition on consult complicates care continue Glucerna vipin QID plus Braxton 6. right arm pain s/p fall suspect rotator cuff tear/injury conservative mgmt pt able to raise bother arms up without difficulty 7. ZACHARY resolved Prerenal etiology Creatinine went up from 1.25-1.4. Discontinue naproxen 9. Delirium head CT from the showed chronic involution changes with old lacunar infarct Resolved DVT prophylaxis: Lovenox discontinued. SCD on right lower extremity Code Visit Inpatient E&M: 88147 Init Hosp L3
--- NOTE | 2019-01-18 09:09 | HP.PCM_ITS ---
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 (5) Other specified peripheral vascular diseases Status: Chronic (6) Type 2 diabetes mellitus with diabetic polyneuropathy Status: Chronic (7) Osteomyelitis of right foot Status: Chronic (8) H/O hernia repair Status: Resolved (9) History of appendectomy Status: Resolved (10) Colonoscopy planned Status: Resolved (11) Amputation of left lower extremity below knee Status: Resolved (12) Asthma Status: Chronic Qualifiers: (13) Cough Status: Chronic (14) Dyspnea Status: Acute (15) Tobacco abuse Status: Chronic (16) Lung mass Status: Acute Comment: Approximately 2 cm left upper lobe cavitary lesion (17) COPD (chronic obstructive pulmonary disease) Status: Chronic Qualifiers: (18) Hypoxia Status: Acute (19) Diabetes mellitus Status: Chronic Qualifiers: (20) HTN (hypertension) Status: Chronic Qualifiers: (21) Hyperlipidemia Status: Chronic (22) ZACHARY (acute kidney injury) Status: Acute (23) Pneumonia Status: Acute (24) Sepsis Status: Acute (25) Hyponatremia Status: Acute History of Present Illness Date of Admission: 01/18/19 Chief Complaint: Upper GI bleed This 70-year-old gentleman with history of diabetes mellitus type 2 with diabetic polyneuropathy, chronic right diabetic foot infection/ulcer , complicated with osteomyelitis with history of left BKA. Wound culture is positive for Proteus, Turiecella otitidis, Staphylococcus simulans and Enterococcus faecalis on vancomycin sensitive. On Augmentin. The patient is being transferred from rehab unit to PCU for upper GI bleed. Patient has large black stool, formed stool suggestive of melena yesterday night. Denies hematemesis, nausea or vomiting. H&H dropped from 11.6/32.9 on 01/12 to 5.3/15 on 01/18. Patient denies dizziness, lightheadedness, abdominal pain, chest pain or shortness of breath. The patient had orthostatic vitals taken in rehab unit. In supine 129/65, heart rate 78, sitting 121/53, heart rate 80 and on standing 135/62, pulse 90/min. This is negative for orthostatic change. Patient is admitted on stepdown unit for further evaluation and management Past Medical History Past Medical History (Chronic Problems): Chronic Problems (Last Reviewed 01/12/19 @ 13:36 by Juan A Wright MD) Diabetic foot infection (Chronic) Ulcer of right foot with necrosis of bone (Chronic) Other specified peripheral vascular diseases (Chronic) Type 2 diabetes mellitus with diabetic polyneuropathy (Chronic) Osteomyelitis of right foot (Chronic) Asthma (Chronic) Cough (Chronic) Tobacco abuse (Chronic) COPD (chronic obstructive pulmonary disease) (Chronic) Diabetes mellitus (Chronic) HTN (hypertension) (Chronic) Hyperlipidemia (Chronic) Medical History: Medical History (Last Reviewed 01/12/19 @ 13:36 by Juan A Wright MD) Colonoscopy planned (Resolved) Asthma (Chronic) J45.909 Cough (Chronic) R05 Dyspnea (Acute) R06.00 Tobacco abuse (Chronic) Z72.0 Lung mass (Acute) R91.8 Approximately 2 cm left upper lobe cavitary lesion COPD (chronic obstructive pulmonary disease) (Chronic) J44.9 Hypoxia (Acute) R09.02 Diabetes mellitus (Chronic) E11.9 HTN (hypertension) (Chronic) I10 Hyperlipidemia (Chronic) E78.5 ZACHARY (acute kidney injury) (Acute) N17.9 Pneumonia (Acute) J18.9 Sepsis (Acute) A41.9 Hyponatremia (Acute) E87.1 Allergies No Known Allergies Allergy (Verified 09/15/17 09:11) Home Medications: Ambulatory Orders Medication Instructions Recorded Amlodipine [Norvasc] 10 mg PO DAILY 04/30/14 Atenolol [Tenormin (beta lisa)] 100 mg PO DAILY 04/30/14 Aspirin E.C. [Ecotrin] 81 mg PO DAILY@0800 01/27/17 Atorvastatin Calcium 40 mg PO QHS 01/27/17 Lisinopril [Zestril] 2.5 mg PO DAILY 01/27/17 albuterol sulfate HFA 90 1 puff INHALATION Q4H PRN PRN #1 01/03/18 mcg/actuation aerosol inhaler inhaler Acetaminophen [Tylenol Tablet] 650 mg PO Q6H PRN PRN tablet 01/11/19 Amox/Clavulanate Tablet [Augmentin 875 mg PO BID 01/11/19 Tablet] Glucerna Shake 120 ml PO 4X/DAY 01/11/19 Insulin Lispro [Humalog KwikPen] See Protocol SC ACHS insuln.pen 01/11/19 Naproxen [Naprosyn] 500 mg PO BID PRN PRN tablet 01/11/19 Nutritional Supplement [Braxton - 1 packet PO BIDCM packet 01/11/19 [place]ANGE FLAVOR] Surgical History: Surgical History (Last Reviewed 01/12/19 @ 13:36 by Juan A Wright MD) H/O hernia repair (Resolved) Z98.890, Z87.19 History of appendectomy (Resolved) Z90.49 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 Psychiatric History: No pertinent psych hx Smoking Status: Current every day smoker - *Family History Maternal Family History: Family History (Last Reviewed 01/12/19 @ 13:36 by Juan A Wright MD) Mother Hypertension Asthma Father Hypertension Sister Hypertension Brother Hypertension History Items: Heart Disease, Hypertension Paternal Family History: Family History (Last Reviewed 01/12/19 @ 13:36 by Juan A Wright MD) Mother Hypertension Asthma Father Hypertension Sister Hypertension Brother Hypertension History Items: Heart Disease, Hypertension Review of Systems Constitutional: Denies: Chills, Fever, Weight Change HEENT: Denies: Head Aches, Sinus Congestion, Sinus Drainage Cardiovascular: Denies: Chest Pain, Chest Pressure, Chest Tightness, Palpitations Respiratory: Denies: Cough, Shortness of Breath, Shortness of breath at rest, Sputum production Gastrointestinal: Reports: Melena. Denies: Abdominal Pain, Hematemesis, Hematochezia, Nausea, Vomiting Genitourinary: Denies: Dysuria Musculoskeletal: Reports: Foot Pain, Joint Pain, Joint swelling. Denies: Joint Tenderness Skin: Reports: Skin Changes, Wounds. Denies: Rash Neurological: Reports: Balance problems, Incoordination, - - Left BKA. Denies: Focal weakness, Numbness, Tingling Psychiatric: Reports: Anxiety. Denies: Depression, Homicidal Ideations, Suicidal Ideations Hematologic/ Lymphatic: Denies: Easy Bruising, Easy Bleeding VTE Information - Inpt Only VTE Present on Admission: No VTE Mechan Device Prophylaxis: SCD's VTE Pharm Prophylaxis ordered?: No Reason prophylaxis not ordered:: Medical Contraindication - GI bleed Patient Problems: Active and Suspected Problems (Last Reviewed 01/12/19 @ 13:36 by Juan A Wright MD) Upper GI bleed (Acute) - Physical Exam General: Alert, Oriented x3, Cooperative HEENT: Atraumatic, PERRLA, EOMI, Normocephalic Oral: Dry Mucosa Neck: Supple, No JVD, Negative Carotid Bruits Lungs: Clear to auscultation, No rhonchi, No wheeze, No rales, Diminished - Air entry is diminished in bilateral lung bases. Cardiovascular: Regular rate, No murmurs Abdomen: Bowel Sounds Present, Soft, Non Tender, Non-Distended Extremities: No edema, Capillary Refill Less than 3 Seconds, Diminished Periphe ral Pulses - Of left popliteal and posterior tibialis., - - Left BKA. Patient has prosthesis. Skin: Ulcer/ Wound - Ulcer is present in the right foot complicated with osteom yelitis., - Musculoskeletal: No Tenderness to Palpation of Joints or Extremities Lymphatic: No Cervical, Supraclavicular, or Inguinal Adenopathy Neurological: Cranial nerves II-XII grossly intact, Deep Tendon Reflexes 2+/4 and Symmetrical, Neuro grossly intact Psych/Mental Status: Normal Affect, Appropriate Body Mass Index (BMI) 22.4 Assessment/Plan All Active Problems (Last Reviewed 01/12/19 @ 13:36 by Juan A Wright MD) Upper GI bleed (Acute) Hypokalemia (Resolved) H/O hernia repair (Resolved) History of appendectomy (Resolved) Colonoscopy planned (Resolved) Amputation of left lower extremity below knee (Resolved) Dyspnea (Acute) Lung mass (Acute) Hypoxia (Acute) ZACHARY (acute kidney injury) (Acute) Pneumonia (Acute) Sepsis (Acute) Hyponatremia (Acute) Chronic steroid use (Ruled-out) This 70-year-old gentleman with history of diabetes mellitus type 2 with diabetic polyneuropathy, chronic right diabetic foot infection/ulcer , complicated with osteomyelitis with history of left BKA. Wound culture is positive for Proteus, Turiecella otitidis, Staphylococcus simulans and Enterococcus faecalis on vancomycin sensitive. On Augmentin. The patient is being transferred from rehab unit to PCU for upper GI bleed. Patient has large black stool suggestive of melena yesterday night. H&H dropped from 11.6/32.9 on 01/12 to 5.3/15 on 01/18. Patient denies dizziness, lightheadedness, abdominal pain, chest pain or shortness of breath. The patient had orthostatic vitals taken in rehab unit. In supine 129/65, heart rate 78, sitting 121/53, heart rate 80 and on standing 135/62, pulse 90/min. This is negative for orthostatic change. Patient is admitted on stepdown unit for further evaluation and management 1. Acute anemia of blood loss; secondary to upper GI bleed on baseline anemia of chronic disease: Patient is being admitted to stepdown unit. Volume resuscitation with Ringer lactate. H&H every 6 hourly. 2 units of PRBC transfusion ordered. Labs stat ordered. On Protonix 40 mg IV every [address] Lazaro called for possible upper endoscopy. Keep patient n.p.o. except medications. * DVT prophylactic dose Lovenox discontinued. Stool for occult blood is positive. Iron studies shows iron 56, TIBC 219, ferritin 119 and iron saturation 25% suggestive of anemia of chronic disease. * B12 623 on 01/10. RBC folate 10,000. 2. RLE diabetic foot infection and toe infection with osteomyelitis * s/p bedside I+D on 01/09 * Cx + for proteus and Staphylococcus stimulants, Enterococcus faecalis, vancomycin sensitive. * Toe bone culture on 01/10. Culture is positive of Proteus mirabilis, Turiecella otitidis, Staphylococcus simulans and Enterococcus faecalis on vancomycin sensitive * Augmentin through 02/22 * Continue follow-up with ID. * Patient seen by Dr. Correa 3. hyponatremia: * Last sodium 136. 4. COPD: * not in exacerbation prednisone discontinued 5. severe protein malnutrition * presumed * prealbumin 8.4 * nutrition on consult * complicates care * continue Glucerna shake QID plus Braxton 6. right arm pain * s/p fall * suspect rotator cuff tear/injury * conservative mgmt * pt able to raise bother arms up without difficulty 7. ZACHARY * resolved * Prerenal etiology * Creatinine went up from 1.25-1.4. Discontinue naproxen 9. Delirium * head CT from the showed chronic involution changes with old lacunar infarct * Resolved DVT prophylaxis: Lovenox discontinued. SCD on right lower extremity Code Visit Inpatient E&M: 89778 Init Hosp L3
[2019-01-18] MEDS: Lactated Ringers 1,000 ML 150 ML IV ×2 (10:02→19:16)
--- NOTE | 2019-01-18 10:14 | PCM.CONS.GEN ---
Problem List (1) Upper GI bleed Status: Acute Reason for Consult Date of Consultation: 01/18/19 Reason for Consultation: Acute anemia. Upper GI bleed. History of Present Illness: The patient is a 78 year old M who was transferred from the rehab unit for decreased Hgb suspected upper GI bleed. Patient was hospitalized on 01/06 through 01/11 for a mechanical fall. Patient also had an I&D at bedside of the right foot by podiatry. Patient was discharged to rehab unit on 01/12/19. Patient is on a daily aspirin as an outpatient. He also has been on 30 mg of Lovenox SC daily for his hospitalization and rehab stay. Patient notes he has not been anemic previously. Patient denies melena, bright red blood per rectum, reflux. He denies abdominal pain. He notes some constipation. Per report, patient was noted to have a large dark bowel movement yesterday. Fecal occult blood test was performed yesterday and returned positive. He had a previous colonoscopy at the [facility] by Dr. Montez on March 10, 2010 which demonstrated a normal colon. It was recommended repeat scope in 5 years. Patient has not had a scope since. He has never had an upper scope. Patient denies any family history of colon cancer and inflammatory bowel disease. Patient is noted to have a decrease in hgb of 11.6 on 01/12 to 5.3 on 01/18. Patient denies any cardiac history. He has had a previous left BKA. Patient denies taking reflux medication. 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) Other specified peripheral vascular diseases (Chronic) Type 2 diabetes mellitus with diabetic polyneuropathy (Chronic) Osteomyelitis of right foot (Chronic) Asthma (Chronic) Cough (Chronic) Tobacco abuse (Chronic) COPD (chronic obstructive pulmonary disease) (Chronic) Diabetes mellitus (Chronic) HTN (hypertension) (Chronic) Hyperlipidemia (Chronic) Medical History: Medical History (Last Reviewed 01/18/19 @ 10:35 by Akilah Winslow PA-C) Colonoscopy planned (Resolved) Asthma (Chronic) J45.909 Cough (Chronic) R05 Dyspnea (Acute) R06.00 Tobacco abuse (Chronic) Z72.0 Lung mass (Acute) R91.8 Approximately 2 cm left upper lobe cavitary lesion COPD (chronic obstructive pulmonary disease) (Chronic) J44.9 Hypoxia (Acute) R09.02 Diabetes mellitus (Chronic) E11.9 HTN (hypertension) (Chronic) I10 Hyperlipidemia (Chronic) E78.5 ZACHARY (acute kidney injury) (Acute) N17.9 Pneumonia (Acute) J18.9 Sepsis (Acute) A41.9 Hyponatremia (Acute) E87.1 Allergies No Known Allergies Allergy (Verified 09/15/17 09:11) Home Medications: Ambulatory Orders Medication Instructions Recorded Amlodipine [Norvasc] 10 mg PO DAILY 04/30/14 Atenolol [Tenormin (beta lisa)] 100 mg PO DAILY 04/30/14 Aspirin E.C. [Ecotrin] 81 mg PO DAILY@0800 01/27/17 Atorvastatin Calcium 40 mg PO QHS 01/27/17 Lisinopril [Zestril] 2.5 mg PO DAILY 01/27/17 albuterol sulfate HFA 90 1 puff INHALATION Q4H PRN PRN #1 01/03/18 mcg/actuation aerosol inhaler inhaler Acetaminophen [Tylenol Tablet] 650 mg PO Q6H PRN PRN tablet 01/11/19 Amox/Clavulanate Tablet [Augmentin 875 mg PO BID 01/11/19 Tablet] Glucerna Shake 120 ml PO 4X/DAY 01/11/19 Insulin Lispro [Humalog KwikPen] See Protocol SC ACHS insuln.pen 01/11/19 Naproxen [Naprosyn] 500 mg PO BID PRN PRN tablet 01/11/19 Nutritional Supplement [Braxton - 1 packet PO BIDCM packet 01/11/19 ORANGE FLAVOR] Surgical History: Surgical History (Last Reviewed 01/18/19 @ 10:35 by Akilah Winslow PA-C) H/O hernia repair (Resolved) Z98.890, Z87.19 History of appendectomy (Resolved) Z90.49 Amputation of left lower extremity below knee (Resolved) Z89.512 Surgical History: - - Left BKA, appendectomy, amputation right toes x 2, inguinal hernia repair Psychiatric History: No pertinent psych hx Smoking Status: Current every day smoker - *Family History Maternal Family History: Family History (Last Reviewed 01/18/19 @ 10:37 by Akilah Winslow PA-C) Mother Hypertension Asthma Father Hypertension Sister Hypertension Brother Hypertension History Items: Heart Disease, Hypertension Paternal Family History: Family History (Last Reviewed 01/18/19 @ 10:37 by Akilah Winslow PA-C) Mother Hypertension Asthma Father Hypertension Sister Hypertension Brother Hypertension History Items: Heart Disease, Hypertension Review of Systems Constitutional: Reports: Weakness, Fatigue HEENT: Denies: Head Aches, Sinus Congestion, Sinus Drainage Cardiovascular: Denies: Chest Pain, Palpitations Respiratory: Denies: Cough, Shortness of breath at rest, Sputum production Gastrointestinal: Reports: Constipation, Melena Genitourinary: Denies: Dysuria Musculoskeletal: Reports: Leg Pain Skin: Reports: Dryness Neurological: Reports: Balance problems Psychiatric: Denies: Anxiety, Depression, Homicidal Ideations, Suicidal Ideations Hematologic/ Lymphatic: Reports: Anemia. Denies: Hx of blood clot, Hx of blood transfusion Patient Problems: Active and Suspected Problems (Last Reviewed 01/18/19 @ 10:35 by Akilah Winslow PA-C) Upper GI bleed (Acute) - Physical Exam General: Alert, Cooperative, Confused HEENT: Atraumatic, PERRLA, EOMI, Normocephalic Neck: Supple, No JVD, Negative Carotid Bruits Lungs: Normal air movement, Wheezes Cardiovascular: Regular rate, No murmurs Abdomen: Bowel Sounds Present, Soft, Non Tender Extremities: No edema, Capillary Refill Less than 3 Seconds, - - Left BKA. Multiple scabs/ulcerations on the rightlower and left lower extremities Skin: Ulcer/ Wound - anterior left knee and right lower toes Musculoskeletal: No Tenderness to Palpation of Joints or Extremities Neurological: Neuro grossly intact Psych/Mental Status: Normal Affect, Appropriate Vital Signs Temp Pulse Resp BP Pulse Ox 97.5 F L 80 16 123/62 H 100 01/18/19 09:00 01/18/19 09:00 01/18/19 09:00 01/18/19 09:00 01/18/19 09:00 Oxygen Delivery Method Room Air Weight: 141 lb 1.533 oz Body Mass Index (BMI) 19.1 Assessment/Plan All Active Problems (Last Reviewed 01/18/19 @ 10:35 by Akilah Winslow PA-C) Upper GI bleed (Acute) Hypokalemia (Resolved) H/O hernia repair (Resolved) History of appendectomy (Resolved) Colonoscopy planned (Resolved) Amputation of left lower extremity below knee (Resolved) Dyspnea (Acute) Lung mass (Acute) Hypoxia (Acute) ZACHARY (acute kidney injury) (Acute) Pneumonia (Acute) Sepsis (Acute) Hyponatremia (Acute) Chronic steroid use (Ruled-out) I have been consulted in conjunction with Dr. Lazaro. Impression: Decreased hemoglobin. Fecal occult positive test. Melanotic stools. Suspect upper GI bleed. Plan: I have discussed this patient in conjunction with Dr. Lazaro. Dr. Lazaro will plan to perform an urgent upper scope with possible biopsies and possible sensation of any active bleeding that may be occurring. Procedure details, risks and benefits have been explained to the patient, however the patient seems confused. Patient's will be contacted and the procedure will be reviewed with her. Consent will need to be obtained from the . This was communicated to the charge nurse, Chelsey who was understandable. Patient has 2 units PRBC ordered and currently is receiving IV Protonix. Patient has been NPO. Thank you for allowing us to participate in this patient's care. Code Visit Office Visits / Consults: [id number] IP Consult L3
[2019-01-18 10:29] LABS: Hematocrit 15.9 % (40-54); Mean Corp Hgb Conc 35.8 g/gl (32-36); Mean Corpuscular Hgb 32.2 pg (27.0-32.0); Mean Corpuscular Volume 89.8 fL (80-94); Mean Platelet Vol. 9.5 fl (6.2-12.0); Platelet Count 298 K/mm3 (150-450); RBC Distribution Width CV 14.6 % (11.6-14.6); RBC Distribution Width SD 48.2 fl (35.1-43.9); Red Blood Count 1.77 M/mm3 (4.6-6.2); White Blood Count 15.3 K/mm3 (4.4-11.0)
[2019-01-18 10:32] LABS: Hemoglobin 5.7 g/dl (13.0-16.5); Scan Indicated on CBC? Y/N NO
[2019-01-18 10:43] LABS: ALB/GLOB Ratio 0.7 RATIO (0.9-2.4); AST(SGOT) 31 U/L (15-37); Alanine Aminotransfer ALT/SGPT 78 U/L (16-61); Albumin, Serum 2.3 g/dL (3.2-5.0); Alkaline Phosphatase 85 U/L (45-117); Anion Gap 8 (5-15); BUN 82 mg/dL (7-18); BUN/Creat Ratio 52.6 RATIO (10-20); Chloride 107 mmol/L (98-107); Creatinine, Serum 1.56 mg/dL (0.70-1.30); EST Glomerular Filtration Rate 46 mL/min (>60); Est Glom Filt Rate - Afr Amer 56 mL/min (>60); Estimated Creatinine Clearance 35.33 ml/min; Globulin 3.4 g/dL (2.2-4.2); Glucose 136 mg/dL (74-106); Magnesium 2.4 mg/dL (1.6-2.6); Potassium 4.5 mmol/L (3.5-5.1); Protein, Total 5.7 g/dL (6.4-8.2); Sodium Level 139 mmol/L (136-145)
--- NOTE | 2019-01-18 10:58 | RAD_ITS ---
HISTORY: RIGHT SIDED LINE PLACEMENT EXAM/TECHNIQUE: XR Chest 1 View: COMPARISON: 01/06/19 CXR. Report from 04/04/18 CT chest. FINDINGS: # of images incl. paperwork: 1 Interval placement right IJ central venous catheter, tip mid SVC. No acute interval change in the lungs. No evidence of pneumothorax or pleural effusion. 2.6 cm lobular lesion last upper lung unchanged. Heart size normal. Atherosclerosis thoracic aorta. Mild elevation left hemidiaphragm and scoliosis unchanged. RAD/Chest 1 View (Portable) IMPRESSION: No evidence of complication status post left IJ venous catheter placement. 2.6 cm left upper lung lesion compatible with a mass or large nodule, similar to prior. Similar lesion was described on the prior chest CT as well. Please correlate with history. If necessary repeat chest CT would better evaluate. at 1133 Reported and signed by: Suman Hyde MD Electronically Signed: Suman Hyde, at 11:32 EDT Tel , Service support ,
--- NOTE | 2019-01-18 11:10 | NURSING ---
This RN called to give report to OR, RN
--- NOTE | 2019-01-18 11:13 | PCM.OP.PRO ---
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 (5) Other specified peripheral vascular diseases Status: Chronic (6) Type 2 diabetes mellitus with diabetic polyneuropathy Status: Chronic (7) Osteomyelitis of right foot Status: Chronic (8) H/O hernia repair Status: Resolved (9) History of appendectomy Status: Resolved (10) Colonoscopy planned Status: Resolved (11) Amputation of left lower extremity below knee Status: Resolved (12) Asthma Status: Chronic Qualifiers: (13) Cough Status: Chronic (14) Dyspnea Status: Acute (15) Tobacco abuse Status: Chronic (16) Lung mass Status: Acute Comment: Approximately 2 cm left upper lobe cavitary lesion (17) COPD (chronic obstructive pulmonary disease) Status: Chronic Qualifiers: (18) Hypoxia Status: Acute (19) Diabetes mellitus Status: Chronic Qualifiers: (20) HTN (hypertension) Status: Chronic Qualifiers: (21) Hyperlipidemia Status: Chronic (22) ZACHARY (acute kidney injury) Status: Acute (23) Pneumonia Status: Acute (24) Sepsis Status: Acute (25) Hyponatremia Status: Acute Procedure Report Date of Procedure: 01/18/19 Ultrasound-guided right IJ central venous catheter Indication: unable to get peripheral IV access, poor peripheral veins, GI bleed. Needs volume resuscitation Procedure Informed consent was taken from the patient's daughter on phone. Right neck and subclavicular area was sterilized and draped in a aseptic manner. With ultrasound right IJ was marked. Lidocaine 1% was used for local anesthesia. Under ultrasound guidance, right IJ was accessed and guidewire was passed and then was dilated with dilator. Triple-lumen catheter was passed through guidewire. Good blood return was obtained from all 3 lines. CVC was secured and sutured. No hematoma or bleeding. Portable chest x-ray ordered. Tip of triple-lumen catheter at cavoatrial junction. Official report pending. Code Visit Procedures: [id number] Insert Non-tunnel CV Cath
--- NOTE | 2019-01-18 11:59 | PCM.PN.BLA ---
Progress Note Since receiving the consultation this morning I have advised nursing staff on PCU that I felt that this patient was in urgent need of resuscitation with blood. I discussed the patient's care with our physician assistant baseball coach Akilah Winslow who immediately went to see the patient. I am now free from the operative procedure that had me occupied during this time. The patient has not at this point received any blood transfusion. The patient had been transported to the ambulatory surgical unit. I have advised nursing staff there to urgently obtain blood from the blood bank and urgently start blood transfusion. Based upon the patient's presentation and history it is likely that this is an upper GI bleed. BUN is markedly elevated. I have discussed his management with anesthesiologist Dr. Shai Graves and I think that it is feasible to attempt an upper endoscopy to identify and hopefully halt the ongoing blood loss. We will initiate the transfusion prior to initiating the procedure. The patient is a lifelong cigarette smoker and is diabetic with hyperlipidemia and hypertension. He has had a left BKA and nonhealing wounds on his right foot. He is clearly at increased risk for MT and stroke. He is at critical levels of hemorrhage and requires emergency intervention. Peyton
--- NOTE | 2019-01-18 12:04 | PN_ITS ---
Progress Note Since receiving the consultation this morning I have advised nursing staff on PCU that I felt that this patient was in urgent need of resuscitation with blood. I discussed the patient's care with our physician ob gyn physician assistant Akilah Winslow who immediately went to see the patient. I am now free from the operative procedure that had me occupied during this time. The patient has not at this point received any blood transfusion. The patient had been transported to the ambulatory surgical unit. I have advised nursing staff there to urgently obtain blood from the blood bank and urgently start blood transfusion. Based upon the patient's presentation and history it is likely that this is an upper GI bleed. BUN is markedly elevated. I have discussed his management with anesthesiologist Dr. Shai Graves and I think that it is feasible to attempt an upper endoscopy to identify and hopefully halt the ongoing blood loss. We will initiate the transfusion prior to initiating the procedure. The patient is a lifelong cigarette smoker and is diabetic with hyperlipidemia and hypertension. He has had a left BKA and nonhealing wounds on his right foot. He is clearly at increased risk for [place] and stroke. He is at critical levels of hemorrhage and requires emergency intervention. Peyton
--- NOTE | 2019-01-18 15:42 | CASEMGMT ---
Patient is from 4th floor inpatient rehab unit. Spoke with Gretchen who said they do not feel patient should return to rehab. SW will talk with patient and family regarding new d/c plan. Leeann COBOS
--- NOTE | 2019-01-18 16:00 | OP.ENDO_ITS ---
01/18/2019 Ariel Ferro Re : Upper GI endoscopy procedure for Kike Whitmore Pillo This procedure was performed on Friday, January 18, 2019. My impressions and recommendations are as follows: Impressions : - LA Grade B reflux esophagitis. Biopsied. - Small hiatal hernia. - Z-line irregular, 37 cm from the incisors. - Mild Schatzki ring. - Erythematous mucosa in the antrum. Biopsied. - Hematin (altered blood/vnmjzm-ygwaju-kaaq material) in the gastric antrum. - Normal examined duodenum. Recommendations : - Return patient to [facility] for ongoing care. - Clear liquid diet. - Continue present medications. Suspect pre pyloric stomach source of acute GI blood loss. Continue IV PPI My findings are described in the full procedure note, which is enclosed. If I can be of further assistance, please feel free to contact me at Doctor phone number(s): Work: . Sincerely, Jaydon Lazaro MD 01/18/2019 4:00:19 PM This report has been signed electronically.
[2019-01-18] MEDS: oxyCODONE 5 MG Tablet PO ×2 (17:24→22:29)
[2019-01-18] MEDS: Glucerna Shake 120 ML LIQUID PO ×2 (17:24→22:17)
[2019-01-18 18:10] LABS: Bedside Glucose 126 mg/dL (70-110)
[2019-01-18 20:46] LABS: Hematocrit 20.6 % (40-54); Hemoglobin 7.3 g/dl (13.0-16.5)
[2019-01-18] MEDS: 0.9% NaCl Peripheral Flush Adult/Peds IV (22:30)
[2019-01-18] MEDS: Atorvastatin Calcium 40 MG Tablet PO (22:31)
[2019-01-19] VITALS (21 sets, daily range): BP systolic 129–165; BP diastolic 52–75; PULSE 76–100; RESP 14–18; TEMP 36.7–37.1; O2SAT 94–100
[2019-01-19] MEDS: Insulin Lispro 100 UNIT/ML INSULN.PEN SQ ×3 (01:01→23:11)
[2019-01-19 02:52] LABS: Hematocrit 20.4 % (40-54)
[2019-01-19] MEDS: Lactated Ringers 1,000 ML 150 ML IV ×2 (02:55→11:31)
[2019-01-19 02:56] LABS: International Normalized Ratio 1.2; Prothrombin Time (Protime)PT. 14.5 SECONDS (11.7-14.9)
[2019-01-19 03:08] LABS: Anion Gap 5 (5-15); BUN 57 mg/dL (7-18); BUN/Creat Ratio 39.3 RATIO (10-20); Calcium,Total 7.8 mg/dL (8.5-10.1); Chloride 109 mmol/L (98-107); Creatinine, Serum 1.45 mg/dL (0.70-1.30); EST Glomerular Filtration Rate 50 mL/min (>60); Est Glom Filt Rate - Afr Amer 61 mL/min (>60); Estimated Creatinine Clearance 38.01 ml/min; Glucose 148 mg/dL (74-106); Potassium 4.3 mmol/L (3.5-5.1); Sodium Level 140 mmol/L (136-145)
[2019-01-19 06:10] LABS: Bedside Glucose 117 mg/dL (70-110)
--- NOTE | 2019-01-19 06:29 | PCM.PN.SRG ---
Patient Problems: Active and Suspected Problems (Last Reviewed 01/18/19 @ 10:35 by Akilah Winslow PA-C) Upper GI bleed (Acute) Subjective: Patient denies any abdominal pain. He does not recall whether he had any stools overnight. He was found scooting down in bed stating that is not able to reposition himself. Patient had a stable hemoglobin level on January 11, 2019 of 11.7. It acutely dropped to a low of 5.3 on January 18, 2019. He received 2 units of blood transfusion and is currently at hemoglobin level 7. He had an upper endoscopy yesterday demonstrating coffee-ground material in the stomach and what appeared to be a likely ulceration of the lesser curvature incisura of the stomach but there was deformity in this location. The patient was receiving aspirin and Lovenox. He had not currently been on any acid suppression. In addition his most stable BUN as of January 07, 2019 was 23 and his best creatinine level on January 12, 2019 was 1.24. Currently his BUN is 57 and his creatinine is 1.45 In addition he has peripheral vascular disease. He has had an amputation below knee of the left leg. He has had debridement of the right great toe hallux per Dr. Correa. An outpatient vascular's consult is pending with myself. As of January 10 ABIs of the right lower extremity demonstrates DP and PT indices of 0.8 and biphasic Doppler waveforms. - Physical Exam General: Alert, No apparent distress Cardiovascular: - - Right common femoral 3+. Right popliteal 3+. Right DP and PT not palpable. Lichenification of the skin of the right ankle and foot making inspection difficult Abdomen: Bowel Sounds Present, Soft, Non Tender Vital Signs Temp Pulse Resp BP Pulse Ox 98.8 F 82 18 165/72 H 94 01/19/19 04:45 01/19/19 04:45 01/19/19 04:45 01/19/19 04:45 01/19/19 04:45 Oxygen Flow Rate (L/min) 4 Oxygen Delivery Method Room Air Weight: 141 lb 1.533 oz Body Mass Index (BMI) 19.1 Intake and Output for Last 24 Hours 01/17/19 01/18/19 01/19/19 23:59 23:59 23:59 Intake Total 1694 / 1694 2077 / 2077 Output Total 1235 / 1235 1050 / 1050 Balance 459 / 459 1027 / 1027 Laboratory Tests Past 24 Hrs 01/18/19 01/18/19 01/18/19 10:12 10:12 10:12 WBC 15.3 H RBC 1.77 L Hgb 5.7 L* Hct 15.9 L MCV 89.8 MCH 32.2 H MCHC 35.8 RDW 14.6 RDW Differential 48.2 H Plt Count 298 MPV 9.5 PT INR Sodium 139 Potassium 4.5 Chloride 107 Carbon Dioxide 24.0 Anion Gap 8 BUN 82 H Creatinine 1.56 H Estim Creat Clear Calc 35.33 Est GFR (MDRD) Af Amer 56 L Est GFR (MDRD) Non-Af 46 L BUN/Creatinine Ratio 52.6 H Glucose 136 H Calcium 8.0 L Magnesium 2.4 Total Bilirubin 0.30 AST 31 ALT 78 H Alkaline Phosphatase 85 Total Protein 5.7 L Albumin 2.3 L Globulin 3.4 Albumin/Globulin Ratio 0.7 L Blood Type O POSITIVE Antibody Screen NEGATIVE Crossmatch See Detail 01/18/19 01/19/19 01/19/19 20:20 02:30 02:30 WBC RBC Hgb 7.3 L 7.0 L Hct 20.6 L 20.4 L MCV MCH MCHC RDW RDW Differential Plt Count MPV PT 14.5 INR 1.2 Sodium Potassium Chloride Carbon Dioxide Anion Gap BUN Creatinine Estim Creat Clear Calc Est GFR (MDRD) Af Amer Est GFR (MDRD) Non-Af BUN/Creatinine Ratio Glucose Calcium Magnesium Total Bilirubin AST ALT Alkaline Phosphatase Total Protein Albumin Globulin Albumin/Globulin Ratio Blood Type Antibody Screen Crossmatch 01/19/19 02:30 WBC RBC Hgb Hct MCV MCH MCHC RDW RDW Differential Plt Count MPV PT INR Sodium 140 Potassium 4.3 Chloride 109 H Carbon Dioxide 26.0 Anion Gap 5 BUN 57 H Creatinine 1.45 H Estim Creat Clear Calc 38.01 Est GFR (MDRD) Af Amer 61 Est GFR (MDRD) Non-Af 50 L BUN/Creatinine Ratio 39.3 H Glucose 148 H Calcium 7.8 L Magnesium Total Bilirubin AST ALT Alkaline Phosphatase Total Protein Albumin Globulin Albumin/Globulin Ratio Blood Type Antibody Screen Crossmatch POC Glucose 01/19/19 01/18/19 05:46 17:30 POC Glucose 117 H 126 H Medical Necessity - Tobacco Use Smoking Status: Current every day smoker Assessment/Plan All Active Problems (Last Reviewed 01/18/19 @ 10:35 by Akilah Winslow PA-C) Upper GI bleed (Acute) Hypokalemia (Resolved) H/O hernia repair (Resolved) History of appendectomy (Resolved) Colonoscopy planned (Resolved) Amputation of left lower extremity below knee (Resolved) Dyspnea (Acute) Lung mass (Acute) Hypoxia (Acute) ZACHARY (acute kidney injury) (Acute) Pneumonia (Acute) Sepsis (Acute) Hyponatremia (Acute) Chronic steroid use (Ruled-out) Significant GI blood loss anemia with persistent anemia with hemoglobin of 7. Suspected upper GI source likely stress ulceration of the lesser curvature of the stomach. Coffee-ground material was found in the stomach on upper endoscopy yesterday. The patient states that he has Buerger's disease. He continues to smoke cigarettes and has no interest in stopping. He has infragenicular peripheral vascular disease involving the right lower extremity. This is likely also impacting his ability to heal his right foot wound. Unfortunately has occurred an acute kidney injury as well. He is not a candidate for endovascular intervention of his right lower extremity at this time secondary to the acute kidney injury and secondary to the requirement that he would require intraprocedural anticoagulation and likely postprocedural antiplatelet therapy. Aggressive medical management of his suspected upper GI bleed recommended. I would hope to be able to follow-up with him as an outpatient in the future if his GI bleeding and renal function stabilizes to the point to allow for endovascular intervention to his right lower extremity. Jaydon Lazaro M.D., F.A.C.S.
[2019-01-19 07:30] LABS: Bedside Glucose 189 mg/dL (70-110)
[2019-01-19] MEDS: Glucerna Shake 120 ML LIQUID PO ×3 (08:08→21:08)
[2019-01-19] MEDS: Amox/Clavulanate 500 MG Tablet PO ×2 (10:46→16:43)
[2019-01-19 11:25] LABS: Bedside Glucose 296 mg/dL (70-110)
--- NOTE | 2019-01-19 11:44 | CASEMGMT ---
MEGHAN spoke with patient, introduced self and role at [facility]. SW let him know the Rehab unit feels he needs to go to a group home from the hospital instead of back to the Rehab Unit. He asked SW to talk with his and daughter. MEGHAN called patient's and left her a voice mail. MEGHAN will also try and call his daughter, Darcie. Leeann COBOS
--- NOTE | 2019-01-19 12:08 | CASEMGMT ---
SW called patient's daughter, Darcie. SW explained the rehab unit feels patient should go from [facility] to a skilled nursing instead of back to the rehab unit. She asked why and SW told her because he is not doing well with 3 hours of therapy. SW also explained instead of him going back to rehab for 4 or so days it would make sense to make transition now. She verbalized understanding. She confirmed her [facility] choice was [facility] and then [facility]. MEGHAN told her SW will make referral and keep them updated. SW told her the tentative plan is for d/c tomorrow. SW told her will keep her up to date. SW called [facility] and made referral as well as faxed over information. Plan: D/c to SNF, possibly [facility]. Leeann RUIZ MSW
--- NOTE | 2019-01-19 13:32 | CASEMGMT ---
Addendum entered by Leeann Hancock 01/19/19 14:00: SW called patient's daughter, Darcie letting her know [facility] can accept patient. She was worried about patient still being in agreement. SW told her SW went to let him know and he was sleeping. She told SW to let him know that it is close to their house. Leeann COBOS Original Note: [facility] can accept patient. SW will let patient and his family know this information. Plan: [facility] under skilled level of care. Leeann COBOS
--- NOTE | 2019-01-19 14:45 | CASEMGMT ---
MEGHAN spoke with patient letting him know that MEGHAN spoke with his daughter and everyone is in agreement that he go to [facility] when he leaves [facility]. MEGHAN reminded him that right now it is short term, however this could change, but right now we will focus on short term. He agreed with going to [facility]. MEGHAN told him his daughter wanted MEGHAN to let him know [place] is located where [facility] used to be located. He then recognized the location. He asked if his family knew he is being discharged tomorrow. MEGHAN let him know MEGHAN did tell them this information. Plan: [facility] under skilled level of care. Leeann RUIZ MSW
--- NOTE | 2019-01-19 15:02 | NURSING ---
IV fluids decreased to 100mls/hr at this time
--- NOTE | 2019-01-19 15:14 | NURSING ---
wound photo: left leg
--- NOTE | 2019-01-19 15:14 | NURSING ---
wound photo: right great toe
[2019-01-19 16:51] LABS: Bedside Glucose 101 mg/dL (70-110)
--- NOTE | 2019-01-19 17:11 | PCM.PN.HOSP ---
Patient Problems: Active and Suspected Problems (Last Reviewed 01/18/19 @ 10:35 by Akilah Winslow PA-C) Upper GI bleed (Acute) Subjective: The patient was seen and examined in the morning. Patient hemoglobin is still low. Patient denies chest pain or shortness of breath. Her pressure 154/64. Vitals/I&O's: Vital Signs Temp Pulse Resp BP Pulse Ox 98.3 F 76 14 154/65 H 98 01/19/19 16:30 01/19/19 16:30 01/19/19 16:30 01/19/19 16:30 01/19/19 16:30 Oxygen Flow Rate (L/min) 4 Oxygen Delivery Method Room Air Weight: 141 lb 1.533 oz Body Mass Index (BMI) 19.1 Intake and Output for Last 24 Hours 01/17/19 01/18/19 01/19/19 23:59 23:59 23:59 Intake Total 1694 / 1694 3395 / 3395 Output Total 1235 / 1235 2250 / 2250 Balance 459 / 459 1145 / 1145 General: Alert, Oriented x3, Cooperative HEENT: Atraumatic, PERRLA, EOMI, Normocephalic Neck: Supple, No JVD, Negative Carotid Bruits Lungs: Clear to auscultation, Normal air movement, No rhonchi, No wheeze, No rales Cardiovascular: Regular rate, Regular Rhythm, Normal S1, Normal S2, No murmurs Abdomen: Bowel Sounds Present, Soft, Non Tender Extremities: No edema, Capillary Refill Less than 3 Seconds, Diminished Peripheral Pulses Skin: Ulcer/ Wound - Right foot/toe ulcer. Musculoskeletal: No Tenderness to Palpation of Joints or Extremities, Arthritic Changes, Muscle Wasting Lymphatic: No Cervical, Supraclavicular, or Inguinal Adenopathy Neurological: Cranial nerves II-XII grossly intact, Deep Tendon Reflexes 2+/4 and Symmetrical, - - Peripheral diabetic neuropathy Psych/Mental Status: Normal Affect, Appropriate Laboratory Results 01/18/19 10:12: Crossmatch See Detail 01/18/19 17:30: POC Glucose 126 H 01/18/19 20:20: Hgb 7.3 L, Hct 20.6 L 01/19/19 00:57: POC Glucose 189 H 01/19/19 02:30: Hgb 7.0 L, Hct 20.4 L 01/19/19 02:30: PT 14.5, INR 1.2 01/19/19 02:30: Sodium 140, Potassium 4.3, Chloride 109 H, Carbon Dioxide 26.0, Anion Gap 5, BUN 57 H, Creatinine 1.45 H, Estim Creat Clear Calc 38.01, Est GFR (MDRD) Af Amer 61, Est GFR (MDRD) Non-Af 50 L, BUN/Creatinine Ratio 39.3 H, Glucose 148 H, Calcium 7.8 L 01/19/19 05:46: POC Glucose 117 H 01/19/19 11:11: POC Glucose 296 H 01/19/19 16:37: POC Glucose 101 Current Medications Acetaminophen (Tylenol) 650 mg PO Q6H PRN PRN PRN Reason: Mild Pain (scale 0-3)/T>100.7 Albuterol Sulfate (Ventolin Aerosols) 2.5 mg INHALATION Q4H PRN PRN PRN Reason: SOB &/OR WHEEZING Amoxicillin/Clavulanate Potassium (Augmentin Tablet) 500 mg PO BIDCM [facility] Last Admin: 01/19/19 16:43 Dose: 500 mg Atorvastatin Calcium (Lipitor) 40 mg PO QHS [facility] Last Admin: 01/18/19 22:31 Dose: 40 mg Bisacodyl (Dulcolax) 10 mg RECTAL DAILY PRN PRN PRN Reason: Constipation Dextrose (D50w Syringe) 0 gm IV X1 PRN; Protocol PRN Reason: Hypoglycemia Docusate Sodium (Colace) 200 mg PO BID PRN PRN PRN Reason: Constipation Glucagon () 1 mg IM .X1 PRN PRN Reason: Hypoglycemia Pantoprazole Sodium 40 mg/ (Sodium Chloride) 110 mls @ 330 mls/hr IV Q12 [facility] Last Admin: 01/19/19 08:08 Dose: 330 mls/hr Lactated Ringer's () 1,000 mls @ 100 mls/hr IV .Q10H [facility] Insulin Human Lispro (Humalog Kwikpen (Bkc)) 0 unit SQ Q6 [facility]; Protocol Last Admin: 01/19/19 16:42 Dose: Not Given Nutritional Formula (Braxton - Emmons Flavor) 1 packet PO BIDCM [facility] Last Admin: 01/19/19 16:43 Dose: 1 packet Nutritional Formula (Lactose Free) (Glucerna Shake) 120 ml PO 4X/DAY MAC Last Admin: 01/19/19 16:44 Dose: 120 ml Ondansetron HCl (Zofran) 4 mg IV Q8H PRN PRN PRN Reason: NAUSEA Oxycodone HCl (Oxyir) 5 mg PO Q4H PRN PRN PRN Reason: Moderate Pain (pain scale 4-5) Last Admin: 01/18/19 22:29 Dose: 5 mg Sodium Chloride () 5 - 15 ml IV UD PRN PRN Reason: SALINE FLUSH Last Admin: 01/18/19 22:30 Dose: 15 ml Sodium Chloride () 10 - 40 ml IV UD PRN PRN Reason: MULTILUMEN/HICMAN CATH FLUSH Last Admin: 01/19/19 02:35 Dose: 20 ml Zolpidem Tartrate (Ambien (Generic)) 5 mg PO QHS PRN PRN PRN Reason: INSOMNIA Medical Necessity - Tobacco Use Smoking Status: Current every day smoker Assessment/Plan All Active Problems (Last Reviewed 01/18/19 @ 10:35 by Akilah Winslow PA-C) Upper GI bleed (Acute) Hypokalemia (Resolved) H/O hernia repair (Resolved) History of appendectomy (Resolved) Colonoscopy planned (Resolved) Amputation of left lower extremity below knee (Resolved) Dyspnea (Acute) Lung mass (Acute) Hypoxia (Acute) ZACHARY (acute kidney injury) (Acute) Pneumonia (Acute) Sepsis (Acute) Hyponatremia (Acute) Chronic steroid use (Ruled-out) This 70-year-old gentleman with history of diabetes mellitus type 2 with diabetic polyneuropathy, chronic right diabetic foot infection/ulcer , complicated with osteomyelitis with history of left BKA. Wound culture is positive for Proteus, Turiecella otitidis, Staphylococcus simulans and Enterococcus faecalis on vancomycin sensitive. On Augmentin. The patient is being transferred from rehab unit to PCU for upper GI bleed. Patient has large black stool suggestive of melena yesterday night. H&H dropped from 11.6/32.9 on 01/12 to 5.3/15 on 01/18. Patient denies dizziness, lightheadedness, abdominal pain, chest pain or shortness of breath. The patient had orthostatic vitals taken in rehab unit. In supine 129/65, heart rate 78, sitting 121/53, heart rate 80 and on standing 135/62, pulse 90/min. This is negative for orthostatic change. Patient is admitted on stepdown unit for further evaluation and management 1. Acute anemia of blood loss; secondary to upper GI bleed on baseline anemia of chronic disease: Patient is being admitted to stepdown unit. Patient had 2 units of PRBC transfusion yesterday. Repeat hemoglobin shows 7.3 g%. And then 7.0 gm%. 1 unit of PRBC ordered. Was seen by Dr. Lazaro. EGD shows grade B reflux esophagitis, small hiatal hernia. Erythematous mucosa in the antrum with altered blood/coffee-ground material in gastric antrum. Normal duodenum. Patient is on IV Protonix 40 g every 12 hourly. Repeat H&H posttransfusion. Discontinue Ringer lactate. On clear liquid diet DVT prophylactic dose Lovenox discontinued. Stool for occult blood is positive. Iron studies shows iron 56, TIBC 219, ferritin 119 and iron saturation 25% suggestive of anemia of chronic disease. B12 623 on 01/10. RBC folate 10,000. 2. RLE diabetic foot infection and toe infection with osteomyelitis with peripheral arterial disease s/p bedside I+D on 01/09 Cx + for proteus and Staphylococcus stimulants, Enterococcus faecalis, vancomycin sensitive. Toe bone culture on 01/10. Culture is positive of Proteus mirabilis, Turiecella otitidis, Staphylococcus simulans and Enterococcus faecalis on vancomycin sensitive Augmentin through 02/22 Continue follow-up with ID. Patient seen by Dr. Correa Patient has outpatient follow-up with Dr. Lazaro. Arterial Doppler shows biphasic waves in the right DP and [place]. JHON 0.8 3. hyponatremia: Last sodium 136. 4. COPD: not in exacerbation prednisone discontinued 5. severe protein malnutrition presumed prealbumin 8.4 nutrition on consult complicates care continue Glucerna shake QID plus Braxton 6. right arm pain s/p fall suspect rotator cuff tear/injury conservative mgmt pt able to raise bother arms up without difficulty 7. ZACHARY resolved Prerenal etiology Creatinine went up from 1.25-1.4. Discontinue naproxen 9. Delirium head CT from the showed chronic involution changes with old lacunar infarct Resolved DVT prophylaxis: Lovenox discontinued. SCD on right lower extremity Laboratory Results 01/18/19 10:12: Crossmatch See Detail 01/18/19 17:30: POC Glucose 126 H 01/18/19 20:20: Hgb 7.3 L, Hct 20.6 L 01/19/19 00:57: POC Glucose 189 H 01/19/19 02:30: Hgb 7.0 L, Hct 20.4 L 01/19/19 02:30: PT 14.5, INR 1.2 01/19/19 02:30: Sodium 140, Potassium 4.3, Chloride 109 H, Carbon Dioxide 26.0, Anion Gap 5, BUN 57 H, Creatinine 1.45 H, Estim Creat Clear Calc 38.01, Est GFR (MDRD) Af Amer 61, Est GFR (MDRD) Non-Af 50 L, BUN/Creatinine Ratio 39.3 H, Glucose 148 H, Calcium 7.8 L 01/19/19 05:46: POC Glucose 117 H 01/19/19 11:11: POC Glucose 296 H 01/19/19 16:37: POC Glucose 101 Active Medications Acetaminophen (Tylenol) 650 mg PO Q6H PRN PRN PRN Reason: Mild Pain (scale 0-3)/T>100.7 Albuterol Sulfate (Ventolin Aerosols) 2.5 mg INHALATION Q4H PRN PRN PRN Reason: SOB &/OR WHEEZING Amoxicillin/Clavulanate Potassium (Augmentin Tablet) 500 mg PO BIDCM [facility] Last Admin: 01/19/19 16:43 Dose: 500 mg Atorvastatin Calcium (Lipitor) 40 mg PO QHS [facility] Last Admin: 01/18/19 22:31 Dose: 40 mg Bisacodyl (Dulcolax) 10 mg RECTAL DAILY PRN PRN PRN Reason: Constipation Dextrose (D50w Syringe) 0 gm IV X1 PRN; Protocol PRN Reason: Hypoglycemia Docusate Sodium (Colace) 200 mg PO BID PRN PRN PRN Reason: Constipation Glucagon () 1 mg IM .X1 PRN PRN Reason: Hypoglycemia Pantoprazole Sodium 40 mg/ (Sodium Chloride) 110 mls @ 330 mls/hr IV Q12 [facility] Last Admin: 01/19/19 08:08 Dose: 330 mls/hr Lactated Ringer's () 1,000 mls @ 100 mls/hr IV .Q10H [facility] Insulin Human Lispro (Humalog Kwikpen (Bkc)) 0 unit SQ Q6 [facility]; Protocol Last Admin: 01/19/19 16:42 Dose: Not Given Nutritional Formula (Braxton - Emmons Flavor) 1 packet PO BIDCM [facility] Last Admin: 01/19/19 16:43 Dose: 1 packet Nutritional Formula (Lactose Free) (Glucerna Shake) 120 ml PO 4X/DAY [facility] Last Admin: 01/19/19 16:44 Dose: 120 ml Ondansetron HCl (Zofran) 4 mg IV Q8H PRN PRN PRN Reason: NAUSEA Oxycodone HCl (Oxyir) 5 mg PO Q4H PRN PRN PRN Reason: Moderate Pain (pain scale 4-5) Last Admin: 01/18/19 22:29 Dose: 5 mg Sodium Chloride () 5 - 15 ml IV UD PRN PRN Reason: SALINE FLUSH Last Admin: 01/18/19 22:30 Dose: 15 ml Sodium Chloride () 10 - 40 ml IV UD PRN PRN Reason: MULTILUMEN/HICMAN CATH FLUSH Last Admin: 01/19/19 02:35 Dose: 20 ml Zolpidem Tartrate (Ambien (Generic)) 5 mg PO QHS PRN PRN PRN Reason: INSOMNIA Code Visit Inpatient E&M: 74734 Subs Hosp L3
--- NOTE | 2019-01-19 17:16 | PN_ITS ---
Patient Problems: Active and Suspected Problems (Last Reviewed 01/18/19 @ 10:35 by Akilah Winslow PA-C) Upper GI bleed (Acute) Subjective: The patient was seen and examined in the morning. Patient hemoglobin is still low. Patient denies chest pain or shortness of breath. Her pressure 154/64. Vitals/I&O's: Vital Signs Temp Pulse Resp BP Pulse Ox 98.3 F 76 14 154/65 H 98 01/19/19 16:30 01/19/19 16:30 01/19/19 16:30 01/19/19 16:30 01/19/19 16:30 Oxygen Flow Rate (L/min) 4 Oxygen Delivery Method Room Air Weight: 141 lb 1.533 oz Body Mass Index (BMI) 19.1 Intake and Output for Last 24 Hours 01/17/19 01/18/19 01/19/19 23:59 23:59 23:59 Intake Total 1694 / 1694 3395 / 3395 Output Total 1235 / 1235 2250 / 2250 Balance 459 / 459 1145 / 1145 General: Alert, Oriented x3, Cooperative HEENT: Atraumatic, PERRLA, EOMI, Normocephalic Neck: Supple, No JVD, Negative Carotid Bruits Lungs: Clear to auscultation, Normal air movement, No rhonchi, No wheeze, No rales Cardiovascular: Regular rate, Regular Rhythm, Normal S1, Normal S2, No murmurs Abdomen: Bowel Sounds Present, Soft, Non Tender Extremities: No edema, Capillary Refill Less than 3 Seconds, Diminished Peripheral Pulses Skin: Ulcer/ Wound - Right foot/toe ulcer. Musculoskeletal: No Tenderness to Palpation of Joints or Extremities, Arthritic Changes, Muscle Wasting Lymphatic: No Cervical, Supraclavicular, or Inguinal Adenopathy Neurological: Cranial nerves II-XII grossly intact, Deep Tendon Reflexes 2+/4 and Symmetrical, - - Peripheral diabetic neuropathy Psych/Mental Status: Normal Affect, Appropriate Laboratory Results 01/18/19 10:12: Crossmatch See Detail 01/18/19 17:30: POC Glucose 126 H 01/18/19 20:20: Hgb 7.3 L, Hct 20.6 L 01/19/19 00:57: POC Glucose 189 H 01/19/19 02:30: Hgb 7.0 L, Hct 20.4 L 01/19/19 02:30: PT 14.5, INR 1.2 01/19/19 02:30: Sodium 140, Potassium 4.3, Chloride 109 H, Carbon Dioxide 26.0, Anion Gap 5, BUN 57 H, Creatinine 1.45 H, Estim Creat Clear Calc 38.01, Est GFR (MDRD) Af Amer 61, Est GFR (MDRD) Non-Af 50 L, BUN/Creatinine Ratio 39.3 H, Glucose 148 H, Calcium 7.8 L 01/19/19 05:46: POC Glucose 117 H 01/19/19 11:11: POC Glucose 296 H 01/19/19 16:37: POC Glucose 101 Current Medications Acetaminophen (Tylenol) 650 mg PO Q6H PRN PRN PRN Reason: Mild Pain (scale 0-3)/T>100.7 Albuterol Sulfate (Ventolin Aerosols) 2.5 mg INHALATION Q4H PRN PRN PRN Reason: SOB &/OR WHEEZING Amoxicillin/Clavulanate Potassium (Augmentin Tablet) 500 mg PO BIDCM [facility] Last Admin: 01/19/19 16:43 Dose: 500 mg Atorvastatin Calcium (Lipitor) 40 mg PO QHS [facility] Last Admin: 01/18/19 22:31 Dose: 40 mg Bisacodyl (Dulcolax) 10 mg RECTAL DAILY PRN PRN PRN Reason: Constipation Dextrose (D50w Syringe) 0 gm IV X1 PRN; Protocol PRN Reason: Hypoglycemia Docusate Sodium (Colace) 200 mg PO BID PRN PRN PRN Reason: Constipation Glucagon () 1 mg IM .X1 PRN PRN Reason: Hypoglycemia Pantoprazole Sodium 40 mg/ (Sodium Chloride) 110 mls @ 330 mls/hr IV Q12 [facility] Last Admin: 01/19/19 08:08 Dose: 330 mls/hr Lactated Ringer's () 1,000 mls @ 100 mls/hr IV .Q10H [facility] Insulin Human Lispro (Humalog Kwikpen (Bkc)) 0 unit SQ Q6 [facility]; Protocol Last Admin: 01/19/19 16:42 Dose: Not Given Nutritional Formula (Braxton - Oxford Flavor) 1 packet PO BIDCM [facility] Last Admin: 01/19/19 16:43 Dose: 1 packet Nutritional Formula (Lactose Free) (Glucerna Shake) 120 ml PO 4X/DAY MAC Last Admin: 01/19/19 16:44 Dose: 120 ml Ondansetron HCl (Zofran) 4 mg IV Q8H PRN PRN PRN Reason: NAUSEA Oxycodone HCl (Oxyir) 5 mg PO Q4H PRN PRN PRN Reason: Moderate Pain (pain scale 4-5) Last Admin: 01/18/19 22:29 Dose: 5 mg Sodium Chloride () 5 - 15 ml IV UD PRN PRN Reason: SALINE FLUSH Last Admin: 01/18/19 22:30 Dose: 15 ml Sodium Chloride () 10 - 40 ml IV UD PRN PRN Reason: MULTILUMEN/HICMAN CATH FLUSH Last Admin: 01/19/19 02:35 Dose: 20 ml Zolpidem Tartrate (Ambien (Generic)) 5 mg PO QHS PRN PRN PRN Reason: INSOMNIA Medical Necessity - Tobacco Use Smoking Status: Current every day smoker Assessment/Plan All Active Problems (Last Reviewed 01/18/19 @ 10:35 by Akilah Winslow PA-C) Upper GI bleed (Acute) Hypokalemia (Resolved) H/O hernia repair (Resolved) History of appendectomy (Resolved) Colonoscopy planned (Resolved) Amputation of left lower extremity below knee (Resolved) Dyspnea (Acute) Lung mass (Acute) Hypoxia (Acute) ZACHARY (acute kidney injury) (Acute) Pneumonia (Acute) Sepsis (Acute) Hyponatremia (Acute) Chronic steroid use (Ruled-out) This 70-year-old gentleman with history of diabetes mellitus type 2 with diabetic polyneuropathy, chronic right diabetic foot infection/ulcer , complicated with osteomyelitis with history of left BKA. Wound culture is positive for Proteus, Turiecella otitidis, Staphylococcus simulans and Enterococcus faecalis on vancomycin sensitive. On Augmentin. The patient is being transferred from rehab unit to PCU for upper GI bleed. Patient has large black stool suggestive of melena yesterday night. H&H dropped from 11.6/32.9 on 01/12 to 5.3/15 on 01/18. Patient denies dizziness, lightheadedness, abdominal pain, chest pain or shortness of breath. The patient had orthostatic vitals taken in rehab unit. In supine 129/65, heart rate 78, sitting 121/53, heart rate 80 and on standing 135/62, pulse 90/min. This is negative for orthostatic change. Patient is admitted on stepdown unit for further evaluation and management 1. Acute anemia of blood loss; secondary to upper GI bleed on baseline anemia of chronic disease: Patient is being admitted to stepdown unit. Patient had 2 units of PRBC transfusion yesterday. Repeat hemoglobin shows 7.3 g%. And then 7.0 gm%. 1 unit of PRBC ordered. Was seen by Dr. Lazaro. EGD shows grade B reflux esophagitis, small hiatal hernia. Erythematous mucosa in the antrum with altered blood/coffee-ground material in gastric antrum. Normal duodenum. Patient is on IV Protonix 40 g every 12 hourly. Repeat H&H posttransfusion. Discontinue Ringer lactate. On clear liquid diet * DVT prophylactic dose Lovenox discontinued. Stool for occult blood is positive. Iron studies shows iron 56, TIBC 219, ferritin 119 and iron saturation 25% suggestive of anemia of chronic disease. * B12 623 on 01/10. RBC folate 10,000. 2. RLE diabetic foot infection and toe infection with osteomyelitis with peripheral arterial disease * s/p bedside I+D on 01/09 * Cx + for proteus and Staphylococcus stimulants, Enterococcus faecalis, vancomycin sensitive. * Toe bone culture on 01/10. Culture is positive of Proteus mirabilis, Turiecella otitidis, Staphylococcus simulans and Enterococcus faecalis on vancomycin sensitive * Augmentin through 02/22 * Continue follow-up with ID. * Patient seen by Dr. Correa * Patient has outpatient follow-up with Dr. Lazaro. Arterial Doppler shows biphasic waves in the right DP and [place]. JHON 0.8 3. hyponatremia: * Last sodium 136. 4. COPD: * not in exacerbation prednisone discontinued 5. severe protein malnutrition * presumed * prealbumin 8.4 * nutrition on consult * complicates care * continue Glucerna shake QID plus Braxton 6. right arm pain * s/p fall * suspect rotator cuff tear/injury * conservative mgmt * pt able to raise bother arms up without difficulty 7. ZACHARY * resolved * Prerenal etiology * Creatinine went up from 1.25-1.4. Discontinue naproxen 9. Delirium * head CT from the showed chronic involution changes with old lacunar infarct * Resolved DVT prophylaxis: Lovenox discontinued. SCD on right lower extremity Laboratory Results 01/18/19 10:12: Crossmatch See Detail 01/18/19 17:30: POC Glucose 126 H 01/18/19 20:20: Hgb 7.3 L, Hct 20.6 L 01/19/19 00:57: POC Glucose 189 H 01/19/19 02:30: Hgb 7.0 L, Hct 20.4 L 01/19/19 02:30: PT 14.5, INR 1.2 01/19/19 02:30: Sodium 140, Potassium 4.3, Chloride 109 H, Carbon Dioxide 26.0, Anion Gap 5, BUN 57 H, Creatinine 1.45 H, Estim Creat Clear Calc 38.01, Est GFR (MDRD) Af Amer 61, Est GFR (MDRD) Non-Af 50 L, BUN/Creatinine Ratio 39.3 H, Glucose 148 H, Calcium 7.8 L 01/19/19 05:46: POC Glucose 117 H 01/19/19 11:11: POC Glucose 296 H 01/19/19 16:37: POC Glucose 101 Active Medications Acetaminophen (Tylenol) 650 mg PO Q6H PRN PRN PRN Reason: Mild Pain (scale 0-3)/T>100.7 Albuterol Sulfate (Ventolin Aerosols) 2.5 mg INHALATION Q4H PRN PRN PRN Reason: SOB &/OR WHEEZING Amoxicillin/Clavulanate Potassium (Augmentin Tablet) 500 mg PO BIDCM [facility] Last Admin: 01/19/19 16:43 Dose: 500 mg Atorvastatin Calcium (Lipitor) 40 mg PO QHS [facility] Last Admin: 01/18/19 22:31 Dose: 40 mg Bisacodyl (Dulcolax) 10 mg RECTAL DAILY PRN PRN PRN Reason: Constipation Dextrose (D50w Syringe) 0 gm IV X1 PRN; Protocol PRN Reason: Hypoglycemia Docusate Sodium (Colace) 200 mg PO BID PRN PRN PRN Reason: Constipation Glucagon () 1 mg IM .X1 PRN PRN Reason: Hypoglycemia Pantoprazole Sodium 40 mg/ (Sodium Chloride) 110 mls @ 330 mls/hr IV Q12 [facility] Last Admin: 01/19/19 08:08 Dose: 330 mls/hr Lactated Ringer's () 1,000 mls @ 100 mls/hr IV .Q10H [facility] Insulin Human Lispro (Humalog Kwikpen (Bkc)) 0 unit SQ Q6 [facility]; Protocol Last Admin: 01/19/19 16:42 Dose: Not Given Nutritional Formula (Braxton - Oxford Flavor) 1 packet PO BIDCM [facility] Last Admin: 01/19/19 16:43 Dose: 1 packet Nutritional Formula (Lactose Free) (Glucerna Shake) 120 ml PO 4X/DAY [facility] Last Admin: 01/19/19 16:44 Dose: 120 ml Ondansetron HCl (Zofran) 4 mg IV Q8H PRN PRN PRN Reason: NAUSEA Oxycodone HCl (Oxyir) 5 mg PO Q4H PRN PRN PRN Reason: Moderate Pain (pain scale 4-5) Last Admin: 01/18/19 22:29 Dose: 5 mg Sodium Chloride () 5 - 15 ml IV UD PRN PRN Reason: SALINE FLUSH Last Admin: 01/18/19 22:30 Dose: 15 ml Sodium Chloride () 10 - 40 ml IV UD PRN PRN Reason: MULTILUMEN/HICMAN CATH FLUSH Last Admin: 01/19/19 02:35 Dose: 20 ml Zolpidem Tartrate (Ambien (Generic)) 5 mg PO QHS PRN PRN PRN Reason: INSOMNIA Code Visit Inpatient E&M: 45146 Subs Hosp L3
[2019-01-19 18:59] LABS: Hematocrit 21.5 % (40-54); Hemoglobin 7.5 g/dl (13.0-16.5)
[2019-01-19] MEDS: oxyCODONE 5 MG Tablet PO (21:08)
[2019-01-19] MEDS: Atorvastatin Calcium 40 MG Tablet PO (21:08)
[2019-01-19] MEDS: 0.9% NaCl Peripheral Flush Adult/Peds IV (21:09)
[2019-01-19 23:20] LABS: Bedside Glucose 184 mg/dL (70-110)
[2019-01-19] MEDS: Lactated Ringers 1,000 ML 100 ML IV (23:36)
[2019-01-20] VITALS (7 sets, daily range): BP systolic 150–160; BP diastolic 62–78; PULSE 77–88; RESP 16–18; TEMP 36.8–36.9; O2SAT 97–100
[2019-01-20] MEDS: 0.9% NaCl Peripheral Flush Adult/Peds IV ×2 (04:40→04:42)
[2019-01-20 04:50] LABS: Absolute Lymphocyte Count 1.77 X10^3/ul (0.83-4.51); Absolute Neutrophil Count 8.3 X10^3/uL (2.0-7.7); Basophil# 0.04 X10^3/uL; Basophil% 0.4 % (0-1); Eosinophil# 0.24 X10^3/uL; Eosinophils% 2.1 % (0-5); Hematocrit 24.1 % (40-54); Hemoglobin 8.4 g/dl (13.0-16.5); Lymphocyte # 1.77 X10^3/ul (4.0); Lymphocyte % 15.7 % (19-41); Mean Corp Hgb Conc 34.9 g/gl (32-36); Mean Corpuscular Hgb 30.7 pg (27.0-32.0); Mean Platelet Vol. 9.8 fl (6.2-12.0); Monocyte% 7.1 % (0-10); Neutrophil # 8.26 X10^3/uL (2.7-7.7); Neutrophil % 73.5 % (47-70); Platelet Count 290 K/mm3 (150-450); RBC Distribution Width CV 15.2 % (11.6-14.6); RBC Distribution Width SD 46.2 fl (35.1-43.9); Red Blood Count 2.74 M/mm3 (4.6-6.2); White Blood Count 11.2 K/mm3 (4.4-11.0)
[2019-01-20 04:51] LABS: POSITIVE COUNT NO; POSITIVE DIFFERENTIAL NO; POSITIVE MORPHOLOGY NO
[2019-01-20 05:02] LABS: Anion Gap 4 (5-15); BUN 35 mg/dL (7-18); BUN/Creat Ratio 25.9 RATIO (10-20); Calcium,Total 8.2 mg/dL (8.5-10.1); Chloride 109 mmol/L (98-107); Creatinine, Serum 1.35 mg/dL (0.70-1.30); EST Glomerular Filtration Rate 54 mL/min (>60); Est Glom Filt Rate - Afr Amer 66 mL/min (>60); Estimated Creatinine Clearance 40.82 ml/min; Glucose 106 mg/dL (74-106); Potassium 4.1 mmol/L (3.5-5.1); Sodium Level 141 mmol/L (136-145)
--- NOTE | 2019-01-20 05:52 | PCM.PN.SRG ---
Patient Problems: Active and Suspected Problems (Last Reviewed 01/18/19 @ 10:35 by Akilah Winslow PA-C) Upper GI bleed (Acute) Subjective: Pt denies abdominal pain States he had one small stool yesterday Received 2u PRBC yesterday to total of 4 units - Physical Exam Abdomen: Soft, Non Tender Vital Signs Temp Pulse Resp BP Pulse Ox 98.3 F 77 16 160/62 H 97 01/20/19 02:40 01/20/19 03:01 01/20/19 02:40 01/20/19 02:40 01/20/19 02:40 Oxygen Flow Rate (L/min) 4 Oxygen Delivery Method Room Air Weight: 141 lb 1.533 oz Body Mass Index (BMI) 19.1 Intake and Output for Last 24 Hours 01/18/19 01/19/19 01/20/19 23:59 23:59 23:59 Intake Total 1694 / 1694 6084 / 6084 Output Total 1235 / 1235 3375 / 3375 Balance 459 / 459 2709 / 2709 Laboratory Tests Past 24 Hrs 01/18/19 01/18/19 01/19/19 10:12 10:12 18:45 WBC RBC Hgb 7.5 L Hct 21.5 L MCV MCH MCHC RDW RDW Differential Plt Count MPV Immature Gran % (Auto) Neut % (Auto) Lymph % (Auto) [place]row % (Auto) Eos % (Auto) Baso % (Auto) Absolute Neuts (auto) Absolute Lymphs (auto) Total Counted Sodium Potassium Chloride Carbon Dioxide Anion Gap BUN Creatinine Estim Creat Clear Calc Est GFR (MDRD) Af Amer Est GFR (MDRD) Non-Af BUN/Creatinine Ratio Glucose Calcium Crossmatch See Detail See Detail 01/20/19 01/20/19 04:40 04:40 WBC 11.2 H RBC 2.74 L Hgb 8.4 L Hct 24.1 L MCV 88.0 MCH 30.7 MCHC 34.9 RDW 15.2 H RDW Differential 46.2 H Plt Count 290 MPV 9.8 Immature Gran % (Auto) 1.200 H Neut % (Auto) 73.5 H Lymph % (Auto) 15.7 L [place] % (Auto) 7.1 Eos % (Auto) 2.1 Baso % (Auto) 0.4 Absolute Neuts (auto) 8.3 H Absolute Lymphs (auto) 1.77 Total Counted Not Reportable Sodium 141 Potassium 4.1 Chloride 109 H Carbon Dioxide 28.0 Anion Gap 4 L BUN 35 H Creatinine 1.35 H Estim Creat Clear Calc 40.82 Est GFR (MDRD) Af Amer 66 Est GFR (MDRD) Non-Af 54 L BUN/Creatinine Ratio 25.9 H Glucose 106 Calcium 8.2 L Crossmatch POC Glucose 01/19/19 01/19/19 01/19/19 23:10 16:37 11:11 POC Glucose 184 H 101 296 H 01/19/19 01/19/19 05:46 00:57 POC Glucose 117 H 189 H Medical Necessity - Tobacco Use Smoking Status: Current every day smoker Assessment/Plan All Active Problems (Last Reviewed 01/18/19 @ 10:35 by Akilah Winslow PA-C) Upper GI bleed (Acute) Hypokalemia (Resolved) H/O hernia repair (Resolved) History of appendectomy (Resolved) Colonoscopy planned (Resolved) Amputation of left lower extremity below knee (Resolved) Dyspnea (Acute) Lung mass (Acute) Hypoxia (Acute) ZACHARY (acute kidney injury) (Acute) Pneumonia (Acute) Sepsis (Acute) Hyponatremia (Acute) Chronic steroid use (Ruled-out) Hgb 8.4 after 4 units Pt otherwise appears stable but notes a melanotic stool yesterday Continue observation today with ongoing medical treatment
[2019-01-20 06:50] LABS: Bedside Glucose 119 mg/dL (70-110)
[2019-01-20] MEDS: Amox/Clavulanate 500 MG Tablet PO (08:59)
[2019-01-20] MEDS: Glucerna Shake 120 ML LIQUID PO (09:02)
[2019-01-20] MEDS: Lactated Ringers 1,000 ML 100 ML IV (09:43)
--- NOTE | 2019-01-20 10:14 | PN_ITS ---
Patient Problems: Active and Suspected Problems (Last Reviewed 01/18/19 @ 10:35 by Akilah Winslow PA-C) Upper GI bleed (Acute) Vitals/I&O's: Vital Signs Temp Pulse Resp BP Pulse Ox 98.3 F 82 16 154/71 H 100 01/20/19 08:40 01/20/19 08:40 01/20/19 08:40 01/20/19 08:40 01/20/19 08:40 Oxygen Flow Rate (L/min) 4 Oxygen Delivery Method Room Air Weight: 141 lb 1.533 oz Body Mass Index (BMI) 19.1 Intake and Output for Last 24 Hours 01/18/19 01/19/19 01/20/19 23:59 23:59 23:59 Intake Total 1694 / 1694 6084 / 6084 663 / 663 Output Total 1235 / 1235 3375 / 3375 900 / 900 Balance 459 / 459 2709 / 2709 -237 / -237 Laboratory Results 01/18/19 10:12: Crossmatch See Detail 01/18/19 10:12: Crossmatch See Detail 01/19/19 11:11: POC Glucose 296 H 01/19/19 16:37: POC Glucose 101 01/19/19 18:45: Hgb 7.5 L, Hct 21.5 L 01/19/19 23:10: POC Glucose 184 H 01/20/19 04:40: WBC 11.2 H, RBC 2.74 L, Hgb 8.4 L, Hct 24.1 L, MCV 88.0, MCH 30.7, MCHC 34.9, RDW 15.2 H, RDW Differential 46.2 H, Plt Count 290, MPV 9.8, Immature Gran % (Auto) 1.200 H, Neut % (Auto) 73.5 H, Lymph % (Auto) 15.7 L, Forrest % (Auto) 7.1, Eos % (Auto) 2.1, Baso % (Auto) 0.4, Absolute Neuts (auto) 8.3 H, Absolute Lymphs (auto) 1.77, Total Counted Not Reportable 01/20/19 04:40: Sodium 141, Potassium 4.1, Chloride 109 H, Carbon Dioxide 28.0, Anion Gap 4 L, BUN 35 H, Creatinine 1.35 H, Estim Creat Clear Calc 40.82, Est GFR (MDRD) Af Amer 66, Est GFR (MDRD) Non-Af 54 L, BUN/Creatinine Ratio 25.9 H, Glucose 106, Calcium 8.2 L 01/20/19 06:15: POC Glucose 119 H Current Medications Acetaminophen (Tylenol) 650 mg PO Q6H PRN PRN PRN Reason: Mild Pain (scale 0-3)/T>100.7 Albuterol Sulfate (Ventolin Aerosols) 2.5 mg INHALATION Q4H PRN PRN PRN Reason: SOB &/OR WHEEZING Amoxicillin/Clavulanate Potassium (Augmentin Tablet) 500 mg PO BIDCM [facility] Last Admin: 01/20/19 08:59 Dose: 500 mg Atorvastatin Calcium (Lipitor) 40 mg PO QHS [facility] Last Admin: 01/19/19 21:08 Dose: 40 mg Bisacodyl (Dulcolax) 10 mg RECTAL DAILY PRN PRN PRN Reason: Constipation Dextrose (D50w Syringe) 0 gm IV X1 PRN; Protocol PRN Reason: Hypoglycemia Docusate Sodium (Colace) 200 mg PO BID PRN PRN PRN Reason: Constipation Glucagon () 1 mg IM .X1 PRN PRN Reason: Hypoglycemia Pantoprazole Sodium 40 mg/ (Sodium Chloride) 110 mls @ 330 mls/hr IV Q12 [facility] Last Admin: 01/20/19 09:57 Dose: 330 mls/hr Lactated Ringer's () 1,000 mls @ 100 mls/hr IV .Q10H [facility] Last Admin: 01/20/19 09:43 Dose: 100 mls/hr Iron Sucrose 200 mg/ Sodium (Chloride) 110 mls @ 220 mls/hr IV X1 ONE Stop: 01/20/19 11:29 Insulin Human Lispro (Humalog Kwikpen (Bkc)) 0 unit SQ Q6 [facility]; Protocol Last Admin: 01/20/19 06:16 Dose: Not Given Nutritional Formula (Braxton - [place] Flavor) [facility] Last Admin: 01/20/19 08:59 Dose: 1 packet Nutritional Formula (Lactose Free) (Glucerna Shake) 120 ml PO 4X/DAY [facility] Last Admin: 01/20/19 09:02 Dose: 120 ml Ondansetron HCl (Zofran) 4 mg IV Q8H PRN PRN PRN Reason: NAUSEA Oxycodone HCl (Oxyir) 5 mg PO Q4H PRN PRN PRN Reason: Moderate Pain (pain scale 4-5) Last Admin: 01/19/19 21:08 Dose: 5 mg Sodium Chloride () 5 - 15 ml IV UD PRN PRN Reason: SALINE FLUSH Last Admin: 01/20/19 04:42 Dose: 10 ml Sodium Chloride () 10 - 40 ml IV UD PRN PRN Reason: MULTILUMEN/HICMAN CATH FLUSH Last Admin: 01/19/19 17:29 Dose: 10 ml Zolpidem Tartrate (Ambien (Generic)) 5 mg PO QHS PRN PRN PRN Reason: INSOMNIA Medical Necessity - Tobacco Use Smoking Status: Current every day smoker Assessment/Plan All Active Problems (Last Reviewed 01/18/19 @ 10:35 by Akilah Winslow PA-C) Upper GI bleed (Acute) Hypokalemia (Resolved) H/O hernia repair (Resolved) History of appendectomy (Resolved) Colonoscopy planned (Resolved) Amputation of left lower extremity below knee (Resolved) Dyspnea (Acute) Lung mass (Acute) Hypoxia (Acute) ZACHARY (acute kidney injury) (Acute) Pneumonia (Acute) Sepsis (Acute) Hyponatremia (Acute) Chronic steroid use (Ruled-out)
--- NOTE | 2019-01-20 10:50 | PCM.TXEXTCAR ---
- Diet 01/18/19 18:10 Diet: Cardiac/Low Cholesterol Is pt able to select menu?: Yes - Routine Orders/Code Status Suppository Type: Dulcolax 10mg Suppository Frequency: Daily PRN Routine Lab Work: CBC - every week starting on 01/23/19 - Wound(s) left knee Wound Type: nonhealing wound (from prosthesis?) Dressing Change: Adaptic Right foot Wound Type: Neuropathic/Diabetic Foot Ulcer LFA Wound Type: Skin Tear Top of head Wound Type: Abrasion right great toe Wound Type: Neuropathic/Diabetic Foot Ulcer Dressing Change: AntiMicrobial (Aquacel AG, etc) - Therapies Weight Bearing: Weight bearing as tolerated Extremity Affected:: Bilateral Lower Physical Therapy: Eval and Treat Occupational Therapy: Eval and Treat Speech Therapy: Eval and Treat - Problem/Diagnosis (1) Upper GI bleed Status: Acute Current Visit: Yes (2) Diabetic foot infection Status: Chronic Current Visit: No (3) Hypokalemia Status: Resolved Current Visit: No (4) 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 Current Visit: No (5) Other specified peripheral vascular diseases Status: Chronic Current Visit: No (6) Type 2 diabetes mellitus with diabetic polyneuropathy Status: Chronic Current Visit: No (7) Osteomyelitis of right foot Status: Chronic Current Visit: No (8) H/O hernia repair Status: Resolved Current Visit: No (9) History of appendectomy Status: Resolved Current Visit: No (10) Colonoscopy planned Status: Resolved Current Visit: No (11) Amputation of left lower extremity below knee Status: Resolved Current Visit: No (12) Asthma Status: Chronic Current Visit: No (13) Cough Status: Chronic Current Visit: No (14) Dyspnea Status: Acute Current Visit: No (15) Tobacco abuse Status: Chronic Current Visit: No (16) Lung mass Status: Acute Comment: Approximately 2 cm left upper lobe cavitary lesion Current Visit: No (17) COPD (chronic obstructive pulmonary disease) Status: Chronic Current Visit: No (18) Hypoxia Status: Acute Current Visit: No (19) Diabetes mellitus Status: Chronic Current Visit: No (20) HTN (hypertension) Status: Chronic Current Visit: No (21) Hyperlipidemia Status: Chronic Current Visit: No (22) ZACHARY (acute kidney injury) Status: Acute Current Visit: No (23) Pneumonia Status: Acute Current Visit: No (24) Sepsis Status: Acute Current Visit: No (25) Hyponatremia Status: Acute Current Visit: No - Allergies/Procedures Done in Hospital Allergies/Adverse Reactions: Allergies No Known Allergies Allergy (Verified 09/15/17 09:11) - Type of Care/Length of Stay Estimated LOS: Convalescent Care Less Than 30 days Type of Care Needed: Skilled Rehab Potential: Good Prognosis: Good - Additional Orders/Day of Discharge Day of Discharge: 01/20/19 - Dietary and Speech Recommendations Dietitian Recommendations/Changes: Rec diet change to CHO controlled. Continue Glucerna w/ medpass and Braxton BID. - Follow Up Care Primary Care Physician: Ariel Ferro MD [Primary Care Provider] - Please follow up with your Primary Care Physician in: in 1-2 week Please Follow Up With: Jaydon Lazaro MD When: in about 2 weeks for GI bleed and PAD Please Follow Up With: Laurita Correa DPM When: IN 2-3 WEEKS Please Follow Up With: Jaydon Eaton MD When: IN 3 WEEKS FOR Right toe osteomyelitis
--- NOTE | 2019-01-20 10:50 | NURSING ---
pt c/o SOB at this time. VSSl. Currently satting 100% on RA. Pt pulled up in bed.
--- NOTE | 2019-01-20 10:54 | DS.PCM_ITS ---
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) Other specified peripheral vascular diseases (Chronic) Type 2 diabetes mellitus with diabetic polyneuropathy (Chronic) Osteomyelitis of right foot (Chronic) Asthma (Chronic) Cough (Chronic) Tobacco abuse (Chronic) COPD (chronic obstructive pulmonary disease) (Chronic) Diabetes mellitus (Chronic) HTN (hypertension) (Chronic) Hyperlipidemia (Chronic) Hospital Course and Treatment Consultations 01/18/19 14:21 Consult: Onc/Wound/cot assembler Routine Comment: Operations: None Summary of Care Provided: [] This 78-year-old gentleman with history of diabetes mellitus type 2 with diabetic polyneuropathy, chronic right diabetic foot infection/ulcer , complicated with osteomyelitis with history of left BKA. Wound culture is positive for Proteus, Turiecella otitidis, Staphylococcus simulans and Enterococcus faecalis on vancomycin sensitive. On Augmentin. The patient is being transferred from rehab unit to PCU for upper GI bleed. Patient has large black stool suggestive of melena yesterday night. H&H dropped from 11.6/32.9 on 01/12 to 5.3/15 on 01/18. Patient denies dizziness, lighth eadedness, abdominal pain, chest pain or shortness of breath. The patient had orthostatic vitals taken in rehab unit. In supine 129/65, heart rate 78, sitting 121/53, heart rate 80 and on standing 135/62, pulse 90/min. This is negative for orthostatic change. Patient is admitted on stepdown unit for further evaluation and management 1. Acute anemia of blood loss; secondary to upper GI bleed on baseline anemia of chronic disease: Patient is being admitted to stepdown unit. Patient had a total of 4 units of PRBC transfusion . Patient had repeat H&H 7.0/.5 after 2 units of transfusion therefore 2 more units of transfusion done yesterday. EGD shows grade B reflux esophagitis, small hiatal hernia. Erythematous mucosa in the antrum with altered blood/coffee-ground material in gastric antrum. Normal duodenum. Patient is on IV Protonix 40 g every 12 hourly. Discontinue Ringer lactate. She tolerated clear liquid diets. Repeat H&H stays above 8 for [address] Jaydon Lazaro. Patient is being discharged on Protonix 40 mg twice daily and Carafate 1 g 4 times daily along with ferrous sulfate 325 mg 3 times daily. Follow with Dr. Jaydon Lazaro in 1 to 2 weeks for GI blood loss and peripheral artery disease. Patient had ultrasound-guided right IJ central line inserted on the day of admission. This was removed. * DVT prophylactic dose Lovenox discontinued. Stool for occult blood is positive. Iron studies shows iron 56, TIBC 219, ferritin 119 and iron saturation 25% suggestive of anemia of chronic disease. * B12 623 on 01/10. RBC folate 10,000. 2. RLE diabetic foot infection and toe infection with osteomyelitis with peripheral arterial disease * s/p bedside I+D on 01/09 * Cx + for proteus and Staphylococcus stimulants, Enterococcus faecalis, vancomycin sensitive. * Toe bone culture on 01/10. Culture is positive of Proteus mirabilis, Turiecella otitidis, Staphylococcus simulans and Enterococcus faecalis on vancomycin sensitive * Augmentin through 02/22 * Continue follow-up with ID. * Patient seen by Dr. Correa * Patient has outpatient follow-up with Dr. Lazaro. Arterial Doppler shows biphasic waves in the right DP and NEWS REEL CAMERAMAN. JHON 0.8 3. hyponatremia: * Last sodium 136. 4. COPD: * not in exacerbation prednisone discontinued 5. Chronic cachexia: Patient seen by data center project manager thinks patient does not meet criteria for malnutrition. Patient has chronic cachexia secondary to diabetes mellitus and other chronic disease. * presumed * prealbumin 8.4 * continue Glucerna shake QID plus Braxton 6. right arm pain * s/p fall * suspect rotator cuff tear/injury * conservative mgmt * pt able to raise bother arms up without difficulty 7. ZACHARY * resolved * Prerenal etiology * Creatinine went up from 1.25-1.4. Creatinine improved to 1.35. Discontinue naproxen 9. Delirium * head CT from the 12th showed chronic involution changes with old lacunar infarct * Resolved DVT prophylaxis: Lovenox discontinued. SCD on right lower extremity Discharge medication reconciliation done. Discharge follow-up instructions completed. Discharge process discussed with the patient and all questions were answered to patient's satisfaction. No aspirin for at least 1 to 2 weeks and follow with PCP or general surgeon, Dr. Jaydon Lazaro before resumption. Patient is being discharged to SNF. Total time spent, exact 35 minutes on discharge meds reconciliation, examination, review of imaging and blood test and discussion with the patient on follow-up instructions. Patient Problems: Active and Suspected Problems (Last Reviewed 01/18/19 @ 10:35 by Akilah Winslow PA-C) Upper GI bleed (Acute) Subjective: Seen and examined. No shortness of breath or chest pain or/tightness. Patient denies abdominal pain. Patient had very small brownish stool yesterday morning prior with a residual blood. Discussed with the surgeon Dr. Jaydon Lazaro - Physical Exam General: Alert, Oriented x3, Cooperative HEENT: Atraumatic, PERRLA, EOMI, Normocephalic Neck: Supple, No JVD, Negative Carotid Bruits Lungs: Clear to auscultation, No rhonchi, No wheeze, No rales, Diminished - Entry is diminished in bilateral lung bases Cardiovascular: Regular rate, Regular Rhythm, Normal S1, Normal S2, No murmurs Abdomen: Bowel Sounds Present, Soft, Non Tender, Non-Distended Extremities: No edema, Capillary Refill Less than 3 Seconds Skin: Ulcer/ Wound - Right great toe/foot ulcer. 2 mellitus Musculoskeletal: No Tenderness to Palpation of Joints or Extremities, Arthritic Changes, Muscle Wasting Lymphatic: No Cervical, Supraclavicular, or Inguinal Adenopathy Neurological: Cranial nerves II-XII grossly intact, Deep Tendon Reflexes 2+/4 and Symmetrical Psych/Mental Status: Normal Affect, Appropriate Vital Signs Temp Pulse Resp BP Pulse Ox 98.3 F 88 16 153/71 H 99 01/20/19 10:48 01/20/19 10:48 01/20/19 10:48 01/20/19 10:48 01/20/19 10:48 Oxygen Flow Rate (L/min) 4 Oxygen Delivery Method Room Air Weight: 141 lb 1.533 oz Body Mass Index (BMI) 19.1 Intake and Output for Last 24 Hours 01/18/19 01/19/19 01/20/19 23:59 23:59 23:59 Intake Total 1694 / 1694 6084 / 6084 663 / 663 Output Total 1235 / 1235 3375 / 3375 900 / 900 Balance 459 / 459 2709 / 2709 -237 / -237 Laboratory Tests Past 24 Hrs 01/18/19 01/18/19 01/19/19 10:12 10:12 18:45 WBC RBC Hgb 7.5 L Hct 21.5 L MCV MCH MCHC RDW RDW Differential Plt Count MPV Immature Gran % (Auto) Neut % (Auto) Lymph % (Auto) [place] % (Auto) Eos % (Auto) Baso % (Auto) Absolute Neuts (auto) Absolute Lymphs (auto) Total Counted Sodium Potassium Chloride Carbon Dioxide Anion Gap BUN Creatinine Estim Creat Clear Calc Est GFR (MDRD) Af Amer Est GFR (MDRD) Non-Af BUN/Creatinine Ratio Glucose Calcium Crossmatch See Detail See Detail 01/20/19 01/20/19 04:40 04:40 WBC 11.2 H RBC 2.74 L Hgb 8.4 L Hct 24.1 L MCV 88.0 MCH 30.7 MCHC 34.9 RDW 15.2 H RDW Differential 46.2 H Plt Count 290 MPV 9.8 Immature Gran % (Auto) 1.200 H Neut % (Auto) 73.5 H Lymph % (Auto) 15.7 L [place] % (Auto) 7.1 Eos % (Auto) 2.1 Baso % (Auto) 0.4 Absolute Neuts (auto) 8.3 H Absolute Lymphs (auto) 1.77 Total Counted Not Reportable Sodium 141 Potassium 4.1 Chloride 109 H Carbon Dioxide 28.0 Anion Gap 4 L BUN 35 H Creatinine 1.35 H Estim Creat Clear Calc 40.82 Est GFR (MDRD) Af Amer 66 Est GFR (MDRD) Non-Af 54 L BUN/Creatinine Ratio 25.9 H Glucose 106 Calcium 8.2 L Crossmatch POC Glucose 01/20/19 01/19/19 01/19/19 06:15 23:10 16:37 POC Glucose 119 H 184 H 101 01/19/19 11:11 POC Glucose 296 H Home Medications: Medications to take at Discharge Amlodipine [Norvasc] 10 mg PO DAILY 04/30/14 Atenolol [Tenormin (beta lisa)] 100 mg PO DAILY 04/30/14 Atorvastatin Calcium 40 mg PO QHS 01/27/17 Lisinopril [Zestril] 2.5 mg PO DAILY 01/27/17 albuterol sulfate HFA 90 mcg/actuation aerosol inhaler 1 puff INHALATION Q4H PRN PRN #1 inhaler 01/03/18 Acetaminophen [Tylenol Tablet] 650 mg PO Q6H PRN PRN tablet 01/11/19 Amox/Clavulanate Tablet [Augmentin Tablet] 875 mg PO BID 01/11/19 Glucerna Shake 120 ml PO 4X/DAY 01/11/19 Insulin Lispro [Humalog KwikPen] See Protocol SC ACHS insuln.pen 01/11/19 Nutritional Supplement [Braxton - [place] FLAVOR] 1 packet PO BIDCM packet 01/11/19 Aspirin E.C. [Ecotrin] 81 mg PO DAILY@0800 #0 01/20/19 Docusate Sodium [Colace] 200 mg PO BID PRN PRN capsule 01/20/19 Ferrous Sulfate [Ferosul] 325 mg PO TID #90 tab 01/20/19 Insulin Lispro [Humalog KwikPen] See Protocol SQ Q6 insuln.pen 01/20/19 Pantoprazole Sodium [Protonix] 40 mg PO BID #60 tab 01/20/19 Sucralfate [Carafate] 1 gm PO 4X/DAY #120 udc 01/20/19 Following Prescrptions Were Given to Patient: Pantoprazole Sodium [Protonix] 40 mg PO BID #60 tab Ferrous Sulfate [Ferosul] 325 mg PO TID #90 tab Sucralfate [Carafate] 1 gm PO 4X/DAY #120 udc Primary Care Physician: Ariel Ferro MD [Primary Care Provider] - Please follow up with your Primary Care Physician in: in 1-2 week Please Follow Up With: Jaydon Lazaro MD When: in about 2 weeks for GI bleed and PAD Please Follow Up With: Laurita Correa DPM When: IN 2-3 WEEKS Please Follow Up With: Jaydon Eaton MD When: IN 3 WEEKS FOR Right toe osteomyelitis Medical Necessity - Tobacco Use Smoking Status: Current every day smoker Meaningful Use Info Meaningful Use Diagnoses (Choose all that apply): None applicable Code Visit Inpatient E&M: 94866 Disch Hosp
--- NOTE | 2019-01-20 11:10 | CASEMGMT ---
Physician may send patient today. However, he wanted to check his labs today around 2p and depending on those results patient may go today or tomorrow. MEGHAN called Heydi at [facility] and let her know. MEGHAN will notify patient's daughter, Darcie as well. Plan: [facility] [place] under skilled level of care pending patient being medically ready. Leeann RUIZ MSW
--- NOTE | 2019-01-20 11:26 | CASEMGMT ---
MEGHAN called patient's daughter, Darcie and updated her on status of d/c. Leeann RUIZ RAG SHREDDER
[2019-01-20] MEDS: oxyCODONE 5 MG Tablet PO (11:59)
[2019-01-20] MEDS: Insulin Lispro 100 UNIT/ML INSULN.PEN SQ (12:00)
[2019-01-20 12:01] LABS: Bedside Glucose 159 mg/dL (70-110)
[2019-01-20 14:19] LABS: Hemoglobin 8.6 g/dl (13.0-16.5)
--- NOTE | 2019-01-20 15:07 | CASEMGMT ---
Patient is ready for discharge to [facility] [place]. MEGHAN faxed orders. Called [facility] and arranged for patient to get picked up at [facility] via wc van. MEGHAN spoke with patient and let him know about going to [facility] today and transportation. He was confused about going to the senior care so SW had to reiterate conversation about short term rehab. He said his friend Devan could take him. When MEGHAN walked in to patient's room he was looking for his wallet. He said Devan could help him find his wallet. He said this is all working out. Devan can take him to the bank if he cannot find his wallet. MEGHAN then called patient's daughter Darcie and let her know about discharge. MEGHAN asked her about patient's friend, Devan. She said they do not know him and are a little worried he may be taking advantage of patient. She said patient is already having a hard time managing his money. MEGHAN told her that SW set up transport and we will have patient go by wheelchair van. MEGHAN told her this is not covered by insurance and gave her approximate cost of $45 base fee and then $2.50 per mile. MEGHAN told her it would be under $100 likely. She asked if the bill could be sent to her. MEGHAN obtained her address and told her will call [facility]. She thanked MEGHAN for the assistance. MEGHAN went back to patient's room to let him know that he will need to be transported to [facility] via wc van. SW had to reiterate again about short term rehab at the senior care. He forgot he was going there again and he forgot where it was again. While MEGHAN and RN were in the room, Devan found patient's wallet and gave it to him. MEGHAN called patient's daughter back and left her a voice mail letting her know about patient, Devan and patient talking about going to [facility] with Devan. MEGHAN also called [facility] and left a voice mail requesting a return call. MEGHAN will make a referral as there is concern that Devan could be taking advantage of patient. Patient does have confusion. Plan: [facility] under skilled level of care on a convalescent stay. [facility] transported via [employer] van. MEGHAN also working on a referral to [facility]. Leeann RUIZ PAY STATION ATTENDANT
--- NOTE | 2019-01-20 15:38 | CASEMGMT ---
MEGHAN spoke with Pebbles at [facility] with referral. She told SW to le [facility] know about referral and to call APS when patient is discharged from [facility]. MEGHAN called Bruna at [facility] and let her know concerns and that referral was made to APS. MEGHAN told her to call APS if patient leaves [facility]. MEGHAN then called patient's daughter, Darcie and let her know what steps MEGHAN has taken regarding situation with her dad and his friend. She thanked MEGHAN. Leeann RUIZ MSW
--- NOTE | 2019-01-20 15:46 | NURSING ---
report called to [facility]
== END 2019-01-20 16:41 | disposition skilled nursing facility (03) | DRG 378 ==
PROVIDERS: Surgery; Admitting Provider Internal Medicine; Family Provider Family Medicine; PCP Family Medicine; Referring Provider Internal Medicine; Visit Provider Student in an Organized Health Care Education/Training Program
PROC: 0DJ08ZZ Inspection of Upper Intestinal Tract, Via Natural or Artificial Opening Endoscopic (ICD-10-PCS; CPT 43235; principal; 2019-01-18 15:55)
DX: K25.4 Chronic or unspecified gastric ulcer with hemorrhage (principal); D62 Acute posthemorrhagic anemia; E87.1 Hypo-osmolality and hyponatremia; Z68.1 Body mass index [BMI] 19.9 or less, adult; M86.8X7 Other osteomyelitis, ankle and foot; R64 Cachexia; N17.9 Acute kidney failure, unspecified; E11.42 Type 2 diabetes mellitus with diabetic polyneuropathy; J44.9 Chronic obstructive pulmonary disease, unspecified; K44.9 Diaphragmatic hernia without obstruction or gangrene; K22.2 Esophageal obstruction; K21.0 Gastro-esophageal reflux disease with esophagitis; E11.51 Type 2 diabetes mellitus with diabetic peripheral angiopathy without gangrene; E78.5 Hyperlipidemia, unspecified; I10 Essential (primary) hypertension; E11.621 Type 2 diabetes mellitus with foot ulcer; L97.524 Non-pressure chronic ulcer of other part of left foot with necrosis of bone; E11.69 Type 2 diabetes mellitus with other specified complication; Z72.0 Tobacco use; Z79.4 Long term (current) use of insulin; Z89.512 Acquired absence of left leg below knee
CPT/HCPCS: 36415; 71045; 80048; 80053; 82962; 83735; 85014; 85018; 85025; 85027; 85610; 86850; 86900; 86920; 86922; 88305; 88313; 88342; 97162; 97166; 97530; 97535; 97802; J1756; J7040; J7120; P9016; A4216; J0295

== ENCOUNTER 2019-02-14 04:58 | Emergency (ER) | payer MEDICARE, OTHER, SELFPAY ==
[2019-01-18 11:36] VITALS: BMI 19.1
[2019-02-14 04:59] VITALS: BP 163/71; PULSE 68; RESP 18; TEMP 37; O2SAT 97; BMI 42.5
--- NOTE | 2019-02-14 05:05 | CT_ITS ---
STUDY: CT BRAIN WITHOUT CONTRAST REASON FOR EXAM: Male, 78 years old. Fall. Head trauma. RADIATION DOSAGE (If Supplied By Facility): CTDIvol = ( 44.99 ) mGy, DLP = ( 796.11 ) mGycm TECHNIQUE: Transaxial CT imaging of the brain was performed without administration of intravenous contrast material. Individualized dose optimization techniques were used for this CT. COMPARISON: No relevant priors. FINDINGS: There is left frontal subcutaneous hematoma measuring 3 cm in greatest diameter. Normal calvarium. Normal size ventricles and extra-axial spaces for the patient's age. There are areas of decreased attenuation within the white matter tracts of the supratentorial brain, consistent with microvascular disease changes. There is an old lacunar infarct in the right basal ganglia. Normal brainstem. Normal cerebellum. There is no intracranial hemorrhage. There are no findings of an acute ischemic infarction. Normal visualized paranasal sinuses. CT/Brain/Head without Contrast IMPRESSION: Chronic involutional changes of the brain. Electronically Signed: Shila Salmon, at 5:56 EDT Tel , Service support ,
--- NOTE | 2019-02-14 05:05 | CT_ITS ---
STUDY: CT CERVICAL SPINE WITHOUT CONTRAST REASON FOR EXAM: Male, 78 years old. Central venous line is seen on the right side its tip is at the lower part of the superior vena cava. RADIATION DOSAGE (If Supplied By Facility): CTDIvol = ( 29.04 ) mGy, DLP = ( 713.35 ) mGycm TECHNIQUE: High resolution transaxial imaging was performed without contrast material. Sagittal and coronal images were reconstructed. Individualized dose optimization techniques were used for this CT. COMPARISON: None FINDINGS: Normal craniovertebral junction. Normal anterior atlantoaxial articulation. Normal odontoid process. Normal cervical lordosis. Normal vertebral bodies and posterior osseous elements. C2-3: Endplate spondylosis. Central and paracentral disc bulge. Degenerative changes of the bilateral facet joints and uncovertebral joints. Moderate to severe narrowing of the central canal and the bilateral intervertebral neural foramina. C3-4: Endplate spondylosis. Central and paracentral disc bulge. Degenerative changes of the bilateral facet joints and uncovertebral joints. Moderate to severe narrowing of the central canal and the bilateral intervertebral neural foramina. C4-5: Endplate spondylosis. Central and paracentral disc bulge. Degenerative changes of the bilateral facet joints and uncovertebral joints. Moderate to severe narrowing of the central canal and the bilateral intervertebral neural foramina. C5-6: Endplate spondylosis. Central and paracentral disc bulge. Degenerative changes of the bilateral facet joints and uncovertebral joints. Moderate to severe narrowing of the central canal and the bilateral intervertebral neural foramina. C6-7: Endplate spondylosis. Central and paracentral disc bulge. Degenerative changes of the bilateral facet joints and uncovertebral joints. Moderate to severe narrowing of the central canal and the bilateral intervertebral neural foramina. C7-T1: Endplate spondylosis. 3 mm spondylosis is. Degenerative changes of the bilateral facet joints . Normal central canal. Mild narrowing of the bilateral intervertebral neural foramina. Normal visualized soft tissue structures. CT/Spine Cervical without Contras IMPRESSION: Multilevel degenerative changes, as described above. Electronically Signed: Shila Salmon, at 6:19 EDT Tel , Service support ,
--- NOTE | 2019-02-14 05:21 | ED.VISSUMM ---
- ER Visit Summary Date of Service: 02/14/19 Chief Complaint: Fall History of Present Illness: The patient is a 78 M who sustained a mechanical fall out of a chair early this morning. Patient hit his head. He did not lose consciousness. He noted some swelling to his left forehead. Denies any other pain like neck pain or body pain. Denies any vision changes, speech changes, facial droop, weakness. Denies any chest pain or shortness of breath. Denies abdominal pain, vomiting, or nausea. He does not take blood thinners. Physical Examination: Afebrile and vital signs unremarkable. Patient has a hematoma to his left forehead. Otherwise head is atraumatic to inspection. Neck shows normal inspection. Nontender. HEENT exam unremarkable. Cranial nerves grossly intact. Heart regular. Lungs clear. Abdomen soft. Extremities atraumatic??he does have a left leg amputation. Normal strength and sensation, symmetric. Test Results: CT brain and C-spine are pending. Emergency Department Course and Treatment: Imaging of his head and neck was performed given his age and trauma. No indication for other imaging or diagnostic testing. He declined pain medicine. Imaging showed soft tissue swelling but nothing acute. No fracture or bleeding. Patient will be discharged back to his facility. Return for any new or worsening issues. Treatment Plan: As above Disposition: Discharge Impression: 1. Closed head injury This note was generated with Neo[employer] dictation software. It may contain incorrect words, spelling, and punctuation that were not noted in review of the chart prior to signing ED Disposition - Plan for ED Patient: Referrals: Ariel Ferro MD [Primary Care Provider] -
--- NOTE | 2019-02-14 05:24 | ED.DCSUM_ITS ---
- ER Visit Summary Date of Service: 02/14/19 Chief Complaint: Fall History of Present Illness: The patient is a 78 M who sustained a mechanical fall out of a chair early this morning. Patient hit his head. He did not lose consciousness. He noted some swelling to his left forehead. Denies any other pain like neck pain or body pain. Denies any vision changes, speech changes, facial droop, weakness. Denies any chest pain or shortness of breath. Denies abdominal pain, vomiting, or nausea. He does not take blood thinners. Physical Examination: Afebrile and vital signs unremarkable. Patient has a hematoma to his left forehead. Otherwise head is atraumatic to inspection. Ne ck shows normal inspection. Nontender. HEENT exam unremarkable. Cranial nerves grossly intact. Heart regular. Lungs clear. Abdomen soft. Extremities atraumatic??he does have a left leg amputation. Normal strength and sensation, symmetric. Test Results: CT brain and C-spine are pending. Emergency Department Course and Treatment: Imaging of his head and neck was performed given his age and trauma. No indication for other imaging or diagnostic testing. He declined pain medicine. Imaging showed soft tissue swelling but nothing acute. No fracture or bleeding. Patient will be discharged back to his facility. Return for any new or worsening issues. Treatment Plan: As above Disposition: Discharge Impression: 1. Closed head injury This note was generated with Venga dictation software. It may contain incorrect words, spelling, and punctuation that were not noted in review of the chart prior to signing ED Disposition - Plan for ED Patient: Referrals: Ariel Ferro MD [Primary Care Provider] -
--- NOTE | 2019-02-14 05:24 | ED.DEP ---
ED Disposition - Plan for ED Patient: Instructions: ED Head Injury Closed Referrals: Ariel Ferro MD [Primary Care Provider] -
[2019-02-14] MEDS: Acetaminophen 500 MG Tablet 1000 MG PO (06:34)
[2019-02-14 06:35] VITALS: BP 148/75; PULSE 72; RESP 16; O2SAT 99
--- NOTE | 2019-02-14 06:50 | NEWVISION ---
report called to neelam at the e.
== END 2019-02-14 06:51 | disposition skilled nursing facility (03) ==
PROVIDERS: Emergency Provider Emergency Medicine; Family Provider Family Medicine; PCP Family Medicine
DX: S09.90XA Unspecified injury of head, initial encounter (principal); W07.XXXA Fall from chair, initial encounter; R29.810 Facial weakness; E11.9 Type 2 diabetes mellitus without complications; I10 Essential (primary) hypertension; E78.00 Pure hypercholesterolemia, unspecified; J44.9 Chronic obstructive pulmonary disease, unspecified; K21.9 Gastro-esophageal reflux disease without esophagitis; F03.90 Unspecified dementia, unspecified severity, without behavioral disturbance, psychotic disturbance, mood disturbance, and anxiety; Z87.891 Personal history of nicotine dependence
CPT/HCPCS: 70450; 72125; 99284

== ENCOUNTER → 2019-02-28 14:34 | Outpatient (CLI) | payer MEDICARE, OTHER, SELFPAY ==
[2019-02-28 14:14] VITALS: BMI 42.5
[2019-02-28 15:07] LABS: Absolute Lymphocyte Count 1.67 X10^3/ul (0.83-4.51); Absolute Neutrophil Count 5.8 X10^3/uL (2.0-7.7); Basophil# 0.02 X10^3/uL; Basophil% 0.2 % (0-1); Eosinophils% 3.5 % (0-5); Hemoglobin 11.7 g/dl (13.0-16.5); Lymphocyte # 1.67 X10^3/ul (4.0); Lymphocyte % 19.4 % (19-41); Mean Corp Hgb Conc 33.4 g/gl (32-36); Mean Corpuscular Hgb 30.2 pg (27.0-32.0); Mean Corpuscular Volume 90.2 fL (80-94); Mean Platelet Vol. 10.7 fl (6.2-12.0); Monocyte# 0.76 X10^3/uL; Monocyte% 8.8 % (0-10); Neutrophil # 5.83 X10^3/uL (2.7-7.7); Neutrophil % 67.9 % (47-70); POSITIVE COUNT NO; POSITIVE DIFFERENTIAL NO; POSITIVE MORPHOLOGY NO; Platelet Count 252 K/mm3 (150-450); RBC Distribution Width CV 15.1 % (11.6-14.6); RBC Distribution Width SD 49.2 fl (35.1-43.9); Red Blood Count 3.88 M/mm3 (4.6-6.2); White Blood Count 8.6 K/mm3 (4.4-11.0)
[2019-02-28 15:19] LABS: Anion Gap 5 (5-15); BUN 21 mg/dL (7-18); Calcium,Total 8.5 mg/dL (8.5-10.1); Chloride 105 mmol/L (98-107); Creatinine, Serum 1.31 mg/dL (0.70-1.30); EST Glomerular Filtration Rate 56 mL/min (>60); Est Glom Filt Rate - Afr Amer 68 mL/min (>60); Glucose 128 mg/dL (74-106); Potassium 3.8 mmol/L (3.5-5.1); Sodium Level 139 mmol/L (136-145)
== END ==
PROVIDERS: Family Provider Family Medicine; PCP Family Medicine; Referring Provider Surgery; Visit Provider Surgery
DX: E11.628 Type 2 diabetes mellitus with other skin complications (principal); L08.9 Local infection of the skin and subcutaneous tissue, unspecified; N17.9 Acute kidney failure, unspecified
CPT/HCPCS: 36415; 80048; 85025

== ENCOUNTER 2019-06-21 09:15 | Day surgery (SDC) | payer MEDICARE, OTHER, SELFPAY ==
[2019-05-03 09:49] VITALS: BMI 42.5
--- NOTE | 2019-05-31 14:27 | HP_ITS ---
Intake Vital Signs 05/03/19 Body Mass Index (BMI) 42.5 05/03/19 Height 6 ft 05/03/19 Weight: 160 lb 05/03/19 Body Mass Index (BMI) 21.7 05/03/19 Blood Pressure 166/81 H 05/03/19 Blood Pressure Location Rt brachial 05/03/19 Respiratory Rate 14 05/03/19 Pulse Rate 76 05/03/19 Pulse Source Monitor 05/03/19 Temperature 97.9 F 05/03/19 Pulse Ox 100 05/03/19 Oxygen Delivery Method room air 04/25/19 Body Mass Index (BMI) 42.5 Intake Visit Reasons: Vasc FU - Discuss Sx Chief Complaint: GI Bleed Moth Exterminator Required: No Is patient in pain?: No Allergies No Known Allergies Allergy (Verified 05/03/19 09:11) Medications Amlodipine [Norvasc] 10 mg PO DAILY 04/30/14 [History Confirmed 05/03/19] Atenolol [Tenormin (beta lisa)] 100 mg PO DAILY 04/30/14 [History Confirmed 05/03/19] Atorvastatin Calcium 40 mg PO QHS 01/27/17 [History Confirmed 05/03/19] Lisinopril [Zestril] 2.5 mg PO DAILY 01/27/17 [History Confirmed 05/03/19] albuterol sulfate HFA 90 mcg/actuation aerosol inhaler 1 puff INHALATION Q4H PRN PRN #1 inhaler 01/03/18 [Rx Confirmed 05/03/19] Glucerna Shake 120 ml PO 4X/DAY 01/11/19 [History Confirmed 05/03/19] Insulin Lispro [Humalog KwikPen] See Protocol SUBCUT ACHS insuln.pen 01/11/19 [Rx Confirmed 05/03/19] Nutritional Supplement [Braxton - ORANGE FLAVOR] 1 packet PO BIDCM packet 01/11/19 [Rx Confirmed 05/03/19] Docusate Sodium [Colace] 200 mg PO BID PRN PRN cap 01/20/19 [Rx Confirmed 05/03/19] Ferrous Sulfate [Ferosul] 325 mg PO TID #90 tab 01/20/19 [Rx Confirmed 05/03/19] Pantoprazole Sodium [Protonix] 40 mg PO BID #60 tab 01/20/19 [Rx Confirmed 05/03/19] Sucralfate [Carafate] 1 gm PO 4X/DAY #120 udc 01/20/19 [Rx Confirmed 05/03/19] Hydroxyzine HCl 50 mg PO BID PRN 02/14/19 [History Confirmed 05/03/19] bisacodyl 10 mg rectal suppository 10 mg RC DAILY PRN 05/03/19 [History Confirmed 05/03/19] magnesium hydroxide 400 mg/5 mL oral suspension 30 ml PO DAILY PRN ml 05/03/19 [History Confirmed 05/03/19] melatonin 1 mg tablet 1 mg PO HS 05/03/19 [History Confirmed 05/03/19] mineral oil enema 118 ml RC ONCE PRN 05/03/19 [History Confirmed 05/03/19] PFS Medical History PAD (peripheral artery disease) (Acute) Colonoscopy planned (Resolved) Asthma (Chronic) Cough (Chronic) Dyspnea (Acute) Tobacco abuse (Chronic) Lung mass (Acute) COPD (chronic obstructive pulmonary disease) (Chronic) Hypoxia (Acute) Diabetes mellitus (Chronic) HTN (hypertension) (Chronic) Hyperlipidemia (Chronic) ZACHARY (acute kidney injury) (Acute) Pneumonia (Acute) Sepsis (Acute) Hyponatremia (Acute) Surgical History H/O hernia repair (Resolved) History of appendectomy (Resolved) Amputation of left lower extremity below knee (Resolved) Family History Mother Hypertension Asthma Father Hypertension Sister Hypertension Brother Hypertension Social History (Updated 05/03/19 @ 09:49 by Jaydon Lazaro MD) Smoking Status: Former smoker second hand exposure: Yes alcohol intake: never substance use type: does not use caffeine: No what type of physical activity do you participate in: none HPI HPI HPI: ADDY YUEN, is a 78 M who presents to the office today for HPI HPI Surgical H&P: Yes HPI: ADDY YUEN, is a 78 M who presents to the office today for ongoing discussion regarding right lower extremity peripheral vascular occlusive disease right great toe ulceration and right medial malleolus skin integrity compromise. I actually had an extensive visit with this patient on February 28, 2019. 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 He is at high risk for limb loss of the right lower extremity. Because of his current stay in a nursing facility he is no longer using tobacco and has not since December 2018. My most recent intervention with the patient actually was a upper endoscopy that was performed to address a GI bleed during his hospitalization January 26, 2019. That demonstrated some distal esophagitis a small hiatal hernia and a mild Schatzki ring. I suspected a possible lesser curvature ulcer. Since that time his hemoglobin was demonstrated to stabilize. As of January 09 his right PT and DP ABIs were 0.81 and 0.81 respectively waveforms were only biphasic. Intake Visit Reasons: [facility] F/U 02/14 GI Bleed Chief Complaint: GI Bleed Moth Exterminator Required: No Is patient in pain?: No Allergies No Known Allergies Allergy (Verified 02/28/19 14:11) Medications Amlodipine [Norvasc] 10 mg PO DAILY 04/30/14 [History Confirmed 02/28/19] Atenolol [Tenormin (beta lisa)] 100 mg PO DAILY 04/30/14 [History Confirmed 02/28/19] Atorvastatin Calcium 40 mg PO QHS 01/27/17 [History Confirmed 02/28/19] Lisinopril [Zestril] 2.5 mg PO DAILY 01/27/17 [History Confirmed 02/28/19] albuterol sulfate HFA 90 mcg/actuation aerosol inhaler 1 puff INHALATION Q4H PRN PRN #1 inhaler 01/03/18 [Rx Confirmed 02/28/19] Acetaminophen [Tylenol Tablet] 650 mg PO Q6H PRN PRN tab 01/11/19 [Rx Confirmed 02/28/19] Glucerna Shake 120 ml PO 4X/DAY 01/11/19 [History Confirmed 02/28/19] Insulin Lispro [Humalog KwikPen] See Protocol SUBCUT ACHS insuln.pen 01/11/19 [Rx Confirmed 02/28/19] Nutritional Supplement [Braxton - ORANGE FLAVOR] 1 packet PO BIDCM packet 01/11/19 [Rx Confirmed 02/28/19] Docusate Sodium [Colace] 200 mg PO BID PRN PRN cap 01/20/19 [Rx Confirmed 02/28/19] Ferrous Sulfate [Ferosul] 325 mg PO TID #90 tab 01/20/19 [Rx Confirmed 02/28/19] Pantoprazole Sodium [Protonix] 40 mg PO BID #60 tab 01/20/19 [Rx Confirmed 02/28/19] Sucralfate [Carafate] 1 gm PO 4X/DAY #120 udc 01/20/19 [Rx Confirmed 02/28/19] Hydroxyzine HCl 50 mg PO BID PRN 02/14/19 [History Confirmed 02/28/19] [facility] Medical History Colonoscopy planned (Resolved) Asthma (Chronic) Cough (Chronic) Dyspnea (Acute) Tobacco abuse (Chronic) Lung mass (Acute) COPD (chronic obstructive pulmonary disease) (Chronic) Hypoxia (Acute) Diabetes mellitus (Chronic) HTN (hypertension) (Chronic) Hyperlipidemia (Chronic) ZACHARY (acute kidney injury) (Acute) Pneumonia (Acute) Sepsis (Acute) Hyponatremia (Acute) Surgical History H/O hernia repair (Resolved) History of appendectomy (Resolved) Amputation of left lower extremity below knee (Resolved) Family History Mother Hypertension Asthma Father Hypertension Sister Hypertension Brother Hypertension Social History Smoking Status: Former smoker second hand exposure: Yes alcohol intake: never substance use type: does not use caffeine: No what type of physical activity do you participate in: none HPI HPI HPI: ADDY YUEN, is a 78 M who presents to the office today for ongoing surgical follow-up for 2 separate issues. He was hospitalized at the [facility] for a drop in hemoglobin and diagnosed upper GI bleed. His most recent laboratory is of January 26, 2019 where his white blood cell count was 8.7 and hemoglobin 9.4 hematocrit 28.3 and platelet count 4 and 16,000. At that same time his BUN was 23 and creatinine 1.36. His estimated GFR was 65. Hemoglobin A1c was 6.3. Unable 2018 I performed a urgent upper endoscopy. There was some low-grade distal esophagitis. A small hiatal hernia. A mild Schatzki ring. Mildly erythematous mucosa consistent with recent bleeding of the gastric and some with a suspected possible lesser curvature ulcer but there was acute angulation inhibiting clean visualization. The patient was treated medically. He improved from a hemoglobin low at 5.3. He has had a remote left below-knee amputation. He also is referred today for ongoing surgical consultation regarding wounds of his right lower extremity/peripheral vascular occlusive disease. He has a long-term history of Buerger's disease. He continues to smoke cigarettes. He does note that his recent upper endoscopy was H. pylori negative. As of January 09, 2019 he had PVRs obtained. The right PT and DP ankle-brachial indices were 0.81 and 0.81. Doppler waveforms however are biphasic. I would have concerns that there is medial calcification of the vessel allen likely falsely elevating those numbers. Curiously from the [facility] on January 09, 2019 the right DP and PT ABIs were 0.71 and 0.69 respectively With diligent management his right great toe wound has improved since hospitalization HPI HPI HPI: ADDY YUEN, is a 78 M who presents to the office today for ROS General General: No weight change, appetite, fatigue, colon cancer, breast cancer or weakness Endo Endocrine: Yes diabetes mellitus; no thyroid disease, thyroid cancer, Hair loss, heat intolerance or cold intolerance Skin Skin: No rash or changing moles Breast Breast: No left breast lump, right breast lump, nipple discharge, breast pain, abnormal mammogram, abnormal US or breast enlargement Musc Musculoskeletal: Yes arthritis; no back problems, rheumatoid arthritis, gout or joint pain Cardio Cardiovascular: Yes high blood pressure; no murmur, pacemaker, heart disease, atrial fibrillation, heart attack, heart stent, palpitations, shortness of breat with exertion or chest pain Psych Psychiatric: No depression, anxiety or hearing voices Resp Respiratory: Yes shortness of breath, No sleep apnea, No cough, No COPD, No asthma, No emphysema, No wheezing Gastro Gastrointestinal: No abdominal pain, No nausea or vomiting, No diarrhea, No constipation, No blood in stool, No acid reflux, No hemorrhoids, No ulcers, No gallbladder problem, No black,tarry stools Jona Hematologic: No blood thinners, No blood disorders, No bleeding, No anemia, No blood clots Neuro Neurologic: No system reviewed and no additional complaints, except as docu, No as per HPI, No abnormal walking, No abnormal hearing, No abnormal movements, No abnormal speech, No behavioral changes, No burning sensations, No confusion, No seizure-like activity, No unsteadiness, No dizziness, No localized weakness, No frequent falls, No headache(s), No lack of coordination, No loss of vision, No memory loss, Yes numbness, No other visual disturbances, No radiating pain, No restless legs, No sensory deficit, No fainting, Yes tingling, No tremor(s), No weakness, No other Exam Chest Breast Palpation: No nipple discharge Cardio Heart Sounds: no murmurs Other: Right femoral pulse 3+. Right popliteal pulse 2+. Right DP and PT pulses not palpable Assessment & Plan Problems 1. Upper GI bleed 2. PAD (peripheral artery disease) I73.9 3. ZACHARY (acute kidney injury) N17.9 Plan 78-year-old gentleman. Recent findings included an upper GI bleed with significant loss of hemoglobin requiring transfusion. That appears to have stabilized. I recommend that we obtain a CBC today to assess stability The patient is a long-term tobacco smoker. He is diabetic. He has acute kidney injury during his hospitalization on top of chronic renal failure. He has had a previous left below-knee amputation. He presents in a wheelchair today. He does stand on his right leg to help with balance and pivoting I propose that we obtain a BMP today to recheck his renal function. 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 This likely is complicating his distal small vessel disease/Buerger's disease. Fortunately in his current nursing facility he is not permitted to smoke. I have offered him a abdominopelvic right lower extremity arteriogram if his lab work will permit. I have discussed the technique, benefit, risks, alternatives. He has had an opting to ask and have questions answered. At this point he is not interested in pursuing that. He has had an opportunity to ask and have questions answered. I very much appreciate the kind opportunity of assisting with his surgical care. CC: Dr. Robert Mari and Jorge Luis Ferro and Dr Laurita Lazaro M.D., F.A.C.S. Orders Orders: CBC W/Diff, Automated Today E11.628, L08.9 Basic Metabolic Profile (BMP) Today N17.9 Coding Level of Care Code Off vis,est,level 3 Diagnoses Upper GI bleed PAD (peripheral artery disease) I73.9 ZACHARY (acute kidney injury) N17.9 02/28/19 1452<Electronically signed by Jaydon Lazaro MD> Date Jaydon Lazaro MD Cosigner Signature:Date (if applicable) CC: Handy Miller; Laurita Correa DPM; Robert Mari MD; Ariel Ferro MD ~ ROS General General: No weight change, appetite, fatigue, colon cancer, breast cancer or weakness Endo Endocrine: Yes diabetes mellitus; no thyroid disease, thyroid cancer, Hair loss, heat intolerance or cold intolerance Skin Skin: No rash or changing moles Breast Breast: No left breast lump, right breast lump, nipple discharge, breast pain, abnormal mammogram, abnormal US or breast enlargement Musc Musculoskeletal: Yes arthritis; no back problems, rheumatoid arthritis, gout or joint pain Cardio Cardiovascular: Yes high blood pressure; no murmur, pacemaker, heart disease, atrial fibrillation, heart attack, heart stent, palpitations, shortness of breat with exertion or chest pain Psych Psychiatric: No depression, anxiety or hearing voices Resp Respiratory: Yes shortness of breath, No sleep apnea, No cough, No COPD, No asthma, No emphysema, No wheezing Gastro Gastrointestinal: No abdominal pain, No nausea or vomiting, No diarrhea, No constipation, No blood in stool, No acid reflux, No hemorrhoids, No ulcers, No gallbladder problem, No black,tarry stools Jona Hematologic: No blood thinners, No blood disorders, No bleeding, No anemia, No blood clots Neuro Neurologic: No weakness Exam Chest Breast Palpation: No nipple discharge Cardio Heart Sounds: no murmurs Extrem Other: Right great toe has a majority missing nail with dry ulceration medial and lateral to the central toe of nail fragment. Marked atrophy noted. Medial malleolar area has a moist 2 cm diameter area of early epidermal lysis. Chronic changes of hyperpigmentation and generalized atrophy of the skin Assessment & Plan Plan 78-year-old gentleman who was previously evaluated with recommendations to pursue a right lower extremity arteriogram with carbon dioxide and contrast to facilitate resolution of a right great toe ulcer and in hopes of preventing a lower extremity amputation as he has had on the left. The patient is well aware that he remains at high risk for limb loss. He was previously seen and tentatively scheduled but could not desired on pursuing the procedure. He returns today with request to pursue the procedure. He has had an opportunity to ask and have questions answered. He is well aware that there are no guarantees of success. I have cautioned him that his vessels are very calcified and may not be amendable to endovascular treatment. He does still use his right lower extremity to stand and pivot. I believe that there is value in trying to improve his blood flow. We are currently scheduling into May as I will be out of town for period of time. We will schedule him at earliest convenience. CC: Dr. Pillo Lazaro M.D., F.A.C.S. Medications Discontinued: acetaminophen Discontinued Reason: Pt no longer taking 650 mg (2 x 325 mg) PO Q6H PRN PRN 0RF Non-cardiac pain (mod-severe) Coding Level of Care Code Off vis,est,level 3 I have re-examined the patient. There are no clinical changes since date of exam.
[2019-06-21 09:44] LABS: Hemoglobin 13.3 g/dL (13.0-16.5); Mean Corp Hgb Conc 33.3 g/dL (32-36); Mean Corpuscular Hgb 30.1 pg (27.0-32.0); Mean Corpuscular Volume 90.5 fL (80-94); Mean Platelet Vol. 11.7 fl (6.2-12.0); Platelet Count 225 K/mm3 (150-450); RBC Distribution Width CV 13.8 % (11.6-14.6); RBC Distribution Width SD 46.5 fl (35.1-43.9); Red Blood Count 4.42 M/mm3 (4.6-6.2); White Blood Count 8.5 K/mm3 (4.4-11.0)
[2019-06-21 09:51] LABS: Anion Gap 2 (5-15); BUN 34 mg/dL (7-18); BUN/Creat Ratio 21.4 RATIO (10-20); Calcium,Total 8.7 mg/dL (8.5-10.1); Chloride 109 mmol/L (98-107); Creatinine, Serum 1.59 mg/dL (0.70-1.30); EST Glomerular Filtration Rate 45 mL/min (>60); Est Glom Filt Rate - Afr Amer 54 mL/min (>60); Glucose 118 mg/dL (74-106); Potassium 3.7 mmol/L (3.5-5.1); Sodium Level 141 mmol/L (136-145)
--- NOTE | 2019-06-21 10:13 | HP.PCM_ITS ---
Problem List (1) PAD (peripheral artery disease) Status: Acute History and Physical Date of Admission: 06/21/19 [facility] [address] [place], [place] [id number] OFFICE VISIT Date of Service: 06/21/19 MR#:[id number] Name: ADDY YUEN Rep #:[id number] : 1940 Provider:Jaydon Lazaro MD Age/Sex: 78/M Allergies No Known Allergies Allergy (Verified 05/03/19 09:11) Medications Amlodipine [Norvasc] 10 mg PO DAILY 04/30/14 [History Confirmed 05/03/19] Atenolol [Tenormin (beta lisa)] 100 mg PO DAILY 04/30/14 [History Confirmed 05/03/19] Atorvastatin Calcium 40 mg PO QHS 01/27/17 [History Confirmed 05/03/19] Lisinopril [Zestril] 2.5 mg PO DAILY 01/27/17 [History Confirmed 05/03/19] albuterol sulfate HFA 90 mcg/actuation aerosol inhaler 1 puff INHALATION Q4H PRN PRN #1 inhaler 01/03/18 [Rx Confirmed 05/03/19] Glucerna Shake 120 ml PO 4X/DAY 01/11/19 [History Confirmed 05/03/19] Insulin Lispro [Humalog KwikPen] See Protocol SUBCUT ACHS insuln.pen 01/11/19 [Rx Confirmed 05/03/19] Nutritional Supplement [Braxton - ORANGE FLAVOR] 1 packet PO BIDCM packet 01/11/19 [Rx Confirmed 05/03/19] Docusate Sodium [Colace] 200 mg PO BID PRN PRN cap 01/20/19 [Rx Confirmed 05/03/19] Ferrous Sulfate [Ferosul] 325 mg PO TID #90 tab 01/20/19 [Rx Confirmed 05/03/19] Pantoprazole Sodium [Protonix] 40 mg PO BID #60 tab 01/20/19 [Rx Confirmed 05/03/19] Sucralfate [Carafate] 1 gm PO 4X/DAY #120 udc 01/20/19 [Rx Confirmed 05/03/19] Hydroxyzine HCl 50 mg PO BID PRN 05/21/19 [History Confirmed 05/03/19] bisacodyl 10 mg rectal suppository 10 mg RC DAILY PRN 05/03/19 [History Confirme d 05/03/19] magnesium hydroxide 400 mg/5 mL oral suspension 30 ml PO DAILY PRN ml 05/03/19 [History Confirmed 05/03/19] melatonin 1 mg tablet 1 mg PO HS 05/03/19 [History Confirmed 05/03/19] mineral oil enema 118 ml RC ONCE PRN 05/03/19 [History Confirmed 05/03/19] PFSH Medical History PAD (peripheral artery disease) (Acute) Colonoscopy planned (Resolved) Asthma (Chronic) Cough (Chronic) Dyspnea (Acute) Tobacco abuse (Chronic) Lung mass (Acute) COPD (chronic obstructive pulmonary disease) (Chronic) Hypoxia (Acute) Diabetes mellitus (Chronic) HTN (hypertension) (Chronic) Hyperlipidemia (Chronic) ZACHARY (acute kidney injury) (Acute) Pneumonia (Acute) Sepsis (Acute) Hyponatremia (Acute) Surgical History H/O hernia repair (Resolved) History of appendectomy (Resolved) Amputation of left lower extremity below knee (Resolved) Family History Mother Hypertension Asthma Father Hypertension Sister Hypertension Brother Hypertension Social History Smoking Status: Former smoker second hand exposure: Yes alcohol intake: never substance use type: does not use caffeine: No what type of physical activity do you participate in: none HPI Surgical H&P: Yes HPI: Patient is a 78 y/o M I am following for peripheral arterial disease. He presents for an update history and physical for an upcoming surgical procedure. Patient denies recent hospitalizations since the last time he was evaluated in our office. Patient does have a history of renal insufficiency. Patient denies complications or side effects from local anesthesia. He currently resides at a group home. He is a left below the knee amputee. Patient is also currently being treated for ulcerations on his right toes and medical malleolus. Patient has dressing changes daily at the group home. He presents today with his . Patient's previous history per Dr. Lazaro: ADDY YUEN, is a 78 M who presents to the office today for ongoing discussion regarding right lower extremity peripheral vascular occlusive disease right great toe ulceration and right medial malleolus skin integrity compromise. I actually had an extensive visit with this patient on February 28, 2019. 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 He is at high risk for limb loss of the right lower extremity. Because of his current stay in a nursing facility he is no longer using tobacco and has not since December 2018. My most recent intervention with the patient actually was a upper endoscopy that was performed to address a GI bleed during his hospitalization January 26, 2019. That demonstrated some distal esophagitis a small hiatal hernia and a mild Schatzki ring. I suspected a possible lesser curvature ulcer. Since that time his hemoglobin was demonstrated to stabilize. As of January 09 his right PT and DP ABIs were 0.81 and 0.81 respectively waveforms were only biphasic. ADDY YUEN, is a 78 M who presents to the office today for ongoing surgical follow-up for 2 separate issues. He was hospitalized at the [facility] for a drop in hemoglobin and diagnosed upper GI bleed. His most recent laboratory is of January 26, 2019 where his white blood cell count was 8.7 and hemoglobin 9.4 hematocrit 28.3 and platelet count 4 and 16,000. At that same time his BUN was 23 and creatinine 1.36. His estimated GFR was 65. Hemoglobin A1c was 6.3. Unable 2018 I performed a urgent upper endoscopy. There was some low-grade distal esophagitis. A small hiatal hernia. A mild Schatzki ring. Mildly erythematous mucosa consistent with recent bleeding of the gastric and some with a suspected possible lesser curvature ulcer but there was acute angulation inhibiting clean visualization. The patient was treated medically. He improved from a hemoglobin low at 5.3. He has had a remote left below-knee amputation. He also is referred today for ongoing surgical consultation regarding wounds of his right lower extremity/peripheral vascular occlusive disease. He has a long-term history of Buerger's disease. He continues to smoke cigarettes. He does note that his recent upper endoscopy was H. pylori negative. As of January 09, 2019 he had PVRs obtained. The right PT and DP ankle-brachial indices were 0.81 and 0.81. Doppler waveforms however are biphasic. I would have concerns that there is medial calcification of the vessel allen likely falsely elevating those numbers. Curiously from the [facility] on January 09, 2019 the right DP and PT ABIs were 0.71 and 0.69 respectively With diligent management his right great toe wound has improved since hospitalization ROS General General: No weight change, appetite, fatigue, colon cancer, breast cancer or weakness Endo Endocrine: Yes diabetes mellitus; no thyroid disease, thyroid cancer, Hair loss, heat intolerance or cold intolerance Skin Skin: No rash or changing moles Breast Breast: No left breast lump, right breast lump, nipple discharge, breast pain, abnormal mammogram, abnormal US or breast enlargement Musc Musculoskeletal: Yes arthritis; no back problems, rheumatoid arthritis, gout or joint pain Cardio Cardiovascular: Yes high blood pressure; no murmur, pacemaker, heart disease, atrial fibrillation, heart attack, heart stent, palpitations, shortness of breat with exertion or chest pain Psych Psychiatric: No depression, anxiety or hearing voices Resp Respiratory: Yes shortness of breath, No sleep apnea, No cough, No COPD, No asthma, No emphysema, No wheezing Gastro Gastrointestinal: No abdominal pain, No nausea or vomiting, No diarrhea, No constipation, No blood in stool, No acid reflux, No hemorrhoids, No ulcers, No gallbladder problem, No black,tarry stools Jona Hematologic: No blood thinners, No blood disorders, No bleeding, No anemia, No blood clots Neuro Neurologic: No system reviewed and no additional complaints, except as docu, No as per HPI, No abnormal walking, No abnormal hearing, No abnormal movements, No abnormal speech, No behavioral changes, No burning sensations, No confusion, No seizure-like activity, No unsteadiness, No dizziness, No localized weakness, No frequent falls, No headache(s), No lack of coordination, No loss of vision, No memory loss, Yes numbness, No other visual disturbances, No radiating pain, No restless legs, No sensory deficit, No fainting, Yes tingling, No tremor(s), No weakness, No other Exam Chest Breast Palpation: No nipple discharge Cardio Heart Sounds: no murmurs Pulm Lungs: CTA Other: Right femoral pulse 3+. Right popliteal pulse 2+. Right DP and PT pulses not palpable Assessment & Plan Problems 1. Upper GI bleed 2. PAD (peripheral artery disease) I73.9 3. ZACHARY (acute kidney injury) N17.9 Plan: Dr. Lazaro will plan to perform a right lower extremity arteriogram with carbon dioxide and contrast with possible intervention. Procedure details, risks and benefits have been reviewed. Patient has had the opportunity to ask and have questions answered. Patient verbally understands and agrees with the plan. Code Visit Inpatient E&M: 43202 Subs Hosp L1 - No charge
[2019-06-21 10:23] VITALS: BMI 20.7
[2019-06-21 11:55] LABS: ACT Activated Clotting Time 142 sec (74-137)
--- NOTE | 2019-06-21 12:07 | OP.PCM_ITS ---
Problem List (1) PAD (peripheral artery disease) Status: Acute Report of Operation Date of Procedure: 06/21/19 Pre-Operative Diagnosis: Chronic multi segmental peripheral vascular occlusive disease right lower extremity Post-Operative Diagnosis: Right lower extremity infragenicular three-vessel severe occlusive disease Surgery/Procedure Performed:: Right lower extremity arteriogram Description of Surgical Findings:: Timeout and informed consent was obtained. 78-year-old gentleman was taken to the special procedures lab placed on the table. Throughout the procedure and aliquots received a total of 50 mcg of fentanyl and 2 mg of Versed is intravenous sedation. Bilateral groins were sterilely prepped draped ultrasound was used to identify the left common femoral artery 2% lidocaine was instilled a total 6 cc was used micropuncture needle inserted micropuncture wire inserted micropuncture sheath inserted 035 J-wire inserted 5 [place] short sheath catheter inserted 035 angled Glidewire inserted and a 5 [place] universal flush catheter was placed into the abdominal aorta. I attempted to abdominal arteriograms with 20 cc of carbon dioxide each. Imaging unfortunately was not successful to identify anatomy with each. Because of the patient's renal insufficiency and because noninvasive imaging suggested infrageniculate disease I elected to forego the arteriogram of the aorta. The vessel was noted to be calcified so I was able to use a Glidewire and the universal flush catheter gain access to the right iliac system I advanced the catheter to the right external iliac. I then used diluted contrast material 5 cc a second for 5 cc to get a right distal external iliac common femoral and superficial femoral image. I then used an angled Glidewire advanced a 035 quick cross catheter into the right superficial femoral artery and then and staged approaches using 5 cc of per second for 4 cc of diluted contrast completed the arteriogram down the right lower extremity. A total of 15 cc of contrast only was utilized for this entire procedure. Patient tolerated procedure well after images were obtained I elected not to proceed with any intervention. Unfortunately the patient has severe restless leg syndrome. At no point during the procedure it could be voluntarily get the patient to assist with keeping his legs still. There was significant movement of his left amputated leg and his right lower extremity at approximately 10- second intervals. At no point did I feel that I was going to be able to obtain a static leg and a static images in order to perform technically precise endovascular maneuvers. I also did not want to give excessive amounts of contrast based upon his chronic renal function. Finally he had such severe three-vessel disease that I felt that the likelihood of success was very low. I placed a minx device in the left groin after removal of the wire catheters. That appeared to deploy well with good hemostasis. He was subsequently taken to recovery area for prolonged observation. The right lower extremity arteriogram demonstrates patent distal right external iliac common femoral profundofemoral and superficial femoral artery. There is area of about 40% stenosis of the proximal right superficial femoral with diffuse irregular calcified disease throughout. The popliteal is patent. The right anterior tibial is patent for about 8 cm the narrows and appears to obliterate. The right peroneal artery is occluded for its first 10 cm then there is evidence of some refilling. The proximal peroneal however has 2 large collaterals that exit at the site of occlusion. The right posterior tibial is flush occluded. It refills approximately 10 cm distally via extended chronic appearing collaterals Impression Severe right infrageniculate calcific three-vessel disease. Severe chronic renal insufficiency with a BUN of 34 and a creatinine of 1.59. Severe restless leg syndrome making static images extraordinarily difficult. I did not feel that the risk-benefit of pursuing this procedure was indicated. At this point I am not recommending further surgical intervention. Jaydon Lazaro M.D., F.A.C.S. Type of Anesthesia:: IV Sedation, Local
[2019-06-21 16:04] VITALS: BP 168/85; PULSE 68; RESP 18; TEMP 36.4; O2SAT 98
[2019-06-21 16:53] VITALS: BP 159/81; PULSE 67; RESP 18; O2SAT 100
--- NOTE | 2019-06-21 16:57 | NURSING ---
CALLED DR. MONDRAGON IN [facility] TO PT D/C. NO POST OP COMPLICATIONS. VSS. SITE C/D/I. OKAY TO D/C.
--- NOTE | 2019-06-21 17:23 | NURSING ---
CALLED REPORT TO [facility] [address]. NO QUESTIONS.
== END 2019-06-21 17:05 | disposition skilled nursing facility (03) ==
LOC: CLSP 09:18 → PCU 15:33
PROVIDERS: Family Provider Family Medicine; PCP Family Medicine; Referring Provider Surgery; Visit Provider Surgery
DX: I73.9 Peripheral vascular disease, unspecified (principal); N17.9 Acute kidney failure, unspecified; K92.2 Gastrointestinal hemorrhage, unspecified; E11.22 Type 2 diabetes mellitus with diabetic chronic kidney disease; E11.51 Type 2 diabetes mellitus with diabetic peripheral angiopathy without gangrene; E11.621 Type 2 diabetes mellitus with foot ulcer; E78.5 Hyperlipidemia, unspecified; F17.210 Nicotine dependence, cigarettes, uncomplicated; G25.81 Restless legs syndrome; I12.9 Hypertensive chronic kidney disease with stage 1 through stage 4 chronic kidney disease, or unspecified chronic kidney disease; I73.1 Thromboangiitis obliterans [Buerger's disease]; J44.9 Chronic obstructive pulmonary disease, unspecified; K44.9 Diaphragmatic hernia without obstruction or gangrene; N18.4 Chronic kidney disease, stage 4 (severe); Z82.49 Family history of ischemic heart disease and other diseases of the circulatory system; Z89.512 Acquired absence of left leg below knee; K22.2 Esophageal obstruction
CPT/HCPCS: 36245; 36415; 75710; 76937; 80048; 85027; 85347; 99152; 99153; C1760; J7030; J7040; Q9967; C1769; C1887